=== PATIENT | male | born 1950 | race Caucasian/White ===

== ENCOUNTER 2020-11-14 01:13 | Inpatient (IN) | payer MEDICARE, OTHER, SELFPAY ==
[2020-11-14] VITALS (33 sets, daily range): BP systolic 73–145; BP diastolic 40–94; PULSE 70–137; RESP 16–27; TEMP 36.3–36.8; O2SAT 86–99; BMI 32.7
--- NOTE | ~2020-11-14 | XR_ITS ---
XR tibia fibula RT 2V 11/14/2020 02:17 Indication: Right leg and knee pain Procedure: 2 views right tibia/fibula Comparison: No prior studies for comparison. Findings: There is moderate-severe osteoarthritis of the right knee. No acute fracture is identified. No focal soft tissue abnormality. No radiopaque foreign bodies. Impression: 1: No acute fracture. 2: Moderate-severe osteoarthritis of the right knee. Reviewed, dictated and finalized at location A. RGLASS BOAT ASSEMBLY SUPERVISOR Impression: 1: No acute fracture. 2: Moderate-severe osteoarthritis of the right knee.
--- NOTE | ~2020-11-14 | CT_ITS ---
EXAMINATION: CT abdomen pelvis w con DATE: 11/14/2020 06:14 INDICATION: Trauma. Status post fall. TECHNIQUE: Computed tomography (CT) of the abdomen and pelvis was performed without and with 100 cc O mnipaque 350 intravenous contrast. The dose-length product was 1313.85 mGy-cm. Automated exposure con trol and iterative reconstruction technique were employed. COMPARISON: None. FINDINGS: Bibasilar atelectasis. No significant pleural or pericardial effusion. There is atheroscler osis without aneurysm. No lymphadenopathy. Nonobstructive bowel gas pattern. Fatty infiltration of the liver. Calcified granulomas of the spleen. The pancreas and adrenal glands are unremarkable. There are bilateral renal cysts. Nonobstructive bowel gas pattern. Moderate lumbar spondylosis with fusion at L4-S1. 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 IMPRESSION: 1. No acute abdominal abnormality. 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 Reviewed, dictated and finalized at location A. NESS STRATEGY MANAGER
--- NOTE | ~2020-11-14 | XR_ITS ---
XR chest 1V 11/14/2020 02:17 Indication: Status post fall. Chest pain. Procedure: AP portable view of the chest Comparison: No prior studies for comparison. Findings: Left basilar infiltrates. Heart size normal. Right lung clear. No significant effusion or p neumothorax. No acute osseous abnormality. Impression: 1: Left basilar infiltrates, most likely atelectasis. Pneumonia less favored. Reviewed, dictated and finalized at location A. ST MANAGEMENT TEACHER Impression: 1: Left basilar infiltrates, most likely atelectasis. Pneumonia less favored.
--- NOTE | ~2020-11-14 | XR_ITS ---
XR hand RT min 3V 11/14/2020 02:17 Indication: Right hand pain after fall Procedure: 3 views right hand Comparison: No prior studies for comparison. Findings: No acute fracture, subluxation or dislocation. Mild polyarticular osteoarthritis. No significant soft tissue abnormality. No radiopaque foreign bodies. Impression: 1: No acute fracture. Reviewed, dictated and finalized at location A. ATAL ICU COORDINATOR Impression: 1: No acute fracture.
--- NOTE | ~2020-11-14 | CT_ITS ---
EXAMINATION: CT cervical spine wo con DATE: 11/14/2020 01:58 INDICATION: Neck pain after fall TECHNIQUE: Computed tomography (CT) of the cervical spine was performed without intravenous contrast. The dose-length product was 505 mGy-cm. Automated exposure control and iterative reconstruction tech nique were employed. COMPARISON: None FINDINGS: No acute fracture, subluxation or dislocation. There is moderate multilevel spondylosis wit h marginal osteophytes and disc narrowing, most advanced at C4-5, C5-6 and C6-7. There is mild multil evel uncinate and facet hypertrophy. Lung apices are unremarkable. Mild emphysema. There is atheroscl erosis of the carotid arteries. No significant paraspinal soft tissue abnormality. IMPRESSION: 1. No acute abnormality of the cervical spine. Reviewed, dictated and finalized at location A. DROUS AMMONIA PRODUCTION SUPERVISOR
--- NOTE | ~2020-11-14 | XR_ITS ---
XR hip RT 2V w AP pelvis 11/14/2020 03:14 Indication: Hip pain after trauma Procedure: AP pelvis and 2 views right hip Comparison: No prior studies for comparison. Findings: Pelvic rings intact. There is sclerosis of the femoral heads bilaterally, consistent with a vascular necrosis. There are surgical changes consistent with fusion at the lumbosacral junction. No acute fracture or traumatic malalignment. Sacral foramen are symmetric. Impression: 1: No acute fracture. 2: Avascular necrosis of the femoral heads. Reviewed, dictated and finalized at location A. ENT SUCCESS COUNSELOR Impression: 1: No acute fracture. 2: Avascular necrosis of the femoral heads.
--- NOTE | ~2020-11-14 | CT_ITS ---
EXAMINATION: CT BRAIN W/O DATE: 11/14/2020 01:57 INDICATION: Status post fall. Head injury. TECHNIQUE: Computed tomography (CT) of the head was performed without intravenous contrast. The dose- length product was 681.00 mGy-cm. The mA was adjusted according to patient size. Iterative reconstruc tion technique was employed. COMPARISON: CT dated 06/22/2019 FINDINGS: Normal brain parenchymal volume for age. Normal judge-white differentiation. No acute intrac ranial hemorrhage, infarction, mass or mass effect. There are scattered mild periventricular and subcortical white matter changes, most likely related to small vessel ischemic disease (microangiopathy). No ventriculomegaly or midline shift. Midline sagittal images demonstrate a normal corpus callosum, c raniovertebral junction and sella turcica. Basilar cisterns are patent. There is intracranial atheros clerosis. Paranasal sinuses and mastoids are pneumatized. No depressed skull fractures. IMPRESSION: 1. No acute intracranial abnormality. Reviewed, dictated and finalized at location A. ILE BAG SEWER
--- NOTE | 2020-11-14 01:33 | ED.FALL ---
HPI - Fall General Chief Complaint: Fall Stated Complaint: fall Time Seen by Provider: 11/14/20 01:20 Source: RN notes reviewed History of Present Illness HPI Narrative: Patient presents to emergency department from home via EMS for a fall. Patient states he was [place] this evening. The patient drove himself home and states when he got the car he tripped on the curb and struck his right leg on the door and then fell to the ground. Patient also states that when he fell he struck his face on the ground with swelling of his upper lip. He states that today he is unable to get up and EMS was called states that once EMS arrived they were able to get him to his feet he has been able to walk since that time. Patient has a large hematoma over his right lower leg as well as swelling to his upper lip he states he is on Eliquis he denies any loss of consciousness denies any chest pain shortness of breath nausea vomiting diarrhea or any other symptoms Related Data Home Medications Medication Instructions Recorded Confirmed allopurinol 200 mg PO DAILY 11/14/20 atorvastatin [Lipitor] 40 mg PO HS 11/14/20 carvedilol [Coreg] 6.25 mg PO BID 11/14/20 cholecalciferol (vitamin D3) 50 mcg PO DAILY 11/14/20 clonidine 1 patch TRANSDERMAL WEEKLY 11/14/20 diclofenac sodium 2 g TOPICAL QID 11/14/20 furosemide [Lasix] 40 mg PO DAILY 11/14/20 hydralazine 50 mg PO TID 11/14/20 hydrocodone-acetaminophen 1 tablet PO TID 11/14/20 ipratropium-albuterol 1 puff INHALATION QID 11/14/20 lidocaine 1 applic TOPICAL QID PRN 11/14/20 losartan 100 mg PO DAILY 11/14/20 metformin 500 mg PO BID 11/14/20 thiamine HCl (vitamin B1) 100 mg PO DAILY 11/14/20 Allergies Allergy/AdvReac Type Severity Reaction Status Date / Time amlodipine Allergy Unknown Verified 01/11/18 08:31 gabapentin Allergy Unknown Verified 01/11/18 08:32 Review of Systems Review of Systems: Narrative: Gen.: Denies fevers or chills Eyes: Denies eye pain or visual change ENT: Denies congestion Respiratory: Denies shortness of breath or cough CV: Denies chest pain or palpitations GI: Denies abdominal pain nausea, emesis or diarrhea Musculoskeletal: See HPI Neuro: Denies numbness, tingling, weakness or focal weakness Skin: Denies rash Except as documented, all other systems reviewed and negative [facility] [place] Past Medical History Medical History (Updated 11/14/20 @ 07:03 by Garrett Carrillo DO) Diabetes mellitus Family History Family History (Updated 01/11/18 @ 08:39 by DOCTOR UNKNOWN) Mother Cerebrovascular accident, Onset Age: 81 Father Family history of cardiomyopathy, Onset Age: 67 Social History Social History Smoking status: Former smoker Smoking end date: 11/05/83 Exam Narrative: Exam Narrative: APPEARANCE: No acute distress, nontoxic, resting in bed EYES: PERRL HEENT: Normocephalic, there is swelling of the upper lip no laceration seen there is mild abrasion over the nasal bridge bilateral nares are patent with no dried blood seen, no facial tenderness full range of motion of the jaw without pain or mucosa moist Neck: Supple no midline tenderness palpation for range of motion without pain RESPIRATORY: No respiratory distress Clear to auscultation bilaterally with no rhonchi wheezing or rales. CARDIOVASCULAR: Regular rate and rhythm without murmurs rubs or gallops. ABDOMINAL: Soft, nontender, nondistended, no rebound or guarding MUSCULOSKELETAl: Moves all extremities. No clubbing, cyanosis or edema. Right lower extremity has a large hematoma over the right anterior lateral leg midway up the hong the terms of the ankle or knee with full range of motion of both no tenderness left lower extremity or left upper extremity no tenderness of the right shoulder or elbow or wrist, the right lateral hand has some ecchymosis present full flexion-extension of all 5 MCP and IP joint
[2020-11-14] MEDS: TETANUS,DIPHTHERIA,AC PERTUSSIS ADULT (0.5 ML) BOOSTRIX IM (02:18)
--- NOTE | 2020-11-14 02:56 | PC.NURSE ---
right leg elevated. pedal pulses doppled.
--- NOTE | 2020-11-14 03:40 | PC.NURSE ---
attempted to ambulate pt using pt's cane. pt was unable to take more than 2 steps before becoming dizzy and nauseous. MD at bedside. new orders given. pt returned to bed and placed back on monitor.
--- NOTE | 2020-11-14 03:45 | ECG_ITS ---
Measurements Intervals [place] Rate: 89 P: MD: 0 QRS: -23 QRSD: 98 T: 46 QT: 374 QTc: 456 Interpretive Statements ATRIAL FIBRILLATION BORDERLINE R WAVE PROGRESSION, ANTERIOR LEADS BORDERLINE ST-T WAVE ABNORMALITY- LAT/HIGH LAT LEADS BASELINE WANDER- I, II, AVR, V6 ABNORMAL ECG Electronically Signed On 11-14-2020 7:41:04 DIVISION ORDER ANALYST by Zeke Travis D.O.
--- NOTE | 2020-11-14 04:02 | PC.NURSE ---
pt informed staff that he took his clonidine, hydralazine, losartan, lipitor, metformin, and hydrocodone just prior to EMS bringing him into the ED.
[2020-11-14 04:17] LABS: Basophils Absolute Auto 0.1 K/mm3 (0.0-0.1); Basophils Percent Auto 0.4 % (0.2-1.2); Eosinophils Percent Auto 0.1 % (0-4.4); Hematocrit 35.6 % (42.0-52.0); Hemoglobin 11.6 g/dL (14.0-18.0); Immature Granulocyte Percent A 0.7 % (0-0.5); Immature Platelet Fraction Pct 19.8 % (0.9-11.2); Lymphocytes Absolute Auto 1.67 K/mm3 (0.9-3.2); Mean Corpuscular HGB Conc 32.6 g/dl (32-36); Mean Corpuscular Hemoglobin 30.1 pg (26-34); Mean Corpuscular Volume 92.5 fl (80-100); Mean Platelet Volume 13.8 fl (7.4-10.4); Monocytes Absolute Auto 0.9 K/mm3 (0.1-0.6); Monocytes Percent Auto 6.2 % (2.6-8.5); Neutrophils Absolute Auto 11.2 K/mm3 (1.3-6.7); Neutrophils Percent Auto 80.6 % (45.5-73.1); Platelet Count Result 149 k/mm3 (150-375); Red Blood Count 3.85 M/mm3 (4.6-6.20); Red Cell Distribution Width 14.3 % (11.5-14.5); White Blood Count 13.9 K/mm3 (4.5-10.0)
[2020-11-14 04:28] LABS: INR 1.4; Partial Thromboplastin Time 36.3 SECONDS (22.3-36.8); Prothrombin Time 18.2 Seconds (11.1-14.7)
[2020-11-14 04:31] LABS: Ethanol 115 mg/dL (<10)
[2020-11-14] MEDS: SODIUM CHLORIDE 0.9% IV 1,000 ML 999 ML IV CONT ×2 (04:35→05:34)
[2020-11-14 04:38] LABS: Alanine Aminotransferase 23 U/L (4-50); Albumin Level 3.8 g/dL (3.5-5.1); Alkaline Phosphatase 113 U/L (38-126); Anion Gap 20 mmol/L (8-16); Aspartate Amino Transferase 35 U/L (17-59); Bilirubin,Total 1.2 mg/dL (0.2-1.3); Blood Urea Nitrogen 20 mg/dL (9-20); Calcium 8.3 mg/dL (8.4-10.2); Carbon Dioxide 19 mmol/L (22-30); Chloride 97 mmol/L (98-107); Estimated CRCL calculation 69 ml/min; Estimated Glomerular Filt Rate > 60; Glucose 53 mg/dL (75-110); Potassium 3.7 mmol/L (3.4-5.0); Sodium 136 mmol/L (137-145)
[2020-11-14] MEDS: ONDANSETRON INJ 4 MG/2 ML VIAL IV PUSH (04:56)
[2020-11-14 04:59] LABS: Add Urine Microscopic? YES; Appearance Urine Clear (Clear); Bilirubin Urine Negative (Negative); Blood Urine Negative (Negative); Color Urine Yellow (Yellow); Glucose Urine UA Negative (Negative); Ketones Urine Negative (Negative); Leukocyte Esterase Ur Negative LEU/UL (Negative); Mucus Urine Rare /lpf; Nitrate Urine Negative (Negative); Protein Urine 1+ mg/dL (Negative); RBC Urine 0-2 /hpf (0-2); Specific Grav Ur 1.011 (1.001-1.035); Squamous Epithelial Cell Urine Rare /hpf (Few); Urobilinogen Urine Negative mg/dL (<2.0); WBC Urine 0-3 /hpf
[2020-11-14 05:01] LABS: Creatine Kinase 236 U/L (55-170)
[2020-11-14 05:28] LABS: Glucose Point of Care 45 (65-105)
[2020-11-14] MEDS: DEXTROSE 50% 25 GM/50 ML SYRINGE IV PUSH (05:35)
[2020-11-14 06:15] LABS: Glucose Point of Care 98 (65-105)
[2020-11-14] MEDS: ONDANSETRON INJ 4 MG/2 ML VIAL (07:56)
--- NOTE | 2020-11-14 07:56 | PC.NURSE ---
Patient vomiting at this time, verbal order recieved for zofran [address] Parker.
--- NOTE | 2020-11-14 08:10 | ADMGEN ---
This patient, Eric Kirk, was admitted to 2 Medical Room 251-01. Patient/family oriented to hospital policies and general routines including ID bracelet, bed and alarms, visiting hours, pain management, procedures, bathroom and other care routines, personal items, smoking policy, room service/diet, and visiting hours. Information on how to activate the Rapid Response Team has been discussed. Patient/Family are encouraged to report perceived risks to care and to ask questions if they do not understand what they are told or what they should do.
[2020-11-14] MEDS: DEXTROSE 5%/0.45% SOD CHL 1,000 ML 100 ML IV CONT ×2 (08:15→19:07)
[2020-11-14 08:55] LABS: Magnesium 1.4 mg/dL (1.6-2.3)
[2020-11-14] MEDS: HYDROcodone/acetaminophen (*CRX) 10-325 MG TABLET 1 TAB PO (11:42)
[2020-11-14] MEDS: MAGNESIUM SULF 2 GM/WATER 50ML 2 GM/50 ML BAG IVPB (11:43)
[2020-11-14 11:47] LABS: Glucose Point of Care 126 (65-105)
[2020-11-14] MEDS: cloNIDine HCL 0.2 MG TABLET PO (12:15)
[2020-11-14] MEDS: hydrALAZINE HCL 50 MG TABLET PO (12:15)
[2020-11-14] MEDS: CALCIUM CARBONATE (TUMS) 500 MG (200 MG ELEMENTAL) PO (12:15)
[2020-11-14] MEDS: DULoxetine HCL 30 MG CAPSULE.DR PO (12:16)
--- NOTE | 2020-11-14 12:47 | PM.IMHP ---
H&P: HPI History of Present Illness Date/Time: 11/14/20 12:47 Chief Complaint: Fall Narrative: Eric Kirk is a 70 year old male patient is 70-year-old male with history of hypertension, diabetes and atrial fibrillation for which patient is taking Eliquis, on 11/13 evening patient went to [facility] to meet with his friend had a few drinks, drove himself home while coming out of his car going to hurt his home patient tripped and fell landed on his face and injured his upper lips, teeth and nose as well as patient has a hematoma on his right lower extremity, patient denies any prodrome symptoms of dizziness palpitation chest pain prior to fall, patient states he normally does not drinks, only occasionally, currently patient complains of bleeding from upper teeth but no loose teeth. He denies any chest pain shortness of breath palpitation fever or chills. Review of Systems Review of Systems: All systems reviewed & are unremarkable except as noted in HPI and below PMFSH Past Medical History Medical History (Updated 11/14/20 @ 12:58 by Deng Baker MD) Atrial fibrillation Diabetes mellitus Family History Family History (Updated 11/14/20 @ 09:32 by Rena Sanches RN) Mother Cerebrovascular accident, Onset Age: 81 Lung cancer Cervical cancer Father Family history of cardiomyopathy, Onset Age: 67 Hypertension Heart attack Social History Social History Smoking packs per day: 2 Smoking cigarettes per day: 40.0 Years smoked: 50 Smoking pack-years: 100.00 Smoking status: Former smoker Alcohol intake: current Substance use type: marijuana Other substance usage details: Intermittent drinking, has cut back. Edible Marijuana occasionally for pain Gender identity (if verbalized by the patient): Male Sexual Orientation (if Verbalized by the Patient): Straight or Heterosexual Spiritual care concerns: No Meds Home Medications and Allergies Home Medications Medication Instructions Recorded Confirmed Type allopurinol 200 mg PO BID 11/14/20 11/14/20 History apixaban [Eliquis] 5 mg PO BID 11/14/20 11/14/20 History atorvastatin [Lipitor] 80 mg PO HS 11/14/20 11/14/20 History carvedilol [Coreg] 12.5 mg PO BID 11/14/20 11/14/20 History clonidine HCl 0.2 mg PO TID 11/14/20 11/14/20 History duloxetine 30 mg PO DAILY 11/14/20 11/14/20 History furosemide [Lasix] 40 mg PO BID 11/14/20 11/14/20 History hydralazine 50 mg PO TID 11/14/20 11/14/20 History hydrocodone-acetaminophen 1 tablet PO TID 11/14/20 11/14/20 History ipratropium-albuterol 1 puff INHALATION QID PRN 11/14/20 11/14/20 History losartan 100 mg PO DAILY 11/14/20 11/14/20 History metformin 1,000 mg PO BID 11/14/20 11/14/20 History Allergies Allergy/AdvReac Type Severity Reaction Status Date / Time amlodipine Allergy Unknown Swelling Verified 11/14/20 09:04 gabapentin Allergy Unknown Hallucinati Verified 11/14/20 09:04 ng morphine AdvReac Intermediate Nausea and Verified 11/14/20 09:04 Vomiting Vital Signs Vital Signs - 24 hr 11/14/20 01:10 11/14/20 02:19 11/14/20 04:15 Temperature 97.8 F Pulse Rate 89 70 97 Respiratory Rate 18 18 18 Blood Pressure 145/94 H 110/63 Pulse Oximetry 97 96 95 11/14/20 04:22 11/14/20 04:30 11/14/20 04:31 Temperature Pulse Rate 85 97 Respiratory Rate 23 H 21 H 20 Blood Pressure 87/50 L 91/47 L Pulse Oximetry 93 94 11/14/20 04:32 11/14/20 04:45 11/14/20 04:46 Temperature Pulse Rate 92 93 93 Respiratory Rate 27 H 22 H 22 H Blood Pressure 109/55 L Pulse Oximetry 94 95 96 11/14/20 05:00 11/14/20 05:01 11/14/20 05:15 Temperature Pulse Rate 90 93 Respiratory Rate 25 H 19 16 Blood Pressure 95/48 L Pulse Oximetry 86 L 90 91 11/14/20 05:23 11/14/20 05:30 11/14/20 05:35 Temperature Pulse Rate 105 H 109 H 105 H Respiratory Rate 21 H 19 17 Blood Pressure 80/54 L 103/52 L
[2020-11-14] MEDS: AMOXICILLIN 500 MG CAPSULE PO ×2 (13:25→21:00)
[2020-11-14] MEDS: allopurinoL 100 MG TABLET 200 MG PO (16:52)
[2020-11-14] MEDS: metFORMIN HCL 500 MG TABLET 1000 MG PO (16:52)
[2020-11-14 18:40] LABS: Glucose Point of Care 171 (65-105)
[2020-11-14] MEDS: ATORVASTATIN 40 MG TABLET PO (21:00)
[2020-11-14 21:46] LABS: Glucose Point of Care 169 (65-105)
[2020-11-15] VITALS (14 sets, daily range): BP systolic 111–138; BP diastolic 51–59; PULSE 74–104; RESP 16–20; TEMP 36.2–36.4; O2SAT 98–100
[2020-11-15 05:51] LABS: Basophils Percent Auto 0.2 % (0.2-1.2); Eosinophils Absolute Auto 0.1 K/mm3 (0-0.3); Eosinophils Percent Auto 0.6 % (0-4.4); Hematocrit 25.1 % (42.0-52.0); Hemoglobin 8.3 g/dL (14.0-18.0); Immature Granulocyte Absolute 0.03 K/mm3 (0.00-0.031); Immature Granulocyte Percent A 0.4 % (0-0.5); Immature Platelet Fraction Pct 15.3 % (0.9-11.2); Lymphocytes Absolute Auto 0.95 K/mm3 (0.9-3.2); Lymphocytes Percent Auto 11.8 % (18.3-44.2); Mean Corpuscular HGB Conc 33.1 g/dl (32-36); Mean Corpuscular Hemoglobin 30.5 pg (26-34); Mean Corpuscular Volume 92.3 fl (80-100); Monocytes Absolute Auto 0.8 K/mm3 (0.1-0.6); Monocytes Percent Auto 9.5 % (2.6-8.5); Neutrophils Absolute Auto 6.2 K/mm3 (1.3-6.7); Neutrophils Percent Auto 77.5 % (45.5-73.1); Platelet Count Result 100 k/mm3 (150-375); Red Blood Count 2.72 M/mm3 (4.6-6.20); Red Cell Distribution Width 14.3 % (11.5-14.5)
[2020-11-15 06:13] LABS: Alanine Aminotransferase 19 U/L (4-50); Albumin Level 2.9 g/dL (3.5-5.1); Alkaline Phosphatase 84 U/L (38-126); Anion Gap 4 mmol/L (8-16); Aspartate Amino Transferase 34 U/L (17-59); Bilirubin,Total 1.6 mg/dL (0.2-1.3); Blood Urea Nitrogen 21 mg/dL (9-20); Calcium 7.8 mg/dL (8.4-10.2); Carbon Dioxide 31 mmol/L (22-30); Chloride 102 mmol/L (98-107); Estimated CRCL calculation 85 ml/min; Estimated Glomerular Filt Rate > 60; Glucose 149 mg/dL (75-110); Magnesium 1.9 mg/dL (1.6-2.3); Potassium 3.4 mmol/L (3.4-5.0); Sodium 137 mmol/L (137-145)
[2020-11-15] MEDS: DEXTROSE 5%/0.45% SOD CHL 1,000 ML 100 ML IV CONT ×3 (06:13→23:25)
[2020-11-15] MEDS: AMOXICILLIN 500 MG CAPSULE PO ×3 (06:14→21:06)
[2020-11-15 06:32] LABS: Acanthocytes 1+ (NORMAL); Ovalocytes 1+ (NORMAL)
[2020-11-15 08:27] LABS: Glucose Point of Care 182 (65-105)
[2020-11-15] MEDS: DULoxetine HCL 30 MG CAPSULE.DR PO (09:16)
[2020-11-15] MEDS: allopurinoL 100 MG TABLET 200 MG PO ×2 (09:16→17:34)
[2020-11-15] MEDS: MAGNESIUM OXIDE 400 MG TABLET PO (09:16)
[2020-11-15] MEDS: FUROSEMIDE 40 MG TABLET PO ×2 (09:16→17:35)
[2020-11-15] MEDS: cloNIDine HCL 0.2 MG TABLET PO ×3 (09:17→23:26)
[2020-11-15] MEDS: metFORMIN HCL 500 MG TABLET 1000 MG PO ×2 (09:18→17:35)
[2020-11-15] MEDS: hydrALAZINE HCL 50 MG TABLET PO ×3 (09:18→23:26)
[2020-11-15] MEDS: LOSARTAN POTASSIUM 100 MG TABLET PO (09:19)
[2020-11-15] MEDS: carvediloL 6.25 MG TABLET PO ×2 (09:20→21:05)
[2020-11-15] MEDS: HYDROcodone/acetaminophen (*CRX) 10-325 MG TABLET 1 TAB PO ×3 (09:28→23:26)
[2020-11-15 12:30] LABS: Glucose Point of Care 159 (65-105)
--- NOTE | 2020-11-15 14:34 | PM.IMPN ---
Progress Note: A&P Assessment and Plan (1) Alcohol intoxication: Code(s): F10.929 - Alcohol use, unspecified with intoxication, unspecified Status: Acute Assessment and Plan: 11/15/20 14:34 Eric Kirk is a 70 year old male patient is 70-year-old male with history of hypertension, diabetes and atrial fibrillation for which patient is taking Eliquis, on 11/13 evening patient went to [facility] to meet with his friends had a few drinks, drove himself home while coming out of his car going to his home patient tripped and fell landed on his face and injured his upper lips, teeth and nose as well as patient has a hematoma on his right lower extremity, patient denies any prodrome symptoms of dizziness palpitation chest pain prior to fall, patient states he normally does not drinks, only occasionally, currently patient complains of bleeding from upper teeth but no loose teeth. He denies any chest pain shortness of breath palpitation fever or chills. 11/15 today patient c/o right hip pain and hematoma on right lower extremities, we are holding patient eliquis for A. Fib, patient stats pain in the hip worse x-ray of the hip did not show any fracture but patient has significant avascular necrosis of the femoral heads. we have consulted Dr. Nguyen for his recommendation. will have PT/OT evaluate the patient and further recommendation to follow (2) Hypoglycemia: Code(s): E16.2 - Hypoglycemia, unspecified Status: Acute Assessment and Plan: Patient history of diabetes patient took metformin prior to coming to emergency depart will continue to monitor (3) Diabetes mellitus: Code(s): E11.9 - Type 2 diabetes mellitus without complications Status: Acute Assessment and Plan: Will continue home regimen and monitor (4) Atrial fibrillation: Code(s): I48.91 - Unspecified atrial fibrillation Status: Acute Assessment and Plan: Rate is controlled will hold Eliquis as patient has a large hematoma and bleeding from his nose and mouth. Subjective Date/time seen: 11/15/20 14:34 Eric Kirk is a 70 year old male patient is 70-year-old male with history of hypertension, diabetes and atrial fibrillation for which patient is taking Eliquis, on 11/13 evening patient went to [facility] to meet with his friends had a few drinks, drove himself home while coming out of his car going to his home patient tripped and fell landed on his face and injured his upper lips, teeth and nose as well as patient has a hematoma on his right lower extremity, patient denies any prodrome symptoms of dizziness palpitation chest pain prior to fall, patient states he normally does not drinks, only occasionally, currently patient complains of bleeding from upper teeth but no loose teeth. He denies any chest pain shortness of breath palpitation fever or chills. 11/15 today patient c/o right hip pain and hematoma on right lower extremities, we are holding patient tonio for A. Fib, patient stats pain in the hip worse x-ray of the hip did not show any fracture but patient has significant avascular necrosis of the femoral heads. we have consulted Dr. Nguyen for his recommendation. will have PT/OT evaluate the patient and further recommendation to follow Review of Systems Review of Systems: All systems reviewed & are unremarkable except as noted in HPI and below Exam Narrative: Exam Narrative: Patient is comfortable, NAD HEENT: eyes are clear and none icteric, there is a dried blood on his nostril and upper lip which is swollen, upper front teeh and gumline minimal blood. LUNGS:CTA HEART: Irregularly irregular ABD: BS+, Soft and nontender Lower extremities: no edema MS: Right hong there is about 8-10 cm hematoma no bleeding. SKIN: nonjaundiced Neuro: grossly intact. Objective Data Vital Signs Vital Signs: Vital Signs - 24 hr 11/14/20 16:00 11/14/20 16:32 11/14/20 16:35 Temperature Pulse Rate 85 89 85 Re
[2020-11-15 16:35] LABS: Glucose Point of Care 126 (65-105)
--- NOTE | 2020-11-15 20:27 | WPDCN ---
Assessment and Plan Additional Plan Tense hematoma > 24 hours. No neurologic findings. Suspect hematoma may be liquid since he is anticoagulated. Will make attempt to reduce the hematoma tension at the bedside. HPI Data of Consult Date/Time: 11/15/20 20:27 Requesting Physician: Rena Flores DO Primary Care Provider: Iron Thrasher, Consult Narrative Narrative: Eric Kirk is a 70 year old male admitted after a fall while intoxicated last evening. Im asked to see him regarding a 6 cm hematoma with cyanotic overlying skin with a 4 cm bulla. Pt is alert and conversant. He is able to move his ankle well, including dorsiflexion of his foot and toes. He has peripheral neuropathy form DM and Agent Walker from [facility] he says. The local site is tense but not painful. There is generalized edema of the leg below the knee. The bulla was easily ruptured. Impending skin necrosis. Says he doesn't usually drink alcohol but does use marijuana to some degree. He has a 100 pack year smoking history. Type 2 diabetic.Creat 1.1, Hb 8.7 from 11.3 in 24 hours. Plts decreased WBC 8.0 On Eliquis for a-fib. [facility] Past Medical History Medical History Atrial fibrillation Diabetes mellitus Family History Family History (Updated 11/14/20 @ 09:32 by Rena Sanches RN) Mother Cerebrovascular accident, Onset Age: 81 Lung cancer Cervical cancer Father Family history of cardiomyopathy, Onset Age: 67 Hypertension Heart attack Social History Social History Smoking packs per day: 2 Smoking cigarettes per day: 40.0 Years smoked: 50 Smoking pack-years: 100.00 Smoking status: Former smoker Alcohol intake: current Substance use type: marijuana Other substance usage details: Intermittent drinking, has cut back. Edible Marijuana occasionally for pain Gender identity (if verbalized by the patient): Male Sexual Orientation (if Verbalized by the Patient): Straight or Heterosexual Spiritual care concerns: No Meds Home Medications and Allergies Home Medications Medication Instructions Recorded Confirmed Type allopurinol 200 mg PO BID 11/14/20 11/14/20 History apixaban [Eliquis] 5 mg PO BID 11/14/20 11/14/20 History atorvastatin [Lipitor] 80 mg PO HS 11/14/20 11/14/20 History carvedilol [Coreg] 6.25 mg PO BID 11/14/20 11/14/20 History clonidine HCl 0.2 mg PO TID 11/14/20 11/14/20 History duloxetine 30 mg PO DAILY 11/14/20 11/14/20 History furosemide [Lasix] 40 mg PO BID 11/14/20 11/14/20 History hydralazine 50 mg PO TID 11/14/20 11/14/20 History hydrocodone-acetaminophen 1 tablet PO TID 11/14/20 11/14/20 History ipratropium-albuterol 1 puff INHALATION QID PRN 11/14/20 11/14/20 History losartan 100 mg PO DAILY 11/14/20 11/14/20 History metformin 1,000 mg PO BID 11/14/20 11/14/20 History Allergies Allergy/AdvReac Type Severity Reaction Status Date / Time amlodipine Allergy Unknown Swelling Verified 11/14/20 09:04 gabapentin Allergy Unknown Hallucinati Verified 11/14/20 09:04 ng morphine AdvReac Intermediate Nausea and Verified 11/14/20 09:04 Vomiting Vital Signs Vital Signs - 24 hr 11/14/20 21:37 11/15/20 00:00 11/15/20 02:55 Temperature 36.3 C L 36.3 C L Pulse Rate 87 86 95 Respiratory Rate 16 20 Blood Pressure 124/59 L 138/59 L Pulse Oximetry 99 98 11/15/20 04:00 11/15/20 05:23 11/15/20 08:00 Temperature 36.2 C L Pulse Rate 91 90 104 H Respiratory Rate 16 Blood Pressure 120/56 L Pulse Oximetry 100 11/15/20 09:19 11/15/20 09:20 11/15/20 12:00 Temperature Pulse Rate 101 H 88 Respiratory Rate 16 Blood Pressure Pulse Oximetry 98 11/15/20 14:00 11/15/20 16:00 Temperature 36.4 C Pulse Rate 92 102 H Respiratory Rate 18 Blood Pressure 137/51 L Pulse Oximetry 98 Results Labs CBC & Ch
[2020-11-15] MEDS: ATORVASTATIN 40 MG TABLET PO (21:05)
--- NOTE | 2020-11-15 21:06 | PM.PROC ---
Procedure Note - Detailed Date of procedure: 11/15/20 Pre-op diagnosis: Hyperglycemia, orthostatic hypotension, contusion Hematoma of the right anterior leg Post-op diagnosis: same Procedure performed: Incision and drainage of hematoma right anterior leg at the bedside Description of procedure: The patient and signed a consent for this procedure to decrease the tension of the hematoma. This procedure was done with aseptic technique. No local anesthetic was utilized the patient had no pain. The site was prepped with Betadine. A 11. Blade was used to dailey the skin subcutaneous tissue and liquid blood was drained spontaneously. Elevation of the wound edges with the butt end of the scalpel blade did not increase the flow, nor did direct digital pressure increase the flow. The patient indicated he felt some relief after the procedure. An estimated 10 ml of liquid blood were drained. No clot was seen. A moderately compressive dressing was applied with gauze, ABD and Kerlix roll and WIL bandage. Anesthesia: none Surgeon: Garrett Lizama MD
[2020-11-15 21:17] LABS: Glucose Point of Care 166 (65-105)
--- NOTE | 2020-11-15 21:36 | PC.NURSE ---
Consent for Incision and drainage signed and done at bedside by Dr. Lizama. Let wrapped with 4x4's abd kerlix and 6 inch safia wrap.
[2020-11-16] VITALS (12 sets, daily range): BP systolic 98–111; BP diastolic 57–67; PULSE 76–103; RESP 15–18; TEMP 36.4–36.8; O2SAT 98–99
[2020-11-16 06:07] LABS: Alanine Aminotransferase 18 U/L (4-50); Albumin Level 2.7 g/dL (3.5-5.1); Alkaline Phosphatase 75 U/L (38-126); Anion Gap 2 mmol/L (8-16); Aspartate Amino Transferase 33 U/L (17-59); Bilirubin,Total 1.6 mg/dL (0.2-1.3); Blood Urea Nitrogen 13 mg/dL (9-20); Calcium 7.4 mg/dL (8.4-10.2); Carbon Dioxide 32 mmol/L (22-30); Chloride 103 mmol/L (98-107); Estimated CRCL calculation 105 ml/min; Estimated Glomerular Filt Rate > 60; Glucose 145 mg/dL (75-110); Potassium 3.4 mmol/L (3.4-5.0); Sodium 137 mmol/L (137-145)
[2020-11-16] MEDS: CALCIUM CARBONATE (TUMS) 500 MG (200 MG ELEMENTAL) PO (06:44)
[2020-11-16] MEDS: DULoxetine HCL 30 MG CAPSULE.DR PO (08:00)
[2020-11-16] MEDS: MAGNESIUM OXIDE 400 MG TABLET PO (08:00)
[2020-11-16] MEDS: allopurinoL 100 MG TABLET 200 MG PO ×2 (08:00→17:15)
[2020-11-16] MEDS: carvediloL 6.25 MG TABLET PO ×2 (08:00→21:12)
[2020-11-16] MEDS: metFORMIN HCL 500 MG TABLET 1000 MG PO ×2 (08:00→17:16)
[2020-11-16] MEDS: FUROSEMIDE 40 MG TABLET PO ×2 (08:00→17:15)
[2020-11-16] MEDS: LOSARTAN POTASSIUM 100 MG TABLET PO (08:00)
[2020-11-16 08:01] LABS: Glucose Point of Care 147 (65-105)
[2020-11-16] MEDS: cloNIDine HCL 0.2 MG TABLET PO ×2 (08:01→17:15)
[2020-11-16] MEDS: hydrALAZINE HCL 50 MG TABLET PO (08:01)
[2020-11-16] MEDS: AMOXICILLIN 500 MG CAPSULE PO ×3 (08:01→21:12)
[2020-11-16] MEDS: HYDROcodone/acetaminophen (*CRX) 10-325 MG TABLET 1 TAB PO ×3 (08:03→23:53)
[2020-11-16] MEDS: POTASSIUM CHLORIDE 20 MEQ TABLET 40 MEQ PO (09:30)
--- NOTE | 2020-11-16 11:05 | PHAR ---
PT'S HOME MED COMBIVENT RESPIMAT MDI VERIFIED BY PHARMACY
--- NOTE | 2020-11-16 12:04 | PM.IMPN ---
Progress Note: A&P Assessment and Plan (1) Alcohol intoxication: Code(s): F10.929 - Alcohol use, unspecified with intoxication, unspecified Status: Acute Assessment and Plan: 11/16/20 12:04 Eric Kirk is a 70 year old male patient is 70-year-old male with history of hypertension, diabetes and atrial fibrillation for which patient is taking Eliquis, on 11/13 evening patient went to [facility] to meet with his friends had a few drinks, drove himself home while coming out of his car going to his home patient tripped and fell landed on his face and injured his upper lips, teeth and nose as well as patient has a hematoma on his right lower extremity, patient denies any prodrome symptoms of dizziness palpitation chest pain prior to fall, patient states he normally does not drinks, only occasionally, currently patient complains of bleeding from upper teeth but no loose teeth. He denies any chest pain shortness of breath palpitation fever or chills. 11/15 today patient c/o right hip pain and hematoma on right lower extremities, we are holding patient eliquis for A. Fib, patient stats pain in the hip worse x-ray of the hip did not show any fracture but patient has significant avascular necrosis of the femoral heads. we have consulted Dr. Nguyen for his recommendation. will have PT/OT evaluate the patient and further recommendation to follow 11/16 patient was seen by the surgeon yesterday and did I and D on hematoma, today patient states is feeling better he denies any bleeding, the chest pain shortness of breath, states he had been using inhaler a Combivent and Symbicort which he has not been getting it, I have asked his nurse to resume those medication from home, hemoglobin is low, patient denies any bleeding will continue to monitor, will have a PT OT evaluate the patient, seen by the surgeon and further recommendation to follow. (2) Hypoglycemia: Code(s): E16.2 - Hypoglycemia, unspecified Status: Acute Assessment and Plan: Patient history of diabetes patient took metformin prior to coming to emergency depart will continue to monitor (3) Diabetes mellitus: Code(s): E11.9 - Type 2 diabetes mellitus without complications Status: Acute Assessment and Plan: Will continue home regimen and monitor (4) Atrial fibrillation: Code(s): I48.91 - Unspecified atrial fibrillation Status: Acute Assessment and Plan: Rate is controlled will hold Eliquis as patient has a large hematoma and bleeding from his nose and mouth. Subjective Date/time seen: 11/16/20 12:04 Eric Kirk is a 70 year old male patient is 70-year-old male with history of hypertension, diabetes and atrial fibrillation for which patient is taking Eliquis, on 11/13 evening patient went to [facility] to meet with his friends had a few drinks, drove himself home while coming out of his car going to his home patient tripped and fell landed on his face and injured his upper lips, teeth and nose as well as patient has a hematoma on his right lower extremity, patient denies any prodrome symptoms of dizziness palpitation chest pain prior to fall, patient states he normally does not drinks, only occasionally, currently patient complains of bleeding from upper teeth but no loose teeth. He denies any chest pain shortness of breath palpitation fever or chills. 11/15 today patient c/o right hip pain and hematoma on right lower extremities, we are holding patient eliquis for A. Fib, patient stats pain in the hip worse x-ray of the hip did not show any fracture but patient has significant avascular necrosis of the femoral heads. we have consulted Dr. Nguyen for his recommendation. will have PT/OT evaluate the patient and further recommendation to follow 11/16 patient was seen by the surgeon yesterday and did I and D on hematoma, today patient states is feeling better he denies any bleeding, the chest pain shortness of breath, states he had been using inhal
[2020-11-16 13:15] LABS: Glucose Point of Care 109 (65-105)
[2020-11-16 17:42] LABS: Glucose Point of Care 114 (65-105)
--- NOTE | 2020-11-16 20:17 | WPDPN ---
Progress Note: A&P Additional Plan Hematoma right leg with questionable viability of overlying skin. Evacuate hematoma and debride as indicated right leg under general anesthesia. Exam Narrative: Exam Narrative: Has been out of bed today and has done some exercises. ROM of foot unchanged. Not c/o pain in leg. Hematoma swelling remains, but less tense. No clot expressible. Central skin area of the hematoma is cool to the touch as if non viable. Will check PLts and Hb on tomorrows labs. Objective Data Vital Signs Vital Signs: Vital Signs - 24 hr 11/15/20 21:05 11/15/20 21:29 11/15/20 22:00 Temperature 36.3 C L Pulse Rate 74 74 100 Respiratory Rate 18 18 Blood Pressure 111/56 L Pulse Oximetry 98 98 11/16/20 00:00 11/16/20 04:00 11/16/20 06:00 Temperature 36.8 C Pulse Rate 78 89 82 Respiratory Rate 16 Blood Pressure 108/57 L Pulse Oximetry 99 11/16/20 08:00 11/16/20 12:00 11/16/20 14:00 Temperature 36.6 C Pulse Rate 103 H 97 95 Respiratory Rate 15 Blood Pressure 98/67 L Pulse Oximetry 99 99 11/16/20 16:00 Temperature Pulse Rate 94 Respiratory Rate Blood Pressure Pulse Oximetry Intake/Output Intake/Output: Intake & Output 11/13/20 11/14/20 11/15/20 11/16/20 23:59 23:59 23:59 23:59 Intake Total 3500 4230 1040 Output Total 500 1425 1325 Balance 3000 2805 -285 Meds/Results Medications: Active Medications Generic Name Dose Route Start Last Admin Trade Name Freq PRN Reason Stop Dose Admin Hydrocodone Bitart/Acetaminophen 1 tab 11/15/20 09:00 11/16/20 17:15 Hydrocodone/Acetaminophen (*Crx) 10-325 Mg Tablet PO 1 tab 0000,0900,1700 HALLIE Administration Allopurinol 200 mg 11/14/20 17:00 11/16/20 17:15 Allopurinol 100 Mg Tablet PO 200 mg BID HALLIE Administration Amoxicillin 500 mg 11/14/20 14:00 11/16/20 14:35 Amoxicillin 500 Mg Capsule PO 500 mg Q8HR HALLIE Administration Atorvastatin Calcium 40 mg 11/14/20 21:00 11/15/20 21:05 Atorvastatin 40 Mg Tablet PO 40 mg HS HALLIE Administration Budesonide/Formoterol Fumarate 2 puff 11/16/20 20:00 Budesonide/Form 80-4.5 Mcg (*Sp) INHALATION Q12HRT [facility] Calcium Carbonate 200 mg 11/14/20 11:41 11/16/20 06:44 Calcium Carbonate (Tums) 500 Mg (200 Mg Elemental) PO 200 mg Q6H PRN Administration Indigestion Carvedilol 6.25 mg 11/14/20 21:00 11/16/20 08:00 Carvedilol 6.25 Mg Tablet PO 6.25 mg Q12HR HALLIE Administration Clonidine HCl 0.2 mg 11/15/20 09:00 11/16/20 17:15 Clonidine Hcl 0.2 Mg Tablet PO 0.2 mg 0000,0900,1600 [facility] Administration Duloxetine HCl 30 mg 11/14/20 09:00 11/16/20 08:00 Duloxetine Hcl 30 Mg Capsule.Dr PO 30 mg DAILY HALLIE Administration Furosemide 40 mg 11/14/20 17:00 11/16/20 17:15 Furosemide 40 Mg Tablet PO 40 mg BID HALLIE Administration Hydralazine HCl 50 mg 11/15/20 09:00 11/16/20 17:17 Hydralazine Hcl 50 Mg Tablet PO Not Given 0000,0900,1600 [facility] Losartan Potassium 100 mg 11/15/20 09:00 11/16/20 08:00 Losartan Potassium 100 Mg Tablet PO 100 mg DAILY HALLIE Administration Magnesium Oxide 400 mg 11/15/20 09:00 11/16/20 08:00 Magnesium Oxide 400 Mg Tablet PO 400 mg QAM [facility] Administration Metformin HCl 1,000 mg 11/14/20 17:00 11/16/20 17:16 Metformin Hcl 500 Mg Tablet PO 1,000 mg BID HALLIE Administration Radiology Results: ITS Impressions Abdomen/Pelvis CT 11/14/20 07:41 IMPRESSION: 1. No acute abdominal abnormality. 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 Chest X-Ray 11/14/20 08:28 Impression: 1: Left basilar infiltrates, most likely atelectasis. Pneumonia less favored. Tibia/Fibula X-Ray 11/14/20 08:33 Impression: 1: No acute fracture. 2: Moderate-severe osteoarthritis of the right knee. Hand X-Ray 11/14/20 08:36 Impression: 1: No acute fracture. Hip/Pelvis X-Ray 11/14/20 08:47 Impression:
[2020-11-16] MEDS: ATORVASTATIN 40 MG TABLET PO (21:12)
[2020-11-17] VITALS (28 sets, daily range): BP systolic 101–135; BP diastolic 50–85; PULSE 18–109; RESP 13–20; TEMP 36.3–37.6; O2SAT 95–100
[2020-11-17] MEDS: cloNIDine HCL 0.2 MG TABLET PO ×2 (00:01→09:15)
[2020-11-17 00:06] LABS: Glucose Point of Care 124 (65-105)
[2020-11-17 00:58] LABS: Hematocrit 20.3 % (42.0-52.0); Hemoglobin 6.6 g/dL (14.0-18.0)
[2020-11-17 02:32] LABS: Alanine Aminotransferase 19 U/L (4-50); Albumin Level 2.8 g/dL (3.5-5.1); Alkaline Phosphatase 87 U/L (38-126); Anion Gap 0 mmol/L (8-16); Aspartate Amino Transferase 33 U/L (17-59); Bilirubin,Total 2.3 mg/dL (0.2-1.3); Blood Urea Nitrogen 12 mg/dL (9-20); Calcium 7.9 mg/dL (8.4-10.2); Carbon Dioxide 34 mmol/L (22-30); Chloride 102 mmol/L (98-107); Estimated CRCL calculation 119 ml/min; Estimated Glomerular Filt Rate > 60; Glucose 131 mg/dL (75-110); Potassium 3.6 mmol/L (3.4-5.0); Sodium 136 mmol/L (137-145)
[2020-11-17] MEDS: SODIUM CHLORIDE 0.9% IV 250 ML 30 ML IV CONT (03:57)
--- NOTE | 2020-11-17 07:48 | WPDHPUPDATE1 ---
History and Physical Update Update Date/Time: 11/17/20 07:48 History and Physical has been reviewed, including an updated exam of the patient. There are NO changes in the patient's condition. Risks, benefits, and alternatives have been discussed and questions answered. Patient agrees to proceed with procedure.
--- NOTE | 2020-11-17 08:57 | PCOTNOTE ---
Attempted OT treatment, per RN patient needs to receive blood transfusion and to wait until that is finished. Will attempt at later time.
[2020-11-17] MEDS: hydrALAZINE HCL 50 MG TABLET PO (09:14)
[2020-11-17] MEDS: AMOXICILLIN 500 MG CAPSULE PO ×2 (09:14→21:31)
[2020-11-17] MEDS: metFORMIN HCL 500 MG TABLET 1000 MG PO ×2 (09:14→17:49)
[2020-11-17] MEDS: LOSARTAN POTASSIUM 100 MG TABLET PO (09:14)
[2020-11-17] MEDS: HYDROcodone/acetaminophen (*CRX) 10-325 MG TABLET 1 TAB PO ×2 (09:15→17:49)
[2020-11-17] MEDS: DULoxetine HCL 30 MG CAPSULE.DR PO (09:15)
[2020-11-17] MEDS: carvediloL 6.25 MG TABLET PO ×2 (09:15→21:31)
[2020-11-17] MEDS: FUROSEMIDE 40 MG TABLET PO ×2 (09:15→17:49)
[2020-11-17] MEDS: MAGNESIUM OXIDE 400 MG TABLET PO (09:15)
[2020-11-17] MEDS: allopurinoL 100 MG TABLET 200 MG PO ×2 (09:15→17:49)
[2020-11-17] MEDS: SODIUM CHLORIDE 0.9% IV 250 ML 30 ML (09:16)
[2020-11-17 09:32] LABS: Glucose Point of Care 122 (65-105)
--- NOTE | 2020-11-17 10:30 | PM.IMPN ---
Progress Note: A&P Assessment and Plan (1) Alcohol intoxication: Code(s): F10.929 - Alcohol use, unspecified with intoxication, unspecified Status: Acute Assessment and Plan: On 11/15 patient c/o right hip pain and hematoma on right lower extremities, we are holding patient eliquis for A. Fib. Patient is getting blood transfusion today. If hemoglobin stays okay patient go for surgery today. (2) Hypoglycemia: Code(s): E16.2 - Hypoglycemia, unspecified Status: Acute Assessment and Plan: Patient history of diabetes patient took metformin prior to coming to emergency depart will continue to monitor (3) Diabetes mellitus: Code(s): E11.9 - Type 2 diabetes mellitus without complications Status: Acute Assessment and Plan: Will continue home regimen and monitor (4) Atrial fibrillation: Code(s): I48.91 - Unspecified atrial fibrillation Status: Acute Assessment and Plan: Rate is controlled will hold Eliquis as patient has a large hematoma and bleeding from his nose and mouth. Subjective Date/time seen: 11/17/20 10:30 Interval history: Patient was seen during the morning rounds today. Patient denies any shortness of breath or chest pain. No abdominal pain nausea vomiting. Pt willing to undergo any treatment suggested for his right leg. Review of Systems Review of Systems: All systems reviewed & are unremarkable except as noted in HPI and below Exam Narrative: Exam Narrative: Patient is comfortable, NAD HEENT: eyes are clear and none icteric, there is a dried blood on his nostril and upper lip which is swollen, upper front teeh and gumline minimal blood. LUNGS:CTA HEART: Irregularly irregular ABD: BS+, Soft and nontender Lower extremities: no edema MS: Right hong there is about 8-10 cm hematoma no bleeding. SKIN: nonjaundiced Neuro: grossly intact. Objective Data Vital Signs Vital Signs: Vital Signs - 24 hr 11/16/20 12:00 11/16/20 14:00 11/16/20 16:00 Temperature 36.6 C Pulse Rate 97 95 94 Respiratory Rate 15 Blood Pressure 98/67 L Pulse Oximetry 99 11/16/20 20:00 11/16/20 20:20 11/16/20 20:26 Temperature Pulse Rate 99 95 95 Respiratory Rate 18 Blood Pressure Pulse Oximetry 98 98 11/16/20 21:12 11/16/20 21:54 11/17/20 00:00 Temperature 36.4 C L 37.0 C Pulse Rate 94 95 92 Respiratory Rate 18 18 Blood Pressure 111/65 124/52 L Pulse Oximetry 98 99 11/17/20 03:59 11/17/20 04:00 11/17/20 04:19 Temperature 36.3 C L 36.4 C Pulse Rate 91 93 82 Respiratory Rate 18 16 Blood Pressure 101/50 L 117/67 Pulse Oximetry 100 100 11/17/20 05:15 11/17/20 06:15 11/17/20 07:28 Temperature 36.6 C 36.7 C 36.8 C Pulse Rate 100 18 L 99 Respiratory Rate 18 18 18 Blood Pressure 114/54 L 135/78 130/77 Pulse Oximetry 100 100 100 11/17/20 09:12 11/17/20 09:15 11/17/20 09:25 Temperature 37.2 C 37.2 C Pulse Rate 97 104 H 103 H Respiratory Rate 16 16 Blood Pressure 133/78 135/73 Pulse Oximetry 97 98 Intake/Output Intake/Output: Intake & Output 11/14/20 11/15/20 11/16/20 11/17/20 23:59 23:59 23:59 23:59 Intake Total 3500 4230 1040 350 Output Total 500 1425 1325 800 Balance 3000 2805 -508 -450 Meds/Results Medications: Active Medications Generic Name Dose Route Start Last Admin Trade Name Edmond PRN Reason Stop Dose Admin Hydrocodone Bitart/Acetaminophen 1 tab 11/15/20 09:00 11/17/20 09:15 Hydrocodone/Acetaminophen (*Crx) 10-325 Mg Tablet PO 1 tab 0000,0900,1700 HALLIE Administration Allopurinol 200 mg 11/14/20 17:00 11/17/20 09:15 Allopurinol 100 Mg Tablet PO 200 mg BID HALLIE Administration Amoxicillin 500 mg 11/14/20 14:00 11/17/20 09:14 Amoxicillin 500 Mg Capsule PO 500 mg Q8HR HALLIE Administration Atorvastatin Calcium 40 mg 11/14/20 21:00 11/16/20 21:12 Atorvastatin 40 Mg Tablet PO 40 mg HS HALLIE Administration Budesonide/Formoterol
[2020-11-17 11:55] LABS: Glucose Point of Care 128 (65-105)
[2020-11-17 13:35] LABS: Hematocrit 25.2 % (42.0-52.0); Hemoglobin 8.4 g/dL (14.0-18.0)
[2020-11-17] MEDS: LACTATED RINGERS 1,000 ML 30 ML IV CONT (14:10)
--- NOTE | 2020-11-17 15:01 | WPDANESEPPF ---
Anes - Initial Pre Proc Eval Procedure: Operation Date: 11/17/20 15:45 Proposed Procedures p EVACUATION OF HEMATOMA RIGHT LEG AND POSSIBLE DEBRIDEMENT - Garrett Lizama MD Date/Time: 11/17/20 15:01 Surgeon: Rena Flores DO Pre Op Diagnosis: Hyperglycemia, orthostatic hypotension, contusion Patient Data Age: 70 Gender: M Height: 6 ft 4 in Weight: 121.9 kg Last Vital Signs Temp 99.7 F H 11/17/20 14:04 Pulse 95 11/17/20 14:04 Resp 16 11/17/20 14:04 BP 122/62 11/17/20 14:04 Pulse Ox 98 11/17/20 14:04 Allergies Allergy/AdvReac Type Severity Reaction Status Date / Time amlodipine Allergy Unknown Swelling Verified 11/14/20 09:04 gabapentin Allergy Unknown Hallucinati Verified 11/14/20 09:04 ng morphine AdvReac Intermediate Nausea and Verified 11/14/20 09:04 Vomiting Home Medications Medication Instructions Recorded Confirmed Type allopurinol 200 mg PO BID 11/14/20 11/14/20 History apixaban [Eliquis] 5 mg PO BID 11/14/20 11/14/20 History atorvastatin [Lipitor] 80 mg PO HS 11/14/20 11/14/20 History carvedilol [Coreg] 6.25 mg PO BID 11/14/20 11/14/20 History clonidine HCl 0.2 mg PO TID 11/14/20 11/14/20 History duloxetine 30 mg PO DAILY 11/14/20 11/14/20 History furosemide [Lasix] 40 mg PO BID 11/14/20 11/14/20 History hydralazine 50 mg PO TID 11/14/20 11/14/20 History hydrocodone-acetaminophen 1 tablet PO TID 11/14/20 11/14/20 History ipratropium-albuterol 1 puff INHALATION QID PRN 11/14/20 11/14/20 History losartan 100 mg PO DAILY 11/14/20 11/14/20 History metformin 1,000 mg PO BID 11/14/20 11/14/20 History budesonide-formoterol [Symbicort] 2 puff INHALATION BID 11/16/20 11/16/20 History Laboratory Tests 11/16/20 11/16/20 11/17/20 17:37 23:55 00:41 Hgb 6.6 g/dL L* g/dL (14.0-18.0) Hct 20.3 % L* % (42.0-52.0) Sodium Potassium Chloride Carbon Dioxide Anion Gap BUN Creatinine Estim Creat Clear Calc Estimated GFR Glucose POC Capillary Glucose 114 mg/dl H mg/dl 124 mg/dl H mg/dl (65-105) (65-105) Calcium Total Bilirubin AST ALT Alkaline Phosphatase Total Protein Albumin Blood Type Antibody Screen Crossmatch 11/17/20 11/17/20 11/17/20 02:13 02:13 09:28 Hgb Hct Sodium 136 mmol/L L mmol/L (137-145) Potassium 3.6 mmol/L mmol/L (3.4-5.0) Chloride 102 mmol/L mmol/L (98-107) Carbon Dioxide 34 mmol/L H mmol/L (22-30) Anion Gap 0 mmol/L L mmol/L (8-16) BUN 12 mg/dL mg/dL (9-20) Creatinine 0.70 mg/dL mg/dL (0.7-1.3) Estim Creat Clear Calc 119 ml/min ml/min Estimated GFR > 60 (59 - ) Glucose 131 mg/dL H mg/dL (75-110) POC Capillary Glucose 122 mg/dl H mg/dl (65-105) Calcium 7.9 mg/dL L mg/dL (8.4-10.2) Total Bilirubin 2.3 mg/dL H mg/dL (0.2-1.3) AST 33 U/L U/L (17-59) ALT 19 U/L U/L (4-50) Alkaline Phosphatase 87 U/L U/L (38-126) Total Protein 6.0 g/dL L g/dL (6.3-8.2) Albumin 2.8 g/dL L g/dL (3.5-5.1) Blood Type O Positive Antibody Screen Negative Crossmatch See Detail 11/17/20 11/17/20 11:46 13:29 Hgb 8.4 g/dL L g/dL (14.0-18.0) Hct 25.2 % L % (42.0-52.0) Sodium Potassium Chloride Carbon Dioxide Anion Gap BUN Creatinine Estim Creat Clear Calc Estimated GFR Glucose POC Capillary Glucose 128 mg/dl H mg/dl (65-105) Calcium Total Bilirubin AST ALT Alkaline Phosphatase
[2020-11-17 15:58] LABS: Glucose Point of Care 126 (65-105)
--- NOTE | 2020-11-17 19:04 | PM.PROC ---
Procedure Note - Detailed Date of procedure: 11/17/20 Pre-op diagnosis: Hyperglycemia, orthostatic hypotension, contusion Hematoma of left leg Post-op diagnosis: same Procedure performed: Evacuation of hematoma of right leg 9 x 20 cm. Description of procedure: Mr. Cancholas right leg was marked in the holding area. He was taken to the operating room placed supine on the operating table. A time-out was held and confirmed. The lower extremity was prepped and draped in usual fashion. He was given general endotracheal anesthesia. The site of maximum expansion from this hematoma had already been incised approximately 3 cm at the bedside. There was no bleeding at this time the incision was extended to approximately 6 cm and we undertook evacuation of hematoma by curettage, finger dissection, and irrigation.. PIN estimated 40 milliliter of clot or removed. There was very little active bleeding site was irrigated the wound was dressed externally with absorbent gauze and an Giovany wrap. Procedure was tolerated well Anesthesia: GETA Surgeon: Garrett Lizama MD Estimated blood loss (mL): 10 Tourniquet time (min): 0 Drains: No Packing: No Pathology: none sent Complications: No immediate complications Condition: stable Disposition: PACU
[2020-11-17 20:40] LABS: Glucose Point of Care 147 (65-105)
[2020-11-17] MEDS: ATORVASTATIN 40 MG TABLET PO (21:31)
[2020-11-18] VITALS (12 sets, daily range): BP systolic 104–133; BP diastolic 48–76; PULSE 95–113; RESP 17–20; TEMP 36.2–37.7; O2SAT 91–99
[2020-11-18] MEDS: HYDROcodone/acetaminophen (*CRX) 10-325 MG TABLET 1 TAB PO ×4 (01:12→23:44)
[2020-11-18] MEDS: cloNIDine HCL 0.2 MG TABLET PO ×4 (01:12→23:44)
[2020-11-18 06:04] LABS: Alanine Aminotransferase 17 U/L (4-50); Albumin Level 2.9 g/dL (3.5-5.1); Alkaline Phosphatase 86 U/L (38-126); Anion Gap 2 mmol/L (8-16); Aspartate Amino Transferase 33 U/L (17-59); Bilirubin,Total 4.4 mg/dL (0.2-1.3); Blood Urea Nitrogen 13 mg/dL (9-20); Calcium 7.9 mg/dL (8.4-10.2); Carbon Dioxide 34 mmol/L (22-30); Chloride 100 mmol/L (98-107); Estimated CRCL calculation 94 ml/min; Estimated Glomerular Filt Rate > 60; Glucose 132 mg/dL (75-110); Potassium 3.8 mmol/L (3.4-5.0); Sodium 136 mmol/L (137-145)
[2020-11-18] MEDS: AMOXICILLIN 500 MG CAPSULE PO ×3 (06:07→22:04)
[2020-11-18] MEDS: FUROSEMIDE 40 MG TABLET PO ×2 (10:09→19:02)
[2020-11-18] MEDS: metFORMIN HCL 500 MG TABLET 1000 MG PO ×2 (10:09→19:01)
[2020-11-18] MEDS: allopurinoL 100 MG TABLET 200 MG PO ×2 (10:09→19:02)
[2020-11-18] MEDS: hydrALAZINE HCL 50 MG TABLET PO ×3 (10:10→23:44)
[2020-11-18] MEDS: MAGNESIUM OXIDE 400 MG TABLET PO (10:10)
[2020-11-18] MEDS: DULoxetine HCL 30 MG CAPSULE.DR PO (10:10)
[2020-11-18] MEDS: carvediloL 6.25 MG TABLET PO ×2 (10:11→22:03)
[2020-11-18] MEDS: LOSARTAN POTASSIUM 100 MG TABLET PO (10:11)
--- NOTE | 2020-11-18 10:52 | WPDANESPN ---
Anes - Prog Note Post-Op Date/Time: 11/18/20 10:52 Cardiovascular status: normal Respiratory status: normal Airway patency: baseline Mental status: baseline Post-Op hydration status: normal Vital Signs: Last Vital Signs Temp 36.9 C 11/18/20 06:11 Pulse 105 H 11/18/20 10:11 Resp 20 11/18/20 04:00 BP 133/60 11/18/20 04:00 Pulse Ox 91 11/18/20 04:00 Pain Score (VAS): 0/10. Patient resting in bed at time of assessment, appears comfortable. I/O: Intake & Output 11/17/20 11/18/20 11/18/20 23:59 07:59 15:59 Intake Total 50 400 480 Output Total 350 400 Balance -300 0 480 Laboratory Tests 11/17/20 13:29 11/18/20 05:20 11/17/20 11/17/20 11/17/20 02:13 11:46 13:29 Hgb 8.4 L Hct 25.2 L Sodium Potassium Chloride Carbon Dioxide Anion Gap BUN Creatinine Estim Creat Clear Calc Estimated GFR Glucose POC Capillary Glucose 128 H Calcium Total Bilirubin AST ALT Alkaline Phosphatase Total Protein Albumin Crossmatch See Detail 11/17/20 11/17/20 11/18/20 15:56 20:36 05:20 Hgb Hct Sodium 136 L Potassium 3.8 Chloride 100 Carbon Dioxide 34 H Anion Gap 2 L BUN 13 Creatinine 0.90 Estim Creat Clear Calc 94 Estimated GFR > 60 Glucose 132 H POC Capillary Glucose 126 H 147 H Calcium 7.9 L Total Bilirubin 4.4 H AST 33 ALT 17 Alkaline Phosphatase 86 Total Protein 6.0 L Albumin 2.9 L Crossmatch Post-procedural complaints: none Patient Feedback: Patient satisfied with anesthetic care.
[2020-11-18 11:43] LABS: Glucose Point of Care 116 (65-105)
--- NOTE | 2020-11-18 12:26 | PM.IMPN ---
Progress Note: A&P Assessment and Plan (1) Alcohol intoxication: Code(s): F10.929 - Alcohol use, unspecified with intoxication, unspecified Status: Acute Assessment and Plan: On 11/15 patient c/o right hip pain and hematoma on right lower extremities, secondary to fall and alcohol. Pt sp evacuation of hematoma, good for discharge tomorrow. (2) Hypoglycemia: Code(s): E16.2 - Hypoglycemia, unspecified Status: Acute Assessment and Plan: Patient history of diabetes patient took metformin resolved now (3) Diabetes mellitus: Code(s): E11.9 - Type 2 diabetes mellitus without complications Status: Acute Assessment and Plan: Will continue home regimen and monitor (4) Atrial fibrillation: Code(s): I48.91 - Unspecified atrial fibrillation Status: Acute Assessment and Plan: Rate is controlled will hold Eliquis Subjective Date/time seen: 11/18/20 12:26 Interval history: 70 year old male patient is 70-year-old male with history of hypertension, diabetes and atrial fibrillation for which patient is taking Eliquis, on 11/13 evening patient went to [facility] to meet with his friend had a few drinks, drove himself home while coming out of his car going to hurt his home patient tripped and fell landed on his face and injured his upper lips, teeth and nose as well as patient has a hematoma on his right lower extremity. Pt sp Evacuation of hematoma of right leg 9 x 20 cm. Pt having dressing changes to his hematoma. Pt had episode of tachycardiac earlier today. Review of Systems Review of Systems: All systems reviewed & are unremarkable except as noted in HPI and below Exam Narrative: Exam Narrative: Patient is comfortable LUNGS:Clear HEART: Irregularly irregular ABD: BS+, Soft and nontender Lower extremities: no edema MS: R hematoma on his R hip, R hematoma on R leg SKIN: nonjaundiced Neuro: grossly intact. Objective Data Vital Signs Vital Signs: Vital Signs - 24 hr 11/17/20 12:59 11/17/20 14:04 11/17/20 15:55 Temperature 36.5 C 37.6 C H 36.5 C Pulse Rate 108 H 95 109 H Respiratory Rate 18 16 13 Blood Pressure 109/66 122/62 125/81 Pulse Oximetry 95 98 100 11/17/20 16:00 11/17/20 16:10 11/17/20 16:17 Temperature Pulse Rate 98 87 Respiratory Rate 16 Blood Pressure 112/68 Pulse Oximetry 95 95 11/17/20 16:25 11/17/20 16:40 11/17/20 16:55 Temperature Pulse Rate 93 97 88 Respiratory Rate 16 14 18 Blood Pressure 109/62 116/69 118/85 Pulse Oximetry 97 97 100 11/17/20 17:10 11/17/20 17:20 11/17/20 18:27 Temperature 36.6 C Pulse Rate 95 93 105 H Respiratory Rate 16 18 20 Blood Pressure 126/67 130/80 118/69 Pulse Oximetry 96 100 97 11/17/20 20:00 11/17/20 21:31 11/18/20 00:00 Temperature 36.9 C Pulse Rate 108 H 102 H 108 H Respiratory Rate 20 Blood Pressure 130/63 Pulse Oximetry 97 11/18/20 01:11 11/18/20 04:00 11/18/20 06:11 Temperature 36.2 C L 37.7 C H 36.9 C Pulse Rate 105 H 102 H Respiratory Rate 20 20 Blood Pressure 121/62 133/60 Pulse Oximetry 98 91 11/18/20 10:11 11/18/20 10:58 Temperature 36.9 C Pulse Rate 105 H 100 Respiratory Rate 17 Blood Pressure 132/70 Pulse Oximetry 97 Intake/Output Intake/Output: Intake & Output 11/15/20 11/16/20 11/17/20 11/18/20 23:59 23:59 23:59 23:59 Intake Total 4230 1040 750 880 Output Total 1425 1325 1370 400 Balance 8818 -061 -261 480 Meds/Results Medications: Active Medications Generic Name Dose Route Start Last Admin Trade Name Edmond PRN Reason Stop Dose Admin Hydrocodone Bitart/Acetaminophen 1 tab 11/15/20 09:00 11/18/20 10:11 Hydrocodone/Acetaminophen (*Crx) 10-325 Mg Tablet PO 1 tab 0000,0900,1700 HALLIE Administration Allopurinol 200 mg 11/14/20 17:00 11/18/20 10:09 Allopurinol 100 Mg Tablet PO 200 mg BID HALLIE Administration Amoxicillin 500 mg 11/14/20 14:00 11/18/20 06:07 Amoxicillin 500
--- NOTE | 2020-11-18 12:46 | WPDPN ---
Progress Note: A&P Assessment and Plan (1) Anemia due to blood loss, acute: Code(s): D62 - Acute posthemorrhagic anemia Status: Acute Assessment and Plan: Pt prone to falls. Recent blood loss from hematoma. Should see gradual improvement. (2) Contusion of leg, right: Code(s): S80.11XA - Contusion of right lower leg, initial encounter Status: Acute Assessment and Plan: Hematoma evacuated. No further bleeding. Wound stabilizing. Should heal by secondary intention with home wound care. Will ask CWON to suggest compressive wrapping technique. Additional Plan Okay for discharge tomorrow. F/U with Dr Lizama in 10-12 days. May benefit by HHN. CWON to suggest dressing. Exam Narrative: Exam Narrative: Leg redressed. Extensive right LE bruising and swelling. No new bleeding. Wound margins appear viable except for some superficial slough. No cellulitis. Has been using walker. Hb stable around 8. Objective Data Vital Signs Vital Signs: Vital Signs - 24 hr 11/17/20 12:59 11/17/20 14:04 11/17/20 15:55 Temperature 36.5 C 37.6 C H 36.5 C Pulse Rate 108 H 95 109 H Respiratory Rate 18 16 13 Blood Pressure 109/66 122/62 125/81 Pulse Oximetry 95 98 100 11/17/20 16:00 11/17/20 16:10 11/17/20 16:17 Temperature Pulse Rate 98 87 Respiratory Rate 16 Blood Pressure 112/68 Pulse Oximetry 95 95 11/17/20 16:25 11/17/20 16:40 11/17/20 16:55 Temperature Pulse Rate 93 97 88 Respiratory Rate 16 14 18 Blood Pressure 109/62 116/69 118/85 Pulse Oximetry 97 97 100 11/17/20 17:10 11/17/20 17:20 11/17/20 18:27 Temperature 36.6 C Pulse Rate 95 93 105 H Respiratory Rate 16 18 20 Blood Pressure 126/67 130/80 118/69 Pulse Oximetry 96 100 97 11/17/20 20:00 11/17/20 21:31 11/18/20 00:00 Temperature 36.9 C Pulse Rate 108 H 102 H 108 H Respiratory Rate 20 Blood Pressure 130/63 Pulse Oximetry 97 11/18/20 01:11 11/18/20 04:00 11/18/20 06:11 Temperature 36.2 C L 37.7 C H 36.9 C Pulse Rate 105 H 102 H Respiratory Rate 20 20 Blood Pressure 121/62 133/60 Pulse Oximetry 98 91 11/18/20 10:11 11/18/20 10:58 Temperature 36.9 C Pulse Rate 105 H 100 Respiratory Rate 17 Blood Pressure 132/70 Pulse Oximetry 97 Intake/Output Intake/Output: Intake & Output 11/15/20 11/16/20 11/17/20 11/18/20 23:59 23:59 23:59 23:59 Intake Total 4230 1040 750 880 Output Total 1425 1325 1370 400 Balance 8114 -332 -185 646 Meds/Results Medications: Active Medications Generic Name Dose Route Start Last Admin Trade Name Freq PRN Reason Stop Dose Admin Hydrocodone Bitart/Acetaminophen 1 tab 11/15/20 09:00 11/18/20 10:11 Hydrocodone/Acetaminophen (*Crx) 10-325 Mg Tablet PO 1 tab 0000,0900,1700 HALLIE Administration Allopurinol 200 mg 11/14/20 17:00 11/18/20 10:09 Allopurinol 100 Mg Tablet PO 200 mg BID HALLIE Administration Amoxicillin 500 mg 11/14/20 14:00 11/18/20 06:07 Amoxicillin 500 Mg Capsule PO 500 mg Q8HR HALLIE Administration Atorvastatin Calcium 40 mg 11/14/20 21:00 11/17/20 21:31 Atorvastatin 40 Mg Tablet PO 40 mg HS HALLIE Administration Budesonide/Formoterol Fumarate 2 puff 11/16/20 20:00 11/17/20 21:28 Budesonide/Form 80-4.5 Mcg (*Sp) INHALATION 2 puff Q12HRT HALLIE Administration Calcium Carbonate 200 mg 11/14/20 11:41 11/16/20 06:44 Calcium Carbonate (Tums) 500 Mg (200 Mg Elemental) PO 200 mg Q6H PRN Administration Indigestion Carvedilol 6.25 mg 11/14/20 21:00 11/18/20 10:11 Carvedilol 6.25 Mg Tablet PO 6.25 mg Q12HR HALLIE Administration Clonidine HCl 0.2 mg 11/15/20 09:00 11/18/20 10:10 Clonidine Hcl 0.2 Mg Tablet PO 0.2 mg 0000,0900,1600 HALLIE Administration Duloxetine HCl 30 mg 11/14/20 09:00 11/18/20 10:10 Duloxetine Hcl 30 Mg Capsule.Dr PO 30 mg DAILY HALLIE Administration Fentanyl Citrate 25 mcg 11/17/20 14:38 Fentanyl Citrate Inj (*C
[2020-11-18 16:51] LABS: Glucose Point of Care 107 (65-105)
[2020-11-18 20:42] LABS: Glucose Point of Care 119 (65-105)
[2020-11-18] MEDS: ATORVASTATIN 40 MG TABLET PO (22:03)
[2020-11-19] VITALS: PULSE 86
[2020-11-19 04:00] VITALS: BP 105/58; PULSE 100; PULSE 95; RESP 18; TEMP 36.2; O2SAT 95
[2020-11-19 05:44] LABS: Hematocrit 22.6 % (42.0-52.0); Hemoglobin 7.3 g/dL (14.0-18.0); Immature Platelet Fraction Pct 15.4 % (0.9-11.2); Mean Corpuscular HGB Conc 32.3 g/dl (32-36); Mean Corpuscular Hemoglobin 30.4 pg (26-34); Mean Corpuscular Volume 94.2 fl (80-100); Platelet Count Result 79 k/mm3 (150-375); Red Cell Distribution Width 14.6 % (11.5-14.5); White Blood Count 4.9 K/mm3 (4.5-10.0)
[2020-11-19 05:46] LABS: Alanine Aminotransferase 16 U/L (4-50); Albumin Level 2.7 g/dL (3.5-5.1); Alkaline Phosphatase 80 U/L (38-126); Anion Gap 2 mmol/L (8-16); Aspartate Amino Transferase 31 U/L (17-59); Bilirubin,Total 4.2 mg/dL (0.2-1.3); Blood Urea Nitrogen 14 mg/dL (9-20); Calcium 7.6 mg/dL (8.4-10.2); Carbon Dioxide 35 mmol/L (22-30); Chloride 100 mmol/L (98-107); Estimated CRCL calculation 105 ml/min; Estimated Glomerular Filt Rate > 60; Glucose 103 mg/dL (75-110); Potassium 3.5 mmol/L (3.4-5.0); Sodium 137 mmol/L (137-145)
[2020-11-19] MEDS: AMOXICILLIN 500 MG CAPSULE PO ×2 (06:07→13:53)
[2020-11-19] MEDS: HYDROcodone/acetaminophen (*CRX) 10-325 MG TABLET 1 TAB PO (08:08)
[2020-11-19] MEDS: allopurinoL 100 MG TABLET 200 MG PO (08:08)
[2020-11-19] MEDS: DULoxetine HCL 30 MG CAPSULE.DR PO (08:09)
[2020-11-19] MEDS: MAGNESIUM OXIDE 400 MG TABLET PO (08:09)
[2020-11-19] MEDS: LOSARTAN POTASSIUM 100 MG TABLET PO (08:09)
[2020-11-19] MEDS: metFORMIN HCL 500 MG TABLET 1000 MG PO (08:10)
[2020-11-19] MEDS: cloNIDine HCL 0.2 MG TABLET PO (08:10)
[2020-11-19] MEDS: carvediloL 6.25 MG TABLET PO (08:10)
[2020-11-19] MEDS: hydrALAZINE HCL 50 MG TABLET PO (08:10)
[2020-11-19] MEDS: FUROSEMIDE 40 MG TABLET PO (08:10)
[2020-11-19 09:44] LABS: Glucose Point of Care 86 (65-105)
[2020-11-19 10:00] VITALS: BP 110/56; PULSE 114; RESP 20; TEMP 36.3; O2SAT 97
--- NOTE | 2020-11-19 11:14 | PM.DS ---
DS: Admitting Diagnosis Admitting Diagnosis Admitting Diagnosis: FALL DS: Discharge Diagnosis Discharge Diagnosis (1) Alcohol intoxication: Code(s): F10.929 - Alcohol use, unspecified with intoxication, unspecified Status: Acute Assessment and Plan: On 11/15 patient c/o right hip pain and hematoma on right lower extremities, secondary to fall and alcohol. Pt sp evacuation of hematoma, good for discharge today. (2) Hypoglycemia: Code(s): E16.2 - Hypoglycemia, unspecified Status: Acute Assessment and Plan: Patient history of diabetes patient took metformin resolved now (3) Diabetes mellitus: Code(s): E11.9 - Type 2 diabetes mellitus without complications Status: Acute Assessment and Plan: Will continue home regimen and monitor (4) Atrial fibrillation: Code(s): I48.91 - Unspecified atrial fibrillation Status: Acute Assessment and Plan: Rate is controlled will hold Eliquis for another 5 days after discharge. DS: Summary Hospital Course Hospital Course: 70 year old male patient is 70-year-old male with history of hypertension, diabetes and atrial fibrillation for which patient is taking Eliquis, on 11/13 evening patient went to [facility] to meet with his friend had a few drinks, drove himself home while coming out of his car going to hurt his home patient tripped and fell landed on his face and injured his upper lips, teeth and nose as well as patient has a hematoma on his right lower extremity. Pt sp Evacuation of hematoma of right leg 9 x 20 cm. Pt having dressing changes to his hematoma. Pt to continue dressing changes at home, ok to discharge today with plastic surgery follow up and home health services. Pt to hold his eliquis for another 5 days. Time Spent with Patient Time attestation: Total time spent providing and/or coordinating discharge services:40 minutes on the day of discharge Exam Narrative: Exam Narrative: Patient is comfortable LUNGS:Clear HEART: Irregularly irregular ABD: BS+, Soft and nontender Lower extremities: no edema MS: R hematoma on his R hip, R hematoma on R leg SKIN: nonjaundiced Neuro: grossly intact. DS: Data Data Completed and Pending Labs on day of discharge: Labs from last 24 hours 11/19/20 11/19/20 11/19/20 07:27 05:18 05:18 WBC 4.9 RBC 2.40 L Hgb 7.3 L Hct 22.6 L MCV 94.2 MCH 30.4 MCHC 32.3 RDW 14.6 H Plt Count 79 L MPV TNP % Immature Plt Fraction 15.4 H Sodium 137 Potassium 3.5 Chloride 100 Carbon Dioxide 35 H Anion Gap 2 L BUN 14 Creatinine 0.80 Estim Creat Clear Calc 105 Estimated GFR > 60 Glucose 103 POC Capillary Glucose 86 Calcium 7.6 L Total Bilirubin 4.2 H AST 31 ALT 16 Alkaline Phosphatase 80 Total Protein 6.0 L Albumin 2.7 L 11/18/20 11/18/20 11/18/20 20:06 16:45 11:33 WBC RBC Hgb Hct MCV MCH MCHC RDW Plt Count MPV % Immature Plt Fraction Sodium Potassium Chloride Carbon Dioxide Anion Gap BUN Creatinine Estim Creat Clear Calc Estimated GFR Glucose POC Capillary Glucose 119 H 107 116 H Calcium Total Bilirubin AST ALT Alkaline Phosphatase Total Protein Albumin Discharge Plan Discharge Attending physician on discharge: Rosetta Miller Consulting providers: Jett Mohan ; Garrett Lizama Discharging Clinician: Rosetta Miller Anticipated Discharge Date/Time: 11/19/20 11:12 Patient Disposition: Home Health Service Activity: as tolerated Diet: diabetic Discharge Instructions: Per Care Coordination, pt. will discharge to his daughters home with [facility] for continued wound care. Please fax discharge information to [facility] at . Patient Instructions: Antibiotic Form, Apixaban (By mouth) Stand Alone Forms: General D
[2020-11-19 12:29] LABS: Glucose Point of Care 130 (65-105)
[2020-11-19 13:53] VITALS: BP 132/68; PULSE 111; RESP 16; TEMP 37.1; O2SAT 100
[2020-11-19] MEDS: SILVERGEL (ELTA) 45 ML 1 APPLIC TOPICAL (13:53)
== END 2020-11-19 16:25 | disposition home health service (06) | DRG 605 ==
LOC: ANHED 07:03 → ANH2MED 07:35
PROVIDERS: Family Medicine; Internal Medicine; Plastic Surgery; Admitting Provider Internal Medicine; Emergency Provider Emergency Medicine; PCP Internal Medicine; Visit Provider Family Medicine
PROC: 0H9KXZZ Drainage of Right Lower Leg Skin, External Approach (ICD-10-PCS; principal; 2020-11-17 15:45)
DX: S80.11XA Contusion of right lower leg, initial encounter (principal); D62 Acute posthemorrhagic anemia; F10.929 Alcohol use, unspecified with intoxication, unspecified; E11.649 Type 2 diabetes mellitus with hypoglycemia without coma; I48.91 Unspecified atrial fibrillation; S00.33XA Contusion of nose, initial encounter; W19.XXXA Unspecified fall, initial encounter
CPT/HCPCS: 36415; 36430; 70450; 71045; 72125; 73130; 73502; 73590; 74177; 80053; 80307; 81001; 82550; 82948; 83735; 85014; 85018; 85025; 85027; 85055; 85610; 85730; 86850; 86900; 86901; 86923; 90471; 90715; 93005; 94640; 96361; 96365; 96367; 96374; 96375; 96376; 97110; 97162; 97165; 97530; 97535; 99285; A9270; G0378; J0690; J2370; J2405; J2704; J3010; J3475; J7030; J7050; J7120; P9016; Q9967

== ENCOUNTER 2021-08-18 21:49 | Inpatient (IN) | payer MEDICARE, OTHER, SELFPAY ==
--- NOTE | ~2021-08-18 | CT_ITS ---
EXAMINATION: CT brain wo con DATE: 08/18/2021 23:24 INDICATION: Head injury. TECHNIQUE: Computed tomography (CT) of the head was performed without intravenous contrast. The mA wa s adjusted according to patient size. Iterative reconstruction technique was employed. The dose-lengt h product was 681.00 mGy-cm. COMPARISON: Head CT 11/14/2020 FINDINGS: There is no intracranial hemorrhage, acute infarction, or abnormal intracranial mass lesion . There is a small area of cystic encephalomalacia in the left frontal lobe white matter. The ventric les are normal in size. There is mild mucosal thickening in the ethmoid sinuses. The orbits are mary l. There is a trace left mastoid effusion. IMPRESSION: 1. Small area of chronic cystic encephalomalacia in the left frontal lobe white matter. Reviewed, dictated and finalized at location A.
--- NOTE | ~2021-08-18 | XR_ITS ---
EXAMINATION: XR hip BI 2V w AP pelvis DATE: 08/18/2021 23:29 INDICATION: Bilateral hip pain. Fall. TECHNIQUE: An anteroposterior view pelvis and 2 views of each hip were obtained. COMPARISON: Pelvis and right hip radiographs 11/14/2020 FINDINGS: Bone alignment is normal. No fracture. There is sclerosis in the femoral heads, consistent with osteonecrosis. There is mild osteoarthritis of the hips. There are changes of posterior fusion p rocedure in lumbosacral spine. IMPRESSION: 1. Osteonecrosis of the femoral heads. 2. Mild osteoarthritis of the hips. Reviewed, dictated and finalized at location A.
--- NOTE | ~2021-08-18 | XR_ITS ---
EXAMINATION: XR knee RT 3V DATE: 08/18/2021 23:30 INDICATION: Right knee pain. Fall. TECHNIQUE: 3 views of right knee were obtained. COMPARISON: Right tibia and fibula radiographs 11/14/2020 FINDINGS: There is varus attenuation at the knee. No fracture. There is severe osteoarthritis of medi al and lateral compartments and moderate osteoarthritis of patellofemoral compartment. There is a mod erate-sized knee joint effusion. IMPRESSION: 1. Severe right knee osteoarthritis. 2. Moderate-sized knee joint effusion. Reviewed, dictated and finalized at location A.
--- NOTE | ~2021-08-18 | CT_ITS ---
EXAMINATION: CT thoracic lumbar wo con DATE: 08/18/2021 23:25 INDICATION: Back pain. Fall. TECHNIQUE: Computed tomography (CT) of the thoracic and lumbar spine was performed without intravenou s contrast. Automated exposure control and iterative reconstruction technique were employed. The dose -length product was 2121.67 mGy-cm. COMPARISON: CT abdomen and pelvis 11/14/2020, chest CT 04/30/2018 FINDINGS: CT THORACIC SPINE: Calcified lung nodules and calcified hilar and mediastinal lymph nodes are consist ent with old granulomatous disease. There is mild emphysema. There are airspace opacities in right up per lobe and superior segment right lower lobe. Bone alignment is normal. Vertebral body heights are normal. There are bridging endplate osteophytes from T2 through T10 and at T11-T12, consistent with d iffuse idiopathic skeletal hyperostosis (DISH). Intervertebral disc heights are normal. There is mult ilevel mild facet joint osteoarthritis. No neural foraminal stenosis or central canal stenosis. CT LUMBAR SPINE: Bone alignment is normal. Vertebral body heights are normal. There are changes of an terior fusion procedure at L5-S1 with interbody device. There are changes of posterior fusion procedu re from L4 to S1 with pedicle screws. There is interbody fusion at L3-L4 and L4-L5. There is mildly d ecreased disc height at L1-L2 and moderately decreased disc height at L2-L3 with endplate remodeling. The following disc levels are specifically discussed: L1-L2: The disc does not extend beyond the endplate margins. There is mild bilateral facet joint oste oarthritis. There is no neural foraminal stenosis. There is no central canal stenosis. L2-L3: The disc is bulging. There is severe bilateral facet joint osteoarthritis. There is hypertroph y of the ligamentum flavum. There is moderate right and mild left neural foraminal stenosis. There is severe central canal stenosis. L3-L4: The disc is bulging. There is severe bilateral facet joint osteoarthritis. There is moderate b ilateral neural foraminal stenosis. There is mild central canal stenosis. L4-L5: The disc is bulging. There is severe bilateral facet joint osteoarthritis. There is moderate b ilateral neural foraminal stenosis. There is mild central canal stenosis with posterior decompression . L5-S1: There is moderate bilateral facet joint hypertrophy. There is moderate bilateral neural forami nal stenosis. There is no central canal stenosis. IMPRESSION: 1. No fracture. 2. Anterior fusion procedure at L5-S1 and posterior fusion procedure from L4 to S1. 3. DISH. 4. Severe lumbar spondylosis. 5. Airspace opacities in right lung upper lobe and superior segment right lower lobe, consistent with pneumonia. Noncontrast chest CT is recommended in one month to exclude right upper lobe malignancy. 6. Emphysema. Reviewed, dictated and finalized at location A. IMPRESSION: 1. No fracture. 2. Anterior fusion procedure at L5-S1 and posterior fusion procedure from L4 to S1. 3. DISH. 4. Severe lumbar spondylosis. 5. Airspace opacities in right lung upper lobe and superior segment right lower lobe, consistent with pneumonia. Noncontrast chest CT is recommended in one mo nth to exclude right upper lobe malignancy. 6. Emphysema.
--- NOTE | ~2021-08-18 | CT_ITS ---
EXAMINATION: CT cervical spine wo con DATE: 08/18/2021 23:25 INDICATION: Neck pain. Head injury. TECHNIQUE: Computed tomography (CT) of the cervical spine was performed without intravenous contrast. Automated exposure control and iterative reconstruction technique were employed. The dose-length pro duct was 468.57 mGy-cm. COMPARISON: CT cervical spine 11/14/2020 FINDINGS: There is mild emphysema. There is 9 degrees dextrocurvature of cervical spine. There is old fracture of T1 spinous process with nonunion. There is mild chronic anterior wedging of C4 vertebral body. There is moderately decreased disc height at C4-C5 and C5-C6 and severely decreased disc heigh t at C6-C7 with endplate remodeling. The following disc levels are specifically discussed: C2-C3: There is no uncovertebral joint osteoarthritis. There is mild right and severe left facet join t osteoarthritis. There is mild left neural foraminal stenosis. There is no central canal stenosis. C3-C4: There is mild bilateral uncovertebral joint osteoarthritis. There is severe bilateral facet clarisa int osteoarthritis. There is mild bilateral neural foraminal stenosis. There is mild central canal st enosis. C4-C5: There is severe bilateral uncovertebral joint osteoarthritis. There is mild left facet joint o steoarthritis. There is mild bilateral neural foraminal stenosis. There is mild central canal stenosi s. C5-C6: There is moderate right and mild left uncovertebral joint osteoarthritis. There is mild bilate ral facet joint osteoarthritis. There is mild bilateral neural foraminal stenosis. There is moderate central canal stenosis. C6-C7: There is severe bilateral uncovertebral joint osteoarthritis. There is moderate right and reed re left facet joint osteoarthritis. There is moderate right and mild left neural foraminal stenosis. There is moderate central canal stenosis. C7-T1: There is no uncovertebral joint osteoarthritis. There is severe bilateral facet joint osteoart hritis. There is mild bilateral neural foraminal stenosis. There is no central canal stenosis. IMPRESSION: 1. No acute fracture. 2. Severe cervical spondylosis. Reviewed, dictated and finalized at location A.
[2021-08-18 21:50] VITALS: BP 128/74; PULSE 86; RESP 16; TEMP 36.9; O2SAT 95
--- NOTE | 2021-08-18 21:56 | ED.FALL ---
HPI - Fall General Chief Complaint: Fall Stated Complaint: GROUND LEVEL FALL Time Seen by Provider: 08/18/21 21:56 Source: patient and EMS Mode of arrival: EMS Limitations: no limitations History of Present Illness HPI Narrative: Patient is a 71-year-old male with history of hypertension, atrial fibrillation, hyperlipidemia, gout, anticoagulated on Eliquis, presenting for evaluation of hip pain, lower back pain, head trauma following a ground-level fall. Patient was walking on his patio with his cane when he lost his balance, causing him to fall backwards. Patient states that he landed on his bottom, experiencing lower back pain, and did hit his head on the ground. He denies any loss of consciousness. No vision changes, nausea or vomiting. Patient denies any bruising, laceration. He reports bilateral hip pain, greater on the right than on the left. No associated focal weakness or numbness. Pain is dull, aching in nature in the back and hips, exacerbated with movement. Patient denies any neck pain. No arm weakness or numbness. Patient denies prodromal symptoms prior to the fall. No chest pain, shortness of breath. No recent illnesses. Pt does report two alcoholic beverages tonight. Pt states he does not drink daily. No history of seizures. Related Data Home Medications Medication Instructions Recorded Confirmed Eliquis 5 mg PO BID 11/14/20 11/14/20 allopurinol 200 mg PO BID 11/14/20 11/14/20 atorvastatin [Lipitor] 80 mg PO HS 11/14/20 11/14/20 carvedilol [Coreg] 6.25 mg PO BID 11/14/20 11/14/20 clonidine HCl 0.2 mg PO TID 11/14/20 11/14/20 duloxetine 30 mg PO DAILY 11/14/20 11/14/20 furosemide [Lasix] 40 mg PO BID 11/14/20 11/14/20 hydralazine 50 mg PO TID 11/14/20 11/14/20 hydrocodone-acetaminophen 1 tablet PO TID 11/14/20 11/14/20 ipratropium-albuterol 1 puff INHALATION QID PRN 11/14/20 11/14/20 losartan 100 mg PO DAILY 11/14/20 11/14/20 metformin 1,000 mg PO BID 11/14/20 11/14/20 budesonide-formoterol [Symbicort] 2 puff INHALATION BID 11/16/20 11/16/20 Allergies Allergy/AdvReac Type Severity Reaction Status Date / Time amlodipine Allergy Unknown Swelling Verified 11/14/20 09:04 gabapentin Allergy Unknown Hallucinati Verified 11/14/20 09:04 ng morphine AdvReac Intermediate Nausea and Verified 11/14/20 09:04 Vomiting Review of Systems Review of Systems: CONSTITUTIONAL: Denies fever, chills, or sweats. EYES: Denies visual changes, redness, or discharge. ENT: Denies rhinorrhea, congestion, sore throat, or otalgia. Denies neck pain. CARDIOVASCULAR: Denies chest pain, palpitations, or edema. RESPIRATORY: Denies cough or dyspnea. GASTROINTESTINAL: Denies abdominal pain, nausea, vomiting, or diarrhea. GENITOURINARY: Denies dysuria or hematuria. SKIN: Denies rash or itching. MUSCULOSKELETAL: Reports bilateral hip pain, reports lower lumbar back pain NEUROLOGIC: Denies headache, numbness, or weakness. [facility] Past Medical History Medical History (Updated 08/18/21 @ 23:58 by Brianna Wilhelm MD) Alcohol intoxication Anemia due to blood loss, acute Atrial fibrillation Diabetes mellitus Hypoglycemia Family History Family History Mother Cerebrovascular accident, Onset Age: 81 Lung cancer Cervical cancer Father Family history of cardiomyopathy, Onset Age: 67 Hypertension Heart attack Social History Social History Smoking packs per day: 2 Smoking cigarettes per day: 40.0 Years smoked: 50 Smoking pack-years: 100.00 Smoking status: Former smoker Alcohol intake: current Substance use type: marijuana Other substance usage details: Intermittent drinking, has cut back. Edible Marijuana occasionally for pain Gender identity (if verbalized by the patient): Male Sexual Orientation (if Verbalized by the Patient): Straight or Heterosexual Spiritual care con
[2021-08-18] MEDS: SODIUM CHLORIDE 0.9% IV 500 ML 999 ML IV CONT (22:39)
--- NOTE | 2021-08-18 22:50 | PC.NURSE ---
Pts daughter called and updated
[2021-08-18 23:04] LABS: INR 1.2; Prothrombin Time 15.2 Seconds (11.1-14.7)
[2021-08-18 23:05] LABS: Basophils Percent Auto 0.4 % (0.2-1.2); Eosinophils Percent Auto 0.3 % (0-4.4); Hematocrit 39.7 % (42.0-52.0); Hemoglobin 12.5 g/dL (14.0-18.0); Immature Granulocyte Absolute 0.06 K/mm3 (0.00-0.031); Immature Granulocyte Percent A 0.8 % (0-0.5); Immature Platelet Fraction Pct 15.5 % (0.9-11.2); Lymphocytes Absolute Auto 1.01 K/mm3 (0.9-3.2); Lymphocytes Percent Auto 13.8 % (18.3-44.2); Mean Corpuscular HGB Conc 31.5 g/dl (32-36); Mean Corpuscular Hemoglobin 28.9 pg (26-34); Mean Corpuscular Volume 91.7 fl (80-100); Monocytes Absolute Auto 0.6 K/mm3 (0.1-0.6); Monocytes Percent Auto 8.7 % (2.6-8.5); Neutrophils Absolute Auto 5.6 K/mm3 (1.3-6.7); Platelet Count Result 125 k/mm3 (150-375); Red Blood Count 4.33 M/mm3 (4.6-6.20); Red Cell Distribution Width 15.5 % (11.5-14.5); White Blood Count 7.3 K/mm3 (4.5-10.0)
[2021-08-18 23:19] LABS: Anion Gap 15 mmol/L (8-16); Blood Urea Nitrogen 21 mg/dL (9-20); Calcium 9.3 mg/dL (8.4-10.2); Carbon Dioxide 23 mmol/L (22-30); Chloride 100 mmol/L (98-107); Estimated CRCL calculation 71 ml/min; Estimated Glomerular Filt Rate 60; Glucose 124 mg/dL (65-110); Potassium 3.8 mmol/L (3.4-5.0); Sodium 138 mmol/L (137-145)
[2021-08-19] VITALS (14 sets, daily range): BP systolic 110–160; BP diastolic 54–86; PULSE 51–110; RESP 16–20; TEMP 36.1–36.8; O2SAT 95–100; BMI 31.0
[2021-08-19] MEDS: oxyCODONE/ACETAMINOPHEN (*CRX) 5-325 MG TABLET 1 TABLET PO (01:08)
--- NOTE | 2021-08-19 04:21 | ADMGEN ---
This patient, Eric Kirk, was admitted to 3 [facility] Surg Room 331-01 at 0310. Patient/family oriented to hospital policies and general routines including ID bracelet, bed and alarms, visiting hours, pain management, procedures, bathroom and other care routines, personal items, smoking policy, room service/diet, and visiting hours. Information on how to activate the Rapid Response Team has been discussed. Patient/Family are encouraged to report perceived risks to care and to ask questions if they do not understand what they are told or what they should do.
--- NOTE | 2021-08-19 09:05 | PM.IMHP ---
H&P: HPI History of Present Illness Date/Time: 08/19/21 09:05 Chief Complaint: Fall Narrative: The patient is a 71-year-old man with a history of chronic respiratory failure on 2 L of oxygen 28/05, COPD, agent orange exposure, hypertension, diabetes, peripheral neuropathy, atrial fibrillation on Eliquis, who presented to the emergency room after sustaining a fall. The patient states he has not been very active with leaving his house for the past several months after being diagnosed with lung cancer in February 2021. Patient's oncologist is at [facility] and he received 1 dose of radiation and now get serial imaging every 3 months. He has become more dyspneic with exertion which is the reason why he stays at home. He does report having sores to his buttock from not getting around very well. He reports worsening dyspnea with exertion with only 15 ft. He uses 2 L of oxygen 247 and does not increase this when exerting himself. 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 Last night the patient had some errands to run and went to the bar and had 2-1/2 beers. When he returned back home it was raining and muddy and tried to go up his porch and fell backwards striking his head on the ground and injuring his lower back. He could not get himself up due to weakness and pain and had to call 911. He laid in the rain for about 30 minutes. He denies any loss of consciousness, numbness tingling to lower extremities worse his normal peripheral neuropathy, incontinence of bowels or bladder. He said he did have a cough few weeks ago but it is since return back to normal. Denies worsening shortness of breath over last few days than his normal. Denies any lightheadedness, dizziness, syncope, chest pain, fever, chills, nausea, vomiting, abdominal pain, leg swelling, calf pain, or any other symptoms at this time. Code status: Full code POA: Gwen Martinez PCP: Dr. Thrasher [facility] Review of Systems Review of Systems: All systems reviewed & are unremarkable except as noted in HPI and below PMFSH Past Medical History Medical History Alcohol intoxication Anemia due to blood loss, acute Atrial fibrillation Chronic respiratory failure with hypoxia COPD (chronic obstructive pulmonary disease) Diabetes mellitus Gout HTN (hypertension), benign Hypoglycemia ANASTASIA (obstructive sleep apnea) Peripheral neuropathy Surgical History Surgical History S/P lumbar fusion S/P lumbar laminectomy Family History Family History Mother Cerebrovascular accident, Onset Age: 81 Lung cancer Cervical cancer Father Family history of cardiomyopathy, Onset Age: 67 Hypertension Heart attack Social History Social History (Updated 08/19/21 @ 10:58 by Gregoria Fuller PA-C) Smoking packs per day: 2 Smoking cigarettes per day: 40.0 Years smoked: 50 Smoking pack-years: 100.00 Smoking status: Former smoker Alcohol intake: former Alcohol use details: Reports drinking 5 beers all year, prior to arrival 2.5 beers Substance use: former Other substance usage details: Denies marijuana use Living arrangements: alone Occupation/Education: retired Gender identity (if verbalized by the patient): Male Sexual Orientation (if Verbalized by the Patient): Straight or Heterosexual Spiritual care concerns: No Meds Home Medications and Allergies Home Medications Medication Instructions Recorded Confirmed Type Eliquis 5 mg PO BID 11/14/20 08/19/21 History allopurinol 200 mg PO BID 11/14/20 08/19/21 History atorvastatin [Lipitor] 80 mg PO HS 11/14/20 08/19/21 History carvedilol [Coreg] 6.25 mg PO BID 11/14/20 08/19/21 History clonidine HCl 0.2 mg PO TID 11/14/20 08/19/21 History duloxetine 30 mg PO DAILY 11/14/20 08/19/21 History furosemide [Las
[2021-08-19] MEDS: carvediloL 6.25 MG TABLET PO ×2 (09:08→16:48)
[2021-08-19] MEDS: hydrALAZINE HCL 50 MG TABLET PO ×3 (09:10→16:49)
[2021-08-19] MEDS: allopurinoL 100 MG TABLET 200 MG PO ×2 (09:10→16:49)
[2021-08-19] MEDS: APIXABAN 5 MG TABLET PO ×2 (09:10→16:48)
[2021-08-19] MEDS: DULoxetine HCL 30 MG CAPSULE.DR PO (09:10)
[2021-08-19] MEDS: cloNIDine HCL 0.2 MG TABLET PO ×3 (09:11→16:49)
[2021-08-19] MEDS: LOSARTAN POTASSIUM 100 MG TABLET PO (09:11)
[2021-08-19] MEDS: HYDROcodone/acetaminophen (*CRX) 10-325 MG TABLET 1 TAB PO ×4 (09:13→21:56)
[2021-08-19] MEDS: SILVERGEL (ELTA) 45 ML 1 APPLIC TOPICAL (11:56)
[2021-08-19 12:24] LABS: Glucose Point of Care 107 mg/dl (65-105)
--- NOTE | 2021-08-19 14:05 | PCCCNOTE ---
On 08/19/21, the student, [Monie Og], provided care and [facility]. I have reviewed the student's documentation and agree with the findings.
[2021-08-19 17:10] LABS: Glucose Point of Care 121 mg/dl (65-105)
[2021-08-19] MEDS: ATORVASTATIN 40 MG TABLET 80 MG PO (21:48)
[2021-08-20] VITALS (11 sets, daily range): BP systolic 131–150; BP diastolic 66–85; PULSE 46–84; RESP 18–20; TEMP 36.1–36.5; O2SAT 90–100
[2021-08-20] MEDS: HYDROcodone/acetaminophen (*CRX) 10-325 MG TABLET 1 TAB PO ×3 (04:03→15:28)
[2021-08-20 07:07] LABS: Hematocrit 35.2 % (42.0-52.0); Hemoglobin 11.2 g/dL (14.0-18.0); Immature Platelet Fraction Pct 17.4 % (0.9-11.2); Mean Corpuscular HGB Conc 31.8 g/dl (32-36); Mean Corpuscular Hemoglobin 29.2 pg (26-34); Mean Corpuscular Volume 91.7 fl (80-100); Platelet Count Result 87 k/mm3 (150-375); Red Blood Count 3.84 M/mm3 (4.6-6.20); Red Cell Distribution Width 15.4 % (11.5-14.5); White Blood Count 5.2 K/mm3 (4.5-10.0)
[2021-08-20 07:11] LABS: Anion Gap 5 mmol/L (8-16); Blood Urea Nitrogen 17 mg/dL (9-20); Calcium 8.7 mg/dL (8.4-10.2); Carbon Dioxide 32 mmol/L (22-30); Chloride 99 mmol/L (98-107); Estimated CRCL calculation 93 ml/min; Estimated Glomerular Filt Rate > 60; Glucose 116 mg/dL (65-110); Potassium 3.6 mmol/L (3.4-5.0); Sodium 136 mmol/L (137-145)
[2021-08-20 07:33] LABS: Glucose Point of Care 103 mg/dl (65-105)
[2021-08-20] MEDS: carvediloL 6.25 MG TABLET PO (08:42)
[2021-08-20] MEDS: allopurinoL 100 MG TABLET 200 MG PO (08:42)
[2021-08-20] MEDS: APIXABAN 5 MG TABLET PO (08:42)
[2021-08-20] MEDS: DULoxetine HCL 30 MG CAPSULE.DR PO (08:42)
[2021-08-20] MEDS: cloNIDine HCL 0.2 MG TABLET PO ×2 (08:42→12:18)
[2021-08-20] MEDS: hydrALAZINE HCL 50 MG TABLET PO ×2 (08:42→12:18)
[2021-08-20] MEDS: LOSARTAN POTASSIUM 100 MG TABLET PO (08:42)
[2021-08-20 08:50] LABS: Glucose Point of Care 92 mg/dl (65-105)
[2021-08-20 11:49] LABS: Glucose Point of Care 131 mg/dl (65-105)
[2021-08-20] MEDS: SILVERGEL (ELTA) 45 ML 1 APPLIC TOPICAL (12:18)
--- NOTE | 2021-08-20 13:20 | ECG_ITS ---
Measurements Intervals Anton Rate: 66 P: [place]: 0 QRS: -31 QRSD: 100 T: 76 QT: 389 QTc: 410 Interpretive Statements ATRIAL FIBRILLATION LEFT AXIS DEVIATION DELAYED PRECORDIAL R/S TRANSITION LOW QRS VOLTAGE IN LIMB LEADS CONSIDER INFERIOR INFARCT, AGE INDETERMINATE BORDERLINE ST-T WAVE ABNORMALITY- HIGH LATERAL LEADS BASELINE ARTIFACT- I, III, AVR, AVL, V2 ABNORMAL ECG Electronically Signed On 08-20-2021 17:48:37 CDT by Zeke Travis D.O.
--- NOTE | 2021-08-20 14:05 | PM.DS ---
DS: Admitting Diagnosis Discharge Date 08/20/21 Admitting Diagnosis Fall DS: Discharge Diagnosis Discharge Diagnosis (1) Fall: Code(s): W19.XXXA - Unspecified fall, initial encounter Status: Acute Assessment and Plan: The patient is a 71-year-old man with a history of chronic respiratory failure on 2 L of oxygen 28/05, COPD, agent orange exposure, hypertension, diabetes, peripheral neuropathy, atrial fibrillation on Eliquis, who presented to the emergency room after sustaining a fall. The patient states he has not been very active with leaving his house for the past several months after being diagnosed with lung cancer in February 2021. Initial vitals showed stable BP 128/74, HR 96 bpm, afebrile, normal O2 95% on 2L. Initial labs showed normocytic anemia Hgb 12.5/39.7 and Thrombopenia 125,000 which is stable/improved from prior hospitalization. Normal BMP other than slight elevated of Cr 1.2/. CT brain showed no acute changes, CT Cervical Spine showed no acute fracture, severe cervical spondylosis. XR Right knee showed severe right OA, Moderate sized knee joint effusion. Hip/Pelvis XR showed Osteonecrosis of the femoral heads. Mild osteoarthritis of the hips. Thoracic Lumbar CT showed No fracture. Anterior fusion procedure at L5-S1 and posterior fusion procedure from L4 to S1. DISH. Severe lumbar spondylosis. Airspace opacities in right lung upper lobe and superior segment right lower lobe, consistent with pneumonia. Noncontrast chest CT is recommended in one month to exclude right upper lobe malignancy. Emphysema. He was going to be discharged from the ER but had severe uncontrolled pain and required admission for pain control and was started on IV Antibiotics for possible pneumonia. While here, I kept him on his same [place] 10/325 mg but increased PRN Q4hrs with better control of his pain. PT/OT evaluated and he was a standby guard walking 60 feet. I discussed the patients increased weakness without leaving the house for the last 80 days and may need SNF placement. The patient refuses and would like to be discharged home with Home Health. Home O2 evaluation showed he just need 2L at rest and with exertion since I was concerned with worsening JOHNSON with 15 feet he would require more with exertion. He feels comfortable at this time of Discharge. Given PO Abx for pneumonia and told to follow up with PCP and Patient Access Registrar at [facility] in 1 week. Return to ER warnings [email or web address]. He understands and agrees with the plan. All questions answered. Patient had a few episodes of tachycardia on his Tele and nurse was concerned and we got an EKG. Tele to me shows Afib, rate 96 bpm, with some PVCs. HR increases to 133 bpm when walking with Respiratory in the room. He is asymptomatic. EKG shows Afib 66 bpm without any acute abnormality. (2) Pneumonia: Code(s): J18.9 - Pneumonia, unspecified organism Status: Acute Assessment and Plan: On CT thoracic spine showed Airspace opacities in right lung upper lobe and superior segment right lower lobe, consistent with pneumonia. The patient does have known right lung nodule, he is unsure which lobe it is located in. Status post radiation and followed up by oncologist at [facility]. He does report having a cough a few weeks ago, but states mostly at his baseline right now Will continue antibiotics for community-acquired pneumonia and monitor his respiratory status The patient follows up with his oncologist at [facility] you who does serial CT scans every 3 months monitoring his lung nodule. (3) Back pain: Code(s): M54.9 - Dorsalgia, unspecified Status: Acute Assessment and Plan: Patient has chronic back pain for which he takes [place] 10/325 every 6 hours as needed. After sustaining his fall last night he has increased back pain so I will prescribe his [place] to be every 4 hours as needed. Will start
== END 2021-08-20 16:15 | disposition home health service (06) | DRG 194 ==
LOC: ANHED 08-19 00:28 → ANH3MEDSUR 08-19 01:00
PROVIDERS: Physician Assistant; Admitting Provider Internal Medicine; Emergency Provider Emergency Medicine; PCP Internal Medicine; Visit Provider Internal Medicine
DX: J18.9 Pneumonia, unspecified organism (principal); J44.0 Chronic obstructive pulmonary disease with (acute) lower respiratory infection; J96.11 Chronic respiratory failure with hypoxia; I48.20 Chronic atrial fibrillation, unspecified; C34.90 Malignant neoplasm of unspecified part of unspecified bronchus or lung; M54.9 Dorsalgia, unspecified; I10 Essential (primary) hypertension; E11.42 Type 2 diabetes mellitus with diabetic polyneuropathy; G47.33 Obstructive sleep apnea (adult) (pediatric); W19.XXXA Unspecified fall, initial encounter; E78.5 Hyperlipidemia, unspecified; M17.11 Unilateral primary osteoarthritis, right knee; M1A.9XX0 Chronic gout, unspecified, without tophus (tophi); Z77.29 Contact with and (suspected) exposure to other hazardous substances; Z99.81 Dependence on supplemental oxygen; Z98.1 Arthrodesis status; Z87.891 Personal history of nicotine dependence; Z79.01 Long term (current) use of anticoagulants
CPT/HCPCS: 36415; 70450; 72125; 72128; 72131; 73521; 73562; 80048; 82948; 85025; 85027; 85055; 85610; 85730; 93005; 94640; 96365; 96366; 96367; 96375; 97110; 97162; 97165; 97535; 99285; A9270; G0378; J0131; J0456; J0696; J7040

== ENCOUNTER 2022-01-13 13:48 | Emergency (ER) | payer MEDICARE, OTHER, SELFPAY ==
--- NOTE | ~2022-01-13 | CT_ITS ---
EXAMINATION: CTA brain carotid EXAM DATE: 01/13/2022 16:57 INDICATION: RUE tremor and stuttering TECHNIQUE: Noncontrast head CT. Spiral CTA of the carotid arteries was performed with intravenous i njection 100 cc of Omnipaque 350. Axial, coronal, sagittal reformatted images reviewed. Additional r eformatted images created on dedicated 3-D workstation. NASCET comparable standard used to assess th e degree of arterial stenosis. Spiral CT angiogram cerebral arteries performed with the same intrave nous injection of contrast. Source images of the brain CTA transferred to dedicated workstation for 3 -D rotational image creation. Coronal, sagittal maximum intensity pixel images also reviewed. The d ose-length product (DLP) for this examination was 3613.03 mGy-cm. The exposure was tailored accordi ng to patient size, and iterative reconstruction (ASIR) was used as additional dose reduction techniq ue. Compared to prior head CT dated 11/14/2020. FINDINGS: There is bilateral carotid bulb mild arteriosclerosis with 0% stenosis bilaterally. There is no carotid or vertebral basilar arterial dissection or fibromuscular dysplasia. 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 The vertebral arteries are codominant. T here is symmetric cerebral artery arborization. The sagittal, transverse and sigmoid sinuses enhance normally, no venous sinus thrombosis. Internal cerebral veins also enhance normally. Mild cerebral atrophy.There is no acute intraparenchymal hemorrhage. No evidence of intraparenchymal brain mass lesion. No evidence of acute infarction. There is no mass effect or midline shift. Ther e is no obstructive hydrocephalus suspected. There are no extra-axial collections. Incidental Findings: Spiculated right upper lobe, suprahilar mass measuring about 3.5 cm appearance m ost consistent with primary lung cancer. Moderate cervical spondylosis. IMPRESSION: 1. Right upper lobe spiculated mass most likely primary lung cancer. Central would make percutaneous biopsy challenging. Recommend chest CT for more comprehensive evaluation. 2. No acute carotid or intracranial findings. 3. Bilateral carotid bulb 0% stenosis. 4. Anterior communicating artery 3 mm aneurysm. Reviewed, dictated and finalized at location [employer]AC[employer] MEMBER IMPRESSION: 1. Right upper lobe spiculated mass most likely primary lung cancer. Central w ould make percutaneous biopsy challenging. Recommend chest CT for more comprehe nsive evaluation. 2. No acute carotid or intracranial findings. 3. Bilateral carotid bulb 0% stenosis. 4. Anterior communicating artery 3 mm aneurysm.
[2022-01-13 14:19] VITALS: BP 131/62; PULSE 100; RESP 18; TEMP 37.1; O2SAT 100
--- NOTE | 2022-01-13 14:47 | ECG_ITS ---
Measurements Intervals [place] Rate: 82 P: [place]: 0 QRS: -23 QRSD: 99 T: 74 QT: 374 QTc: 438 Interpretive Statements ATRIAL FIBRILLATION WITH ABERRANT CONDUCTION OR VENTRICULAR PREMATURE COMPLEXES LOW QRS VOLTAGE [QRS DEFLECTION < 0.5/1.0 mV IN LIMB/CHEST LEADS] POSSIBLE ANTERIOR MYOCARDIAL INFARCTION , PROBABLY OLD [30 ms Q WAVE IN V3/V4, OR R < 0.2 mV IN V4] BASELINE ARTIFACT ABNORMAL ECG COMPARED TO ECG 08/20/2021 13:40:52 ABERRANT CONDUCTION OF SUPRAVENTRICULAR BEAT(S) NOW PRESENT Electronically Signed On 01-13-2022 15:27:16 APPLIANCE SERVICE TECHNICIAN by Solo Beck M.D.
[2022-01-13 15:00] VITALS: BP 134/78; PULSE 77; RESP 16; TEMP 37; O2SAT 98
[2022-01-13 15:31] LABS: Basophils Percent Auto 0.3 % (0.2-1.2); Eosinophils Absolute Auto 0.1 K/mm3 (0-0.3); Eosinophils Percent Auto 1.1 % (0-4.4); Hematocrit 35.8 % (42.0-52.0); Hemoglobin 11.2 g/dL (14.0-18.0); Immature Granulocyte Absolute 0.03 K/mm3 (0.00-0.031); Immature Granulocyte Percent A 0.5 % (0-0.5); Immature Platelet Fraction Pct 11.3 % (0.9-11.2); Lymphocytes Absolute Auto 1.24 K/mm3 (0.9-3.2); Mean Corpuscular HGB Conc 31.3 g/dl (32-36); Mean Corpuscular Hemoglobin 29.6 pg (26-34); Mean Corpuscular Volume 94.7 fl (80-100); Monocytes Absolute Auto 0.5 K/mm3 (0.1-0.6); Monocytes Percent Auto 7.5 % (2.6-8.5); Neutrophils Absolute Auto 4.7 K/mm3 (1.3-6.7); Neutrophils Percent Auto 71.6 % (45.5-73.1); Platelet Count Result 91 k/mm3 (150-375); Red Blood Count 3.78 M/mm3 (4.6-6.20); Red Cell Distribution Width 15.9 % (11.5-14.5); White Blood Count 6.5 K/mm3 (4.5-10.0)
[2022-01-13 15:41] LABS: Alanine Aminotransferase 14 U/L (4-50); Albumin Level 3.8 g/dL (3.5-5.1); Alkaline Phosphatase 118 U/L (38-126); Anion Gap 2 mmol/L (8-16); Aspartate Amino Transferase 22 U/L (17-59); Bilirubin,Total 1.3 mg/dL (0.2-1.3); Blood Urea Nitrogen 22 mg/dL (9-20); Calcium 8.7 mg/dL (8.4-10.2); Carbon Dioxide 34 mmol/L (22-30); Chloride 103 mmol/L (98-107); Estimated CRCL calculation 84 ml/min; Estimated Glomerular Filt Rate > 60; Glucose 123 mg/dL (65-110); Potassium 4.8 mmol/L (3.4-5.0); Sodium 139 mmol/L (137-145)
--- NOTE | 2022-01-13 15:55 | ED.NEUROSD ---
HPI - Neuro Symptoms/Deficit General Chief Complaint: Neuro Symptoms/Deficit Stated Complaint: tremors Time Seen by Provider: 01/13/22 14:40 Source: patient History of Present Illness HPI Narrative: Patient presents with upper extremity and facial tremors. Reports he has a history of right upper extremity tremors and was never seen for a number of the past 2 days ports his whole right upper extremity twitches he is stuttering and his neck is twitching. He has never had tremors this bad before they are unsure what to do so he came to the ER for evaluation. Reports his neck is sore but denies any headache, change focal numbness or weakness denies any chest Related Data Home Medications Medication Instructions Recorded Confirmed Eliquis 5 mg PO BID 11/14/20 08/19/21 allopurinol 200 mg PO BID 11/14/20 08/19/21 atorvastatin [Lipitor] 80 mg PO HS 11/14/20 08/19/21 carvedilol [Coreg] 6.25 mg PO BID 11/14/20 08/19/21 clonidine HCl 0.2 mg PO TID 11/14/20 08/19/21 duloxetine 30 mg PO DAILY 11/14/20 08/19/21 furosemide [Lasix] 40 mg PO BID 11/14/20 08/19/21 hydralazine 50 mg PO TID 11/14/20 08/19/21 hydrocodone-acetaminophen 1 tablet PO TID 11/14/20 08/19/21 ipratropium-albuterol 1 puff INHALATION QID PRN 11/14/20 08/19/21 losartan 100 mg PO DAILY 11/14/20 08/19/21 metformin 1,000 mg PO BID 11/14/20 08/19/21 budesonide-formoterol [Symbicort] 2 puff INHALATION BID 11/16/20 08/19/21 Allergies Allergy/AdvReac Type Severity Reaction Status Date / Time amlodipine Allergy Unknown Swelling Verified 11/14/20 09:04 gabapentin Allergy Unknown Hallucinati Verified 11/14/20 09:04 ng morphine AdvReac Intermediate Nausea and Verified 11/14/20 09:04 Vomiting Review of Systems Review of Systems: CONSTITUTIONAL: Denies fever, chills, or sweats. EYES: Denies visual changes, redness, or discharge. ENT: Denies rhinorrhea, congestion, sore throat, or otalgia. CARDIOVASCULAR: Denies chest pain, palpitations, or edema. RESPIRATORY: Denies cough or dyspnea. GASTROINTESTINAL: Denies abdominal pain, nausea, vomiting, or diarrhea. GENITOURINARY: Denies dysuria or hematuria. SKIN: Denies rash or itching. MUSCULOSKELETAL: Denies back pain, joint pain, or myalgia. NEUROLOGIC: Denies headache, numbness, dizziness, or weakness. PSYCHIATRIC: Denies anxiety or depression. All systems reviewed & are unremarkable except as noted in HPI and below PMFSH Past Medical History Medical History Alcohol intoxication Anemia due to blood loss, acute Atrial fibrillation Chronic respiratory failure with hypoxia COPD (chronic obstructive pulmonary disease) Diabetes mellitus Gout HTN (hypertension), benign Hypoglycemia ANASTASIA (obstructive sleep apnea) Peripheral neuropathy Surgical History Surgical History S/P lumbar fusion S/P lumbar laminectomy Family History Family History Mother Cerebrovascular accident, Onset Age: 81 Lung cancer Cervical cancer Father Family history of cardiomyopathy, Onset Age: 67 Hypertension Heart attack Social History Social History Smoking packs per day: 2 Smoking cigarettes per day: 40.0 Years smoked: 50 Smoking pack-years: 100.00 Smoking status: Former smoker Alcohol intake: former Alcohol use details: Reports drinking 5 beers all year, prior to arrival 2.5 beers Substance use: former Other substance usage details: Denies marijuana use Gender identity (if verbalized by the patient): Male Sexual Orientation (if Verbalized by the Patient): Straight or Heterosexual Spiritual care concerns: No Exam Narrative: GENERAL: Well-appearing, well-nourished, and in no acute distress. HEAD: Normocephalic, atraumatic. EYES: PERRLA and EOMI. ENT: Nares clear, no rhin
[2022-01-13 16:00] VITALS: BP 138/74; PULSE 84; RESP 18; O2SAT 98
[2022-01-13] MEDS: diphenhydrAMINE HCl INJ 50 MG/ML VIAL 25 MG IV PUSH (16:08)
[2022-01-13 18:22] VITALS: BP 168/88; PULSE 80; RESP 14; TEMP 36.9; O2SAT 98
== END 2022-01-13 18:25 | disposition home or self-care (01) ==
PROVIDERS: Emergency Provider Emergency Medicine; PCP Internal Medicine
DX: G25.3 Myoclonus (principal); I48.91 Unspecified atrial fibrillation; J96.11 Chronic respiratory failure with hypoxia; J44.9 Chronic obstructive pulmonary disease, unspecified; I10 Essential (primary) hypertension; G47.33 Obstructive sleep apnea (adult) (pediatric); E11.42 Type 2 diabetes mellitus with diabetic polyneuropathy; M10.9 Gout, unspecified; Z79.01 Long term (current) use of anticoagulants; Z79.84 Long term (current) use of oral hypoglycemic drugs; Z98.1 Arthrodesis status; Z87.891 Personal history of nicotine dependence; R91.8 Other nonspecific abnormal finding of lung field; I71.4 Abdominal aortic aneurysm, without rupture; I67.1 Cerebral aneurysm, nonruptured; R94.31 Abnormal electrocardiogram [ECG] [EKG]
CPT/HCPCS: 36415; 70496; 70498; 80053; 85025; 85055; 93005; 96374; 99284; J1200; Q9967

== ENCOUNTER 2022-08-11 06:53 | Inpatient (IN) | payer MEDICARE, OTHER, SELFPAY ==
[2022-08-11] VITALS (31 sets, daily range): BP systolic 114–195; BP diastolic 32–109; PULSE 65–112; RESP 14–20; TEMP 36.1–36.7; O2SAT 92–100; BMI 31.0
--- NOTE | ~2022-08-11 | XR_ITS ---
XR chest 1V portable 08/13/2022 14:05 Indication: Abdominal pain. Recent surgery. Procedure: AP portable chest Comparison: Comparison to multiple prior studies sequentially, with oldest reviewed study dated 11/14. Findings: There are bibasilar infiltrates which Some atelectasis or developing pneumonia. There is a spiculated mass in the right upper lobe, concern ing for bronchogenic carcinoma. NG tube in the stomach. Impression: 1: Bibasilar infiltrates may represent atelectasis and/or pneumonia. 2: Spiculated right upper lobe mass, concerning for bronchogenic carcinoma. Reviewed, dictated and finalized at location A. Impression: 1: Bibasilar infiltrates may represent atelectasis and/or pneumonia. 2: Spiculated right upper lobe mass, concerning for bronchogenic carcinoma.
--- NOTE | ~2022-08-11 | XR_ITS ---
XR chest 1V portable 08/12/2022 05:55 Indication: CHF. Procedure: AP portable chest Comparison: CT dated 08/11/2022 Findings: There is a spiculated right upper lobe mass corresponding to the mass seen on CT dated 05/2022. This mass is consistent with bronchogenic carcinoma until proven otherwise. Heart size normal . NG tube in the esophagus. Bilateral interstitial infiltrates. No effusion or pneumothorax. Impression: 1: Spiculated right upper lobe mass, consistent with bronchogenic carcinoma until proven otherwise. 2: Bilateral interstitial infiltrates which may reflect mild edema or pneumonia. Reviewed, dictated and finalized at location A. Impression: 1: Spiculated right upper lobe mass, consistent with bronchogenic carcinoma unt il proven otherwise. 2: Bilateral interstitial infiltrates which may reflect mild edema or pneumoni a.
--- NOTE | ~2022-08-11 | XR_ITS ---
XR abdomen/kub 1V 08/13/2022 14:05 Indication: Abdominal pain. Recent surgery. Procedure: KUB Comparison: 08/11/2022 Findings: NG tube in the stomach. There are spinal fusion changes at L4 S1. There is laparotomy stapl e line. Bowel gas pattern nonobstructive. No renal stones identified. Impression: 1: Nonobstructive bowel gas pattern. Reviewed, dictated and finalized at location A. Impression: 1: Nonobstructive bowel gas pattern.
--- NOTE | ~2022-08-11 | CT_ITS ---
EXAMINATION: CTA chest abdomen pelvis DATE: 08/11/2022 07:56 INDICATION: Abdominal pain. Evaluate aorta and abdominal vasculature. TECHNIQUE: Computed tomographic angiography (CTA) of the chest, abdomen, and pelvis was performed wit h 100 mL Omnipaque-350 intravenous contrast. Volume-rendered 3D-reconstructions of the aorta and larg e arteries were constructed by the technologist on a separate workstation. Automated exposure control and iterative reconstruction technique were employed. The dose-length product was 1735.59 mGy-cm. COMPARISON: None FINDINGS: Chest: Mild emphysema. 2.1 x 1.7 cm spiculated nodule centered within the pulmonary vasculature in the centr al right upper lobe. There are few scattered bilateral calcified pulmonary nodules as well as calcifi ed bilateral hilar and mediastinal lymph nodes consistent with old granulomatous disease. There is so me scattered linear discoid atelectasis in both lungs. Cardiomegaly. Atherosclerotic coronary artery calcification. No pericardial effusion. Ectatic ascending thoracic aorta measuring up to 3.8 cm in ma ximal diameter. No dissection. No pathologically enlarged thoracic lymphadenopathy. There are bridgin g osteophytes at multiple levels in the spine, consistent with diffuse idiopathic skeletal hyperostos is (DISH). Abdomen and pelvis: There are few small calcified gallstones in the dependent aspect of the normal gallbladder. Liver, pa ncreas and bilateral adrenal glands are normal. Bilateral renal cysts, the largest on the left measur ing 2.7 cm. Small splenic calcific lesions consistent with old granulomatous disease. Fluid filling a few loops of small bowel in the right lower quadrant which measure up to 2.9 cm maximal diameter. Th ere is some free fluid along the associated small bowel mesentery. There are 2 abrupt transition poin ts are healing in close proximity in the right lower quadrant which is concerning for either a closed loop obstruction or potentially an internal hernia. The more distal small bowel is decompressed exte nding into the ilium. There are few scattered colonic diverticula without adjacent inflammatory verduzco e to suggest diverticulitis. Appendix is normal. Bladder is normal. Additional small amount of free f luid in the deep pelvis. No pathologically enlarged abdominal or pelvic lymphadenopathy. There is gary cified atherosclerosis of the normal caliber abdominal aorta and many of the other arteries. L3-S1 an terior spinal fusion with interbody bone graft cage at L5-S1. L4-S1 laminectomies and L4-S1 posterior spinal fusion with bilateral vertical sanford and pedicle screw fixation. IMPRESSION: 1. Borderline dilated small bowel in the right lower quadrant with 2 abrupt transition points in clos e proximity raising concern for closed loop obstruction or obstructing internal hernia. Dr. Bullard discussed these findings with Dr. Perez at 8:25 AM. 2. Ectatic ascending thoracic aorta measuring up to 3.8 cm maximal diameter. No thoracic or abdominal aortic aneurysm. 3. Cardiomegaly. 4. Cholelithiasis. Reviewed, dictated and finalized at location A. IMPRESSION: 1. Borderline dilated small bowel in the right lower quadrant with 2 abrupt tra nsition points in close proximity raising concern for closed loop obstruction o r obstructing internal hernia. Dr. Bullard discussed these findings with Dr. Zahida miguel at 8:25 AM. 2. Ectatic ascending thoracic aorta measuring up to 3.8 cm maximal diameter. No thoracic or abdominal aortic aneurysm. 3. Cardiomegaly. 4. Cholelithiasis.
--- NOTE | ~2022-08-11 | CT_ITS ---
EXAMINATION: CT abdomen pelvis w con DATE: 08/14/2022 15:01 INDICATION: Abdominal pain. TECHNIQUE: Computed tomography (CT) of the abdomen and pelvis was performed with 100 mL Omnipaque 350 intravenous contrast. Automated exposure control and iterative reconstruction technique were employe d. The dose-length product was 1554.84 mGy-cm. COMPARISON: CT abdomen and pelvis 08/11/2022 FINDINGS: The visualized portions of the lung bases demonstrate mild atelectasis. A calcified right l china nodule is consistent with old granulomatous disease. No pleural effusion. There is left atrial en largement of the heart. There are coronary artery calcifications. No pericardial effusion. The liver and spleen are normal. There are contrast and stones in the gallbladder, which is normal in size. The nasogastric tube tip is in the stomach. The proximal side port in the distal esophagus. The pancreas and adrenal glands are normal. There is cortical thinning of the kidneys. There are cysts in the kid neys measuring up to 3.5 cm on the left. The appendix is normal. There is mildly dilated small bowel proximal to a small bowel anastomosis, likely adynamic ileus. There are no pathologically enlarged ly mph nodes. There is no free intraperitoneal fluid. There is severe lumbar spondylosis. There are washburn ges of posterior fusion procedure from L4 to S1. There is anterior fusion from L3 to S1. There is ost eonecrosis of the femoral heads. IMPRESSION: 1. Mildly dilated small bowel, likely adynamic ileus. 2. Nasogastric tube tip in the stomach with proximal side port in the distal esophagus. Advancement 5 cm is recommended. Reviewed, dictated and finalized at location A. IMPRESSION: 1. Mildly dilated small bowel, likely adynamic ileus. 2. Nasogastric tube tip in the stomach with proximal side port in the distal es ophagus. Advancement 5 cm is recommended.
--- NOTE | ~2022-08-11 | XR_ITS ---
EXAMINATION: XR abdomen NG/feed tube rechec DATE: 08/14/2022 23:37 INDICATION: Nasogastric tube placement. TECHNIQUE: An upright view of the abdomen was obtained. COMPARISON: Abdomen radiograph 08/13/2022 FINDINGS: The lower abdomen is excluded. The nasogastric tube tip is in the midesophagus. IMPRESSION: 1. Nasogastric tube tip in the midesophagus. Reviewed, dictated and finalized at location A.
--- NOTE | ~2022-08-11 | XR_ITS ---
EXAMINATION: XR abdomen NG/feed tube insert DATE: 08/11/2022 08:55 INDICATION: Nasogastric tube placement. TECHNIQUE: An upright view of the abdomen was obtained. COMPARISON: CT abdomen and pelvis 08/11/22 FINDINGS: There are no visible gas-filled dilated loops of bowel. The lower abdomen is excluded. Ther e is a small volume of stool in the colon. The nasogastric tube tip is in the stomach. There are washburn ges of posterior fusion procedure in lumbar spine. IMPRESSION: 1. Nasogastric tube tip in the stomach. Reviewed, dictated and finalized at location D.
--- NOTE | ~2022-08-11 | XR_ITS ---
EXAMINATION: XR abdomen NG/feed tube rechec DATE: 08/15/2022 07:42 INDICATION: Nasogastric tube advancement TECHNIQUE: A supine view of the abdomen and lower chest was obtained for evaluation of feeding tube placement. COMPARISON: 08/15/2022 at 5:03 AM FINDINGS: Nasogastric tube has been advanced with tip and proximal side port now in the body of the stomach. Li near discoid atelectasis in the right lower lung zone. Multiple gas-filled but not frankly dilated lo ops of bowel in the visualized abdomen. Instrumented lower lumbar posterior spinal fusion. IMPRESSION: 1. Nasogastric tube in stomach. Reviewed, dictated and finalized at location B.
--- NOTE | ~2022-08-11 | XR_ITS ---
EXAMINATION: XR abdomen NG/feed tube rechec DATE: 08/15/2022 05:31 INDICATION: Nasogastric tube adjustment. TECHNIQUE: An upright view of the abdomen was obtained. COMPARISON: Abdomen radiograph at 11:29 PM, CT abdomen and pelvis 08/14/2022 FINDINGS: The lower abdomen is excluded. There are dilated loops of small bowel. The nasogastric tube tip is in the stomach. There are changes of posterior fusion procedure in lumbar spine. IMPRESSION: 1. Nasogastric tube tip in the stomach. 2. Dilated small bowel, likely adynamic ileus. Reviewed, dictated and finalized at location A.
--- NOTE | 2022-08-11 07:13 | ED.GENADULT ---
HPI - General Adult General Chief complaint: Abdominal Pain Stated complaint: ABD Pain Time Seen by Provider: 08/11/22 07:13 History of Present Illness HPI narrative: 72-year-old male with a pmh of chf, hypertension, diabetes and atrial fibrillation for which patient is taking Eliquis, presents for evaluation of severe abdominal pain since this morning. Pain is constant and radiates to his back. Patient has multiple episodes of retching on arrival. Minimal abdominal tenderness/pain out of proportion to exam. Last meal was 3 hours prior to arrival. Related Data Home Medications Medication Instructions Recorded Confirmed allopurinol 100 mg tablet 200 mg PO BID 11/14/20 08/19/21 apixaban 5 mg tablet (Eliquis) 5 mg PO BID 11/14/20 08/19/21 atorvastatin 40 mg tablet (Lipitor) 80 mg PO HS 11/14/20 08/19/21 carvedilol 6.25 mg tablet (Coreg) 6.25 mg PO BID 11/14/20 08/19/21 duloxetine 30 mg capsule,delayed 30 mg PO DAILY 11/14/20 08/19/21 release sprinkle hydrocodone 10 mg-acetaminophen 1 tablet PO TID 11/14/20 08/19/21 325 mg tablet ipratropium 20 mcg-albuterol 100 1 puff inhalation QID PRN SOB 11/14/20 08/19/21 mcg/actuation mist for inhalation losartan 100 mg tablet 100 mg PO DAILY 11/14/20 08/19/21 metformin 500 mg tablet 1,000 mg PO BID 11/14/20 08/19/21 budesonide-formoterol HFA 80 2 puff inhalation BID 11/16/20 08/19/21 mcg-4.5 mcg/actuation aerosol inhaler (Symbicort) dapagliflozin 10 mg tablet 10 mg PO DAILY 08/11/22 08/11/22 mometasone-formoterol HFA 100 2 puff inhalation Q12H 08/11/22 08/11/22 mcg-5 mcg/actuation aerosol inhaler sacubitril 24 mg-valsartan 26 mg 1 tablet PO BID 08/11/22 08/11/22 tablet Allergies Allergy/AdvReac Type Severity Reaction Status Date / Time amlodipine Allergy Unknown Swelling Verified 08/11/22 07:29 gabapentin Allergy Unknown Hallucinati Verified 08/11/22 07:29 ng morphine AdvReac Intermediate Nausea and Verified 08/11/22 07:29 Vomiting Review of Systems Review of Systems: Gen.: Denies fevers or chills Eyes: Denies eye pain or visual change ENT: Denies congestion Respiratory: Denies shortness of breath or cough CV: Denies chest pain or palpitations GI: Denies abdominal pain nausea, emesis or diarrhea denies burning, urgency, frequency or hematuria Musculoskeletal: Denies back pain or muscle pain Neuro: Denies numbness, tingling, weakness or focal weakness Skin: Denies rash Except as documented, all other systems reviewed and negative PMFSH Past Medical History Medical History Alcohol intoxication Anemia due to blood loss, acute Atrial fibrillation Chronic respiratory failure with hypoxia COPD (chronic obstructive pulmonary disease) Diabetes mellitus Gout HTN (hypertension), benign Hypoglycemia ANASTASIA (obstructive sleep apnea) Peripheral neuropathy Surgical History Surgical History S/P lumbar fusion S/P lumbar laminectomy Family History Family History Mother Cerebrovascular accident, Onset Age: 81 Lung cancer Cervical cancer Father Family history of cardiomyopathy, Onset Age: 67 Hypertension Heart attack Social History Social History Smoking packs per day: 2 Smoking cigarettes per day: 40.0 Years smoked: 50 Smoking pack-years: 100.00 Smoking status: Former smoker Alcohol intake: former Alcohol use details: Reports drinking 5 beers all year, prior to arrival 2.5 beers Substance use: former Other substance usage details: Denies marijuana use Gender identity (if verbalized by the patient): Male Sexual Orientation (if Verbalized by the Patient): Straight or Heterosexual Spiritual care concerns: No Exam Narrative: GENERAL: Well-appearing, well-nourished, and in moderat
[2022-08-11 07:20] LABS: Basophils Percent Auto 0.4 % (0.2-1.2); Eosinophils Absolute Auto 0.1 K/mm3 (0-0.3); Eosinophils Percent Auto 0.6 % (0-4.4); Hematocrit 44.9 % (42.0-52.0); Hemoglobin 14.3 g/dL (14.0-18.0); Immature Granulocyte Absolute 0.05 K/mm3 (0.00-0.031); Immature Granulocyte Percent A 0.5 % (0-0.5); Immature Platelet Fraction Pct 13.8 % (0.9-11.2); Lymphocytes Percent Auto 12.5 % (18.3-44.2); Mean Corpuscular HGB Conc 31.8 g/dl (32-36); Mean Corpuscular Hemoglobin 31.2 pg (26-34); Monocytes Absolute Auto 0.6 K/mm3 (0.1-0.6); Monocytes Percent Auto 6.4 % (2.6-8.5); Neutrophils Absolute Auto 7.6 K/mm3 (1.3-6.7); Neutrophils Percent Auto 79.6 % (45.5-73.1); Platelet Count Result 119 k/mm3 (150-375); Red Blood Count 4.58 M/mm3 (4.6-6.20); Red Cell Distribution Width 15.2 % (11.5-14.5); White Blood Count 9.6 K/mm3 (4.5-10.0)
[2022-08-11] MEDS: LACTATED RINGERS 1,000 ML 500 ML IV CONT (07:22)
[2022-08-11] MEDS: ONDANSETRON INJ 4 MG/2 ML VIAL IV PUSH (07:22)
[2022-08-11] MEDS: MORPHINE SULFATE (*CRX) 4 MG/ML INJ IV PUSH ×5 (07:23→14:33)
--- NOTE | 2022-08-11 07:28 | ECG_ITS ---
Measurements Intervals [place] Rate: 89 P: ND: 0 QRS: -40 QRSD: 100 T: 68 QT: 355 QTc: 433 Interpretive Statements ATRIAL FIBRILLATION POOR R-WAVE PROGRESSION INFERIOR MYOCARDIAL INFARCTION , PROBABLY OLD [40+ ms Q WAVE AND/OR ST/T ABNORMALITY IN II/aVF] COMPARED TO ECG 01/13/2022 14:53:10 CURRENT ECG IS OF BETTER QUALITY/NO OBVIOUS DIFFERENCE Electronically Signed On 08-11-2022 13:43:01 CDT by Eric Benedict M.D.
[2022-08-11 07:42] LABS: Glucose Point of Care 148 mg/dl (65-105)
[2022-08-11 07:43] LABS: Estimated CRCL calculation 67 ml/min; Estimated Glomerular Filt Rate > 60
[2022-08-11 08:28] LABS: Lactic Acid Reflex 1.3 mmol/L (0.7-2.0)
[2022-08-11 08:50] LABS: Appearance Urine Clear (Clear); Bilirubin Urine Negative (Negative); Blood Urine Trace-intact (Negative); Color Urine Yellow (Yellow); Glucose Urine UA 2+ mg/dL (Negative); Ketones Urine Negative (Negative); Leukocyte Esterase Ur Negative LEU/UL (Negative); Nitrate Urine Negative (Negative); Protein Urine 2+ mg/dL (Negative)
[2022-08-11 08:52] LABS: Mucus Urine Rare /lpf; Squamous Epithelial Cell Urine Occasional /hpf (Few); WBC Urine 0-3 /hpf
[2022-08-11 08:54] LABS: Add Urine Microscopic? NO
[2022-08-11 09:17] LABS: Alanine Aminotransferase 27 U/L (6-50); Albumin Level 4.1 g/dL (3.5-5.1); Alkaline Phosphatase 144 U/L (38-126); Anion Gap 10 mmol/L (8-16); Aspartate Amino Transferase 32 U/L (17-59); Bilirubin,Total 1.7 mg/dL (0.2-1.3); Blood Urea Nitrogen 22 mg/dL (9-20); Calcium 8.5 mg/dL (8.4-10.2); Carbon Dioxide 25 mmol/L (22-30); Chloride 105 mmol/L (98-107); Estimated CRCL calculation 67 ml/min; Estimated Glomerular Filt Rate > 60; Glucose 137 mg/dL (65-110); Lipase 58 U/L (23-300); Potassium 5.5 mmol/L (3.4-5.0); Sodium 140 mmol/L (137-145)
--- NOTE | 2022-08-11 10:30 | ADMGEN ---
This patient, Eric Kirk, was admitted to Medical Room 250-01. Patient/family oriented to hospital policies and general routines including ID bracelet, bed and alarms, visiting hours, pain management, procedures, bathroom and other care routines, personal items, smoking policy, room service/diet, and visiting hours. Information on how to activate the Rapid Response Team has been discussed. Patient/Family are encouraged to report perceived risks to care and to ask questions if they do not understand what they are told or what they should do.
[2022-08-11] MEDS: SODIUM CHLORIDE 0.9% IV 250 ML 100 ML IV CONT (12:21)
[2022-08-11] MEDS: HYDROmorphone HCL INJ (*CRX) 1 MG/ML SYR IV PUSH ×2 (12:24→15:33)
[2022-08-11 13:29] LABS: Hemoglobin A1C 5.9 % (<5.7)
--- NOTE | 2022-08-11 13:50 | PM.IMHP ---
H&P: HPI History of Present Illness Date/Time: 08/11/22 13:50 Chief Complaint: Abdominal pain. Narrative: This is a 72-year-old male with COPD, chronic respiratory failure on oxygen, agent orange exposure, lung cancer, obstructive sleep apnea, persistent atrial fibrillation on chronic anticoagulation, hypertension, type 2 diabetes mellitus, and heart failure with reduced ejection fraction who presented to the emergency department via EMS from home for evaluation of abdominal pain. He was a bit constipated yesterday and had a small, hard bowel movement in the morning. He felt okay otherwise however overnight he developed mild, generalized abdominal discomfort which kept him awake a lot of the night. This morning he had a small breakfast which he seemed to tolerate okay however an hour so thereafter he developed severe, abrupt pain in the right side of the abdomen and he came in for evaluation. He has difficulties describing the pain but he is in obvious, significant discomfort at the time my evaluation and he rates his pain 10/10. He denies associated fever, chills, sweats, chest pain, shortness a breath, and vomiting. CT scan of the abdomen and pelvis showed findings concerning for a closed loop bowel obstruction and he is being admitted in this setting. Review of Systems Review of Systems: Twelve systems were reviewed. No fever, chills, or sweats. No recent cold or flu symptoms. He is followed by a backbreaker at [facility] for cardiomyopathy, he does not know his last ejection fraction but tells me that it was low. He is on beta-casa and Entresto. He has not had exertional chest pain or shortness of breath. He believes his diabetes is well controlled. Except as documented, all other systems were reviewed and are negative. [facility] Past Medical History Medical History (Updated 08/11/22 @ 14:34 by Devika Landis PA-C) Agent orange exposure Chronic anticoagulation Chronic atrial fibrillation Chronic obstructive pulmonary disease Chronic respiratory failure with hypoxia, on home oxygen therapy Gout Heart failure with reduced ejection fraction Followed by Dr. Frank at [facility]. Hypertension Lung cancer (02/2021) Status post radiation. Oncologist is at [facility]. Obstructive sleep apnea Peripheral neuropathy Thrombocytopenia Type 2 diabetes mellitus Surgical History Surgical History (Updated 08/11/22 @ 13:57 by Devika Landis PA-C) History of evacuation of hematoma History of lumbar fusion History of lumbar laminectomy Family History Family History Mother Cerebrovascular accident, Onset Age: 81 Lung cancer Cervical cancer Father Family history of cardiomyopathy, Onset Age: 67 Hypertension Heart attack Social History Social History (Updated 08/11/22 @ 14:35 by Devika Landis PA-C) Social History: Surrogate medical decision maker: Gwen Kirk, daughter. Code status: Full code. Smoking packs per day: 2 Smoking cigarettes per day: 40.0 Years smoked: 50 Smoking pack-years: 100.00 Smoking status: Former smoker Alcohol intake: former Alcohol use details: Heavier drinker in the past. Substance use: never Spiritual care concerns: No Meds Home Medications and Allergies Home Medications Medication Instructions Recorded Confirmed Type allopurinol 100 mg tablet 200 mg PO DAILY 11/14/20 08/11/22 History apixaban 5 mg tablet (Eliquis) 5 mg PO BID 11/14/20 08/11/22 History atorvastatin 40 mg tablet (Lipitor) 80 mg PO DAILY 11/14/20 08/11/22 History carvedilol 6.25 mg tablet (Coreg) 25 mg PO BID 11/14/20 08/11/22 History duloxetine 30 mg capsule,delayed 30 mg PO DAILY 11/14/20 08/11/22 History release sprinkle hydrocodone 10 mg-acetaminophen 1 tablet PO Q4H PRN pain 11/14/20 08/11/22 History 325 mg tablet ipratropium 20 mcg-albuterol 100 1 puff inhalation DAILY PRN SOB 11/14/20 08/11/22 Histor
--- NOTE | 2022-08-11 14:43 | PC.NURSE ---
To OR per bed, IV Right hand, left hand. Report given to Lulu AMRIT.
--- NOTE | 2022-08-11 14:55 | PCWOUND ---
CWON NOTE Received referral to assess patient's left foot ulcer. Per Cherie RN for patient, she did not get to assess foot as patient was taken to surgery immediately after arriving to room. While moving patient to stretcher, she noticed a dressing on his foot. Patient will be assessed by wound care on Sunday08/14/22 as patient will not be back to room before end of business day. Recommendations were give to RN for wound care: if ulcer is dry:daily apply Silver gel and cover with plain mepilex foam and dry gauze dressing. If ulcer is wet: Daily apply Mepilex AG foam and cover with dry gauze dressing. RN verbalized understanding of care.
[2022-08-11 14:57] LABS: Anion Gap 12 mmol/L (8-16); Blood Urea Nitrogen 19 mg/dL (9-20); Calcium 8.8 mg/dL (8.4-10.2); Carbon Dioxide 21 mmol/L (22-30); Chloride 106 mmol/L (98-107); Estimated CRCL calculation 76 ml/min; Estimated Glomerular Filt Rate > 60; Glucose 167 mg/dL (65-110); Potassium 5.3 mmol/L (3.4-5.0); Sodium 139 mmol/L (137-145)
--- NOTE | 2022-08-11 15:23 | WPDHPUPDATE1 ---
History and Physical Update Update Date/Time: 08/11/22 15:23 History and Physical has been reviewed, including an updated exam of the patient. There are NO changes in the patient's condition. Risks, benefits, and alternatives have been discussed and questions answered. Patient agrees to proceed with procedure.
--- NOTE | 2022-08-11 15:23 | WPDANESEPPF ---
Anes - Initial Pre Proc Eval Procedure: Operation Date: 08/11/22 15:00 Proposed Procedures p Diagnostic Laparoscopy Possible open - Jorden Sahu DO s Possible Bowel Resection - Jorden Sahu DO Date/Time: 08/11/22 15:23 Surgeon: Edith Pyle MD Pre Op Diagnosis: Small Bowel Obstruction Patient Data Age: 72 Gender: M Height: 1.96 m Weight: 118.7 kg Last Vital Signs Temp 36.4 C 08/11/22 10:28 Pulse 74 08/11/22 14:41 Resp 18 08/11/22 10:28 BP 158/90 H 08/11/22 14:41 Pulse Ox 95 08/11/22 14:41 O2 Del Method Nasal Cannula 08/11/22 06:53 O2 Flow Rate 2 08/11/22 06:53 Allergies Allergy/AdvReac Type Severity Reaction Status Date / Time amlodipine Allergy Unknown Swelling Verified 08/11/22 10:40 gabapentin Allergy Unknown Hallucinati Verified 08/11/22 10:40 ng morphine AdvReac Intermediate Nausea and Verified 08/11/22 10:40 Vomiting Home Medications Medication Instructions Recorded Confirmed Type allopurinol 100 mg tablet 200 mg PO DAILY 11/14/20 08/11/22 History apixaban 5 mg tablet (Eliquis) 5 mg PO BID 11/14/20 08/11/22 History atorvastatin 40 mg tablet (Lipitor) 80 mg PO DAILY 11/14/20 08/11/22 History carvedilol 6.25 mg tablet (Coreg) 25 mg PO BID 11/14/20 08/11/22 History duloxetine 30 mg capsule,delayed 30 mg PO DAILY 11/14/20 08/11/22 History release sprinkle hydrocodone 10 mg-acetaminophen 1 tablet PO Q4H PRN pain 11/14/20 08/11/22 History 325 mg tablet ipratropium 20 mcg-albuterol 100 1 puff inhalation DAILY PRN SOB 11/14/20 08/11/22 History mcg/actuation mist for inhalation metformin 500 mg tablet 1,000 mg PO BID 11/14/20 08/11/22 History budesonide-formoterol HFA 80 2 puff inhalation BID 11/16/20 08/19/21 History mcg-4.5 mcg/actuation aerosol inhaler (Symbicort) acetaminophen 500 mg tablet 1,000 mg PO TID PRN Mild Pain 08/11/22 08/11/22 History (Scale Score 1-4) dapagliflozin 10 mg tablet 10 mg PO DAILY 08/11/22 08/11/22 History mometasone-formoterol HFA 100 2 puff inhalation Q12H 08/11/22 08/11/22 History mcg-5 mcg/actuation aerosol inhaler sacubitril 24 mg-valsartan 26 mg 1 tablet PO BID 08/11/22 08/11/22 History tablet spironolactone 25 mg tablet 12.5 mg PO DAILY 08/11/22 08/11/22 History Laboratory Tests 08/11/22 08/11/22 08/11/22 07:13 07:13 07:34 WBC 9.6 K/mm3 K/mm3 (4.5-10.0) RBC 4.58 M/mm3 L M/mm3 (4.6-6.20) Hgb 14.3 g/dL D g/dL (14.0-18.0) Hct 44.9 % % (42.0-52.0) MCV 98.0 fl fl (80-100) MCH 31.2 pg pg (26-34) MCHC 31.8 g/dl L g/dl (32-36) RDW 15.2 % H % (11.5-14.5) Plt Count 119 k/mm3 L k/mm3 (150-375) MPV TNP Immature Gran % (Auto) 0.5 % % (0-0.5) Neut % (Auto) 79.6 % H % (45.5-73.1) Lymph % (Auto) 12.5 % L % (18.3-44.2) [place] % (Auto) 6.4 % % (2.6-8.5) Eos % (Auto) 0.6 % % (0-4.4) Baso % (Auto) 0.4 % % (0.2-1.2) Lymph # (Auto) 1.20 K/mm3 K/mm3 (0.9-3.2) [place] # (Auto) 0.6 K/mm3 K/mm3 (0.1-0.6) Eos # (Auto) 0.1 K/mm3 K/mm3 (0-0.3) Baso # (Auto) 0.0 K/mm3 K/mm3 (0.0-0.1) Abs Immat Gran (auto) 0.05 K/mm3 H K/mm3 (0.00-0.031) Absolute Neuts (auto) 7.6 K/mm3 H K/mm3 (1.3-6.7) Absolute Nucleated RBC 0.0 K/mm3 K/mm3 (0.0-0.012) Nucleated RBC % 0.0 % % (0.0-0.2) % Immature Plt Fraction 13.8 % H % (0.9-11.2) Sodium Potassium Chloride Carbon Dioxide Anion Gap BUN Creatinine Estim Creat Clear Calc Estimated GFR Glucose POC Capillary Glucose 148 mg/dl H mg/dl (65-105) Hemoglobin A1c 5.9 % H % (<5.7) Lactic Acid Calcium Total Bilirubin
--- NOTE | 2022-08-11 15:23 | PM.CNGS ---
Assessment and Plan Assessment and plan (1) Bowel obstruction: Code(s): K56.609 - Unspecified intestinal obstruction, unspecified as to partial versus complete obstruction Status: Acute Assessment and Plan: I have reviewed the CT and discussed the findings with the patient and his daughter. He has evidence of a closed-loop small-bowel obstruction and is continuing to have severe pain despite NG tube placement. This is concerning for an acute obstruction that could lead to ischemia of the involved segment of bowel. Patient is on Eliquis and has cardiac history but given the concerning findings on the CT if he has ischemic bowel or perforates then his prognosis will be very poor. I have recommended proceeding with diagnostic laparoscopy with possible open and possible bowel resection emergently today. I discussed the procedure, risks, benefits, and alternatives. Questions were answered. He will be typed and screened and might need plasma if there is significant bleeding. I checked with the pharmacy and we do not have recombinant factor 10 to give to reverse the Eliquis. 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 His pain started last night. He does not recall anything that he ate that could have caused this. He has never had symptoms like this in the past. His pain is all across his lower abdomen. He has been dealing with some constipation lately. He denies any nausea or vomiting. He is not passing flatus. His pain has persisted even after NG tube was placed. He has no prior abdominal surgical history. He does have history of atrial fibrillation and is on Eliquis. His last dose was last night. A CT was performed in the emergency department this morning and this showed evidence of a closed-loop small-bowel obstruction near the terminal ileum. Review of Systems Review of Systems: All systems reviewed & are unremarkable except as noted in HPI and below Eyes: Eyes: Denies change in vision ENT: Denies hearing loss, Denies neck pain and Denies sore throat Cardiovascular: Cardiovascular: Denies chest pain and Denies dyspnea Respiratory: Respiratory: Denies cough, Denies dyspnea and Denies wheezing Gastrointestinal: Gastrointestinal: Reports as per HPI Genitourinary: Genitourinary: Denies hematuria and Denies dysuria Musculoskeletal: Musculoskeletal: Denies arthralgias, Denies joint swelling and Denies neck pain Allergic/Immunologic: Allergic/Immunologic: Denies wheezing [facility] Past Medical History Medical History Agent orange exposure Chronic anticoagulation Chronic atrial fibrillation Chronic obstructive pulmonary disease Chronic respiratory failure with hypoxia, on home oxygen therapy Gout Heart failure with reduced ejection fraction Followed by Dr. Frank at [place]. Hypertension Lung cancer (02/2021) Status post radiation. Oncologist is at [facility]. Obstructive sleep apnea Peripheral neuropathy Thrombocytopenia Type 2 diabetes mellitus Surgical History Surgical History History of evacuation of hematoma History of lumbar fusion History of lumbar laminectomy Family History Family History (Reviewed 08/11/22 @ 15:26 by Jorden Sung
[2022-08-11] MEDS: ceFAZolin 2 GM/D5W 50 ML 2 GM/50 ML BAG IVPB (15:41)
--- NOTE | 2022-08-11 16:34 | SUR.OPER ---
Two Units of FFP ordered per Dr. Sahu's request. Spoke with lab and they will put the order in. Will either contact OR#5 (#[id number]) or PACU (#[id number]) when FFP is available. AMRIT Cabrera in PACU informed that FFP has been ordered.
[2022-08-11] MEDS: BUPIVACAINE/EPINEPHRINE 0.25% 50 ML VIAL INFILTRATE (16:54)
[2022-08-11] MEDS: LACTATED RINGERS 1,000 ML 30 ML IV CONT (17:15)
--- NOTE | 2022-08-11 17:30 | W.PM.PROC2 ---
Procedure Note - Detailed Date of Procedure 08/11/22 Pre-op Diagnosis Small Bowel Obstruction Post-op Diagnosis Other (Closed loop small bowel obstruction with ischemic bowel) Procedure Performed 1. Diagnostic laparoscopy 2. Exploratory laparotomy 3. Ileal resection with [id number] ileal anastomosis Surgeon Jorden Sahu, DO Anesthesia General and Local (0.25% bupivacaine with epinephrine) Indications This is a 72-year-old man who presented to the emergency department this morning with acute onset of generalized abdominal pain that started last night. He has never experienced pain like this in the past. He has never had any abdominal surgeries before. In the emergency department a CTA of his chest abdomen and pelvis was performed and this showed evidence of a closed-loop bowel obstruction in the right lower quadrant. NG tube was placed, but patient was still having significant pain despite NG decompression. Discussions were made with the patient about treatment options and decision was made to proceed with diagnostic laparoscopy, possible open, possible bowel resection. Findings Diagnostic laparoscopy was performed. Upon inspecting the abdomen laparoscopically, there appeared to be a moderate amount of bloody ascites in the pelvis. I aspirated the bloody ascites and then lifted the omentum cephalad and identified a large loop of distal small bowel that appeared ischemic. Decision was then made to convert to an open procedure. A low midline laparotomy incision was made and a closed loop obstruction was found to be caused by an adhesive band coming from the omentum down into the right lower quadrant. The adhesive band freed up easily with finger dissection and the loop of ischemic bowel was able to be adequately assessed. Decision was then made to perform a small-bowel resection. This appeared to be about 20 to 30 cm proximal to the ileocecal valve. There was about an 18 in segment of small bowel that appeared ischemic. An ileal resection was performed with a [id number] stapled anastomosis. The remainder of the small bowel was run from ligament of Treitz to ileocecal valve. No other abnormalities were noted. There did appear to be some hard stool within the distal sigmoid colon, but no other large bowel abnormalities were noted. NG tube placement was confirmed. The small bowel segment was sent to the lab for pathology. Description of Procedure Procedure as well as risks, benefits, and alternatives were discussed with the patient. Written consent was obtained and placed in chart prior to procedure. Patient was brought back to surgical suite. He was placed supine on operating table. Time-out was done to confirm patient and procedure. He was then intubated by the anesthesia department. His abdomen was prepped and draped in sterile fashion using chlorhexidine prep. A 5 mm incision was made just to the left of the umbilicus and a 5 mm Optiview trocar was advanced through the abdominal layers under direct visualization. Once inside the abdominal cavity, carbon dioxide insufflation was used to create a pneumoperitoneum. The camera was inserted the abdomen was inspected. No needed abnormalities were identified. The patient was then placed in slight Trendelenburg position and a 5 mm vertical incision was made in the lower midline abdomen and a 5 mm trocar was inserted under direct visualization. 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 I then lifted the omentum cephalad and identified a loop of distal bowel that appeared ischemic. Decision was then made to convert to an open procedure. The patient was then flattened out in bed. A 15 cm vertical midline incision was made from the suprapubic region up towards the umbilicus using a 10 blade scalpel. Electrocautery was used for hemostasis and for dissection to the subcutaneous tissue. The linea alba was
[2022-08-11] MEDS: fentaNYL CITRATE INJ (*CRX) 100 MCG/2 ML VIAL 25 MCG IV PUSH ×7 (17:45→19:21)
[2022-08-11 18:27] LABS: Glucose Point of Care 138 mg/dl (65-105)
[2022-08-11] MEDS: LACTATED RINGERS 1,000 ML 100 ML IV CONT (19:58)
[2022-08-11] MEDS: HYDROmorphone HCL INJ (*CRX) 1 MG/ML SYR 0.5 MG IV PUSH (21:07)
[2022-08-12] VITALS (18 sets, daily range): BP systolic 126–169; BP diastolic 79–99; PULSE 77–131; RESP 16–20; TEMP 36.4–37; O2SAT 96–100
[2022-08-12] MEDS: HYDROmorphone HCL INJ (*CRX) 1 MG/ML SYR IV PUSH ×6 (00:05→21:24)
[2022-08-12 00:22] LABS: Glucose Point of Care 99 mg/dl (65-105)
[2022-08-12 04:19] LABS: Hematocrit 37.3 % (42.0-52.0); Hemoglobin 11.7 g/dL (14.0-18.0); Immature Platelet Fraction Pct 13.6 % (0.9-11.2); Mean Corpuscular HGB Conc 31.4 g/dl (32-36); Mean Corpuscular Hemoglobin 31.1 pg (26-34); Mean Corpuscular Volume 99.2 fl (80-100); Platelet Count Result 92 k/mm3 (150-375); Red Blood Count 3.76 M/mm3 (4.6-6.20); White Blood Count 7.6 K/mm3 (4.5-10.0)
[2022-08-12 04:41] LABS: Alanine Aminotransferase 18 U/L (6-50); Alkaline Phosphatase 98 U/L (38-126); Anion Gap 8 mmol/L (8-16); Aspartate Amino Transferase 21 U/L (17-59); Bilirubin,Total 1.8 mg/dL (0.2-1.3); Blood Urea Nitrogen 18 mg/dL (9-20); Calcium 8.2 mg/dL (8.4-10.2); Carbon Dioxide 28 mmol/L (22-30); Chloride 105 mmol/L (98-107); Estimated CRCL calculation 76 ml/min; Estimated Glomerular Filt Rate > 60; Glucose 98 mg/dL (65-110); Magnesium 1.8 mg/dL (1.6-2.3); Potassium 4.7 mmol/L (3.4-5.0); Sodium 141 mmol/L (137-145)
[2022-08-12] MEDS: LACTATED RINGERS 1,000 ML 100 ML IV CONT (06:41)
[2022-08-12 08:03] LABS: Glucose Point of Care 84 mg/dl (65-105)
[2022-08-12] MEDS: METOPROLOL TARTRATE INJ 5 MG/5 ML VIAL IV PUSH ×4 (08:59→21:32)
--- NOTE | 2022-08-12 09:53 | PM.PNGS ---
Progress Note: A&P Assessment and Plan (1) Complete small bowel obstruction: Code(s): K56.601 - Complete intestinal obstruction, unspecified as to cause Status: Acute Assessment and Plan: Doing well on POD#1. Await return of bowel function. PT/OT Increase activity Hold anticoagulation until surgical stable, continue Lovenox 40mg daily for now--hold if platelets drop any further. (2) Chronic atrial fibrillation: Code(s): I48.20 - Chronic atrial fibrillation, unspecified Status: Acute Assessment and Plan: BP has been stable. Will change Metoprolol to scheduled 5mg q6h. Resume oral beta casa once NG has been removed. 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 Continue to monitor for bleeding. (4) Thrombocytopenia: Code(s): D69.6 - Thrombocytopenia, unspecified Status: Acute (5) Heart failure with reduced ejection fraction: Code(s): I50.20 - Unspecified systolic (congestive) heart failure Status: Acute (6) Type 2 diabetes mellitus: Code(s): E11.9 - Type 2 diabetes mellitus without complications Status: Acute Subjective Subjective Date/Time Seen: 08/12/22 09:53 Interval history: Doing well. Pain controlled. Sitting in chair this AM. No fevers. No flatus or BM yet. Had one episode of tachycardia this AM. HR now in 90s on Tele. Exam GI: Inspection: non-distended and incision (intact with slight shadowing on bandage) GI Palp: Yes Soft to palpation and Yes Tenderness to palpation present (GI) (incisional) Auscultation: normal bowel sounds Objective Data Vital Signs Vital Signs: Vital Signs - 24 hr 08/11/22 10:28 08/11/22 14:41 08/11/22 13:00 Temperature 36.4 C Pulse Rate 96 74 Respiratory Rate 18 Blood Pressure 164/96 H 158/90 H Pulse Oximetry 98 95 100 Oxygen Delivery Nasal Cannula Oxygen Flow Rate 2 08/11/22 17:15 08/11/22 17:30 08/11/22 17:38 Temperature 36.7 C 36.7 C Pulse Rate 92 94 112 H Respiratory Rate 16 18 16 Blood Pressure 163/87 H 144/79 H 144/79 H Pulse Oximetry 100 99 99 Oxygen Delivery Simple Face Mask Simple Face Mask Oxygen Flow Rate 10 10 08/11/22 17:45 08/11/22 18:00 08/11/22 18:15 Temperature Pulse Rate 99 107 H 93 Respiratory Rate 14 18 16 Blood Pressure 153/109 H 136/107 H 147/81 H Pulse Oximetry 99 92 95 Oxygen Delivery Simple Face Mask Room Air Nasal Cannula Oxygen Flow Rate 10 3 08/11/22 18:30 08/11/22 18:45 08/11/22 19:00 Temperature Pulse Rate 88 107 H 103 H Respiratory Rate 16 18 16 Blood Pressure 131/74 121/80 126/58 L Pulse Oximetry 96 98 98 Oxygen Delivery Nasal Cannula Nasal Cannula Nasal Cannula Oxygen Flow Rate 3 3 3 08/11/22 19:15 08/11/22 17:52 08/11/22 17:55 Temperature 36.3 C L 36.3 C L Pulse Rate 90 105 H 105 H Respiratory Rate 20 16 16 Blood Pressure 114/74 139/83 139/83 Pulse Oximetry 100 100 100 Oxygen Delivery Nasal Cannula Oxygen Flow Rate 3 08/11/22 18:10 08/11/22 19:25 08/11/22 19:40 Temperature 36.1 C L 36.4 C L 36.6 C Pulse Rate 88 104 H 103 H Respiratory Rate 20 20 18 Blood Pressure 142/88 H 119/66 138/32 L Pulse Oximetry 95 100 99 Oxygen Delivery Oxygen Flow Rate 08/11/22 20:10 08/11/22 21:10 08/11/22 20:00 Temperature 36.4 C L 36.4 C L Pulse Rate 102 H 101 H Respiratory Rate 20 16 Blood Pressure 129/62 130/67 Pulse Oximetry 99 100 97 Oxygen Delivery Nasal Cannula Oxygen Flow Rate 3 08/11/22 19:39 08/11/22 22:00 08/11/22 23:35 Temperature Pulse Rate 102 H 93 Respiratory Rate Blood Pressure Pulse Oximetry 98 Oxygen Delivery Nasal Cannula Oxygen Flow Rate 3 08/12/22 00:00 08/12/22 00:00 08/12/22 02:00 Temperature 36.6 C Pulse Rate 103 H 88 102 H Respiratory Rate 20 Blood Pressure 138/98 H Pulse Oximetry 99 Oxygen
[2022-08-12] MEDS: DEXTROSE 5%/LACTATED RINGERS 1,000 ML 100 ML IV CONT ×2 (10:28→21:26)
--- NOTE | 2022-08-12 11:49 | WPDANESPN ---
Anes - Prog Note Post-Op Date/Time: 08/12/22 11:11 Cardiovascular status: normal Respiratory status: normal Airway patency: other (NGT to sx, O2 per NC) Mental status: baseline Post-Op hydration status: normal Vital Signs: Last Vital Signs Temp 97.6 F 08/12/22 08:00 Pulse 99 08/12/22 10:29 Resp 20 08/12/22 08:00 BP 145/81 H 08/12/22 08:00 Pulse Ox 98 08/12/22 09:08 O2 Del Method Nasal Cannula 08/12/22 09:08 O2 Flow Rate 2 08/12/22 09:08 Pain Score (VAS): 0 I/O: Intake & Output 08/11/22 08/12/22 08/12/22 23:59 07:59 15:59 Intake Total 1137 1390 100 Output Total 110 640 Balance 1027 750 100 Laboratory Tests 08/12/22 04:12 08/12/22 04:12 08/11/22 08/11/22 08/11/22 07:13 14:01 14:42 WBC RBC Hgb Hct MCV MCH MCHC RDW Plt Count MPV % Immature Plt Fraction Sodium 139 Potassium 5.3 H Chloride 106 Carbon Dioxide 21 L Anion Gap 12 BUN 19 Creatinine 1.10 Estim Creat Clear Calc 76 Estimated GFR > 60 Glucose 167 H POC Capillary Glucose Hemoglobin A1c 5.9 H Calcium 8.8 Magnesium Total Bilirubin AST ALT Alkaline Phosphatase Total Protein Albumin Blood Type O Positive Antibody Screen Negative 08/11/22 08/12/22 08/12/22 18:25 00:19 04:12 WBC 7.6 RBC 3.76 L Hgb 11.7 L Hct 37.3 L MCV 99.2 MCH 31.1 MCHC 31.4 L RDW 15.0 H Plt Count 92 L MPV TNP % Immature Plt Fraction 13.6 H Sodium Potassium Chloride Carbon Dioxide Anion Gap BUN Creatinine Estim Creat Clear Calc Estimated GFR Glucose POC Capillary Glucose 138 H 99 Hemoglobin A1c Calcium Magnesium Total Bilirubin AST ALT Alkaline Phosphatase Total Protein Albumin Blood Type Antibody Screen 08/12/22 08/12/22 04:12 07:57 WBC RBC Hgb Hct MCV MCH MCHC RDW Plt Count MPV % Immature Plt Fraction Sodium 141 Potassium 4.7 Chloride 105 Carbon Dioxide 28 Anion Gap 8 BUN 18 Creatinine 1.10 Estim Creat Clear Calc 76 Estimated GFR > 60 Glucose 98 POC Capillary Glucose 84 Hemoglobin A1c Calcium 8.2 L Magnesium 1.8 Total Bilirubin 1.8 H AST 21 ALT 18 Alkaline Phosphatase 98 Total Protein 6.0 L Albumin 3.0 L Blood Type Antibody Screen Post-procedural complaints: none Patient Feedback: Patient satisfied with anesthetic care.
[2022-08-12 11:53] LABS: Glucose Point of Care 123 mg/dl (65-105)
--- NOTE | 2022-08-12 13:46 | PM.IMPN ---
Progress Note: A&P Assessment and Plan (1) Bowel obstruction: Code(s): K56.609 - Unspecified intestinal obstruction, unspecified as to partial versus complete obstruction Status: Acute Assessment and Plan: CT scan shows 2 abrupt transition points in close proximity raising concern for closed loop obstruction or obstructing internal hernia. NG tube has been inserted to suction. Surgery has been consulted Status post exploratory laparotomy and family resection with cvel-or-hbeg ileal anastomosis 08/11/2022 Postop care as ordered (2) Heart failure with reduced ejection fraction: Code(s): I50.20 - Unspecified systolic (congestive) heart failure Status: Acute Assessment and Plan: Followed by Dr. Frank at [facility]. The patient does not know his last EF but it was low. Oral medication on hold as he is NPO in anticipation of surgery. Avoid over-hydration. Monitor volume status closely with strict I/O and daily weights. (3) Hypertension: Code(s): I10 - Essential (primary) hypertension Status: Acute Assessment and Plan: IV antihypertensives as needed (4) Thrombocytopenia: Code(s): D69.6 - Thrombocytopenia, unspecified Status: Acute Assessment and Plan: Chronic, mild, and stable. (5) Hyperkalemia: Code(s): E87.5 - Hyperkalemia Status: Acute Assessment and Plan: Likely due to a combination of spironolactone and sacubitril-valsartan, both which are on hold as he is NPO. (6) Chronic atrial fibrillation: Code(s): I48.20 - Chronic atrial fibrillation, unspecified Status: Acute Assessment and Plan: Currently rate controlled. IV Lopressor available as needed for high heart rates. Currently Eliquis on hold due to postsurgical status Echo from 2019 with EF 55% (7) Chronic anticoagulation: Code(s): Z79.01 - care home (current) use of anticoagulants Status: Acute Assessment and Plan: Eliquis on hold person is (8) Chronic obstructive pulmonary disease: Code(s): J44.9 - Chronic obstructive pulmonary disease, unspecified Status: Acute Assessment and Plan: No acute issues. Continue maintenance inhalers. (9) Chronic respiratory failure with hypoxia, on home oxygen therapy: Code(s): J96.11 - Chronic respiratory failure with hypoxia; Z99.81 - Dependence on supplemental oxygen Status: Acute Assessment and Plan: He is at his baseline oxygen requirement. (10) Type 2 diabetes mellitus: Code(s): E11.9 - Type 2 diabetes mellitus without complications Status: Acute Assessment and Plan: Well controlled. Hemoglobin A1c today is 5.9%. Initiate sliding scale insulin, Accu-Cheks, and hypoglycemic protocol. 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 This has been known status post radiation followed by oncologist at [facility] on surveillance DVT prophylaxis Lovenox watch for worsening thrombocytopenia Chronic respiratory failure on 2 L of oxygen 247 COPD Agent orange exposure Diabetes Peripheral neuropathy Atrial fibrillation on Eliquis Subjective Date/time seen: 08/12/22 13:46 Interval history: This is a 72-year-old male with COPD, chronic respiratory failure on oxygen, agent orange exposure, lung cancer, obstructive sleep apnea, persistent atrial fibrillation on chronic anticoagulation, hypertension, type 2 diabetes mellitus, and heart failure with reduced ejection fraction who presented to the emergency department via EMS from home for evaluation of abdominal pain. He was a bit constipated yesterday and had a small, hard bowel movement in the morning. He felt okay otherwise however overnight he developed mild, generalized abdominal discomfort which kept him awake a lot of the night. This morning he had a small breakfast which he seemed to tolerate okay however an hour so thereafter he developed severe, abrupt pain in the right s
[2022-08-12 17:42] LABS: Glucose Point of Care 143 mg/dl (65-105)
--- NOTE | 2022-08-12 18:17 | PC.NURSE ---
This patient, Eric Kirk, was transferred to [[id number] ] on 08/12/22 at 1815. Personal belongings sent with patient. Report given to [AMRIT Purcell @ 1800 ]. Appropriate documentation sent with patient.
--- NOTE | 2022-08-12 18:20 | ADMGEN ---
This patient, Eric Kirk, was transferred to Medical Room 346-01 from IMU 212.
[2022-08-12 21:09] LABS: Glucose Point of Care 121 mg/dl (65-105)
[2022-08-13] VITALS (15 sets, daily range): BP systolic 137–155; BP diastolic 82–113; PULSE 85–144; RESP 18–22; TEMP 35.9–37; O2SAT 95–100
[2022-08-13] MEDS: HYDROmorphone HCL INJ (*CRX) 1 MG/ML SYR IV PUSH ×6 (00:08→21:23)
[2022-08-13] MEDS: ONDANSETRON INJ 4 MG/2 ML VIAL IV PUSH ×2 (00:10→18:26)
[2022-08-13 00:34] LABS: Glucose Point of Care 147 mg/dl (65-105)
[2022-08-13] MEDS: METOPROLOL TARTRATE INJ 5 MG/5 ML VIAL IV PUSH ×4 (00:38→21:23)
[2022-08-13] MEDS: FUROSEMIDE INJ 40 MG/4 ML VIAL 10 MG IV PUSH (01:36)
[2022-08-13 06:18] LABS: Glucose Point of Care 148 mg/dl (65-105)
[2022-08-13 06:42] LABS: Hematocrit 35.1 % (42.0-52.0); Hemoglobin 11.1 g/dL (14.0-18.0); Immature Platelet Fraction Pct 13.3 % (0.9-11.2); Mean Corpuscular HGB Conc 31.6 g/dl (32-36); Mean Corpuscular Hemoglobin 30.7 pg (26-34); Mean Platelet Volume 13.2 fl (7.4-10.4); Platelet Count Result 83 k/mm3 (150-375); Red Blood Count 3.62 M/mm3 (4.6-6.20); Red Cell Distribution Width 14.8 % (11.5-14.5); White Blood Count 8.4 K/mm3 (4.5-10.0)
[2022-08-13 06:55] LABS: Alanine Aminotransferase 15 U/L (6-50); Alkaline Phosphatase 96 U/L (38-126); Anion Gap 10 mmol/L (8-16); Aspartate Amino Transferase 20 U/L (17-59); Bilirubin,Total 2.2 mg/dL (0.2-1.3); Blood Urea Nitrogen 15 mg/dL (9-20); Calcium 8.3 mg/dL (8.4-10.2); Carbon Dioxide 33 mmol/L (22-30); Chloride 101 mmol/L (98-107); Estimated CRCL calculation 83 ml/min; Estimated Glomerular Filt Rate > 60; Glucose 147 mg/dL (65-110); Magnesium 1.8 mg/dL (1.6-2.3); Sodium 144 mmol/L (137-145)
[2022-08-13 07:13] LABS: INR 1.2; Prothrombin Time 14.5 Seconds (11.1-14.7)
[2022-08-13 07:16] LABS: Partial Thromboplastin Time 37.6 SECONDS (22.3-36.8)
[2022-08-13] MEDS: DEXTROSE 5%/LACTATED RINGERS 1,000 ML 100 ML IV CONT ×2 (07:49→17:13)
--- NOTE | 2022-08-13 10:00 | PM.IMPN ---
Progress Note: A&P Assessment and Plan (1) Bowel obstruction: Code(s): K56.609 - Unspecified intestinal obstruction, unspecified as to partial versus complete obstruction Status: Acute Assessment and Plan: CT scan shows 2 abrupt transition points in close proximity raising concern for closed loop obstruction or obstructing internal hernia. NG tube has been inserted to suction. Surgery has been consulted Status post exploratory laparotomy and family resection with [id number] ileal anastomosis 08/11/2022 Postop care as ordered increased pain medication today. Still significant NG output no return of bowel function yet. Encouraged ambulation , Lovenox for DVT prophylaxis. IV fluid continue to balance intake and output as he has systolic heart failure with ejection fraction most recently at 40%. He does not look congested on clinical examination today he did receive IV Lasix last night in suspicion for worsening heart failure however suspect is mostly related to pain. tachycardia on scheduled metoprolol IV push will check abdominal x-ray (2) Heart failure with reduced ejection fraction: Code(s): I50.20 - Unspecified systolic (congestive) heart failure Status: Acute Assessment and Plan: Followed by Dr. rFank at [place]. The patient does not know his last EF but it was low. Oral medication on hold as he is NPO in anticipation of surgery. Avoid over-hydration. Monitor volume status closely with strict I/O and daily weights. (3) Hypertension: Code(s): I10 - Essential (primary) hypertension Status: Acute Assessment and Plan: IV antihypertensives as needed (4) Thrombocytopenia: Code(s): D69.6 - Thrombocytopenia, unspecified Status: Acute Assessment and Plan: Chronic, mild, and stable. (5) Hyperkalemia: Code(s): E87.5 - Hyperkalemia Status: Acute Assessment and Plan: Likely due to a combination of spironolactone and sacubitril-valsartan, both which are on hold as he is NPO. (6) Chronic atrial fibrillation: Code(s): I48.20 - Chronic atrial fibrillation, unspecified Status: Acute Assessment and Plan: Currently rate controlled. IV Lopressor available as needed for high heart rates. Currently Eliquis on hold due to postsurgical status Echo from 2019 with EF 55% echo 05/26: Mild LV systolic dysfunction with mild global hypokinesia of LV cavity. LVEF 40%. (7) Chronic anticoagulation: Code(s): Z79.01 - terminal gauger (current) use of anticoagulants Status: Acute Assessment and Plan: Eliquis on hold person is (8) Chronic obstructive pulmonary disease: Code(s): J44.9 - Chronic obstructive pulmonary disease, unspecified Status: Acute Assessment and Plan: No acute issues. Continue maintenance inhalers. (9) Chronic respiratory failure with hypoxia, on home oxygen therapy: Code(s): J96.11 - Chronic respiratory failure with hypoxia; Z99.81 - Dependence on supplemental oxygen Status: Acute Assessment and Plan: He is at his baseline oxygen requirement. (10) Type 2 diabetes mellitus: Code(s): E11.9 - Type 2 diabetes mellitus without complications Status: Acute Assessment and Plan: Well controlled. Hemoglobin A1c today is 5.9%. Initiate sliding scale insulin, Accu-Cheks, and hypoglycemic protocol. 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 This has been known status post radiation followed by oncologist at [facility] on surveillance . Recent CT chest 05/26 with right upper lobe post treatment changes with soft tissue density and architectural distortion with soft tissue component measuring 0.4 x 1.9 x 1.7 cm appearing similar in size to previous CT scan from January 2022. Also right lower and left upper lobe 5 mm pulmonary nodules which are unchanged. DVT prophylaxis Lovenox watch for worsening thrombocytopenia Chronic respiratory failu
[2022-08-13 12:36] LABS: Glucose Point of Care 127 mg/dl (65-105)
--- NOTE | 2022-08-13 12:45 | PM.PNGS ---
Progress Note: A&P Assessment and Plan (1) Complete small bowel obstruction: Code(s): K56.601 - Complete intestinal obstruction, unspecified as to cause Status: Acute Assessment and Plan: still having significant abdominal pain and not showing any signs of return of bowel function. Will reorder IV Tylenol q.6 hours for another 24 hours. Will also add GI prophylaxis. H&H remained stable, and abdominal x-ray looking stable. (2) Chronic atrial fibrillation: Code(s): I48.20 - Chronic atrial fibrillation, unspecified Status: Acute Assessment and Plan: BP has been stable. Metoprolol 5mg q6h. Resume oral beta casa once NG has been removed. (3) Chronic anticoagulation: Code(s): Z79.01 - half-way (current) use of anticoagulants Status: Acute Assessment and Plan: received 2 units FFP in PACU. Continue to monitor for bleeding. (4) Thrombocytopenia: Code(s): D69.6 - Thrombocytopenia, unspecified Status: Acute Assessment and Plan: Platelets still trending down. Will hold Lovenox. (5) Heart failure with reduced ejection fraction: Code(s): I50.20 - Unspecified systolic (congestive) heart failure Status: Acute Assessment and Plan: No signs of fluid overload. No edema. (6) Type 2 diabetes mellitus: Code(s): E11.9 - Type 2 diabetes mellitus without complications Status: Acute Subjective Subjective Date/Time Seen: 08/13/22 12:45 Interval history: Patient having worsening pain today. No flatus or BM yet. Afebrile. Exam GI: Inspection: non-distended and incision ( Intact with angie, minimal surrounding ecchymosis) GI Palp: Yes Soft to palpation and Yes Tenderness to palpation present (GI) ( incisional) Auscultation: absent bowel sounds Objective Data Vital Signs Vital Signs: Vital Signs - 24 hr 08/12/22 14:00 08/12/22 16:00 08/12/22 16:00 Temperature 36.5 C Pulse Rate 109 H 106 H 97 Respiratory Rate 16 Blood Pressure 150/89 H Pulse Oximetry 96 Oxygen Delivery Oxygen Flow Rate 08/12/22 16:59 08/12/22 21:30 08/12/22 21:32 Temperature 36.4 C Pulse Rate 107 H 82 82 Respiratory Rate 16 Blood Pressure 169/86 H Pulse Oximetry 98 Oxygen Delivery Oxygen Flow Rate 08/13/22 00:38 08/13/22 00:41 08/12/22 20:00 Temperature 36.4 C Pulse Rate 131 H 131 H Respiratory Rate 16 Blood Pressure Pulse Oximetry 98 Oxygen Delivery Nasal Cannula Oxygen Flow Rate 2 08/13/22 00:00 08/12/22 20:00 08/13/22 00:00 Temperature 37.0 C Pulse Rate 131 H 110 H 144 H Respiratory Rate 20 Blood Pressure 137/113 H Pulse Oximetry 95 Oxygen Delivery Oxygen Flow Rate 08/13/22 04:00 08/13/22 06:00 08/13/22 10:08 Temperature 36.9 C Pulse Rate 103 H 109 H 118 H Respiratory Rate 22 H Blood Pressure 155/82 H Pulse Oximetry 99 Oxygen Delivery Oxygen Flow Rate 08/13/22 10:00 08/13/22 08:00 Temperature Pulse Rate 118 H 104 H Respiratory Rate 20 Blood Pressure Pulse Oximetry 98 Oxygen Delivery Nasal Cannula Oxygen Flow Rate 2 Intake/Output Intake/Output: Intake & Output 08/10/22 08/11/22 08/12/22 08/13/22 23:59 23:59 23:59 23:59 Intake Total 2187 3263 1000 Output Total 310 1800 1900 Balance 1877 1463 -900 Meds/Results Medications: Active Medications Generic Name Dose Route Start Last Admin Trade Name Freq PRN Reason Stop Dose Admin Benzocaine 1 lozenge 08/13/22 12:43 Benzocaine/Menthol (*Bkc) 18 Ea Lozenge PO PRN PRN Sore Throat Dextrose 12.5 gm 08/11/22 12:19 Dextrose 50% 25 Gm/50 Ml Syringe IV PUSH PRN PRN Hypoglycemia Protocol Enoxaparin Sodium 40 mg 08/12/22 09:00 08/13/22 09:12 Enoxaparin 40 Mg/0.4 Ml Syringe SUB-Q Not Given DAILY HALLIE Glucagon 1 mg 08/11/22 12:19 Glucagon For Inj 1 Mg Vial IM PRN PRN Hypoglycemia
[2022-08-13] MEDS: HYDROmorphone HCL INJ (*CRX) 1 MG/ML SYR 1.5 MG IV PUSH (13:07)
[2022-08-13] MEDS: BENZOCAINE/MENTHOL (*BKC) 18 EA LOZENGE 1 LOZENGE PO (13:37)
[2022-08-13] MEDS: PANTOPRAZOLE SODIUM IV 40 MG VIAL IV PUSH (15:34)
[2022-08-13 18:37] LABS: Glucose Point of Care 144 mg/dl (65-105)
[2022-08-14] VITALS (18 sets, daily range): BP systolic 122–165; BP diastolic 48–96; PULSE 94–141; RESP 18–24; TEMP 36.1–37.2; O2SAT 95–98
[2022-08-14 00:01] LABS: Glucose Point of Care 133 mg/dl (65-105)
[2022-08-14] MEDS: HYDROmorphone HCL INJ (*CRX) 1 MG/ML SYR IV PUSH ×4 (02:24→20:04)
[2022-08-14] MEDS: DEXTROSE 5%/LACTATED RINGERS 1,000 ML 100 ML IV CONT ×3 (02:27→23:34)
[2022-08-14] MEDS: METOPROLOL TARTRATE INJ 5 MG/5 ML VIAL IV PUSH ×5 (03:31→21:56)
[2022-08-14 05:44] LABS: Basophils Percent Auto 0.2 % (0.2-1.2); Eosinophils Percent Auto 0.5 % (0-4.4); Hemoglobin 10.2 g/dL (14.0-18.0); Immature Granulocyte Absolute 0.07 K/mm3 (0.00-0.031); Immature Granulocyte Percent A 0.8 % (0-0.5); Immature Platelet Fraction Pct 11.1 % (0.9-11.2); Lymphocytes Percent Auto 8.3 % (18.3-44.2); Mean Corpuscular HGB Conc 30.9 g/dl (32-36); Mean Corpuscular Hemoglobin 30.9 pg (26-34); Mean Platelet Volume 14.3 fl (7.4-10.4); Monocytes Absolute Auto 0.6 K/mm3 (0.1-0.6); Monocytes Percent Auto 7.3 % (2.6-8.5); Neutrophils Percent Auto 82.9 % (45.5-73.1); Platelet Count Result 89 k/mm3 (150-375); Red Cell Distribution Width 15.1 % (11.5-14.5); White Blood Count 8.4 K/mm3 (4.5-10.0)
[2022-08-14 05:51] LABS: Alanine Aminotransferase 13 U/L (6-50); Albumin Level 2.8 g/dL (3.5-5.1); Alkaline Phosphatase 84 U/L (38-126); Anion Gap 7 mmol/L (8-16); Aspartate Amino Transferase 19 U/L (17-59); Bilirubin,Total 1.9 mg/dL (0.2-1.3); Blood Urea Nitrogen 18 mg/dL (9-20); Carbon Dioxide 35 mmol/L (22-30); Chloride 102 mmol/L (98-107); Estimated CRCL calculation 83 ml/min; Estimated Glomerular Filt Rate > 60; Glucose 136 mg/dL (65-110); Magnesium 1.7 mg/dL (1.6-2.3); Potassium 3.4 mmol/L (3.4-5.0); Sodium 144 mmol/L (137-145)
[2022-08-14 06:26] LABS: Ovalocytes 1+ (NORMAL); Platelet Estimate Decreased (Adequate); Poikilocytosis 1+ (NORMAL)
[2022-08-14 06:31] LABS: Schistocytes None Seen (NORMAL)
[2022-08-14 06:32] LABS: Glucose Point of Care 136 mg/dl (65-105)
[2022-08-14] MEDS: HYDROmorphone HCL INJ (*CRX) 1 MG/ML SYR 1.5 MG IV PUSH ×2 (08:06→23:32)
--- NOTE | 2022-08-14 09:31 | PCOTNOTE ---
Attempted to see pt. for occupational therapy treatment. Pt. declined to participate at this time due to pain and fatigue after working with physical therapy. Nursing aware and agreed that pt. has not been sleeping well and pain has been difficult to manage, with pt. participating with nursing when necessary in room. Will follow.
[2022-08-14] MEDS: PANTOPRAZOLE SODIUM IV 40 MG VIAL IV PUSH ×2 (09:32→20:35)
[2022-08-14] MEDS: SILVERGEL (ELTA) 45 ML 1 APPLIC TOPICAL (09:35)
[2022-08-14 11:57] LABS: Glucose Point of Care 124 mg/dl (65-105)
[2022-08-14] MEDS: ONDANSETRON INJ 4 MG/2 ML VIAL IV PUSH (14:01)
--- NOTE | 2022-08-14 14:10 | PM.PNGS ---
Progress Note: A&P Assessment and Plan (1) Complete small bowel obstruction: Code(s): K56.601 - Complete intestinal obstruction, unspecified as to cause Status: Acute Assessment and Plan: Await return of bowel function. Continue NG tube, NPO, and IV fluids. Still having a lot of abdominal pain today. Will get a CT scan abdomen/pelvis today to further evaluate. H/H remained stable with slight drop, but could be dilutional with the IV fluids. (2) Chronic atrial fibrillation: Code(s): I48.20 - Chronic atrial fibrillation, unspecified Status: Acute Assessment and Plan: BP slightly high yesterday and today. He is also having more abdominal pain. Metoprolol 5mg q6h. Monitor telemetry Resume oral beta casa once NG has been removed. (3) Chronic anticoagulation: Code(s): Z79.01 - MCFP (current) use of anticoagulants Status: Acute Assessment and Plan: received 2 units FFP in PACU. Continue to monitor for bleeding. (4) Thrombocytopenia: Code(s): D69.6 - Thrombocytopenia, unspecified Status: Acute Assessment and Plan: Platelets at 89K today, still low. Continue holding Lovenox. (5) Heart failure with reduced ejection fraction: Code(s): I50.20 - Unspecified systolic (congestive) heart failure Status: Acute Assessment and Plan: No signs of fluid overload. No edema. (6) Type 2 diabetes mellitus: Code(s): E11.9 - Type 2 diabetes mellitus without complications Status: Acute Plan I have discussed the patient's case and plan of care with Dr. Sahu. Subjective Subjective Date/Time Seen: 08/14/22 14:10 Post Op day: 3 (Diagnostic laparoscopy, exploratory laparotomy, ileal resection) Patient reports: still having pain, flatus, no bowel movement and afebrile Interval history: Patient seen and examined. He is still having a lot of abdominal pain today. He feels it may even be worse than yesterday. This is mostly across his lower abdomen, but he is tender all over. He still feels bloated. His NG tube had 1200 cc out yesterday, and his nurse states 400 cc out overnight. He is taking in frequent cups of ice chips. He has sat on the side of the bed and tried to stand up with therapy, but he had to abort activity due to tachycardia. Review of Systems Review of Systems: All systems reviewed & are unremarkable except as noted in HPI and below Exam Const: General: alert; No acute distress Orientation/consciousness: patient oriented x3 GI: Inspection: incision ( Intact with angie, minimal surrounding ecchymosis) and other (Mildly distended) GI Palp: Yes Soft to palpation, Yes Tenderness to palpation present (GI) (Generalized tenderness), Yes Guarding due to palpation present (GI) and Yes Rebound tenderness present Auscultation: Hypoactive bowel sounds present (Very few bowel sounds heard) Urinary Catheter: Urinary Catheter: patent and draining and urine clear Extrem: General: normal to inspection and no edema Objective Data Vital Signs Vital Signs: Vital Signs - 24 hr 08/13/22 16:47 08/13/22 16:00 08/13/22 17:00 Temperature 96.7 F L Pulse Rate 98 99 92 Respiratory Rate 18 Blood Pressure 150/93 H Pulse Oximetry 99 Oxygen Delivery 08/13/22 20:00 08/13/22 21:13 08/13/22 21:23 Temperature 98 F Pulse Rate 101 H 85 96 Respiratory Rate 20 Blood Pressure 153/95 H Pulse Oximetry 100 Oxygen Delivery 08/13/22 20:00 08/14/22 00:00 08/14/22 03:31 Temperature Pulse Rate 96 98 101 H Respiratory Rate 20 Blood Pressure Pulse Oximetry 100 Oxygen Delivery Room Air 08/14/22 04:37 08/14/22 04:00 08/14/22 09:33 Temperature 98.9 F Pulse Rate 99 94 112 H Respiratory Rate 20 Blood Pressure 157/91 H Pulse Oximetry 98 Oxygen Delivery Intake/Output Intake/Output: Intake & Output 08/11/22 08/12/22 08/13/22 08/14/22 23:59 23:59 23:59 23:59
--- NOTE | 2022-08-14 16:38 | PM.IMPN ---
Progress Note: A&P Assessment and Plan (1) Bowel obstruction: Code(s): K56.609 - Unspecified intestinal obstruction, unspecified as to partial versus complete obstruction Status: Acute Assessment and Plan: CT scan shows 2 abrupt transition points in close proximity raising concern for closed loop obstruction or obstructing internal hernia. NG tube has been inserted to suction. Surgery has been consulted Status post exploratory laparotomy and family resection with [id number] ileal anastomosis 08/11/2022 Postop care as ordered increased pain medication today. Still significant NG output no return of bowel function yet. Encouraged ambulation , Lovenox for DVT prophylaxis. IV fluid continue to balance intake and output as he has systolic heart failure with ejection fraction most recently at 40%. He does not look congested on clinical examination today he did receive IV Lasix last night in suspicion for worsening heart failure however suspect is mostly related to pain. tachycardia on scheduled metoprolol IV push abdominal x-ray with nonobstructive bowel gas pattern Increased NG output Continue NPO, may need IV nutrition (2) Heart failure with reduced ejection fraction: Code(s): I50.20 - Unspecified systolic (congestive) heart failure Status: Acute Assessment and Plan: Followed by Dr. Frank at [place]. The patient does not know his last EF but it was low. Oral medication on hold as he is NPO in anticipation of surgery. Avoid over-hydration. Monitor volume status closely with strict I/O and daily weights. EF noted to be 40% in May 2022 (3) Hypertension: Code(s): I10 - Essential (primary) hypertension Status: Acute Assessment and Plan: IV antihypertensives as needed (4) Thrombocytopenia: Code(s): D69.6 - Thrombocytopenia, unspecified Status: Acute Assessment and Plan: Chronic, mild, and stable. (5) Hyperkalemia: Code(s): E87.5 - Hyperkalemia Status: Acute Assessment and Plan: Likely due to a combination of spironolactone and sacubitril-valsartan, both which are on hold as he is NPO. (6) Chronic atrial fibrillation: Code(s): I48.20 - Chronic atrial fibrillation, unspecified Status: Acute Assessment and Plan: Currently rate controlled. IV Lopressor available as needed for high heart rates. Currently Eliquis on hold due to postsurgical status Echo from 2019 with EF 55% echo 05/26: Mild LV systolic dysfunction with mild global hypokinesia of LV cavity. LVEF 40%. (7) Chronic anticoagulation: Code(s): Z79.01 - long term care administrator (current) use of anticoagulants Status: Acute Assessment and Plan: Eliquis on hold (8) Chronic obstructive pulmonary disease: Code(s): J44.9 - Chronic obstructive pulmonary disease, unspecified Status: Acute Assessment and Plan: No acute issues. Continue maintenance inhalers. (9) Chronic respiratory failure with hypoxia, on home oxygen therapy: Code(s): J96.11 - Chronic respiratory failure with hypoxia; Z99.81 - Dependence on supplemental oxygen Status: Acute Assessment and Plan: He is at his baseline oxygen requirement. (10) Type 2 diabetes mellitus: Code(s): E11.9 - Type 2 diabetes mellitus without complications Status: Acute Assessment and Plan: Well controlled. Hemoglobin A1c today is 5.9%. Initiate sliding scale insulin, Accu-Cheks, and hypoglycemic protocol. 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 This has been known status post radiation followed by oncologist at [facility] on surveillance . Recent CT chest 05/26 with right upper lobe post treatment changes with soft tissue density and architectural distortion with soft tissue component measuring 0.4 x 1.9 x 1.7 cm appearing similar in size to previous CT scan from January 2022. Also right lower and left upper lobe 5 mm pulmonary nodules
[2022-08-14] MEDS: BISACODYL 10 MG SUPPOSITORY RECTAL (17:05)
[2022-08-14 17:58] LABS: Glucose Point of Care 143 mg/dl (65-105)
[2022-08-14] MEDS: METHYLNALTREXONE 12 MG/0.6 ML VIAL SUB-Q (18:55)
--- NOTE | 2022-08-14 19:48 | PC.NURSE ---
Pulse Rate is 230-170 B/p 122/58 pt is c/o being dizzy and lightheaded. Attempted to call Dr. Kimbrough and Tawnya SILVA . Chief Scientific Officer notified of change in status.
--- NOTE | 2022-08-14 23:26 | PC.NURSE ---
Pt heart rate increasing to 120-140 Dr. Kimbrough here and received orders to transfer to IMU. S bar faxed and report called to Roya MARCUS . Daughter called and made aware of pt's change in status and that he would be moving to IMU for further care. Pt. transferred per bed to 202.
[2022-08-14 23:30] LABS: Glucose Point of Care 132 mg/dl (65-105)
[2022-08-14] MEDS: FUROSEMIDE INJ 40 MG/4 ML VIAL IV PUSH (23:33)
[2022-08-15] VITALS (21 sets, daily range): BP systolic 92–135; BP diastolic 49–77; PULSE 101–150; RESP 18–22; TEMP 36.2–36.8; O2SAT 95–99
--- NOTE | 2022-08-15 00:43 | PC.NURSE ---
This patient, Eric Kirk, was received from [Emily rn ] on 08/14/22 at 2320. Patient/family oriented to unit policies and routines
[2022-08-15] MEDS: LORazepam INJ (*CRX) 2 MG/ML VIAL 1 MG IV PUSH (01:32)
[2022-08-15] MEDS: HYDROmorphone HCL INJ (*CRX) 1 MG/ML SYR 1.5 MG IV PUSH ×2 (01:33→07:04)
[2022-08-15] MEDS: METOPROLOL TARTRATE INJ 5 MG/5 ML VIAL IV PUSH ×5 (04:07→20:47)
[2022-08-15 04:59] LABS: Basophils Percent Auto 0.2 % (0.2-1.2); Eosinophils Percent Auto 0.2 % (0-4.4); Hematocrit 31.9 % (42.0-52.0); Hemoglobin 9.9 g/dL (14.0-18.0); Immature Granulocyte Absolute 0.09 K/mm3 (0.00-0.031); Immature Granulocyte Percent A 0.8 % (0-0.5); Lymphocytes Absolute Auto 0.99 K/mm3 (0.9-3.2); Lymphocytes Percent Auto 8.6 % (18.3-44.2); Mean Corpuscular Hemoglobin 31.5 pg (26-34); Mean Corpuscular Volume 101.6 fl (80-100); Mean Platelet Volume 12.6 fl (7.4-10.4); Monocytes Absolute Auto 0.8 K/mm3 (0.1-0.6); Monocytes Percent Auto 6.9 % (2.6-8.5); Neutrophils Absolute Auto 9.6 K/mm3 (1.3-6.7); Neutrophils Percent Auto 83.3 % (45.5-73.1); Platelet Count Result 114 k/mm3 (150-375); Red Blood Count 3.14 M/mm3 (4.6-6.20); Red Cell Distribution Width 15.3 % (11.5-14.5); White Blood Count 11.5 K/mm3 (4.5-10.0)
[2022-08-15 05:26] LABS: Alanine Aminotransferase 13 U/L (6-50); Albumin Level 2.8 g/dL (3.5-5.1); Alkaline Phosphatase 83 U/L (38-126); Anion Gap 13 mmol/L (8-16); Aspartate Amino Transferase 20 U/L (17-59); Bilirubin,Total 1.8 mg/dL (0.2-1.3); Blood Urea Nitrogen 24 mg/dL (9-20); Calcium 7.9 mg/dL (8.4-10.2); Carbon Dioxide 33 mmol/L (22-30); Chloride 102 mmol/L (98-107); Estimated CRCL calculation 65 ml/min; Estimated Glomerular Filt Rate 54; Glucose 171 mg/dL (65-110); Magnesium 1.8 mg/dL (1.6-2.3); Potassium 3.5 mmol/L (3.4-5.0); Sodium 148 mmol/L (137-145)
--- NOTE | 2022-08-15 08:23 | ECG_ITS ---
Measurements Intervals [place] Rate: 116 P: DC: 0 QRS: -35 QRSD: 119 T: 142 QT: 328 QTc: 457 Interpretive Statements ATRIAL FIBRILLATION WITH RAPID VENTRICULAR RESPONSE MODERATE INTRAVENTRICULAR CONDUCTION DELAY] OLD INFERIOR INFARCT POOR R-WAVE PROGRESSION COMPARED TO ECG 08/11/2022 07:27:13 NO SIGNIFICANT CHANGES Electronically Signed On 08-16-2022 14:31:02 CDT by Rachel Desai M.D.
--- NOTE | 2022-08-15 09:21 | PM.CNCAR ---
Assessment and Plan Assessment and plan (1) Atrial fibrillation: Code(s): I48.91 - Unspecified atrial fibrillation <ARIEL Griggs - Last Filed: 08/15/22 11:18> Status: Acute <ARIEL Griggs - Last Filed: 08/15/22 11:18> Assessment and Plan: Chronic atrial fibrillation ordinarily rate controlled with metoprolol. Now having some atrial fibrillation with rapid ventricular response probably secondary to physiologic stress as well as pain. Currently not taking any p.o. meds, NG tube still in place. He has already been placed on IV metoprolol which was increased this morning and seems to be providing reasonable rate control at this time. Heart rate high 90s to low 100s. Continue IV metoprolol 5 mg q.4 hours scheduled Will add some p.r.n. IV metoprolol If he is unable to be controlled with this regimen would use amiodarone (he has a cardiomyopathy so diltiazem is contraindicated). Resume systemic anticoagulation when okay with surgery, Lovenox on hold for now because of thrombocytopenia <ARIEL Griggs - Last Filed: 08/15/22 11:18> (2) Cardiomyopathy: Code(s): I42.9 - Cardiomyopathy, unspecified <ARIEL Griggs - Last Filed: 08/15/22 11:18> Status: Acute <ARIEL Griggs - Last Filed: 08/15/22 11:18> Assessment and Plan: EF 40% from echo at [place] on 06/01/2022. At home, he is on a good medical regimen with Coreg, Jardiance, Entresto. The should be resumed when he is able to take p.o. medication. He is not in decompensated heart failure. <ARIEL Griggs - Last Filed: 08/15/22 11:18> History of Present Illness History of Present Illness Consult date/time: 08/15/22 09:21 <ARIEL Griggs - Last Filed: 08/15/22 11:18> Requesting physician: Ej Braswell MD <ARIEL Griggs - Last Filed: 08/15/22 11:18> Consult reason: atrial fibrillation <ARIEL Griggs - Last Filed: 08/15/22 11:18> Reason For Visit: Small Bowel Obstruction <ARIEL Griggs - Last Filed: 08/15/22 11:18> Narrative: Mr. Kirk is a 72-year-old with a medical history of COPD, dyslipidemia, hypertension, type 2 diabetes, paroxysmal atrial fibrillation, and a cardiomyopathy with an EF of 40%. This is a patient who presented to the emergency department with the complaint of severe abdominal pain who was found to have a closed loop small bowel obstruction. He is now status post exploratory laparotomy and small-bowel resection. Cardiology has been asked to see him because of atrial fibrillation with rapid ventricular response. Patient does have a history of paroxysmal atrial fibrillation that is controlled with metoprolol and he is anticoagulated with Eliquis at home. EKG on admission showed atrial fibrillation with a controlled ventricular response. However, postoperatively he has developed some tachycardia. Currently, patient is somnolent and not able to participate in this interview. Apparently, he was given Ativan overnight and has been receiving narcotics as well. History was obtained from his medical record. <ARIEL Griggs - Last Filed: 08/15/22 11:18> Review of Systems Review of Systems: ROS unobtainable: Yes unobtainable due to mental status <ARIEL Griggs - Last Filed: 08/15/22 11:18> [facility] Past Medical History Medical History: Medical History Agent orange exposure Chronic anticoagulation Chronic atrial fibrillation Chronic obstructive pulmonary disease Chronic respiratory failure with hypoxia, on home oxygen therapy Gout Heart failure with reduced ejection fraction Followed by Dr. Frank at [place]. Hypertension Lung cancer (02/2021) Status post radiation. Oncologist is at [facility]. Obstructive sleep apnea Peripheral neuropathy Thrombocytopenia Type 2 diabetes mellitus <ARIEL Griggs - Last Filed:
[2022-08-15] MEDS: DEXTROSE 5%/LACTATED RINGERS 1,000 ML 100 ML IV CONT ×2 (09:31→20:47)
[2022-08-15] MEDS: PANTOPRAZOLE SODIUM IV 40 MG VIAL IV PUSH ×2 (09:33→20:47)
[2022-08-15] MEDS: SILVERGEL (ELTA) 45 ML 1 APPLIC TOPICAL (09:35)
[2022-08-15] MEDS: HYDROmorphone HCL INJ (*CRX) 1 MG/ML SYR IV PUSH ×5 (10:44→23:05)
--- NOTE | 2022-08-15 11:51 | PM.PNGS ---
Progress Note: A&P Assessment and Plan (1) Complete small bowel obstruction: Code(s): K56.601 - Complete intestinal obstruction, unspecified as to cause Status: Acute Assessment and Plan: Awaiting return of bowel function. Continue NG tube, NPO, and IV fluids. CT scan suggested ileus, no other acute findings. Will try fleets enema. Incision with some serosanguineous drainage, will start packing dressing changes. Continue to monitor. Remove Mann catheter today. Encouraged increasing activity and sitting in the chair today if his heart rate tolerates this. Continue PT/OT. (2) Chronic atrial fibrillation: Code(s): I48.20 - Chronic atrial fibrillation, unspecified Status: Acute Assessment and Plan: Transferred to IMU d/t afib RVR. IV Metoprolol 5 mg now Q4H. Cardiology consulted, appreciate their input. 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 Hgb 9.9 today, continue to monitor, no signs of active bleeding. (4) Thrombocytopenia: Code(s): D69.6 - Thrombocytopenia, unspecified Status: Acute Assessment and Plan: Platelets up to 114,000 today. Will resume Lovenox. (5) Heart failure with reduced ejection fraction: Code(s): I50.20 - Unspecified systolic (congestive) heart failure Status: Acute Assessment and Plan: No signs of fluid overload. No edema. (6) Type 2 diabetes mellitus: Code(s): E11.9 - Type 2 diabetes mellitus without complications Status: Acute Plan I have discussed the patient's case and plan of care with Dr. Sahu. Subjective Subjective Date/Time Seen: 08/15/22 11:51 Post Op day: 4 Patient reports: no new complaints, still having pain, flatus, no bowel movement and afebrile Interval history: Patient seen and examined this morning. He was moved to IMU overnight due to AFib RVR. He has only received IV metoprolol, and is not currently on any continuous infusion. He is a little drowsy on my exam, but recently received IV Dilaudid. He is still requiring IV Dilaudid every 2-3 hours almost throughout the night. He is still having generalized abdominal pain. He is passing gas. He was able to get up to the chair this morning and tolerated this well. Review of Systems Review of Systems: All systems reviewed & are unremarkable except as noted in HPI and below Exam Const: General: no acute distress and awake Orientation/consciousness: patient oriented x3 Resp: Effort & Inspection: normal respiratory effort Auscultation: rhonchi left upper Cardio: Rate: tachycardic Rhythm: abnormal rhythm irregularly irregular GI: Inspection: other (mildly distended) GI Palp: Yes Soft to palpation, Yes Tenderness to palpation present (GI) (diffusely tender throughout), No Guarding due to palpation present (GI) and No Rebound tenderness present Auscultation: Hypoactive bowel sounds present Other: Incision with ecchymosis and small amount of cloudy pink drainage, removed one staple near the center of the incision that was no longer attached to both skin edges and the skin was no longer approximated in this area, I used 4x4 gauze to gently pack a wick into the opening of the incision and covered with an ABD and medipore tape. No significant warmth or erythema. Urinary Catheter: Urinary Catheter: patent and draining and urine clear Extrem: General: no edema Objective Data Vital Signs Vital Signs: Vital Signs - 24 hr 08/14/22 15:26 08/14/22 16:40 08/14/22 19:41 Temperature 97.8 F 97 F L Pulse Rate 108 H 106 H 140 H Respiratory Rate 18 24 H Blood Pressure 165/96 H 122/58 L Pulse Oximetry 98 96 Oxygen Delivery Oxygen Flow Rate 08/14/22 12:00 08/14/22 16:00 08/14/22 20:07 Temperature Pulse Rate 110 H 106 H 135 H Respiratory Rate Blood Pressure Pulse Oximetry Oxygen
[2022-08-15 12:35] LABS: Glucose Point of Care 166 mg/dl (65-105)
--- NOTE | 2022-08-15 15:03 | PM.IMPN ---
Progress Note: A&P Assessment and Plan (1) Bowel obstruction: Code(s): K56.609 - Unspecified intestinal obstruction, unspecified as to partial versus complete obstruction Status: Acute Assessment and Plan: CT scan shows 2 abrupt transition points in close proximity raising concern for closed loop obstruction or obstructing internal hernia. NG tube has been inserted to suction. Surgery has been consulted Status post exploratory laparotomy and family resection with [id number] ileal anastomosis 08/11/2022 Postop care as ordered increased pain medication today. Still significant NG output no return of bowel function yet. Encouraged ambulation , Lovenox for DVT prophylaxis. IV fluid continue to balance intake and output as he has systolic heart failure with ejection fraction most recently at 40%. He does not look congested on clinical examination today he did receive IV Lasix last night in suspicion for worsening heart failure however suspect is mostly related to pain. tachycardia on scheduled metoprolol IV push abdominal x-ray with nonobstructive bowel gas pattern Increased NG output CT abdomen with adynamic ileus. continue NG Continue NPO, may need IV nutrition (2) Heart failure with reduced ejection fraction: Code(s): I50.20 - Unspecified systolic (congestive) heart failure Status: Acute Assessment and Plan: Followed by Dr. Frank at [place]. The patient does not know his last EF but it was low. Oral medication on hold as he is NPO in anticipation of surgery. Avoid over-hydration. Monitor volume status closely with strict I/O and daily weights. EF noted to be 40% in May 2022 (3) Hypertension: Code(s): I10 - Essential (primary) hypertension Status: Acute Assessment and Plan: IV antihypertensives as needed (4) Thrombocytopenia: Code(s): D69.6 - Thrombocytopenia, unspecified Status: Acute Assessment and Plan: Chronic, mild, and stable. (5) Hyperkalemia: Code(s): E87.5 - Hyperkalemia Status: Acute Assessment and Plan: Likely due to a combination of spironolactone and sacubitril-valsartan, both which are on hold as he is NPO. (6) Chronic atrial fibrillation: Code(s): I48.20 - Chronic atrial fibrillation, unspecified Status: Acute Assessment and Plan: Currently rate controlled. IV Lopressor available as needed for high heart rates. Currently Eliquis on hold due to postsurgical status Echo from 2019 with EF 55% echo 05/26: Mild LV systolic dysfunction with mild global hypokinesia of LV cavity. LVEF 40%. 08/15/2022: AFib with RVR. With systolic dysfunction prohibits use of diltiazem. Will consult cardiology. 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 Continue maintenance inhalers. (9) Chronic respiratory failure with hypoxia, on home oxygen therapy: Code(s): J96.11 - Chronic respiratory failure with hypoxia; Z99.81 - Dependence on supplemental oxygen Status: Acute Assessment and Plan: He is at his baseline oxygen requirement. (10) Type 2 diabetes mellitus: Code(s): E11.9 - Type 2 diabetes mellitus without complications Status: Acute Assessment and Plan: Well controlled. Hemoglobin A1c today is 5.9%. Initiate sliding scale insulin, Accu-Cheks, and hypoglycemic protocol. 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 This has been known status post radiation followed by oncologist at [facility] on surveillance . Recent CT chest 05/26 with right upper lobe post treatment changes with soft tissue density and architectural distortion
[2022-08-15 18:39] LABS: Glucose Point of Care 143 mg/dl (65-105)
[2022-08-16] VITALS (24 sets, daily range): BP systolic 108–144; BP diastolic 65–86; PULSE 72–143; RESP 18–28; TEMP 36.4–36.7; O2SAT 97–100
[2022-08-16 00:18] LABS: Glucose Point of Care 128 mg/dl (65-105)
[2022-08-16] MEDS: METOPROLOL TARTRATE INJ 5 MG/5 ML VIAL IV PUSH ×3 (00:46→09:39)
[2022-08-16] MEDS: HYDROmorphone HCL INJ (*CRX) 1 MG/ML SYR IV PUSH ×5 (02:17→18:02)
[2022-08-16 04:53] LABS: Basophils Percent Auto 0.4 % (0.2-1.2); Eosinophils Absolute Auto 0.2 K/mm3 (0-0.3); Eosinophils Percent Auto 1.9 % (0-4.4); Hematocrit 27.5 % (42.0-52.0); Hemoglobin 8.7 g/dL (14.0-18.0); Immature Granulocyte Absolute 0.03 K/mm3 (0.00-0.031); Immature Granulocyte Percent A 0.4 % (0-0.5); Immature Platelet Fraction Pct 8.7 % (0.9-11.2); Lymphocytes Absolute Auto 0.94 K/mm3 (0.9-3.2); Lymphocytes Percent Auto 12.1 % (18.3-44.2); Mean Corpuscular HGB Conc 31.6 g/dl (32-36); Mean Corpuscular Hemoglobin 31.3 pg (26-34); Mean Corpuscular Volume 98.9 fl (80-100); Mean Platelet Volume 13.8 fl (7.4-10.4); Monocytes Absolute Auto 0.6 K/mm3 (0.1-0.6); Monocytes Percent Auto 7.5 % (2.6-8.5); Neutrophils Percent Auto 77.7 % (45.5-73.1); Platelet Count Result 127 k/mm3 (150-375); Red Blood Count 2.78 M/mm3 (4.6-6.20); Red Cell Distribution Width 15.1 % (11.5-14.5); White Blood Count 7.8 K/mm3 (4.5-10.0)
[2022-08-16] MEDS: DEXTROSE 5%/LACTATED RINGERS 1,000 ML 100 ML IV CONT (04:59)
[2022-08-16 05:01] LABS: Alanine Aminotransferase 15 U/L (6-50); Albumin Level 2.9 g/dL (3.5-5.1); Alkaline Phosphatase 83 U/L (38-126); Anion Gap 8 mmol/L (8-16); Aspartate Amino Transferase 25 U/L (17-59); Bilirubin,Total 1.6 mg/dL (0.2-1.3); Blood Urea Nitrogen 34 mg/dL (9-20); Calcium 7.7 mg/dL (8.4-10.2); Carbon Dioxide 33 mmol/L (22-30); Chloride 105 mmol/L (98-107); Estimated CRCL calculation 63 ml/min; Estimated Glomerular Filt Rate 50; Glucose 144 mg/dL (65-110); Magnesium 1.6 mg/dL (1.6-2.3); Potassium 3.2 mmol/L (3.4-5.0); Sodium 146 mmol/L (137-145)
--- NOTE | 2022-08-16 08:21 | PM.IMPN ---
Progress Note: A&P Assessment and Plan (1) Bowel obstruction: Code(s): K56.609 - Unspecified intestinal obstruction, unspecified as to partial versus complete obstruction Status: Acute Assessment and Plan: CT scan from August 11 shows 2 abrupt transition points in close proximity raising concern for closed loop obstruction or obstructing internal hernia. Status post exploratory laparotomy and resection with [id number] ileal anastomosis 08/11/2022 CT abdomen from August 14 shows adynamic ileus Patient removed NG tube, General surgery okay with advancing diet as tolerated (2) Heart failure with reduced ejection fraction: Code(s): I50.20 - Unspecified systolic (congestive) heart failure Status: Acute Assessment and Plan: EF noted to be 40% in May 2022 Appreciate cardiology consultation, patient appears euvolemic (3) Hypertension: Code(s): I10 - Essential (primary) hypertension Status: Acute Assessment and Plan: Lopressor 7.5mg IV q.4 hours scheduled with additional Lopressor ordered p.r.n. 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 Status: Acute Assessment and Plan: Eliquis on hold postoperatively, will restart when okay with surgery (7) Chronic obstructive pulmonary disease: Code(s): J44.9 - Chronic obstructive pulmonary disease, unspecified Status: Acute Assessment and Plan: Stable, continue home medications (8) Chronic respiratory failure with hypoxia, on home oxygen therapy: Code(s): J96.11 - Chronic respiratory failure with hypoxia; Z99.81 - Dependence on supplemental oxygen Status: Acute Assessment and Plan: Chronically on 2 L, stable (9) Type 2 diabetes mellitus: Code(s): E11.9 - Type 2 diabetes mellitus without complications Status: Acute Assessment and Plan: A1c 5.9, continue Accu-Cheks and sliding scale insulin Plan DVT prophylaxis with SCDs GI prophylaxis not indicated Code status full code Subjective Date/time seen: 08/16/22 08:21 Interval history: No overnight events noted. No chest pain or shortness of breath. No nausea, vomiting or diarrhea. No fevers or chills. Patient states that his abdominal pain is about the same as yesterday. He states he is passing flatus, no bowel movement. Review of Systems Review of Systems: 12 point review of systems was assessed and was negative except as noted in the HPI Exam Narrative: General: No acute distress, alert and oriented per baseline, comfortable on 2 L HEENT: Atraumatic, normocephalic, mucous membranes moist CV: Irregularly irregular, S1, S2 Lungs: Clear to auscultation bilaterally, no rales or crackles noted, no wheezes, good air entry Abdomen: Soft, mildly tender diffusely, minimal distension, hypoactive bowel sounds Extremities: Normal to inspection Skin: No rashes noted, no lesions or wounds seen Psych: Dysthymic with flattened affect Objective Data Vital Signs Vital Signs: Vital Signs - 24 hr 08/15/22 09:33 08/15/22 10:00 08/15/22 12:33 Temperature 97.2 F L Pulse Rate 134 H 114 H 133 H Respiratory Rate 22 H Blood Pressure 96/49 L Pulse Oximetry 98 Oxygen Delivery Oxygen Flow Rate 08/15/22 12:35 08/15/22 12:00 08/15/22 12:00 Temperature Pulse Rate 138 H 121 H Respiratory Rate Blood Pressure
[2022-08-16] MEDS: ENOXAPARIN 40 MG/0.4 ML SYRINGE SUB-Q (09:38)
[2022-08-16] MEDS: PANTOPRAZOLE SODIUM IV 40 MG VIAL IV PUSH ×2 (09:38→20:11)
[2022-08-16] MEDS: ONDANSETRON INJ 4 MG/2 ML VIAL IV PUSH (09:48)
--- NOTE | 2022-08-16 10:52 | PCOTNOTE ---
Attempted to see patient for OT, patient refused. Patient educated over importance of participating with OT in order to demonstrate strength and safety with ADLs and mobility in order to return home. Patient agitated, but apologetic with refusal of OT. Patient reports more willing to try therapy tomorrow. Will continue plan of care.
--- NOTE | 2022-08-16 11:19 | PM.PNGS ---
Progress Note: A&P Assessment and Plan (1) Complete small bowel obstruction: Code(s): K56.601 - Complete intestinal obstruction, unspecified as to cause Status: Acute Assessment and Plan: Start clear liquids today. Will start MiraLax daily. Continue working with pain control. Will continue packing wound on incision daily with 1/4 iodoform gauze. (2) Chronic atrial fibrillation: Code(s): I48.20 - Chronic atrial fibrillation, unspecified Status: Acute Assessment and Plan: Transferred to IMU d/t afib RVR. IV Metoprolol 5 mg now Q4H. Cardiology consulted, appreciate their input. 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 Hgb 8.7 today, continue to monitor, no signs of active bleeding. (4) Thrombocytopenia: Code(s): D69.6 - Thrombocytopenia, unspecified Status: Acute Assessment and Plan: Platelets up to 127,000 today. Will resume Lovenox. (5) Heart failure with reduced ejection fraction: Code(s): I50.20 - Unspecified systolic (congestive) heart failure Status: Acute Assessment and Plan: No signs of fluid overload. No edema. (6) Type 2 diabetes mellitus: Code(s): E11.9 - Type 2 diabetes mellitus without complications Status: Acute Subjective Subjective Date/Time Seen: 08/16/22 11:19 Interval history: Bowels moving. Wants some liquids. No nausea or vomiting. Still having a lot of abdominal pain. Exam GI: Inspection: non-distended and incision (Scant purulent drainage from middle of incision, no surrounding erythema.) GI Palp: Yes Soft to palpation, Yes Tenderness to palpation present (GI) (incisional) and No Guarding due to palpation present (GI) Auscultation: normal bowel sounds Objective Data Vital Signs Vital Signs: Vital Signs - 24 hr 08/15/22 12:33 08/15/22 12:35 08/15/22 12:00 Temperature 36.2 C L Pulse Rate 133 H 138 H 121 H Respiratory Rate 22 H Blood Pressure 96/49 L Pulse Oximetry 98 Oxygen Delivery Oxygen Flow Rate 08/15/22 12:00 08/15/22 16:49 08/15/22 17:09 Temperature 36.5 C Pulse Rate 126 H 122 H Respiratory Rate 22 H Blood Pressure 92/68 L Pulse Oximetry 99 98 Oxygen Delivery Nasal Cannula Oxygen Flow Rate 2 08/15/22 17:01 08/15/22 16:00 08/15/22 16:00 Temperature Pulse Rate 116 H Respiratory Rate Blood Pressure Pulse Oximetry 98 Oxygen Delivery Nasal Cannula Nasal Cannula Oxygen Flow Rate 2 2 08/15/22 14:00 08/15/22 18:00 08/15/22 20:00 Temperature 36.8 C Pulse Rate 111 H 118 H 117 H Respiratory Rate 20 Blood Pressure 135/61 Pulse Oximetry 99 Oxygen Delivery Oxygen Flow Rate 08/15/22 20:47 08/15/22 20:00 08/15/22 20:00 Temperature Pulse Rate 122 H 114 H 114 H Respiratory Rate 20 Blood Pressure Pulse Oximetry 99 Oxygen Delivery Nasal Cannula Oxygen Flow Rate 2 08/15/22 21:30 08/15/22 23:05 08/16/22 00:00 Temperature 36.7 C Pulse Rate 101 H 107 H 121 H Respiratory Rate 18 Blood Pressure 121/77 Pulse Oximetry 98 Oxygen Delivery Oxygen Flow Rate 08/16/22 00:00 08/16/22 00:46 08/16/22 02:00 Temperature Pulse Rate 107 H 122 H 114 H Respiratory Rate 18 Blood Pressure Pulse Oximetry 98 Oxygen Delivery Nasal Cannula Oxygen Flow Rate 2 08/16/22 03:49 08/16/22 03:49 08/16/22 04:00 Temperature 36.7 C Pulse Rate 120 H 120 H 120 H Respiratory Rate 18 20 Blood Pressure 129/86 Pulse Oximetry 98 98 Oxygen Delivery Nasal Cannula Oxygen Flow Rate 2 08/16/22 05:00 08/16/22 05:16 08/16/22 08:00 Temperature Pulse Rate 124 H 110 H Respiratory Rate Blood Pressure Pulse Oximetry 97 Oxygen Delivery Nasal Cannula Oxygen Flow Rate 2 08/16/22 08:14 08/16/22 09:39 08/16/22 08:00 Temperature 36.6 C
[2022-08-16] MEDS: polyethylene glycoL 3350 17 GM POWD.PACK PO (12:04)
[2022-08-16] MEDS: ACETAMINOPHEN 500 MG TABLET 1000 MG PO ×3 (12:04→23:05)
[2022-08-16] MEDS: SILVERGEL (ELTA) 45 ML 1 APPLIC TOPICAL (12:13)
[2022-08-16 12:50] LABS: Glucose Point of Care 153 mg/dl (65-105)
[2022-08-16] MEDS: METOPROLOL TARTRATE INJ 5 MG/5 ML VIAL 7.5 MG IV PUSH ×3 (13:29→20:12)
[2022-08-16 18:00] LABS: Glucose Point of Care 122 mg/dl (65-105)
--- NOTE | 2022-08-16 21:42 | PM.PNCARD ---
Progress Note: A&P Assessment and Plan (1) Atrial fibrillation: Code(s): I48.91 - Unspecified atrial fibrillation Status: Acute Assessment and Plan: Chronic atrial fibrillation ordinarily rate controlled with metoprolol. Now having some atrial fibrillation with rapid ventricular response probably secondary to physiologic stress as well as pain. heart rate reasonably well controlled. Continue IV metoprolol 5 mg q.4 hours scheduled Cont p.r.n. IV metoprolol Hopefully can switch back to p.o. metoprolol tomorrow. Resume systemic anticoagulation when okay with surgery, Lovenox on hold for now because of thrombocytopenia , which has improved (2) Cardiomyopathy: Code(s): I42.9 - Cardiomyopathy, unspecified Status: Acute Assessment and Plan: EF 40% from echo [facility] on 06/01/2022. At home, he is on a good medical regimen with Coreg, Jardiance, Entresto. The should be resumed when he is able to take p.o. medication. He is not in decompensated heart failure. (3) Ileus: Code(s): K56.7 - Ileus, unspecified Status: Acute Assessment and Plan: small-bowel obstructions, status post resection, now with ileus improving Subjective Date/time seen: Follow-up for AFib management, history of Paroxysmal atrial fibrillation. EF found to be 40%. Admitted with small-bowel obstruction, status post resection, now with an ileus. History of hypertension, dyslipidemia, COPD, diabetes. 08/16/22 21:42 Improving, now on clear liquids. Sitting up in his chair. Still on IV metoprolol, heart rate 100-110 beats per minute. Daughter at bedside. Review of Systems Review of Systems: Still with abdominal pain. No shortness of breath, chest pain, dizziness or edema. Exam Narrative: Elderly male sitting up in chair, looks tired, daughter at the bedside Const: General: cooperative and comfortable; No confusion Orientation/consciousness: oriented to person, patient oriented x3 and No confusion HENMT: Mouth: Yes moist mucous membranes Eyes: EOM: EOMs intact bilaterally Neck: Neck: supple Resp: Effort & Inspection: normal respiratory effort Auscultation: clear to auscultation bilaterally Cardio: Rate: regular rate and tachycardic Rhythm: regular rhythm and abnormal rhythm irregularly irregular GI: Inspection: normal to inspection GI Palp: No abdominal tenderness Other: diminished but present bowel sounds Skin: General skin exam: normal color and no rashes or lesions noted Neuro: General: oriented to person, patient oriented x3 and No confusion Extrem: Right lower extremity: edema Left lower extremity: edema Other: trace lower extremity edema Psych: Appearance: grossly normal Mental Status: mental status grossly normal Objective Data Vital Signs Vital Signs: Vital Signs - 24 hr 08/15/22 23:05 08/16/22 00:00 08/16/22 00:00 Temperature 98.0 F Pulse Rate 107 H 121 H 107 H Respiratory Rate 18 18 Blood Pressure 121/77 Pulse Oximetry 98 98 Oxygen Delivery Nasal Cannula Oxygen Flow Rate 2 08/16/22 00:46 08/16/22 02:00 08/16/22 03:49 Temperature Pulse Rate 122 H 114 H 120 H Respiratory Rate Blood Pressure Pulse Oximetry Oxygen Delivery Oxygen Flow Rate 08/16/22 03:49 08/16/22 04:00 08/16/22 05:00 Temperature 98.1 F Pulse Rate 120 H 120 H 124 H Respiratory Rate 18 20 Blood Pressure 129/86 Pulse Oximetry 98 98 Oxygen Delivery Nasal Cannula Oxygen Flow Rate 2 08/16/22 05:16 08/16/22 08:00 08/16/22 08:14 Temperature 97.8 F Pulse Rate 110 H 129 H Respiratory Rate 24 H Blood Pressure 137/71 Pulse Oximetry 97 97 Oxygen Delivery Nasal Cannula Oxygen Flow Rate 2 08/16/22 09:39 08/16/22 08:00 08/16/22 10:00 Temperature Pulse Rate 143 H 136 H 118 H Respiratory Rate Blood Pressure Pulse Oximetry Oxygen Delivery Oxygen Flow Rate 08/16/22 12:12 10
[2022-08-16 23:22] LABS: Glucose Point of Care 103 mg/dl (65-105)
[2022-08-17] VITALS (22 sets, daily range): BP systolic 94–119; BP diastolic 40–71; PULSE 86–108; RESP 16–21; TEMP 36.3–36.6; O2SAT 93–100
[2022-08-17] MEDS: METOPROLOL TARTRATE INJ 5 MG/5 ML VIAL 7.5 MG IV PUSH ×4 (01:28→12:21)
[2022-08-17] MEDS: HYDROmorphone HCL INJ (*CRX) 1 MG/ML SYR IV PUSH ×2 (02:33→09:10)
[2022-08-17 04:55] LABS: Basophils Percent Auto 0.4 % (0.2-1.2); Eosinophils Absolute Auto 0.2 K/mm3 (0-0.3); Eosinophils Percent Auto 4.1 % (0-4.4); Hematocrit 24.5 % (42.0-52.0); Hemoglobin 7.5 g/dL (14.0-18.0); Immature Granulocyte Absolute 0.02 K/mm3 (0.00-0.031); Immature Granulocyte Percent A 0.4 % (0-0.5); Lymphocytes Absolute Auto 0.71 K/mm3 (0.9-3.2); Lymphocytes Percent Auto 15.2 % (18.3-44.2); Mean Corpuscular HGB Conc 30.6 g/dl (32-36); Mean Corpuscular Hemoglobin 30.7 pg (26-34); Mean Corpuscular Volume 100.4 fl (80-100); Mean Platelet Volume 12.5 fl (7.4-10.4); Monocytes Absolute Auto 0.3 K/mm3 (0.1-0.6); Monocytes Percent Auto 6.9 % (2.6-8.5); Neutrophils Absolute Auto 3.4 K/mm3 (1.3-6.7); Platelet Count Result 95 k/mm3 (150-375); Red Blood Count 2.44 M/mm3 (4.6-6.20); Red Cell Distribution Width 14.6 % (11.5-14.5); White Blood Count 4.7 K/mm3 (4.5-10.0)
[2022-08-17 05:13] LABS: Alanine Aminotransferase 16 U/L (6-50); Albumin Level 2.6 g/dL (3.5-5.1); Alkaline Phosphatase 70 U/L (38-126); Anion Gap 6 mmol/L (8-16); Aspartate Amino Transferase 28 U/L (17-59); Bilirubin,Total 1.6 mg/dL (0.2-1.3); Blood Urea Nitrogen 32 mg/dL (9-20); Calcium 7.3 mg/dL (8.4-10.2); Carbon Dioxide 31 mmol/L (22-30); Chloride 103 mmol/L (98-107); Estimated CRCL calculation 68 ml/min; Estimated Glomerular Filt Rate 54; Glucose 93 mg/dL (65-110); Potassium 2.7 mmol/L (3.4-5.0); Sodium 140 mmol/L (137-145)
[2022-08-17] MEDS: ACETAMINOPHEN 500 MG TABLET 1000 MG PO ×2 (05:48→12:20)
[2022-08-17] MEDS: POTASSIUM CHLORIDE 20 MEQ TABLET 40 MEQ PO ×2 (05:48→09:10)
[2022-08-17 06:11] LABS: Magnesium 1.5 mg/dL (1.6-2.3)
[2022-08-17] MEDS: MAGNESIUM SULF 2 GM/WATER 50ML 2 GM/50 ML BAG IVPB (06:46)
[2022-08-17] MEDS: PANTOPRAZOLE SODIUM IV 40 MG VIAL IV PUSH ×2 (09:04→20:35)
[2022-08-17] MEDS: polyethylene glycoL 3350 17 GM POWD.PACK PO (09:05)
[2022-08-17] MEDS: SILVERGEL (ELTA) 45 ML 1 APPLIC TOPICAL (09:05)
--- NOTE | 2022-08-17 09:30 | PM.IMPN ---
Progress Note: A&P Assessment and Plan (1) Bowel obstruction: Code(s): K56.609 - Unspecified intestinal obstruction, unspecified as to partial versus complete obstruction Status: Acute Assessment and Plan: CT scan from August 11 shows 2 abrupt transition points in close proximity raising concern for closed loop obstruction or obstructing internal hernia. Status post exploratory laparotomy and resection with [id number] ileal anastomosis 08/11/2022 CT abdomen from August 14 shows adynamic ileus Resolving, advance diet as tolerated (2) Heart failure with reduced ejection fraction: Code(s): I50.20 - Unspecified systolic (congestive) heart failure Status: Acute Assessment and Plan: EF noted to be 40% in May 2022 Appreciate cardiology consultation, patient appears euvolemic (3) Hypertension: Code(s): I10 - Essential (primary) hypertension Status: Acute Assessment and Plan: Transitioning back to oral beta-caas, blood pressure medications (4) Thrombocytopenia: Code(s): D69.6 - Thrombocytopenia, unspecified Status: Acute Assessment and Plan: Lovenox restarted, monitor closely, platelets 95 today (5) Chronic atrial fibrillation: Code(s): I48.20 - Chronic atrial fibrillation, unspecified Status: Acute Assessment and Plan: Transition to oral beta-casa, monitor (6) Chronic anticoagulation: Code(s): 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 Status: Acute Assessment and Plan: Currently on Lovenox, will restart Eliquis when okay with surgery (7) Chronic obstructive pulmonary disease: Code(s): J44.9 - Chronic obstructive pulmonary disease, unspecified Status: Acute Assessment and Plan: Stable, continue home medications (8) Chronic respiratory failure with hypoxia, on home oxygen therapy: Code(s): J96.11 - Chronic respiratory failure with hypoxia; Z99.81 - Dependence on supplemental oxygen Status: Acute Assessment and Plan: Chronically on 2 L, stable (9) Type 2 diabetes mellitus: Code(s): E11.9 - Type 2 diabetes mellitus without complications Status: Acute Assessment and Plan: A1c 5.9, continue Accu-Cheks and sliding scale insulin Plan DVT prophylaxis with Lovenox GI prophylaxis with PPI Code status full code Subjective Date/time seen: 08/17/22 09:30 Interval history: No overnight events noted. No chest pain or shortness of breath. No nausea, vomiting or diarrhea. No fevers or chills. Patient states he feels about the same today as yesterday. His abdomen is somewhat tender, but not acutely painful. He did have a bowel movement today that was streaked with blood. He is tolerating his diet well. Review of Systems Review of Systems: 12 point review of systems was assessed and was negative except as noted in the HPI Exam Narrative: General: No acute distress, alert and oriented per baseline, comfortable on 2 L HEENT: Atraumatic, normocephalic, mucous membranes moist CV: Irregularly irregular, S1, S2 Lungs: Clear to auscultation bilaterally, no rales or crackles noted, no wheezes, good air entry Abdomen: Soft, mild tenderness, no distension, normoactive bowel sounds Extremities: Normal to inspection Skin: No rashes noted, no lesions or wounds seen Psych: Dysthymic with flattened affect Objective Data Vital Signs Vital Signs: Vital Signs - 24 hr 08/16/22 09:39 08/16/22 10:00 08/16/22 12:12 Temperature 97.5 F L Pulse Rate 143 H 118 H 118 H Respiratory Rate 22 H Blood Pressure 144/66 H Pulse Oximetry 100 Oxygen Delivery Oxygen Flow Rate 08/16/22 12:00 08/16/22 12:00 08/16/22 13:29 Temperature Pulse Rate 104 H 112 H Respiratory Rate Blood Pressure Pulse Oximetry 97 Oxygen Delivery Nasal Cannula Oxygen Flow Rate 2 08/16/22 13:45 08/16/22 15:0
--- NOTE | 2022-08-17 09:30 | PM.PNCARD ---
Progress Note: A&P Assessment and Plan (1) Atrial fibrillation: Code(s): I48.91 - Unspecified atrial fibrillation Status: Acute Assessment and Plan: Chronic atrial fibrillation ordinarily rate controlled with metoprolol. Now having some atrial fibrillation with rapid ventricular response probably secondary to physiologic stress as well as pain. heart rate reasonably well controlled. Scheduled IV metoprolol has been discontinued, presumably because of hypotension Cont p.r.n. IV metoprolol Can use p.o. metoprolol if he becomes tachycardic but rate has been reasonably controlled. Resume systemic anticoagulation when okay with surgery, Lovenox on hold for now because of thrombocytopenia. Also had drop in H/H today but no other evidence of bleeding (2) Cardiomyopathy: Code(s): I42.9 - Cardiomyopathy, unspecified Status: Acute Assessment and Plan: EF 40% from echo at [place] on 06/01/2022. At home, he is on a good medical regimen with Coreg, Jardiance, Entresto. The should be resumed when he is able to take p.o. medication. He is not in decompensated heart failure. (3) Ileus: Code(s): K56.7 - Ileus, unspecified Status: Acute Assessment and Plan: small-bowel obstructions, status post resection, now with ileus improving Subjective Date/time seen: 08/17/22 09:30 Cardiology follow up for atrial fibrillation Feeling much better today. Has some abdominal tenderness. Passing gas but no BM yet. Denies any palpitations, shortness of breath. Review of Systems Constitutional: Constitutional: Denies chills, Denies fever(s), Denies headache(s) and Denies malaise Eyes: Eyes: Denies change in vision ENT: Reports Normal hearing present, Denies dizziness, Denies headache(s) and Denies hearing loss Cardiovascular: Cardiovascular: Denies chest pain, Denies chest pain at rest, Denies chest pain with activity, Denies syncope, Denies leg edema, Denies palpitations, Denies dyspnea and Denies dyspnea on exertion Respiratory: Respiratory: Denies cough, Denies dyspnea, Denies dyspnea on exertion and Denies wheezing Gastrointestinal: Gastrointestinal: Reports abdominal pain, Denies constipation and Denies diarrhea Genitourinary: Genitourinary: Denies hematuria and Denies dysuria Musculoskeletal: Musculoskeletal: Denies myalgias, Denies arthralgias and Denies muscle cramps Integumentary/Breasts: Skin/Breast: Denies wounds Neurologic: Denies confusion Psychiatric: Psychiatric: Denies confusion Endocrine: Endocrine: Denies cold intolerance, Denies flushing, Denies heat intolerance and Denies palpitations Hematologic/Lymphatic: Hematologic/Lymphatic: Denies easy bleeding and Denies easy bruising Allergic/Immunologic: Allergic/Immunologic: Denies wheezing Exam Narrative: Elderly male sitting up in chair, looks tired, daughter at the bedside Const: General: cooperative, comfortable and no acute distress; No alert, awake or confusion Orientation/consciousness: oriented to person, patient oriented x3 and No confusion HENMT: Head: normal to inspection Face/Nose/Sinus: Normal nares present Mouth: Yes moist mucous membranes Eyes: General: appearance normal, both eyes and all related structures Pupils: Equal, round and reactive pupils present EOM: EOMs intact bilaterally Neck: Neck: normal visual inspection, supple and no JVD Resp: Effort & Inspection: normal respiratory effort Auscultation: clear to auscultation bilaterally, no crackles, rales (scattered rales bilateral bases ) and no rhonchi Cardio: Rate: regular rate Rhythm: abnormal rhythm irregularly irregular Heart sounds: S1 normal heart sound present, S2 normal heart sound present and no murmurs GI: Inspection: normal to inspection Auscultation: abnormal bowel sounds Other: diminished but present bowel sounds Skin: General skin exam: normal color and no rashes or lesions noted Other: Chronic changes o
--- NOTE | 2022-08-17 10:18 | PCPTNOTE ---
Patient refused treatment this session. Patient reported he just got done eating and wanted to wait first to work with therapy, and reported he wanted to take a nap. Educated patient on the importance of therapy and getting up and walking. Patient continued to refuse and asked PT to come back later.
--- NOTE | 2022-08-17 12:42 | PM.PNGS ---
Progress Note: A&P Assessment and Plan (1) Complete small bowel obstruction: Code(s): K56.601 - Complete intestinal obstruction, unspecified as to cause Status: Acute Assessment and Plan: Advance to full liquids. Transition to oral pain meds. Continue local wound care. H/H down but no signs of ongoing bleeding. Continue to monitor. (2) Chronic atrial fibrillation: Code(s): I48.20 - Chronic atrial fibrillation, unspecified Status: Acute Assessment and Plan: Cardiology consulted, appreciate their input. (3) Chronic anticoagulation: Code(s): Z79.01 - intermediate (current) use of anticoagulants Status: Acute Assessment and Plan: Eliquis on hold until hemoglobin stable (4) Thrombocytopenia: Code(s): D69.6 - Thrombocytopenia, unspecified Status: Acute Assessment and Plan: Hold Lovenox due to low platelets (5) Heart failure with reduced ejection fraction: Code(s): I50.20 - Unspecified systolic (congestive) heart failure Status: Acute Assessment and Plan: No signs of fluid overload. No edema. (6) Type 2 diabetes mellitus: Code(s): E11.9 - Type 2 diabetes mellitus without complications Status: Acute Subjective Subjective Date/Time Seen: 08/17/22 12:42 Interval history: Bowels moving. Pain better controlled. No fevers. No nausea or vomiting. Exam GI: Inspection: other (scant serosanguinous drainage from opening between angie) GI Palp: Yes Soft to palpation, Yes Tenderness to palpation present (GI) (incisional) and No Guarding due to palpation present (GI) Auscultation: normal bowel sounds Objective Data Vital Signs Vital Signs: Vital Signs - 24 hr 08/16/22 13:29 08/16/22 13:45 08/16/22 15:06 Temperature Pulse Rate 112 H 97 Respiratory Rate Blood Pressure Pulse Oximetry 97 Oxygen Delivery Nasal Cannula Oxygen Flow Rate 2 08/16/22 16:48 08/16/22 17:04 08/16/22 16:00 Temperature 36.6 C Pulse Rate 99 101 H 99 Respiratory Rate 28 H Blood Pressure 123/67 Pulse Oximetry 99 Oxygen Delivery Oxygen Flow Rate 08/16/22 18:00 08/16/22 20:12 08/16/22 20:00 Temperature 36.6 C Pulse Rate 103 H 99 72 Respiratory Rate 20 Blood Pressure 112/65 Pulse Oximetry 99 Oxygen Delivery Oxygen Flow Rate 08/16/22 20:00 08/16/22 20:00 08/16/22 22:00 Temperature Pulse Rate 103 H 103 H 100 Respiratory Rate 20 Blood Pressure Pulse Oximetry 99 Oxygen Delivery Nasal Cannula Oxygen Flow Rate 2 08/16/22 23:07 08/17/22 00:00 08/17/22 00:00 Temperature 36.6 C Pulse Rate 96 108 H 108 H Respiratory Rate 20 20 Blood Pressure 108/70 Pulse Oximetry 99 99 Oxygen Delivery Nasal Cannula Oxygen Flow Rate 2 08/17/22 01:28 08/17/22 02:00 08/17/22 04:00 Temperature Pulse Rate 100 100 98 Respiratory Rate Blood Pressure Pulse Oximetry Oxygen Delivery Oxygen Flow Rate 08/17/22 04:00 08/17/22 04:00 08/17/22 05:50 Temperature 36.6 C Pulse Rate 99 108 H 102 H Respiratory Rate 20 18 Blood Pressure 114/65 Pulse Oximetry 99 97 Oxygen Delivery Nasal Cannula Oxygen Flow Rate 2 08/17/22 06:00 08/17/22 08:00 08/17/22 08:00 Temperature 36.3 C L Pulse Rate 99 101 H 96 Respiratory Rate 16 Blood Pressure 94/56 L Pulse Oximetry 93 Oxygen Delivery Oxygen Flow Rate 08/17/22 08:00 08/17/22 10:00 08/17/22 11:05 Temperature Pulse Rate 94 Respiratory Rate Blood Pressure Pulse Oximetry 99 99 Oxygen Delivery Nasal Cannula Nasal Cannula Oxygen Flow Rate 2 2 08/17/22 09:00 08/17/22 12:21 08/17/22 12:00 Temperature Pulse Rate 98 92 86 Respiratory Rate Blood Pressure Pulse Oximetry Oxygen Delivery Oxygen Flow Rate Intake/Output Intake/Output: Intake & Output 08/14/22 08/15/22 08/16/22 08/17/22 23:59 23:59 23:59 23:59 Intake Total 3400
[2022-08-17 12:58] LABS: Glucose Point of Care 93 mg/dl (65-105)
[2022-08-17] MEDS: carvediloL 25 MG TABLET PO ×2 (15:41→20:35)
[2022-08-17 16:31] LABS: Hematocrit 25.5 % (42.0-52.0); Hemoglobin 7.9 g/dL (14.0-18.0)
[2022-08-17 16:41] LABS: Anion Gap 8 mmol/L (8-16); Blood Urea Nitrogen 28 mg/dL (9-20); Calcium 7.4 mg/dL (8.4-10.2); Carbon Dioxide 29 mmol/L (22-30); Chloride 102 mmol/L (98-107); Estimated CRCL calculation 62 ml/min; Estimated Glomerular Filt Rate 50; Glucose 103 mg/dL (65-110); Potassium 3.3 mmol/L (3.4-5.0); Sodium 139 mmol/L (137-145)
[2022-08-17 17:45] LABS: Glucose Point of Care 109 mg/dl (65-105)
[2022-08-17] MEDS: FLUTICASONE/SALMETEROL 115-21 MCG INHALER 1 PUFF 2 PUFF INHALATION (20:15)
[2022-08-17] MEDS: SACUBITRIL/VALSARTAN 24-26 MG TABLET 1 TAB PO (20:35)
[2022-08-17 23:20] LABS: Glucose Point of Care 124 mg/dl (65-105)
[2022-08-17] MEDS: HYDROcodone/acetaminophen (*CRX) 10-325 MG TABLET 1 TAB PO (23:25)
[2022-08-18] VITALS (14 sets, daily range): BP systolic 101–123; BP diastolic 44–67; PULSE 47–102; RESP 20–22; TEMP 36.1–37; O2SAT 92–100; BMI 33.2
[2022-08-18] MEDS: HYDROcodone/acetaminophen (*CRX) 10-325 MG TABLET 1 TAB PO ×2 (05:21→14:45)
[2022-08-18 05:33] LABS: Basophils Percent Auto 0.6 % (0.2-1.2); Eosinophils Absolute Auto 0.2 K/mm3 (0-0.3); Eosinophils Percent Auto 3.8 % (0-4.4); Hemoglobin 8.1 g/dL (14.0-18.0); Immature Granulocyte Absolute 0.03 K/mm3 (0.00-0.031); Immature Granulocyte Percent A 0.6 % (0-0.5); Immature Platelet Fraction Pct 10.4 % (0.9-11.2); Mean Corpuscular HGB Conc 31.2 g/dl (32-36); Mean Corpuscular Volume 99.6 fl (80-100); Mean Platelet Volume 12.9 fl (7.4-10.4); Monocytes Absolute Auto 0.3 K/mm3 (0.1-0.6); Monocytes Percent Auto 7.2 % (2.6-8.5); Neutrophils Absolute Auto 3.3 K/mm3 (1.3-6.7); Neutrophils Percent Auto 70.8 % (45.5-73.1); Platelet Count Result 113 k/mm3 (150-375); Red Blood Count 2.61 M/mm3 (4.6-6.20); Red Cell Distribution Width 14.6 % (11.5-14.5); White Blood Count 4.7 K/mm3 (4.5-10.0)
[2022-08-18 05:53] LABS: Alanine Aminotransferase 20 U/L (6-50); Albumin Level 2.8 g/dL (3.5-5.1); Alkaline Phosphatase 79 U/L (38-126); Anion Gap 8 mmol/L (8-16); Aspartate Amino Transferase 31 U/L (17-59); Bilirubin,Total 1.5 mg/dL (0.2-1.3); Blood Urea Nitrogen 23 mg/dL (9-20); Calcium 7.3 mg/dL (8.4-10.2); Carbon Dioxide 28 mmol/L (22-30); Chloride 103 mmol/L (98-107); Estimated CRCL calculation 72 ml/min; Estimated Glomerular Filt Rate 59; Glucose 108 mg/dL (65-110); Potassium 3.3 mmol/L (3.4-5.0); Sodium 139 mmol/L (137-145)
--- NOTE | 2022-08-18 08:00 | PM.IMPN ---
Progress Note: A&P Assessment and Plan (1) Bowel obstruction: Code(s): K56.609 - Unspecified intestinal obstruction, unspecified as to partial versus complete obstruction Status: Acute Assessment and Plan: CT scan from August 11 shows 2 abrupt transition points in close proximity raising concern for closed loop obstruction or obstructing internal hernia. Status post exploratory laparotomy and resection with [id number] ileal anastomosis 08/11/2022 CT abdomen from August 14 shows adynamic ileus Resolving, advance diet as tolerated (2) Heart failure with reduced ejection fraction: Code(s): I50.20 - Unspecified systolic (congestive) heart failure Status: Acute Assessment and Plan: EF noted to be 40% in May 2022 Appreciate cardiology consultation, patient appears euvolemic (3) Hypertension: Code(s): I10 - Essential (primary) hypertension Status: Acute Assessment and Plan: Transitioning back to oral beta-casa, blood pressure medications (4) Thrombocytopenia: Code(s): D69.6 - Thrombocytopenia, unspecified Status: Acute Assessment and Plan: Lovenox restarted, monitor closely, platelets stable (5) Chronic atrial fibrillation: Code(s): I48.20 - Chronic atrial fibrillation, unspecified Status: Acute Assessment and Plan: Transition to oral beta-casa, monitor (6) Chronic anticoagulation: 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 Status: Acute Assessment and Plan: Currently on Lovenox, will restart Eliquis when okay with surgery (7) Chronic obstructive pulmonary disease: Code(s): J44.9 - Chronic obstructive pulmonary disease, unspecified Status: Acute Assessment and Plan: Stable, continue home medications (8) Chronic respiratory failure with hypoxia, on home oxygen therapy: Code(s): J96.11 - Chronic respiratory failure with hypoxia; Z99.81 - Dependence on supplemental oxygen Status: Acute Assessment and Plan: Chronically on 2 L, stable (9) Type 2 diabetes mellitus: Code(s): E11.9 - Type 2 diabetes mellitus without complications Status: Acute Assessment and Plan: A1c 5.9, continue Accu-Cheks and sliding scale insulin (10) Hypoalbuminemia: Code(s): E88.09 - Other disorders of plasma-protein metabolism, not elsewhere classified Status: Acute Assessment and Plan: consult dietitian, start Ensure with meals Plan DVT prophylaxis with Lovenox, platelets at baseline, no concern for HIT GI prophylaxis with PPI Code status full code Subjective Date/time seen: 08/18/22 08:00 Interval history: No overnight events noted. No chest pain or shortness of breath. No nausea, vomiting or diarrhea. No fevers or chills. Review of Systems Review of Systems: 12 point review of systems was assessed and was negative except as noted in the HPI Exam Narrative: General: No acute distress, alert and oriented per baseline, comfortable on 2 L HEENT: Atraumatic, normocephalic, mucous membranes moist CV: Irregularly irregular, S1, S2 Lungs: Clear to auscultation bilaterally, no rales or crackles noted, no wheezes, good air entry Abdomen: Soft, mild tenderness, no distension, normoactive bowel sounds Extremities: Normal to inspection Skin: No rashes noted, no lesions or wounds seen Psych: Dysthymic with flattened affect Objective Data Vital Signs Vital Signs: Vital Signs - 24 hr 08/17/22 10:00 08/17/22 11:05 08/17/22 09:00 Temperature Pulse Rate 94 98 Respiratory Rate Blood Pressure Pulse Oximetry 99 Oxygen Delivery Nasal Cannula Oxygen Flow Rate 2 08/17/22 12:21 08/17/22 12:00 08/17/22 12:00 Temperature 98 F Pulse Rate 92 86 101 H Respiratory Rate 16 Blood Pressure 111/71 Pulse Oximetry 100 Oxygen Delivery Oxygen Flow Rate 08/17/22 14
[2022-08-18] MEDS: FLUTICASONE/SALMETEROL 115-21 MCG INHALER 1 PUFF 2 PUFF INHALATION ×2 (08:27→21:38)
[2022-08-18] MEDS: SILVERGEL (ELTA) 45 ML 1 APPLIC TOPICAL (08:51)
[2022-08-18] MEDS: PANTOPRAZOLE SODIUM IV 40 MG VIAL IV PUSH ×2 (08:51→21:16)
[2022-08-18] MEDS: ENOXAPARIN 40 MG/0.4 ML SYRINGE SUB-Q (08:51)
[2022-08-18] MEDS: SACUBITRIL/VALSARTAN 24-26 MG TABLET 1 TAB PO ×2 (08:51→21:19)
[2022-08-18] MEDS: polyethylene glycoL 3350 17 GM POWD.PACK PO (08:51)
[2022-08-18] MEDS: ATORVASTATIN 40 MG TABLET 80 MG PO (09:39)
[2022-08-18] MEDS: carvediloL 25 MG TABLET PO ×2 (09:39→21:19)
[2022-08-18] MEDS: POTASSIUM CHLORIDE INJ 40 MEQ in SODIUM CHLORIDE 0.9% IV 500 ML 130 MEQ IVPB (09:39)
[2022-08-18] MEDS: DULoxetine HCL 30 MG CAPSULE.DR PO (09:40)
--- NOTE | 2022-08-18 12:08 | PM.PNGS ---
Progress Note: A&P Assessment and Plan (1) Complete small bowel obstruction: Code(s): K56.601 - Complete intestinal obstruction, unspecified as to cause Status: Acute Assessment and Plan: Advanced to regular diet this AM. Surgically stable. OK to resume anticoagulation tomorrow if H/H remain stable. OK to discharge in next 1-2 days from surgical standpoint. Will have patient follow up in office next week for staple removal and wound check. (2) Chronic atrial fibrillation: Code(s): I48.20 - Chronic atrial fibrillation, unspecified Status: Acute Assessment and Plan: Cardiology consulted, appreciate their input. 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 No edema. (6) Type 2 diabetes mellitus: Code(s): E11.9 - Type 2 diabetes mellitus without complications Status: Acute Subjective Subjective Date/Time Seen: 08/18/22 12:08 Interval history: Bowels moving. Tolerating full liquids. Abdominal pain continues to improve. Exam GI: Inspection: non-distended and other (Minimal serous drainage from wound where staple removed.) GI Palp: Yes Soft to palpation, Yes Tenderness to palpation present (GI) (incisional), No Guarding due to palpation present (GI) and No Rebound tenderness present Auscultation: normal bowel sounds Objective Data Vital Signs Vital Signs: Vital Signs - 24 hr 08/17/22 12:21 08/17/22 14:00 08/17/22 15:41 Temperature Pulse Rate 92 93 97 Respiratory Rate Blood Pressure Pulse Oximetry Oxygen Delivery Oxygen Flow Rate 08/17/22 15:41 08/17/22 16:34 08/17/22 16:00 Temperature 36.3 C L Pulse Rate 98 95 Respiratory Rate 21 H Blood Pressure 105/56 L Pulse Oximetry 98 100 Oxygen Delivery Nasal Cannula Oxygen Flow Rate 2 08/17/22 17:59 08/17/22 19:53 08/17/22 20:35 Temperature 36.4 C Pulse Rate 97 95 99 Respiratory Rate 20 Blood Pressure 119/66 Pulse Oximetry 99 Oxygen Delivery Oxygen Flow Rate 08/17/22 20:00 08/17/22 20:00 08/17/22 21:55 Temperature Pulse Rate 96 96 96 Respiratory Rate 20 Blood Pressure Pulse Oximetry 99 Oxygen Delivery Nasal Cannula Oxygen Flow Rate 2 08/17/22 23:04 08/18/22 00:00 08/18/22 00:00 Temperature 36.6 C Pulse Rate 92 88 88 Respiratory Rate 20 20 Blood Pressure 114/40 L Pulse Oximetry 98 98 Oxygen Delivery Nasal Cannula Oxygen Flow Rate 2 08/18/22 02:00 08/18/22 04:00 08/18/22 04:00 Temperature Pulse Rate 94 91 91 Respiratory Rate 20 Blood Pressure Pulse Oximetry 98 Oxygen Delivery Nasal Cannula Oxygen Flow Rate 2 08/18/22 04:00 08/18/22 05:50 08/18/22 08:32 Temperature 36.4 C Pulse Rate 95 90 Respiratory Rate 20 Blood Pressure 119/66 Pulse Oximetry 99 92 Oxygen Delivery Nasal Cannula Oxygen Flow Rate 2 08/18/22 08:00 08/18/22 09:39 08/18/22 08:00 Temperature 36.1 C L Pulse Rate 47 L 96 102 H Respiratory Rate 22 H Blood Pressure 101/44 L Pulse Oximetry 95 Oxygen Delivery Oxygen Flow Rate 08/18/22 08:00 08/18/22 10:00 Temperature Pulse Rate 96 Respiratory Rate Blood Pressure Pulse Oximetry 98 Oxygen Delivery Nasal Cannula Oxygen Flow Rate 2 Intake/Output Intake/Output: Intake & Output 08/15/22 08/16/22 08/17/22 08/18/22 23:59 23:59 23:59 23:59 Intake Total 1999 3430 1270 200 Output Total 1550 1800 1500 600 Balance 450 9690 230
--- NOTE | 2022-08-18 12:28 | PM.PNCARD ---
Progress Note: A&P Assessment and Plan (1) Cardiomyopathy: Code(s): I42.9 - Cardiomyopathy, unspecified Status: Acute (2) Chronic atrial fibrillation: Code(s): I48.20 - Chronic atrial fibrillation, unspecified Status: Acute Plan 72-year-old man with chronic atrial fibrillation and left ventricular dysfunction he is back on his medical regimen and appears to be relatively stable clinically. There is some lower extremity edema which should resolve now that he is back on his medical regimen. No respiratory distress of any kind. No cardiac recommendations today anticoagulation should be resumed when okay with surgery Eric Benedict MD [facility] Subjective Date/time seen: Date of service: 08/18/22 12:28 Interval history: Follow-up visit in this 72-year-old man with chronic atrial fibrillation who was hospitalized earlier this week with small-bowel obstruction. Status post resection of small bowel and patient is back on his standard medical regimen. He appears to be with relatively good rate control in his atrial fibrillation he is now back on his p.o. cardiac regimen as well. Only complaint today is that he does have some more lower extremity edema than he typically has explained to the patient is probably has to do with IV fluid he was receiving while he was NPO. Exam Const: General: comfortable and no acute distress Other: Pleasant gentleman seated in bed having his lunch visiting family no distress HENMT: Mouth: Yes moist mucous membranes Eyes: Sclera: sclerae normal Neck: Neck: supple and no JVD Resp: Effort & Inspection: normal respiratory effort Auscultation: clear to auscultation bilaterally Other: No polyp no audible pulmonary rales Cardio: Rhythm: abnormal rhythm irregularly irregular GI: GI Palp: Yes Soft to palpation Skin: General skin exam: normal color Neuro: Other: Alert and oriented x3 Extrem: Other: 2+ bipedal edema Objective Data Vital Signs Vital Signs: Vital Signs - 24 hr 08/17/22 14:00 08/17/22 15:41 08/17/22 15:41 Temperature Pulse Rate 93 97 Respiratory Rate Blood Pressure Pulse Oximetry 98 Oxygen Delivery Nasal Cannula Oxygen Flow Rate 2 08/17/22 16:34 08/17/22 16:00 08/17/22 17:59 Temperature 36.3 C L Pulse Rate 98 95 97 Respiratory Rate 21 H Blood Pressure 105/56 L Pulse Oximetry 100 Oxygen Delivery Oxygen Flow Rate 08/17/22 19:53 08/17/22 20:35 08/17/22 20:00 Temperature 36.4 C Pulse Rate 95 99 96 Respiratory Rate 20 Blood Pressure 119/66 Pulse Oximetry 99 Oxygen Delivery Oxygen Flow Rate 08/17/22 20:00 08/17/22 21:55 08/17/22 23:04 Temperature 36.6 C Pulse Rate 96 96 92 Respiratory Rate 20 20 Blood Pressure 114/40 L Pulse Oximetry 99 98 Oxygen Delivery Nasal Cannula Oxygen Flow Rate 2 08/18/22 00:00 08/18/22 00:00 08/18/22 02:00 Temperature Pulse Rate 88 88 94 Respiratory Rate 20 Blood Pressure Pulse Oximetry 98 Oxygen Delivery Nasal Cannula Oxygen Flow Rate 2 08/18/22 04:00 08/18/22 04:00 08/18/22 04:00 Temperature 36.4 C Pulse Rate 91 91 95 Respiratory Rate 20 20 Blood Pressure 119/66 Pulse Oximetry 98 99 Oxygen Delivery Nasal Cannula Oxygen Flow Rate 2 08/18/22 05:50 08/18/22 08:32 08/18/22 08:00 Temperature 36.1 C L Pulse Rate 90 47 L Respiratory Rate 22 H Blood Pressure 101/44 L Pulse Oximetry 92 95 Oxygen Delivery Nasal Cannula Oxygen Flow Rate 2 08/18/22 09:39 08/18/22 08:00 08/18/22 08:00 Temperature Pulse Rate 96 102 H Respiratory Rate Blood Pressure Pulse Oximetry 98 Oxygen Delivery Nasal Cannula Oxygen Flow Rate 2 08/18/22 10:00 Temperature Pulse Rate 96 Respiratory Rate Blood Pressure Pulse Oximetry Oxygen Delivery Oxygen Flow Rate Intake/Output Intake/Output: Intake & Output 08/15/22 08/16/22 08/17/22 08/18/22 23:59 23:59 23:5
[2022-08-18 13:09] LABS: Glucose Point of Care 145 mg/dl (65-105)
[2022-08-18 17:32] LABS: Glucose Point of Care 172 mg/dl (65-105)
[2022-08-19] VITALS (8 sets, daily range): BP systolic 111–132; BP diastolic 56–76; PULSE 64–108; RESP 18–22; TEMP 35.9–36.4; O2SAT 98–100
[2022-08-19] MEDS: oxyCODONE HCL (*CRX) 2.5 MG TAB IR 7.5 MG PO (00:20)
[2022-08-19 00:36] LABS: Glucose Point of Care 112 mg/dl (65-105)
[2022-08-19] MEDS: HYDROcodone/acetaminophen (*CRX) 10-325 MG TABLET 1 TAB PO ×2 (02:32→09:08)
[2022-08-19 08:17] LABS: Glucose Point of Care 107 mg/dl (65-105)
[2022-08-19] MEDS: ENOXAPARIN 40 MG/0.4 ML SYRINGE SUB-Q (09:06)
[2022-08-19] MEDS: ATORVASTATIN 40 MG TABLET 80 MG PO (09:06)
[2022-08-19] MEDS: DULoxetine HCL 30 MG CAPSULE.DR PO (09:06)
[2022-08-19] MEDS: SACUBITRIL/VALSARTAN 24-26 MG TABLET 1 TAB PO (09:06)
[2022-08-19] MEDS: PANTOPRAZOLE SODIUM IV 40 MG VIAL IV PUSH (09:06)
[2022-08-19] MEDS: polyethylene glycoL 3350 17 GM POWD.PACK PO (09:06)
[2022-08-19] MEDS: carvediloL 25 MG TABLET PO (09:06)
[2022-08-19] MEDS: SILVERGEL (ELTA) 45 ML 1 APPLIC TOPICAL (09:07)
[2022-08-19] MEDS: FLUTICASONE/SALMETEROL 115-21 MCG INHALER 1 PUFF 2 PUFF INHALATION (09:19)
--- NOTE | 2022-08-19 10:37 | PM.DS ---
DS: Admitting Diagnosis Discharge Date August 19, 2022 Admitting Diagnosis Bowel obstruction DS: Discharge Diagnosis Discharge Diagnosis (1) Bowel obstruction: Code(s): K56.609 - Unspecified intestinal obstruction, unspecified as to partial versus complete obstruction Status: Acute Assessment and Plan: CT scan from August 11 shows 2 abrupt transition points in close proximity raising concern for closed loop obstruction or obstructing internal hernia. Status post exploratory laparotomy and resection with [id number] ileal anastomosis 08/11/2022 CT abdomen from August 14 shows adynamic ileus Resolving, advance diet as tolerated (2) Heart failure with reduced ejection fraction: Code(s): I50.20 - Unspecified systolic (congestive) heart failure Status: Acute Assessment and Plan: EF noted to be 40% in May 2022 Appreciate cardiology consultation, patient appears euvolemic (3) Hypertension: Code(s): I10 - Essential (primary) hypertension Status: Acute Assessment and Plan: Transitioning back to oral beta-casa, blood pressure medications (4) Thrombocytopenia: Code(s): D69.6 - Thrombocytopenia, unspecified Status: Acute Assessment and Plan: Lovenox restarted, monitor closely, platelets stable (5) Chronic atrial fibrillation: Code(s): I48.20 - Chronic atrial fibrillation, unspecified Status: Acute Assessment and Plan: Transition to oral beta-casa, monitor (6) Chronic anticoagulation: Code(s): Z79.01 - terminal gauger (current) use of anticoagulants Status: Acute Assessment and Plan: Currently on Lovenox, will restart Eliquis when okay with surgery (7) Chronic obstructive pulmonary disease: Code(s): J44.9 - Chronic obstructive pulmonary disease, unspecified Status: Acute Assessment and Plan: Stable, continue home medications (8) Chronic respiratory failure with hypoxia, on home oxygen therapy: Code(s): J96.11 - Chronic respiratory failure with hypoxia; Z99.81 - Dependence on supplemental oxygen Status: Acute Assessment and Plan: Chronically on 2 L, stable (9) Type 2 diabetes mellitus: Code(s): E11.9 - Type 2 diabetes mellitus without complications Status: Acute Assessment and Plan: A1c 5.9, continue Accu-Cheks and sliding scale insulin (10) Hypoalbuminemia: Code(s): E88.09 - Other disorders of plasma-protein metabolism, not elsewhere classified Status: Acute Assessment and Plan: consult dietitian, start Ensure with meals Plan DVT prophylaxis with Lovenox, platelets at baseline, no concern for HIT GI prophylaxis with PPI Code status full code DS: Summary Hospital Course Hospital Course: 72-year-old male with COPD, chronic respiratory failure on oxygen, agent orange exposure, lung cancer, obstructive sleep apnea, persistent atrial fibrillation on chronic anticoagulation, hypertension, type 2 diabetes mellitus, and heart failure with reduced ejection fraction who presented to the emergency department via EMS from home for evaluation of abdominal pain. He was a bit constipated yesterday and had a small, hard bowel movement in the morning. He felt okay otherwise however overnight he developed mild, generalized abdominal discomfort which kept him awake a lot of the night. This morning he had a small breakfast which he seemed to tolerate okay however an hour so thereafter he developed severe, abrupt pain in the right side of the abdomen and he came in for evaluation. He has difficulties describing the pain but he is in obvious, significant discomfort at the time my evaluation and he rates his pain 10/10. He denies associated fever, chills, sweats, chest pain, shortness a breath, and vomiting. CT scan of the abdomen and pelvis showed findings concerning for a closed loop bowel obstruction and he is being admitted in this
[2022-08-19 11:10] LABS: Basophils Percent Auto 0.3 % (0.2-1.2); Eosinophils Absolute Auto 0.1 K/mm3 (0-0.3); Eosinophils Percent Auto 2.5 % (0-4.4); Hematocrit 23.1 % (42.0-52.0); Hemoglobin 7.2 g/dL (14.0-18.0); Immature Granulocyte Absolute 0.02 K/mm3 (0.00-0.031); Immature Granulocyte Percent A 0.5 % (0-0.5); Immature Platelet Fraction Pct 10.9 % (0.9-11.2); Lymphocytes Absolute Auto 0.62 K/mm3 (0.9-3.2); Lymphocytes Percent Auto 15.5 % (18.3-44.2); Mean Corpuscular HGB Conc 31.2 g/dl (32-36); Mean Corpuscular Hemoglobin 30.3 pg (26-34); Mean Corpuscular Volume 97.1 fl (80-100); Monocytes Absolute Auto 0.4 K/mm3 (0.1-0.6); Monocytes Percent Auto 9.8 % (2.6-8.5); Neutrophils Absolute Auto 2.9 K/mm3 (1.3-6.7); Neutrophils Percent Auto 71.4 % (45.5-73.1); Red Blood Count 2.38 M/mm3 (4.6-6.20); Red Cell Distribution Width 14.9 % (11.5-14.5)
[2022-08-19 11:31] LABS: Alanine Aminotransferase 20 U/L (6-50); Albumin Level 2.6 g/dL (3.5-5.1); Alkaline Phosphatase 73 U/L (38-126); Anion Gap 8 mmol/L (8-16); Aspartate Amino Transferase 25 U/L (17-59); Bilirubin,Total 1.2 mg/dL (0.2-1.3); Blood Urea Nitrogen 20 mg/dL (9-20); Carbon Dioxide 27 mmol/L (22-30); Chloride 103 mmol/L (98-107); Estimated CRCL calculation 66 ml/min; Estimated Glomerular Filt Rate 54; Glucose 141 mg/dL (65-110); Potassium 3.3 mmol/L (3.4-5.0); Sodium 138 mmol/L (137-145)
[2022-08-19 11:51] LABS: Glucose Point of Care 135 mg/dl (65-105)
[2022-08-19] MEDS: ONDANSETRON INJ 4 MG/2 ML VIAL IV PUSH (12:10)
[2022-08-19 14:08] LABS: Ovalocytes 1+ (NORMAL); Platelet Clumps Present; Poikilocytosis 2+ (NORMAL); Schistocytes None Seen (NORMAL)
--- NOTE | 2022-08-19 14:27 | PCPTNOTE ---
Attempted to see pt. for physical therapy treatment on multiple attempts this date. Pt. declined, reporting that his stomach was feeling all torn up and he wasn't going to be able to participate this date.
[2022-08-19] MEDS: POTASSIUM CHLORIDE 20 MEQ TABLET 40 MEQ PO (15:25)
[2022-08-19] MEDS: FUROSEMIDE INJ 40 MG/4 ML VIAL IM (15:49)
== END 2022-08-19 17:15 | disposition home health service (06) | DRG 330 ==
LOC: ANHED 07:26 → ANH2MED 09:42 → ANHIMU 19:26 → ANH3MED 08-12 18:03 → ANHIMU 08-14 22:58 → ANH3MEDSUR 08-18 21:34
PROVIDERS: Emergency Medicine; Internal Medicine; Physician Assistant; Surgery; Admitting Provider Hospitalist; Emergency Provider Emergency Medicine; PCP Internal Medicine; Visit Provider Student in an Organized Health Care Education/Training Program
PROC: 0DBB0ZZ Excision of Ileum, Open Approach (ICD-10-PCS; CPT 49320; principal; 2022-08-11 15:00)
DX: K56.52 Intestinal adhesions [bands] with complete obstruction (principal); C34.90 Malignant neoplasm of unspecified part of unspecified bronchus or lung; I48.20 Chronic atrial fibrillation, unspecified; I50.22 Chronic systolic (congestive) heart failure; J96.11 Chronic respiratory failure with hypoxia; R18.8 Other ascites; K55.9 Vascular disorder of intestine, unspecified; I42.9 Cardiomyopathy, unspecified; E88.09 Other disorders of plasma-protein metabolism, not elsewhere classified; K56.7 Ileus, unspecified; Z53.31 Laparoscopic surgical procedure converted to open procedure; D69.6 Thrombocytopenia, unspecified; I11.0 Hypertensive heart disease with heart failure; Z99.81 Dependence on supplemental oxygen; E11.42 Type 2 diabetes mellitus with diabetic polyneuropathy; J44.9 Chronic obstructive pulmonary disease, unspecified; E87.5 Hyperkalemia; G47.33 Obstructive sleep apnea (adult) (pediatric); M10.9 Gout, unspecified; Z77.098 Contact with and (suspected) exposure to other hazardous, chiefly nonmedicinal, chemicals; Z79.01 Long term (current) use of anticoagulants; Z79.84 Long term (current) use of oral hypoglycemic drugs; Z79.899 Other long term (current) drug therapy; Z87.891 Personal history of nicotine dependence; Z92.3 Personal history of irradiation
CPT/HCPCS: 36415; 36430; 71045; 71275; 74018; 74174; 74177; 80048; 80053; 81003; 82948; 83036; 83605; 83690; 83735; 85014; 85018; 85025; 85027; 85055; 85610; 85730; 86850; 86900; 86901; 88307; 93005; 94640; 96361; 96374; 96375; 96376; 97110; 97116; 97162; 97165; 97530; 97535; 99285; A9270; C9113; G0378; J0131; J0171; J0330; J0690; J1170; J1650; J1940; J2060; J2212; J2250; J2270; J2370; J2405; J2543; J2704; J3010; J3475; J3480; J7030; J7040; J7050; J7120; J7121; P9017; Q9967

== ENCOUNTER 2022-09-15 14:13 | Inpatient (IN) | payer MEDICARE, OTHER, SELFPAY ==
[2022-09-15] VITALS (22 sets, daily range): BP systolic 102–121; BP diastolic 57–70; PULSE 92–108; RESP 12–24; TEMP 36.8–36.9; O2SAT 97–100; BMI 30.6
--- NOTE | ~2022-09-15 | CT_ITS ---
EXAMINATION: CTA chest PE protocol DATE: 09/15/2022 17:23 INDICATION: Shortness of breath. TECHNIQUE: Computed tomography angiography (CTA) of the chest was performed with 100 mL Omnipaque-350 intravenous contrast timed to evaluate the pulmonary arteries. Coronal maximum intensity projection 3D-reconstructions were created by the technologist. Automated exposure control and iterative reconst ruction technique were employed. The dose-length product was 537.99 mGy-cm. COMPARISON: CT 08/11/2022, 04/30/2018 FINDINGS: There is moderate emphysema. There is a 1.9 cm nodule in right lung upper lobe with surroun ding airspace opacities and septal thickening. There is mild atelectasis bilaterally. There is materi al in the bronchi in basilar left lower lobe. There are airspace opacities in basilar left lower lobe . Calcified pulmonary nodules and calcified hilar and mediastinal lymph nodes are consistent with old granulomatous disease. No pleural effusion. Cardiomegaly is noted. There are coronary artery calcifi cations. No pericardial effusion. There is no pulmonary embolus. There is mild mediastinal and bilate ral hilar lymphadenopathy. There are bridging endplate osteophytes at multiple levels in the spine, c onsistent with diffuse idiopathic skeletal hyperostosis (DISH). IMPRESSION: 1. No pulmonary embolus. 2. Material in left lower lobe bronchi, which may be mucous plugging or aspiration. Left lower lobe a irspace opacities, consistent with atelectasis versus pneumonia. 3. Right upper lobe nodule, consistent with primary bronchogenic carcinoma and changes of radiation t herapy. 4. Moderate emphysema. 5. Mild mediastinal and bilateral hilar lymphadenopathy, which may be reactive lymphadenopathy and/or metastatic disease. Reviewed, dictated and finalized at location A. SPOOLER TENDER IMPRESSION: 1. No pulmonary embolus. 2. Material in left lower lobe bronchi, which may be mucous plugging or aspirat ion. Left lower lobe airspace opacities, consistent with atelectasis versus pne umonia. 3. Right upper lobe nodule, consistent with primary bronchogenic carcinoma and changes of radiation therapy. 4. Moderate emphysema. 5. Mild mediastinal and bilateral hilar lymphadenopathy, which may be reactive lymphadenopathy and/or metastatic disease.
--- NOTE | ~2022-09-15 | XR_ITS ---
EXAMINATION: XR chest 1V portable INDICATION: Shortness of breath TECHNIQUE: Portable AP chest at 1449 hours COMPARISON: 08/13/2022; CT, 08/11/2022 FINDINGS: There is mild atelectasis or scarring of the left lung base. Again seen is a spiculated nod ule in the right upper lobe. No pleural effusion or pneumothorax. The cardiomediastinal silhouette is normal. IMPRESSION: 1. No acute cardiopulmonary abnormality. 2. Right upper lobe nodule concerning for primary bronchogenic carcinoma as seen on recent CT. Reviewed, dictated and finalized at location B. ERY PAIRER IMPRESSION: 1. No acute cardiopulmonary abnormality. 2. Right upper lobe nodule concerning for primary bronchogenic carcinoma as see n on recent CT.
--- NOTE | ~2022-09-15 | XR_ITS ---
EXAMINATION: XR barium swallow modified DATE: 09/17/2022 09:51 INDICATION: Aspiration pneumonia TECHNIQUE: Modified barium esophagram was performed by myself who administered fluoroscopy, in conju nction with speech pathologist who administered barium in varying consistencies as per speech patholo gist documentation. This was recorded on tape. A single fluoroscopic spot image was recorded. Fluoros copy exposure time was 2.1 minutes. FINDINGS: Oral stage: Adequate function. Pharyngeal phase: Vallecular and piriform sinus residue. Laryngeal penetration: None. Aspiration: None. Laryngeal sensitivity: Not applicable. IMPRESSION: Findings as detailed above. Please refer to speech pathologist findings and specific feed ing recommendations. Reviewed, dictated and finalized at location A. R SIGNAL PROCESSING ENGINEER IMPRESSION: Findings as detailed above. Please refer to speech pathologist find ings and specific feeding recommendations.
--- NOTE | 2022-09-15 14:40 | ED.GENADULT ---
HPI - General Adult General Chief complaint: Weakness Stated complaint: LOW HGB PALE WEAK SOB Time Seen by Provider: 09/15/22 14:24 Source: patient, EMS, RN notes reviewed and old records reviewed Mode of arrival: EMS Limitations: no limitations History of Present Illness HPI narrative: This is a 72 year old male with history of CHF, chronic respiratory failure on 2 L NC , chronic anemia who presents for evaluation of a anemia. Patient had labs done by home health a few days ago and today he was told by his PCP to come to ER for low hemoglobin. He is unaware of lab value. He does reports shortness of breath for 2 weeks that has not improved with increasing his home oxygen. He has increased his oxygen to 4 L NC . He denies chest pain, fever, chills. Related Data Home Medications Medication Instructions Recorded Confirmed allopurinol 100 mg tablet 200 mg PO DAILY 11/14/20 09/15/22 (Zyloprim) apixaban 5 mg tablet (Eliquis) 5 mg PO BID 11/14/20 09/15/22 atorvastatin 40 mg tablet (Lipitor) 80 mg PO DAILY 11/14/20 09/15/22 carvedilol 6.25 mg tablet (Coreg) 25 mg PO Q12H 11/14/20 09/15/22 duloxetine 30 mg capsule,delayed 30 mg PO DAILY 11/14/20 09/15/22 release sprinkle hydrocodone 10 mg-acetaminophen 1 tablet PO Q4H PRN pain 11/14/20 09/15/22 325 mg tablet ipratropium 20 mcg-albuterol 100 1 puff inhalation DAILY PRN 11/14/20 09/15/22 mcg/actuation mist for inhalation Shortness Of Breath metformin 500 mg tablet 500 mg PO DAILY 11/14/20 09/15/22 acetaminophen 500 mg tablet 1,000 mg PO Q6H PRN pain 08/11/22 09/15/22 mometasone-formoterol HFA 100 2 puff inhalation Q12H 08/11/22 09/15/22 mcg-5 mcg/actuation aerosol inhaler sacubitril 24 mg-valsartan 26 mg 1 tablet PO Q12H 08/11/22 09/15/22 tablet furosemide 40 mg tablet (Lasix) 40 mg PO BID 09/15/22 09/15/22 Allergies Allergy/AdvReac Type Severity Reaction Status Date / Time amlodipine Allergy Unknown Swelling Verified 08/11/22 10:40 gabapentin Allergy Unknown Hallucinating,short Verified 08/12/22 08:10 of breath, PTSD symptoms morphine AdvReac Intermediate Nausea and Verified 08/11/22 10:40 Vomiting Review of Systems Review of Systems: All systems reviewed & are unremarkable except as noted in HPI and below Constitutional: Constitutional: Denies chills, Denies fever(s) and Reports weakness Cardiovascular: Cardiovascular: Denies chest pain and Denies radiating jaw, neck or arm pain Respiratory: Respiratory: Reports cough and Reports dyspnea Gastrointestinal: Gastrointestinal: Denies abdominal pain, Denies nausea and Denies vomiting Neurologic: Denies headache(s) and Denies focal weakness [facility] Past Medical History Medical History Agent orange exposure Chronic anticoagulation Chronic atrial fibrillation Chronic obstructive pulmonary disease Chronic respiratory failure with hypoxia, on home oxygen therapy Gout Heart failure with reduced ejection fraction Followed by Dr. Frank at [place]. Hypertension Lung cancer (02/2021) Status post radiation. Oncologist is at [facility]. Obstructive sleep apnea Peripheral neuropathy Thrombocytopenia Type 2 diabetes mellitus Surgical History Surgical History History of evacuation of hematoma History of lumbar fusion History of lumbar laminectomy Family History Family History Mother Cerebrovascular accident, Onset Age: 81 Lung cancer Cervical cancer Father Family history of cardiomyopathy, Onset Age: 67 Hypertension Heart attack Social History Social History Social History: Surrogate medical decision maker: Gwen Kirk, daughter. Code status: Full code. Smoking packs per day: 2 Smoking cigarettes per day: 40.0 Years smoked: 5
[2022-09-15 14:48] LABS: Basophils Percent Auto 0.2 % (0.2-1.2); Eosinophils Percent Auto 0.1 % (0-4.4); Hematocrit 31.1 % (42.0-52.0); Hemoglobin 9.2 g/dL (14.0-18.0); Immature Granulocyte Absolute 0.08 K/mm3 (0.00-0.031); Immature Granulocyte Percent A 0.9 % (0-0.5); Immature Platelet Fraction Pct 11.3 % (0.9-11.2); Lymphocytes Absolute Auto 0.63 K/mm3 (0.9-3.2); Lymphocytes Percent Auto 7.5 % (18.3-44.2); Mean Corpuscular HGB Conc 29.6 g/dl (32-36); Mean Corpuscular Hemoglobin 27.1 pg (26-34); Mean Corpuscular Volume 91.5 fl (80-100); Mean Platelet Volume 13.9 fl (7.4-10.4); Monocytes Absolute Auto 0.6 K/mm3 (0.1-0.6); Monocytes Percent Auto 7.6 % (2.6-8.5); Neutrophils Absolute Auto 7.1 K/mm3 (1.3-6.7); Neutrophils Percent Auto 83.7 % (45.5-73.1); Platelet Count Result 230 k/mm3 (150-375); Red Cell Distribution Width 16.3 % (11.5-14.5); White Blood Count 8.4 K/mm3 (4.5-10.0)
[2022-09-15 14:56] LABS: INR 1.8; Prothrombin Time 19.8 Seconds (11.1-14.7)
[2022-09-15 14:57] LABS: Partial Thromboplastin Time 51.4 SECONDS (22.3-36.8)
[2022-09-15 14:58] LABS: Alanine Aminotransferase 14 U/L (6-50); Albumin Level 3.3 g/dL (3.5-5.1); Alkaline Phosphatase 129 U/L (38-126); Anion Gap 10 mmol/L (8-16); Aspartate Amino Transferase 25 U/L (17-59); Bilirubin,Total 1.3 mg/dL (0.2-1.3); Blood Urea Nitrogen 17 mg/dL (9-20); Carbon Dioxide 28 mmol/L (22-30); Chloride 96 mmol/L (98-107); Estimated CRCL calculation 73 ml/min; Estimated Glomerular Filt Rate > 60; Glucose 129 mg/dL (65-110); Potassium 3.2 mmol/L (3.4-5.0); Sodium 134 mmol/L (137-145)
[2022-09-15 15:03] LABS: Anisocytosis 1+ (NORMAL); Ovalocytes 2+ (NORMAL); Platelet Estimate Adequate (Adequate)
[2022-09-15 15:04] LABS: Hypochromasia 1+ (NORMAL); Schistocytes None Seen (NORMAL)
[2022-09-15] MEDS: ALBUTEROL SULFATE NEB 2.5 MG/3 ML INH 5 MG INHALATION (15:47)
[2022-09-15 15:56] LABS: Alveolar/Arterial O2 Gradient 110.3 mmHg; Base Excess ABG 3.7 mEq/l (+/-2.0); Carboxyhemoglobin 0.2 % THb (0-2.0); Fractional Inspired Oxygen 32 %; HCO3 ABG 27.4 mEq/l (22.0-26.0); Methemoglobin ABG 0.2 %THb (0-1.5); Oxygen Saturation ABG 95.6 % (95.0-100.0); Oxyhemoglobin 93.5 % THb (90.0-100.0); PCO2 ABG 38.2 mmHg (35.0-45.0); PO2 ABG 73.2 mmHg (80.0-100.0); PO2 FiO2 Ratio Arterial Blood 2.29 %; Reduced Hemoglobin 6.1 %THb (0-5.0); Total Hemoglobin 10.6 g/dL (12.0-18.0); pH ABG 7.474 (7.350-7.450)
[2022-09-15 15:57] LABS: Device NASAL CANNULA; Modified Allen's Test Pass; Site Drawn LEFT RADIAL
[2022-09-15 15:59] LABS: NT Pro B Type Natriuretic Pept 2730 pg/mL (5-100); Troponin I 0.012 ng/mL (0.000-0.034)
[2022-09-15 16:28] LABS: D Dimer 1.49 ug/mL (<0.48)
[2022-09-15 16:29] LABS: Influenza A QL RT-PCR Negative (Negative); Influenza B QL RT-PCR Negative (Negative); SARS-CoV-2 RNA PCR Negative
[2022-09-15] MEDS: DOXYCYCLINE 100 MG/NS 100 ML 100 MG/100 ML BAG IVPB (18:50)
[2022-09-15 19:25] LABS: Glucose Point of Care 117 mg/dl (65-105)
[2022-09-15] MEDS: carvediloL 25 MG TABLET PO (19:48)
[2022-09-15] MEDS: predniSONE 20 MG TABLET 60 MG PO (19:48)
--- NOTE | 2022-09-15 21:09 | ADMGEN ---
This patient, Eric Kirk, was admitted to Medical Room 347-01. Patient/family oriented to hospital policies and general routines including ID bracelet, bed and alarms, visiting hours, pain management, procedures, bathroom and other care routines, personal items, smoking policy, room service/diet, and visiting hours. Information on how to activate the Rapid Response Team has been discussed. Patient/Family are encouraged to report perceived risks to care and to ask questions if they do not understand what they are told or what they should do.
[2022-09-15 21:50] LABS: Glucose Point of Care 119 mg/dl (65-105)
--- NOTE | 2022-09-15 23:50 | PM.IMHP ---
H&P: HPI History of Present Illness Date/Time: 09/15/22 23:50 Chief Complaint: Weakness Narrative: This is a 72-year-old male patient who has a past medical history of congestive heart failure. He has a history of COPD with chronic hypoxia on oxygen at 2 L per nasal cannula. The patient also has chronic anemia. The patient had labs drawn by the home health a few days ago and today he was told by his primary care doctor to come to the emergency room to be evaluated for his low hemoglobin. The patient was on aware of his lab value. The patient has been feeling short of breath for the last 2 weeks and it did not improve with increasing his oxygen to 4 L per nasal cannula. The patient is currently on oxygen at 3 L per nasal cannula at this point. The patient is a awake and talking in full sentences. The patient denies any nausea vomiting diarrhea or fever. He denies any chest pain. Patient's H&H is 9.2 and 31.1 which has improved since last month. However the patient is too weak to even put on his own clothes at home. The patient lives home alone and cannot take care of himself anymore. His D-dimer was found to be 1.49. Arterial blood gases pH 7.474. PO2 73.2. Bicarb 27.4. Potassium is 3.2. BNP 2730. Influenza a and B is was COVID a negative. Chest CTA was read as the following1. No pulmonary embolus. 2. Material in left lower lobe bronchi, which may be mucous plugging or aspiration. Left lower lobe airspace opacities, consistent with atelectasis versus pneumonia. 3. Right upper lobe nodule, consistent with primary bronchogenic carcinoma and changes of radiation therapy. 4. Moderate emphysema. 5. Mild mediastinal and bilateral hilar lymphadenopathy, which may be reactive lymphadenopathy and/or metastatic disease The patient does have a history of lung cancer. The patient was given a nebulizer treatment. Code prednisone and doxycycline. The patient is being admitted to observation status on the date of service of 09/15/22 Review of Systems Review of Systems: See HPI All systems reviewed & are unremarkable except as noted in HPI and below Constitutional: Constitutional: Reports as per HPI and Reports no additional constitutional complaints Eyes: Eyes: Reports as per HPI and Reports no additional eye complaints ENT: Reports system reviewed and no additional complaints, except as documented and Reports Normal hearing present Cardiovascular: Cardiovascular: Reports no additional cardiovascular complaints Respiratory: Respiratory: Reports no additional respiratory complaints and Reports no additional respiratory complaints Gastrointestinal: Gastrointestinal: Reports as per HPI and Reports no additional gastrointestinal complaints Musculoskeletal: Musculoskeletal: Reports no additional musculoskeletal complaints Integumentary/Breasts: Skin/Breast: Reports system reviewed and no additional complaints, except as docu and Reports as per HPI Neurologic: Reports system reviewed and no additional complaints, except as documented, Reports as per HPI and Reports Normal hearing present Psychiatric: Psychiatric: Reports no additional psychiatric complaints and Reports as per HPI Endocrine: Endocrine: Reports no additional endocrine complaints Hematologic/Lymphatic: Hematologic/Lymphatic: Reports no additional hematologic/lymphatic complaints Allergic/Immunologic: Allergic/Immunologic: Reports no additional allergic/immunologic complaints [facility] Past Medical History Medical History (Updated 09/16/22 @ 00:40 by Shannan Wills NP) Agent orange exposure Bowel obstruction Chronic anticoagulation Chronic atrial fibrillation Chronic obstructive pulmonary disease Chronic respiratory failure with hypoxia, on home oxygen therapy Complete small bowel obstruction Gout Heart failure with reduced ejection fraction Followed by Dr. Frank at [place]. Hyperkalemia Hypertension Lung cancer (02/2021) Status post radiation. [facility]
[2022-09-16] VITALS (19 sets, daily range): BP systolic 80–106; BP diastolic 49–70; PULSE 83–102; RESP 16–20; TEMP 36.3–36.8; O2SAT 80–100
--- NOTE | 2022-09-16 | ECHO_ITS ---
Patient Info Name: Eric Kirk Age: 72 years : 1950 Gender: Male Ht: 75 in Wt: 258 lbs BSA: 2.52 m2 HR: 90 bpm BP: 104 / 54 mmHg Heart Rhythm: Sinus Rhythm Technical Quality: Poor Exam Date: 09/16/2022 7:53 AM Exam Location: [facility] Pulmonary Exam Room: 347 Patient Status: Inpatient Admit Date: 09/15/2022 Staff Ordering Physician: Shannan Wills NP Driver'S Education Instructor: Cindy Billingsley RDCS Attending Provider: Deng Baker MD Referring Physician: Johann SKINNER; Exam Type: CA echo dop color flow w con Study Info Indications - chf resp failure Complete two-dimensional, color flow and Doppler transthoracic echocardiogram is performed with contrast to opacify the left ventricle and to improve the deliniation of the left ventricle endocardial borders. Contrast/Agitated Saline Contrast/Ag. Saline: Definity Amount: 3.00 ml Administered By: Cindy Billingsley [facility] Existing IV Access: Yes IV Access Condition: patent with no signs of infiltration Reason for Poor Study: patient body habitus Summary 1. Technically challenging image quality, definity contrast used to improve visualization. 2. Normal left ventricular size and systolic function with grade 1 diastolic noncompliance. 3. Enlarged left atrium. 4. No significant valvular dysfunction. Left Ventricle Left ventricular chamber dimension is normal. Left ventricular systolic function is normal, estimated at 60-65%. The left ventricular diastolic function is grade I diastolic dysfunction. Right Ventricle Right ventricular chamber dimension is normal. Left Atria Left atrial chamber dimension is moderately enlarged. Right Atria Right atrial chamber dimension is normal. Aortic Valve The aortic valve is trileaflet. There is mild aortic valve sclerosis. Pulmonic Valve The pulmonic valve is not well visualized. Mitral Valve The mitral valve has normal leaflets. Tricuspid Valve The tricuspid valve leaflets are normal. Pericardium/Pleural The pericardium appears normal. Aorta The aortic root size at the sinus of Valsalva is normal. Left Ventricular Outflow Tract Name Value Normal LVOT 2D LVOT Diameter 2.07 cm LVOT Doppler LVOT Peak Gradient 4 mmHg LVOT Mean Gradient 3 mmHg LVOT VTI 17.25 cm LVOT VTI/AV VTI Ratio 0.81 LVOT Stroke Volume 58.13 ml LVOT CO 15.80 l/min LVOT CI 6.28 L/min/m2 Pulmonic Valve Name Value Normal PV Doppler PV Peak Gradient 2 mmHg Mitral Valve Name Valu
[2022-09-16] MEDS: IPRATROPIUM BR 0.02% INH SOLN 0.5 MG/2.5 ML VIAL INHALATION ×4 (01:30→20:07)
[2022-09-16] MEDS: ALBUTEROL SULFATE NEB 2.5 MG/3 ML INH INHALATION ×4 (01:30→20:07)
[2022-09-16 03:17] LABS: Basophils Percent Auto 0.1 % (0.2-1.2); Hematocrit 29.4 % (42.0-52.0); Hemoglobin 9.1 g/dL (14.0-18.0); Immature Granulocyte Percent A 0.7 % (0-0.5); Immature Platelet Fraction Pct 9.4 % (0.9-11.2); Lymphocytes Absolute Auto 0.41 K/mm3 (0.9-3.2); Mean Corpuscular Hemoglobin 27.4 pg (26-34); Mean Corpuscular Volume 88.6 fl (80-100); Monocytes Absolute Auto 0.1 K/mm3 (0.1-0.6); Monocytes Percent Auto 0.9 % (2.6-8.5); Neutrophils Absolute Auto 12.8 K/mm3 (1.3-6.7); Neutrophils Percent Auto 95.3 % (45.5-73.1); Red Blood Count 3.32 M/mm3 (4.6-6.20); Red Cell Distribution Width 16.2 % (11.5-14.5); White Blood Count 13.5 K/mm3 (4.5-10.0)
[2022-09-16 03:24] LABS: Lactic Acid Reflex 0.8 mmol/L (0.7-2.0)
[2022-09-16 03:25] LABS: Alanine Aminotransferase 11 U/L (6-50); Albumin Level 3.3 g/dL (3.5-5.1); Alkaline Phosphatase 135 U/L (38-126); Anion Gap 15 mmol/L (8-16); Aspartate Amino Transferase 19 U/L (17-59); Bilirubin,Total 1.6 mg/dL (0.2-1.3); Blood Urea Nitrogen 16 mg/dL (9-20); Calcium 8.3 mg/dL (8.4-10.2); Carbon Dioxide 23 mmol/L (22-30); Chloride 95 mmol/L (98-107); Estimated CRCL calculation 82 ml/min; Estimated Glomerular Filt Rate > 60; Glucose 143 mg/dL (65-110); Magnesium 1.8 mg/dL (1.6-2.3); Potassium 3.1 mmol/L (3.4-5.0); Sodium 133 mmol/L (137-145)
[2022-09-16] MEDS: APIXABAN 5 MG TABLET PO ×3 (04:15→16:50)
[2022-09-16] MEDS: HYDROcodone/acetaminophen (*CRX) 10-325 MG TABLET 1 TAB PO ×3 (04:19→23:50)
[2022-09-16 04:25] LABS: Thyroid Stimulating Hormone Reflex 0.163 uIU/mL (0.465-4.68)
[2022-09-16 05:39] LABS: Free T4 Free Thyroxine Reflex 2.22 ng/dL (0.78-2.19)
[2022-09-16 09:06] LABS: Glucose Point of Care 157 mg/dl (65-105)
[2022-09-16] MEDS: PERFLUTREN LIPID MICROSPHERES 1.5 ML VIAL DILUTED TO 10 ML TOTAL VOLUME IV PUSH (09:25)
--- NOTE | 2022-09-16 09:25 | IVDEFINITY ---
Prior to administration of IV Definity the patient was educated on the risks and benefits of the imaging enhancing agent including potential adverse side effects. The patient verbalized understanding. Allergies were verified. No exclusion criteria were identified and at least one of the following inclusion criteria were met: 1) physician request, 2) patient technically difficult to image (per the [place] [employer]chocardi[employer] guidelines of two or more segments not discernable within the apical view), or 3) questionable left ventricular function. ?
--- NOTE | 2022-09-16 09:27 | PM.IMPN ---
Progress Note: A&P Assessment and Plan (1) Aspiration pneumonia: Code(s): J69.0 - Pneumonitis due to inhalation of food and vomit Status: Acute Assessment and Plan: Patient presents with weakness and concerns for anemia but noted to be short of breath. Chest x-ray showed no acute changes. CTA of the chest was negative for PE but did show left lower lobe mucous plugging versus aspiration with left lower lobe airspace opacity atelectasis versus pneumonia. Again noted is the right upper lobe 1.9cm nodule consistent with bronchogenic carcinoma with radiation changes. He also had some mild adenopathy noted. White count was normal on admission but has increased to 13 K today (probably related to steroid dose in ED). blood cultures collected. He was started on Zosyn. Slight productive cough that has improved. Continue IV antibiotics. Continue nebulizer treatments. Will check sputum and urine antigens. Speech therapy evaluation. (2) Weakness: Code(s): R53.1 - Weakness Status: Acute Assessment and Plan: Patient is complaining of weakness. Probably unrelated to his Anemia. After my exam, I was called by nursing who stated the patient did not feel well sitting in the chair and was noted to have a blood pressure 82/47. They returned to bed and his blood pressure did improve to 92. This was prior to his morning medications of Coreg, Lasix and Entresto. Lab work is not consistent with dehydration although this would be the concern. Will hold these medications for now. Start IV fluids. Will need to be judicious with rehydration given his history of heart failure. Will check orthostatics vital signs after he has received 1 L fluid. PT and OT has been ordered. Placement is being considered. Atrovastatin held. Will check TCK. TSH noted with mildly elevated FT4 but not suppressing TSH completely. Early hyperthyroidism? Euthyroid sick? Will follow up with repeat TSH later this hospital course or as outpatient. (3) Anemia: Code(s): D64.9 - Anemia, unspecified Status: Acute Assessment and Plan: Patient was sent in because of anemia noted on routine labs with hemoglobin was 9.2 which is much improved from a month ago ( 7.2). Patient is on Eliquis for atrial fibrillation and this was continued. Continue monitor hemoglobin. Transfuse as needed. (4) ANASTASIA (obstructive sleep apnea): Code(s): G47.33 - Obstructive sleep apnea (adult) (pediatric) Status: Inactive Assessment and Plan: Stable. Continue with CPAP with home settings and auto titrate as needed. (5) Atrial fibrillation: Code(s): I48.91 - Unspecified atrial fibrillation Status: Acute Assessment and Plan: The patient with chronic atrial fibrillation but is rate controlled. Continue with Eliquis. Hold Coreg but resume this first if BP improves (6) COPD (chronic obstructive pulmonary disease): Code(s): J44.9 - Chronic obstructive pulmonary disease, unspecified Status: Acute Assessment and Plan: He has chronic respiratory failure froom his COPD. COPD stable. No wheezing. Continue with duo nebulizer treatments. Patient is on chronic 3L but was at 2L at rest. RN states that when he was up to to et back to bed, his SpO2 dropped into the 80's. Continue supplemental oxygen to keep SpO2 greater than 94%. Check ABG. He will need a home O2 evaluation before discharge. (7) Diabetes mellitus: Code(s): E11.9 - Type 2 diabetes mellitus without complications Status: Acute Assessment and Plan: A1c 5.9 last month. The patient's blood glucose was reviewed on 09/16 Glucose remains well controlled. Continue AccuCheks covering with sliding scale. Hypoglycemia protocol available as needed. Continue to monitor (8) Heart failure with reduced ejection fraction: Code(s): I50.20 - Unspecified systolic (congestive) heart failure Status: Acute
[2022-09-16] MEDS: FLUTICASONE/SALMETEROL 115-21 MCG INHALER 1 PUFF 2 PUFF INHALATION (09:29)
[2022-09-16] MEDS: POTASSIUM CHLORIDE 20 MEQ TABLET 40 MEQ PO (09:50)
[2022-09-16] MEDS: allopurinoL 100 MG TABLET 200 MG PO (09:50)
[2022-09-16] MEDS: DULoxetine HCL 30 MG CAPSULE.DR PO (09:51)
[2022-09-16 10:19] LABS: Base Excess ABG 2.4 mEq/l (+/-2.0); Device NASAL CANNULA; Fractional Inspired Oxygen 32 %; HCO3 ABG 26.2 mEq/l (22.0-26.0); Modified Allen's Test Pass; Oxygen Content ABG 13.3 %vol (16.0-22.0); Oxygen Saturation ABG 98.3 % (95.0-100.0); Oxyhemoglobin 96.8 % THb (90.0-100.0); PCO2 ABG 37.4 mmHg (35.0-45.0); PO2 ABG 110.4 mmHg (80.0-100.0); PO2 FiO2 Ratio Arterial Blood 3.45 %; Site Drawn LEFT RADIAL; Total Hemoglobin 9.6 g/dL (12.0-18.0); pH ABG 7.463 (7.350-7.450)
[2022-09-16] MEDS: SODIUM CHLORIDE 0.9% IV 1,000 ML 100 ML IV CONT (10:34)
--- NOTE | 2022-09-16 10:40 | PC.NURSE ---
0925 While in chair pt c/o dizziness and slight nausea. Bp 80/60. After patient went back to bed bp was then 92/70. Dr Peralta notified, new orders received.
[2022-09-16 12:27] LABS: Glucose Point of Care 198 mg/dl (65-105)
--- NOTE | 2022-09-16 13:49 | PCOTNOTE ---
Attempted OT evaluation. Nurse was in patients room and reports patient has low BP and patient reports feeling too fatigued for evaluation at this time. Will follow up tomorrow.
--- NOTE | 2022-09-16 13:59 | PCSTNOTE ---
Orders for bedside swallow study received. Per nursing, patient had incident of choking while eating hamburger today. As patient is at high risk for aspiration with current assessment of pneumonitis due to inhalation of food and vomit documented, a modified barium swallow study is recommended in lieu of a bedside swallow evaluation. Nursing notified and MD to be contacted.
[2022-09-16 17:33] LABS: Glucose Point of Care 146 mg/dl (65-105)
[2022-09-16 21:37] LABS: Glucose Point of Care 149 mg/dl (65-105)
[2022-09-17] VITALS (14 sets, daily range): BP systolic 86–120; BP diastolic 50–89; PULSE 73–97; RESP 16–20; TEMP 36.3–36.6; O2SAT 96–100
[2022-09-17] MEDS: IPRATROPIUM BR 0.02% INH SOLN 0.5 MG/2.5 ML VIAL INHALATION ×3 (02:38→13:40)
[2022-09-17] MEDS: ALBUTEROL SULFATE NEB 2.5 MG/3 ML INH INHALATION ×3 (02:38→13:39)
[2022-09-17 05:51] LABS: Basophils Percent Auto 0.2 % (0.2-1.2); Eosinophils Percent Auto 0.3 % (0-4.4); Hematocrit 24.4 % (42.0-52.0); Hemoglobin 7.6 g/dL (14.0-18.0); Immature Granulocyte Absolute 0.07 K/mm3 (0.00-0.031); Immature Granulocyte Percent A 0.7 % (0-0.5); Lymphocytes Absolute Auto 0.79 K/mm3 (0.9-3.2); Lymphocytes Percent Auto 7.9 % (18.3-44.2); Mean Corpuscular HGB Conc 31.1 g/dl (32-36); Mean Corpuscular Hemoglobin 27.5 pg (26-34); Mean Corpuscular Volume 88.4 fl (80-100); Monocytes Absolute Auto 0.5 K/mm3 (0.1-0.6); Monocytes Percent Auto 5.2 % (2.6-8.5); Neutrophils Absolute Auto 8.5 K/mm3 (1.3-6.7); Neutrophils Percent Auto 85.7 % (45.5-73.1); Red Blood Count 2.76 M/mm3 (4.6-6.20); Red Cell Distribution Width 16.5 % (11.5-14.5)
[2022-09-17 06:05] LABS: Alanine Aminotransferase 13 U/L (6-50); Albumin Level 2.7 g/dL (3.5-5.1); Alkaline Phosphatase 94 U/L (38-126); Anion Gap 10 mmol/L (8-16); Aspartate Amino Transferase 24 U/L (17-59); Bilirubin,Total 0.9 mg/dL (0.2-1.3); Blood Urea Nitrogen 22 mg/dL (9-20); Calcium 7.6 mg/dL (8.4-10.2); Carbon Dioxide 28 mmol/L (22-30); Chloride 97 mmol/L (98-107); Creatine Kinase 29 U/L (55-170); Estimated CRCL calculation 75 ml/min; Estimated Glomerular Filt Rate > 60; Glucose 118 mg/dL (65-110); Magnesium 1.7 mg/dL (1.6-2.3); Phosphorus 3.5 mg/dL (2.5-4.5); Potassium 2.6 mmol/L (3.4-5.0); Sodium 135 mmol/L (137-145)
[2022-09-17] MEDS: POTASSIUM CHLORIDE 20 MEQ TABLET 80 MEQ PO (06:35)
[2022-09-17] MEDS: HYDROcodone/acetaminophen (*CRX) 10-325 MG TABLET 1 TAB PO ×3 (07:00→22:58)
[2022-09-17] MEDS: MAGNESIUM SULF 2 GM/WATER 50ML 2 GM/50 ML BAG IVPB (07:37)
[2022-09-17 07:43] LABS: Crenated RBC 1+ (NORMAL); Ovalocytes 2+ (NORMAL); Schistocytes None Seen (NORMAL)
[2022-09-17] MEDS: FLUTICASONE/SALMETEROL 115-21 MCG INHALER 1 PUFF 2 PUFF INHALATION (08:02)
[2022-09-17] MEDS: DULoxetine HCL 30 MG CAPSULE.DR PO (09:03)
[2022-09-17] MEDS: APIXABAN 5 MG TABLET PO ×2 (09:03→17:37)
[2022-09-17] MEDS: allopurinoL 100 MG TABLET 200 MG PO (09:03)
[2022-09-17 09:12] LABS: Glucose Point of Care 160 mg/dl (65-105)
--- NOTE | 2022-09-17 10:59 | PCSTNOTE ---
Modified barium swallow study. Consistencies trialed include: thin by spoon, thin by cup, pureed by spoon, mixed consistency by spoon, solid by hand. Trace to mild residue in pyriform sinuses and valleculae which reduced with chin tuck. Extra time required for chewing ehsan cracker. No penetration, no aspiration. Recommendation: thin liquids, soft and bite sized diet (level 6), please refer to swallowing precautions documented in chart. No speech therapy recommended. Thank you for the referral of this patient.
[2022-09-17 12:26] LABS: Glucose Point of Care 148 mg/dl (65-105)
[2022-09-17 12:50] LABS: Potassium 3.5 mmol/L (3.4-5.0)
[2022-09-17 12:54] LABS: Magnesium 2.3 mg/dL (1.6-2.3)
--- NOTE | 2022-09-17 14:53 | PM.IMPN ---
Progress Note: A&P Assessment and Plan (1) Aspiration pneumonia: Code(s): J69.0 - Pneumonitis due to inhalation of food and vomit Status: Acute Assessment and Plan: Patient presents with weakness and concerns for anemia but noted to be short of breath and now with HoTN. Chest x-ray showed no acute changes. CTA of the chest was negative for PE but did show left lower lobe mucous plugging versus aspiration with left lower lobe airspace opacity atelectasis versus pneumonia. Again noted is the right upper lobe 1.9cm nodule consistent with bronchogenic carcinoma with radiation changes. He also had some mild adenopathy noted. Speech therapy evaluated the patietn with MBS and felt patient should start thin liquids with soft and bite sized. White count was normal on admission and 10K now. Sputum cx pending. BCx NGTD. He was started on Zosyn. He remains stable on his 2-3L. Slight productive cough that has improved. Continue IV antibiotics but change to Augmentin tomorrow. Continue nebulizer treatments. (2) Weakness: Code(s): R53.1 - Weakness Status: Acute Assessment and Plan: Patient is complaining of weakness. Probably unrelated to his anemia and/or HoTN and/or PNA. Coreg, Lasix and Entresto on hold. He was given a Liter of IV fluids. Orthostatic vital signs are paradoxical. TCK okay so will resume Lipitor. TSH noted with mildly elevated FT4 but not suppressing TSH completely. Early hyperthyroidism? Euthyroid sick? Check cortisol. Will add Enrico hose. Consider midodrine. (3) Anemia: Code(s): D64.9 - Anemia, unspecified Status: Acute Assessment and Plan: Patient was sent in because of anemia noted on routine labs with hemoglobin was 9.2 which is much improved from a month ago (7.2). Hgb has dropped to 7.6 today which could be related to the IV fluids. Patient is on Eliquis for atrial fibrillation and this was continued. Continue monitor hemoglobin. Transfuse as needed. (4) ANASTASIA (obstructive sleep apnea): Code(s): G47.33 - Obstructive sleep apnea (adult) (pediatric) Status: Inactive Assessment and Plan: Stable. Continue with CPAP with home settings and auto titrate as needed. (5) Atrial fibrillation: Code(s): I48.91 - Unspecified atrial fibrillation Status: Acute Assessment and Plan: The patient with chronic atrial fibrillation but is rate controlled. Continue with Eliquis. Hold Coreg but resume this first if BP improves (6) COPD (chronic obstructive pulmonary disease): Code(s): J44.9 - Chronic obstructive pulmonary disease, unspecified Status: Acute Assessment and Plan: He has chronic respiratory failure from his COPD. ABG 7.46/37/110 on 3L. COPD stable. No wheezing. Continue with nebulizer treatments. Continue supplemental oxygen to keep SpO2 greater than 94%. Home O2 evaluation before discharge. (7) Diabetes mellitus: Code(s): E11.9 - Type 2 diabetes mellitus without complications Status: Acute Assessment and Plan: A1c 5.9 last month. The patient's blood glucose was reviewed on 09/17 Glucose remains well controlled. Continue AccuCheks covering with sliding scale. Hypoglycemia protocol available as needed. Continue to monitor (8) Heart failure with reduced ejection fraction: Code(s): I50.20 - Unspecified systolic (congestive) heart failure Status: Acute Assessment and Plan: Appears euvolemic. Entresto, Lasix and Coreg on hold at this time. Echo showing EF 60-65% and Grade I diastolic dysfunction. Follow up on results. Resume medications when able. Plan Hypokalemia - potassium 2.6 today. part related IV fluids. He is not on diuretics. Potassium was replaced. Repeat potassium level normal. Continue to monitor. Subjective Date/time seen: 09/17/22 14:53 Interval history: 72yo male with CHF, COPD AFib and chronic respiratory failure here for lupis
[2022-09-17 16:50] LABS: Hematocrit 25.7 % (42.0-52.0); Hemoglobin 7.8 g/dL (14.0-18.0)
[2022-09-17] MEDS: MIDODRINE HCL 2.5 MG TABLET PO (17:37)
[2022-09-17 17:55] LABS: Glucose Point of Care 128 mg/dl (65-105)
[2022-09-17 21:26] LABS: Glucose Point of Care 140 mg/dl (65-105)
--- NOTE | 2022-09-17 23:10 | PCRCNOTE ---
Window of time for administration has passed. See next scheduled administration.
[2022-09-18] VITALS (16 sets, daily range): BP systolic 96–115; BP diastolic 53–85; PULSE 87–105; RESP 14–20; TEMP 36.6–36.8; O2SAT 97–100
[2022-09-18] MEDS: IPRATROPIUM BR 0.02% INH SOLN 0.5 MG/2.5 ML VIAL INHALATION ×3 (02:07→19:24)
[2022-09-18] MEDS: ALBUTEROL SULFATE NEB 2.5 MG/3 ML INH INHALATION ×3 (02:07→19:24)
[2022-09-18] MEDS: HYDROcodone/acetaminophen (*CRX) 10-325 MG TABLET 1 TAB PO ×4 (05:05→19:19)
[2022-09-18 05:56] LABS: Basophils Percent Auto 0.4 % (0.2-1.2); Eosinophils Absolute Auto 0.1 K/mm3 (0-0.3); Eosinophils Percent Auto 1.3 % (0-4.4); Hematocrit 25.4 % (42.0-52.0); Hemoglobin 7.6 g/dL (14.0-18.0); Immature Granulocyte Absolute 0.05 K/mm3 (0.00-0.031); Immature Granulocyte Percent A 0.7 % (0-0.5); Immature Platelet Fraction Pct 8.2 % (0.9-11.2); Lymphocytes Absolute Auto 0.71 K/mm3 (0.9-3.2); Lymphocytes Percent Auto 10.6 % (18.3-44.2); Mean Corpuscular HGB Conc 29.9 g/dl (32-36); Mean Corpuscular Hemoglobin 26.6 pg (26-34); Mean Corpuscular Volume 88.8 fl (80-100); Monocytes Absolute Auto 0.6 K/mm3 (0.1-0.6); Monocytes Percent Auto 8.2 % (2.6-8.5); Neutrophils Absolute Auto 5.3 K/mm3 (1.3-6.7); Neutrophils Percent Auto 78.8 % (45.5-73.1); Red Blood Count 2.86 M/mm3 (4.6-6.20); Red Cell Distribution Width 16.5 % (11.5-14.5); White Blood Count 6.7 K/mm3 (4.5-10.0)
[2022-09-18 06:06] LABS: Albumin Level 2.8 g/dL (3.5-5.1); Anion Gap 10 mmol/L (8-16); Blood Urea Nitrogen 17 mg/dL (9-20); Calcium 7.6 mg/dL (8.4-10.2); Carbon Dioxide 28 mmol/L (22-30); Chloride 98 mmol/L (98-107); Estimated CRCL calculation 75 ml/min; Estimated Glomerular Filt Rate > 60; Glucose 104 mg/dL (65-110); Magnesium 2.1 mg/dL (1.6-2.3); Phosphorus 3.4 mg/dL (2.5-4.5); Potassium 3.1 mmol/L (3.4-5.0); Sodium 136 mmol/L (137-145)
[2022-09-18 08:19] LABS: Glucose Point of Care 115 mg/dl (65-105)
[2022-09-18 08:35] LABS: Platelet Count Result 202 k/mm3 (150-375)
[2022-09-18 08:36] LABS: Platelet Estimate Adequate (Adequate)
[2022-09-18 08:37] LABS: Acanthocytes 1+ (NORMAL); Burr Cells 1+ (NORMAL); Ovalocytes 2+ (NORMAL)
[2022-09-18] MEDS: FLUTICASONE/SALMETEROL 115-21 MCG INHALER 1 PUFF 2 PUFF INHALATION ×2 (08:38→19:25)
[2022-09-18] MEDS: APIXABAN 5 MG TABLET PO ×2 (09:00→17:20)
[2022-09-18] MEDS: DULoxetine HCL 30 MG CAPSULE.DR PO (09:00)
[2022-09-18] MEDS: allopurinoL 100 MG TABLET 200 MG PO (09:00)
[2022-09-18] MEDS: MIDODRINE HCL 2.5 MG TABLET PO ×3 (09:00→17:22)
[2022-09-18] MEDS: AMOXICILLIN/CLAVULANATE K 875-125 MG TAB 1 TABLET PO ×2 (09:00→20:06)
[2022-09-18] MEDS: POTASSIUM CHLORIDE 20 MEQ TABLET 40 MEQ PO (09:01)
[2022-09-18] MEDS: DOXYCYCLINE HYCLATE 100 MG TABLET PO ×2 (09:15→20:06)
[2022-09-18 10:38] LABS: Schistocytes None Seen (NORMAL)
[2022-09-18 12:22] LABS: Glucose Point of Care 228 mg/dl (65-105)
--- NOTE | 2022-09-18 17:14 | PM.IMPN ---
Progress Note: A&P Assessment and Plan (1) Aspiration pneumonia: Code(s): J69.0 - Pneumonitis due to inhalation of food and vomit Status: Acute Assessment and Plan: Patient presents with weakness and concerns for anemia but noted to be short of breath and now with HoTN. Chest x-ray showed no acute changes. CTA of the chest was negative for PE but did show left lower lobe mucous plugging versus aspiration with left lower lobe airspace opacity atelectasis versus pneumonia. Again noted is the right upper lobe 1.9cm nodule consistent with bronchogenic carcinoma with radiation changes. He also had some mild adenopathy noted. Speech therapy evaluated the patient with MBS and felt patient should start thin liquids with soft and bite sized. White count is normal. Sputum cx growing Staph. BCx NGTD. He was started on Zosyn. He remains stable on his 2-3L but probably could be decreased. Continue Augmentin. Add Doxycycline. Continue nebulizer treatments. (2) Weakness: Code(s): R53.1 - Weakness Status: Acute Assessment and Plan: Patient is complaining of weakness. Probably unrelated to his anemia and/or HoTN and/or PNA. Coreg, Lasix and Entresto on hold. He was given a Liter of IV fluids. Orthostatic vital signs are paradoxical. TCK okay so will resume Lipitor. TSH noted with mildly elevated FT4 but not suppressing TSH completely. Early hyperthyroidism? Euthyroid sick? Cortisol okay. Continue Enrico hose. Midodrine added. BP drops with sitting/standing but stable. Will follow for now. (3) Anemia: Code(s): D64.9 - Anemia, unspecified Status: Acute Assessment and Plan: Patient was sent in because of anemia noted on routine labs with hemoglobin was 9.2 which is much improved from a month ago (7.2). Hgb has dropped to 7.6 which could be related to the IV fluids. Hgb stable on repeat. Patient is on Eliquis for atrial fibrillation and this was continued. Continue monitor hemoglobin. Transfuse as needed. (4) ANASTASIA (obstructive sleep apnea): Code(s): G47.33 - Obstructive sleep apnea (adult) (pediatric) Status: Inactive Assessment and Plan: Stable. Continue with CPAP with home settings and auto titrate as needed. (5) Atrial fibrillation: Code(s): I48.91 - Unspecified atrial fibrillation Status: Acute Assessment and Plan: The patient with chronic atrial fibrillation but is rate controlled. Continue with Eliquis. Hold Coreg but resume this first if BP improves (6) COPD (chronic obstructive pulmonary disease): Code(s): J44.9 - Chronic obstructive pulmonary disease, unspecified Status: Acute Assessment and Plan: He has chronic respiratory failure from his COPD. ABG 7.46/37/110 on 3L. COPD stable. No wheezing. Continue with nebulizer treatments. Continue supplemental oxygen to keep SpO2 greater than 94%. Home O2 evaluation before discharge unless he goes to a facility. (7) Diabetes mellitus: Code(s): E11.9 - Type 2 diabetes mellitus without complications Status: Acute Assessment and Plan: A1c 5.9 last month. The patient's blood glucose was reviewed on 09/18 Glucose remains well controlled. Continue AccuCheks covering with sliding scale. Hypoglycemia protocol available as needed. Continue to monitor (8) Heart failure with reduced ejection fraction: Code(s): I50.20 - Unspecified systolic (congestive) heart failure Status: Acute Assessment and Plan: Appears euvolemic. Entresto, Lasix and Coreg on hold at this time. Echo showing EF 60-65% and Grade I diastolic dysfunction. Follow up on results. Resume medications when able. Plan Hypokalemia - potassium 2.6 yesterday. part related IV fluids. He is not on diuretics. Potassium was replaced. Repeat potassium level 3.1 today. Replace again. Continue to monitor. Subjective Date/time seen: 09/18/22 17:14 Interval history: 72
[2022-09-18] MEDS: SILVERGEL (ELTA) 45 ML 1 APPLIC TOPICAL (17:20)
[2022-09-18 17:23] LABS: Glucose Point of Care 89 mg/dl (65-105)
[2022-09-18 21:20] LABS: Glucose Point of Care 134 mg/dl (65-105)
[2022-09-19] VITALS (7 sets, daily range): BP systolic 119–122; BP diastolic 62–84; PULSE 77–106; RESP 18–22; TEMP 36.7; O2SAT 100
[2022-09-19] MEDS: HYDROcodone/acetaminophen (*CRX) 10-325 MG TABLET 1 TAB PO ×3 (02:06→14:39)
[2022-09-19 05:42] LABS: Hematocrit 25.7 % (42.0-52.0); Hemoglobin 7.7 g/dL (14.0-18.0); Immature Platelet Fraction Pct 8.7 % (0.9-11.2); Mean Corpuscular Hemoglobin 27.1 pg (26-34); Mean Corpuscular Volume 90.5 fl (80-100); Platelet Count Result 242 k/mm3 (150-375); Red Blood Count 2.84 M/mm3 (4.6-6.20); Red Cell Distribution Width 16.6 % (11.5-14.5); White Blood Count 6.2 K/mm3 (4.5-10.0)
[2022-09-19 05:51] LABS: Anion Gap 10 mmol/L (8-16); Blood Urea Nitrogen 14 mg/dL (9-20); Calcium 7.8 mg/dL (8.4-10.2); Carbon Dioxide 29 mmol/L (22-30); Chloride 99 mmol/L (98-107); Estimated CRCL calculation 91 ml/min; Estimated Glomerular Filt Rate > 60; Glucose 96 mg/dL (65-110); Potassium 3.6 mmol/L (3.4-5.0); Sodium 138 mmol/L (137-145)
[2022-09-19] MEDS: ALBUTEROL SULFATE NEB 2.5 MG/3 ML INH INHALATION ×2 (08:30→14:50)
[2022-09-19] MEDS: FLUTICASONE/SALMETEROL 115-21 MCG INHALER 1 PUFF 2 PUFF INHALATION (08:30)
[2022-09-19] MEDS: IPRATROPIUM BR 0.02% INH SOLN 0.5 MG/2.5 ML VIAL INHALATION ×2 (08:30→14:50)
[2022-09-19 09:07] LABS: Glucose Point of Care 104 mg/dl (65-105)
[2022-09-19] MEDS: DOXYCYCLINE HYCLATE 100 MG TABLET PO (09:21)
[2022-09-19] MEDS: SILVERGEL (ELTA) 45 ML 1 APPLIC TOPICAL (09:21)
[2022-09-19] MEDS: AMOXICILLIN/CLAVULANATE K 875-125 MG TAB 1 TABLET PO (09:21)
[2022-09-19] MEDS: allopurinoL 100 MG TABLET 200 MG PO (09:21)
[2022-09-19] MEDS: DULoxetine HCL 30 MG CAPSULE.DR PO (09:21)
[2022-09-19] MEDS: MIDODRINE HCL 2.5 MG TABLET PO ×3 (09:21→17:16)
[2022-09-19] MEDS: APIXABAN 5 MG TABLET PO ×2 (09:21→17:16)
[2022-09-19 12:39] LABS: Glucose Point of Care 169 mg/dl (65-105)
--- NOTE | 2022-09-19 13:19 | PM.DS ---
DS: Admitting Diagnosis Discharge Date 09/19/22 Admitting Diagnosis Weakness DS: Discharge Diagnosis Discharge Diagnosis (1) Pneumonia: Code(s): J18.9 - Pneumonia, unspecified organism Status: Acute (2) Weakness: Code(s): R53.1 - Weakness Status: Acute (3) Anemia: Code(s): D64.9 - Anemia, unspecified Status: Acute (4) ANASTASIA (obstructive sleep apnea): Code(s): G47.33 - Obstructive sleep apnea (adult) (pediatric) Status: Inactive (5) Atrial fibrillation: Code(s): I48.91 - Unspecified atrial fibrillation Status: Acute (6) COPD (chronic obstructive pulmonary disease): Code(s): J44.9 - Chronic obstructive pulmonary disease, unspecified Status: Acute (7) Diabetes mellitus: Code(s): E11.9 - Type 2 diabetes mellitus without complications Status: Acute (8) Heart failure with reduced ejection fraction: Code(s): I50.20 - Unspecified systolic (congestive) heart failure Status: Acute DS: Summary Hospital Course Reason for hospitalization: 72yo male with CHF, COPD AFib and chronic respiratory failure here for weakness and anemia (noted by routine labs). Please see H&P for details Hospital Course: Patient presents with weakness and concerns for anemia but noted to be short of breath and now with HoTN.? Chest x-ray showed no acute changes.? CTA of the chest was negative for PE but did show left lower lobe mucous plugging versus aspiration with left lower lobe airspace opacity atelectasis versus pneumonia.? Again noted is the right upper lobe 1.9cm nodule consistent with bronchogenic carcinoma with radiation changes.? He also had some mild adenopathy noted.? Speech therapy evaluated the patient with MBS and felt patient should start thin liquids with soft and bite sized. White count was normal. He was started on Zosyn. Sputum cx growing MSSA and Pseudomonas (resulted on day of discharge). BCx NGTD.? He remained stable on his 2-3L. Patient noted to have HoTN. Weakness felt related to his anemia and/or HoTN and/or PNA. Coreg, Lasix and Entresto were held.? He was given a Liter of IV fluids. Orthostatic vital signs are paradoxical. TSH noted with mildly elevated FT4 but not suppressing TSH completely. Cortisol okay. Plan to check TSH as outpatient. We added Enrico hose. Midodrine added and BP improved. Patient was sent in because of anemia noted on routine labs with hemoglobin at 9.2 which is much improved from a month ago (7.2). Hgb did drop to 7.6 which could be related to the IV fluids. Hgb remained table on repeat. Patient is on Eliquis for atrial fibrillation and this was continued.?He was compliant with CPAP. Patient has chronic respiratory failure from his COPD. ABG 7.46/37/110 on 3L. No wheezing. He was treated with nebulizer treatments. Continue supplemental oxygen to keep SpO2 greater than 94%.? He overall did well and was able to be discharged to rehad facility on 09/19/22. Status at Discharge Cognitive/behavioral status at discharge: stable Time Spent with Patient Time attestation: Total time spent providing and/or coordinating discharge services: 35 minutes Time spent: Greater than 30 minutes Exam Narrative: AF 98.1 119/80 77 22 100% 3L Gen - NARD Chest - left base inspiratory crackles otherwise clear. nml RR CV - irregularly irregular. S1-S2 Abd - soft. Nontender. Positive bowel sounds. Abd wound dressing clean and dry Ext - No pedal edema. Psych - Nml mood and affect Skin - Warm and dry. Left lateral foot dressing clean and dry DS: Data Data Completed and Pending Labs on day of discharge: Labs from last 24 hours 09/19/22 09/19/22 09/19/22 12:35 09:04 05:28 WBC RBC Hgb Hct MCV MCH MCHC RDW Plt Count MPV % Immature Plt Fraction Sodium 138 Potassium 3.6 Chloride 99 Carbon Dioxide 29 Anion Gap 10 BUN 14 Creatinine 0.90 Estim Creat Kvng
[2022-09-19] MEDS: levoFLOXacin 750 MG TABLET PO (14:26)
--- NOTE | 2022-09-19 14:37 | PCPTNOTE ---
Patient declined to be seen for Physical Therapy this afternoon secondary to getting ready to be discharged from the hospital. RN aware.
[2022-09-19 16:21] LABS: Pneumococcal Antigen Urine Not Detected (Not Detected)
[2022-09-19 17:16] LABS: Glucose Point of Care 121 mg/dl (65-105)
--- NOTE | 2022-09-19 18:36 | PC.NURSE ---
Report to Tom at [facility] @ [id number]
[2022-09-21 10:58] LABS: Legionella pneumophila Ag Ur Not Detected (Not Detected)
--- NOTE | 2022-09-26 10:24 | PC.NURSE ---
Blood cx are negative. Urine Legionella and Pneumococcal are both negative. Dr. Kathryn guerra.
--- NOTE | 2022-09-27 09:59 | PC.NURSE ---
Faxed Sputum cx results to [facility] per Dr. Peralta.
== END 2022-09-19 18:30 | disposition short-term general hospital (02) | DRG 811 ==
LOC: ANHED 14:41 → ANH3MED 20:04
PROVIDERS: Internal Medicine; Nurse Practitioner; Preventive Medicine Aerospace Medicine; Admitting Provider Family Medicine; Emergency Provider General Practice; PCP Internal Medicine; Visit Provider Internal Medicine
DX: D64.9 Anemia, unspecified (principal); J69.0 Pneumonitis due to inhalation of food and vomit; C34.11 Malignant neoplasm of upper lobe, right bronchus or lung; I50.20 Unspecified systolic (congestive) heart failure; I48.20 Chronic atrial fibrillation, unspecified; J96.11 Chronic respiratory failure with hypoxia; R53.1 Weakness; G47.33 Obstructive sleep apnea (adult) (pediatric); J44.9 Chronic obstructive pulmonary disease, unspecified; M10.9 Gout, unspecified; E11.42 Type 2 diabetes mellitus with diabetic polyneuropathy; I95.9 Hypotension, unspecified; E87.6 Hypokalemia; R68.84 Jaw pain; Z20.822 Contact with and (suspected) exposure to COVID-19; Z92.3 Personal history of irradiation; Z99.81 Dependence on supplemental oxygen; Z79.01 Long term (current) use of anticoagulants; Z80.1 Family history of malignant neoplasm of trachea, bronchus and lung; Z80.8 Family history of malignant neoplasm of other organs or systems; Z82.49 Family history of ischemic heart disease and other diseases of the circulatory system; Z87.891 Personal history of nicotine dependence; Z79.84 Long term (current) use of oral hypoglycemic drugs; Z79.891 Long term (current) use of opiate analgesic; Z79.899 Other long term (current) drug therapy; Z88.6 Allergy status to analgesic agent
CPT/HCPCS: 36415; 36600; 71045; 71275; 80048; 80053; 80069; 82375; 82533; 82550; 82805; 82948; 83050; 83605; 83735; 83880; 84100; 84132; 84439; 84443; 84484; 85014; 85018; 85025; 85027; 85055; 85380; 85610; 85730; 86850; 86900; 86901; 87040; 87070; 87077; 87147; 87181; 87186; 87205; 87449; 87502; 87899; 92611; 94640; 96365; 96366; 96375; 97161; 97165; 97530; 99285; A9270; C8929; G0378; J2543; J3475; J7030; J7512; Q9957; Q9967; U0003; U0005

== ENCOUNTER 2023-10-04 13:20 | Emergency (ER) | payer MEDICARE, OTHER, SELFPAY ==
--- NOTE | ~2023-10-04 | XR_ITS ---
XR chest 1V portable 10/04/2023 16:00 Indication: Weakness. Procedure: AP portable chest Comparison: Comparison to multiple prior studies sequentially, with oldest reviewed study dated 06/2022. Findings: There is scarring of the right upper lobe, considered consistent with treated malignancy. T here is scarring in the right lung base. Calcified granuloma left mid thorax. The lungs are hyperinfl ated which is consistent with, but not diagnostic of chronic obstructive pulmonary disease. Heart siz e normal. No focal air space disease, pulmonary edema, pleural effusion or suspected pneumothorax. Impression: 1: No acute cardiopulmonary disease. Reviewed, dictated and finalized at location [employer] Impression: 1: No acute cardiopulmonary disease.
[2023-10-04 13:23] VITALS: BP 130/83; PULSE 93; RESP 18; TEMP 36.8; O2SAT 99
--- NOTE | 2023-10-04 15:45 | ED.GENADULT ---
HPI - General Adult General Chief complaint: Urogenital-Male Stated complaint: urinary symptoms, concerned about kidneys Time Seen by Provider: 10/04/23 15:44 Source: patient and family Mode of arrival: ambulatory Limitations: no limitations History of Present Illness HPI narrative: PATIENT IS 73 YEARS OLD WHITE MALE WHO HAS A LONG, BROUGHT TO THE EMERGENCY ROOM BY HIS DAUGHTER BECAUSE NOT ABLE TO GO FOLLOW-UP WITH HIS PHYSICIANS BECAUSE INABILITY TO MOVE AND WALK USUAL. PATIENT ALSO COMPLAINING OF URINE FREQUENCY AND BURNING SENSATION FOR THE LAST FEW DAYS ALSO SOME DECUBITUS ULCER OF THE BUTTOCK BILATERALLY. HE DENIES ANY FEVER, CHILLS, NAUSEA, VOMITING, CHEST PAIN, SHORTNESS OF BREATH, OR ABDOMINAL PAIN. Related Data Home Medications Medication Instructions Recorded Confirmed allopurinol 100 mg tablet 200 mg PO DAILY 11/14/20 09/25/22 (Zyloprim) apixaban 5 mg tablet (Eliquis) 5 mg PO BID 11/14/20 09/25/22 atorvastatin 40 mg tablet (Lipitor) 80 mg PO DAILY 11/14/20 09/25/22 duloxetine 30 mg capsule,delayed 30 mg PO DAILY 11/14/20 09/25/22 release sprinkle ipratropium 20 mcg-albuterol 100 1 puff inhalation DAILY PRN 11/14/20 09/25/22 mcg/actuation mist for inhalation Shortness Of Breath acetaminophen 500 mg tablet 1,000 mg PO Q6H PRN pain 08/11/22 09/25/22 mometasone-formoterol HFA 100 2 puff inhalation Q12H 08/11/22 09/25/22 mcg-5 mcg/actuation aerosol inhaler sacubitril 24 mg-valsartan 26 mg 1 tablet PO Q12H 08/11/22 09/25/22 tablet furosemide 40 mg tablet (Lasix) 40 mg PO BID 09/15/22 09/25/22 carvedilol 25 mg tablet 25 mg PO Q12H 09/25/22 09/25/22 Allergies Allergy/AdvReac Type Severity Reaction Status Date / Time amlodipine Allergy Unknown Swelling Verified 08/11/22 10:40 gabapentin Allergy Unknown Hallucinating,short Verified 08/12/22 08:10 of breath, PTSD symptoms morphine AdvReac Intermediate Nausea and Verified 08/11/22 10:40 Vomiting Review of Systems Review of Systems: All systems reviewed & are unremarkable except as noted in HPI and below PMFSH Past Medical History Medical History Agent orange exposure Bowel obstruction Chronic anticoagulation Chronic atrial fibrillation Chronic obstructive pulmonary disease Chronic respiratory failure with hypoxia, on home oxygen therapy Complete small bowel obstruction Gout Heart failure with reduced ejection fraction Followed by Dr. Frank at [place]. Hyperkalemia Hypertension Lung cancer (02/2021) Status post radiation. Oncologist is at [facility]. Obstructive sleep apnea ANASTASIA (obstructive sleep apnea) Peripheral neuropathy Thrombocytopenia Type 2 diabetes mellitus Surgical History Surgical History History of evacuation of hematoma History of lumbar fusion History of lumbar laminectomy Family History Family History Mother Cerebrovascular accident, Onset Age: 81 Lung cancer Cervical cancer Father Family history of cardiomyopathy, Onset Age: 67 Hypertension Heart attack Social History Social History Social History: The patient is and lives home alone. 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 The patient is a former smoker. He denies any alcohol marijuana or illicit drugs. The patient has 3 children. Surrogate medical decision maker: Gwen Kirk, daughter. Code status: Full code. Smoking packs per day: 2 Smoking cigarettes per day: 40.0 Years smoked: 50 Smoking pack-years: 100.00 Smoking status: Former smoker Tobacco type: cigarettes Alcohol intake: never Alcohol use details: Heavier drinker in the past. Substance use: never Lack of Transportation: YES Lack of Food: Never True Current Housing: I Have Housing Concerned About Fut
[2023-10-04 15:47] VITALS: BP 121/62
[2023-10-04 16:13] VITALS: O2SAT 100
[2023-10-04 16:13] LABS: Basophils Percent Auto 0.4 % (0.2-1.2); Eosinophils Percent Auto 0.6 % (0-4.4); Hematocrit 35.3 % (42.0-52.0); Hemoglobin 10.6 g/dL (14.0-18.0); Immature Granulocyte Absolute 0.01 K/mm3 (0.00-0.031); Immature Granulocyte Percent A 0.2 % (0-0.5); Immature Platelet Fraction Pct 8.5 % (0.9-11.2); Lymphocytes Absolute Auto 0.93 K/mm3 (0.9-3.2); Lymphocytes Percent Auto 18.9 % (18.3-44.2); Mean Corpuscular Hemoglobin 27.7 pg (26-34); Mean Corpuscular Volume 92.4 fl (80-100); Monocytes Absolute Auto 0.4 K/mm3 (0.1-0.6); Monocytes Percent Auto 7.9 % (2.6-8.5); Neutrophils Absolute Auto 3.5 K/mm3 (1.3-6.7); Platelet Count Result 133 k/mm3 (150-375); Red Blood Count 3.82 M/mm3 (4.6-6.20); Red Cell Distribution Width 17.4 % (11.5-14.5); White Blood Count 4.9 K/mm3 (4.5-10.0)
[2023-10-04 16:15] VITALS: O2SAT 100
[2023-10-04 16:17] VITALS: BP 132/62
[2023-10-04 16:21] LABS: Alanine Aminotransferase 20 U/L (6-50); Albumin Level 4.3 g/dL (3.5-5.1); Alkaline Phosphatase 124 U/L (38-126); Anion Gap 16 mmol/L (8-16); Aspartate Amino Transferase 28 U/L (17-59); Bilirubin,Total 1.6 mg/dL (0.2-1.3); Blood Urea Nitrogen 33 mg/dL (9-20); Calcium 9.1 mg/dL (8.4-10.2); Carbon Dioxide 24 mmol/L (22-30); Chloride 100 mmol/L (98-107); Estimated CRCL calculation 52 ml/min; Estimated Glomerular Filt Rate 50; Glucose 108 mg/dL (65-110); Potassium 3.5 mmol/L (3.4-5.0); Sodium 140 mmol/L (137-145)
[2023-10-04 16:31] VITALS: BP 127/102
[2023-10-04 16:36] LABS: Appearance Urine Cloudy (Clear); Bacteria Urine None Seen /hpf; Bilirubin Urine Negative (Negative); Blood Urine Negative (Negative); Color Urine Yellow (Yellow); Glucose Urine UA 2+ mg/dL (Negative); Ketones Urine Negative (Negative); Leukocyte Esterase Ur Negative LEU/UL (Negative); Need Manual Microscopic Reviewed; Nitrate Urine Negative (Negative); Protein Urine Negative (Negative); RBC Urine 0-2 /hpf (0-2); Specific Grav Ur 1.011 (1.001-1.035); Squamous Epithelial Cell Urine None seen /hpf (Few); WBC Urine 0-5 /hpf; pH Urine 5.5 (5.0-9.0)
[2023-10-04 16:37] LABS: Add Urine Microscopic? YES
== END 2023-10-04 18:03 | disposition home or self-care (01) ==
PROVIDERS: Emergency Provider Emergency Medicine; PCP Internal Medicine
DX: R53.1 Weakness (principal); R60.0 Localized edema; L89.309 Pressure ulcer of unspecified buttock, unspecified stage; J44.9 Chronic obstructive pulmonary disease, unspecified; I11.0 Hypertensive heart disease with heart failure; I50.9 Heart failure, unspecified; E11.9 Type 2 diabetes mellitus without complications; I48.20 Chronic atrial fibrillation, unspecified; Z85.118 Personal history of other malignant neoplasm of bronchus and lung; Z87.891 Personal history of nicotine dependence
CPT/HCPCS: 36415; 71045; 80053; 81001; 85025; 85055; 99283

== ENCOUNTER 2025-05-04 01:59 | Inpatient (IN) | payer MEDICARE, OTHER, SELFPAY ==
[2025-05-04] VITALS (53 sets, daily range): BP systolic 84–121; BP diastolic 35–76; PULSE 80–147; RESP 15–27; TEMP 36.6–36.9; O2SAT 91–100; BMI 23.4
--- NOTE | ~2025-05-04 | CT_ITS ---
Clinical Indication: Shortness of breath, sepsis, decubitus ulcer CT Scan of the Chest, Abdomen, and Pelvis with Contrast: Technique: Contiguous sections were acquired throughout the chest, abdomen, and pelvis after intraven ous administration of 100 cc of Omnipaque 350. Dose reduction technique was used on this scan by rita velez automated exposure control and iterative reconstruction technique. The dose-length product (DL P) was 1481.24 mGy-cm. Comparison: 09/15/2022 Findings: Right hilar lymphadenopathy is present, presumably reactive. No pulmonary embolus. No aortic aneurysm or dissection. There is no evidence of pleural or pericardial effusion. There is extensive right lower lobe consolidation, and more mild consolidative change at the left marisol g base. There is mild patchy airspace opacity in the peripheral right middle lobe. Irregular density in the right lung apex is present, somewhat similar in overall morphology to prior exam, though mildl y increased in apparent extent, most compatible with chronic scarring or posttreatment change/treated disease. The liver, spleen, pancreas, adrenals and kidneys are within normal limits. Calcified gallstones are present. There are atherosclerotic calcifications of the aorta. No lymphadenopathy. There is marked distention of the distal rectum with stool, compatible fecal impaction and probable m ild stercoral proctitis. Moderate stool present throughout the remainder of the large bowel. No bowel obstruction. Urinary bladder is collapsed around a Mann catheter. No pelvic mass seen. No ascites. No definite de cubitus ulcer evident. Correlate with physical exam. Impression: Probable multifocal pneumonia, most extensive in the right lower lobe, with lesser involvement in the left lower lobe and right middle lobe. Chronic appearing airspace opacity in the right lung apex, likely reflecting chronic scarring or alissa cookie disease/posttreatment change. Fecal impaction/constipation with associated stercoral proctitis. Reviewed, dictated and finalized at location . Impression: Probable multifocal pneumonia, most extensive in the right lower lobe, with les ser involvement in the left lower lobe and right middle lobe. Chronic appearing airspace opacity in the right lung apex, likely reflecting ch ronic scarring or treated disease/posttreatment change. Fecal impaction/constipation with associated stercoral proctitis.
--- NOTE | ~2025-05-04 | XR_ITS ---
Portable chest x-ray Comparison: 10/04/2023 Clinical History: Shortness of breath Findings: There is retrocardiac airspace consolidation. Questionable minimal haziness right lung bas e. Cardiomediastinal silhouette is stable. Bones and soft tissues are unremarkable. Impression: Left basilar atelectasis versus pneumonia. Correlate clinically. Questionable minimal haziness right lung base, nonspecific. Several probable postoperative change or scarring in the right suprahilar region. Stable probable postoperative change or scarring in the right suprahilar region. Reviewed, dictated and finalized at location . Impression: Left basilar atelectasis versus pneumonia. Correlate clinically. Questionable minimal haziness right lung base, nonspecific. Several probable po stoperative change or scarring in the right suprahilar region. Stable probable postoperative change or scarring in the right suprahilar region .
--- NOTE | ~2025-05-04 | CT_ITS ---
Non-contrast Head CT History: Altered mental status COMPARISON: 01/13/2022 Technique: Axial non-contrast imaging of the brain was performed. Dose reduction technique was used on this scan by utilizing automated exposure control and iterative reconstruction technique. The dose -length product (DLP) was 681.00 mGy-cm. Findings: There is no evidence of intracranial hemorrhage, mass lesion, or acute infarct. Brain par enchyma appears normal. The ventricles and subarachnoid spaces are normal in size. The calvarium ap pears normal. The visualized paranasal sinuses and mastoid air cells are clear. Impression: No significant abnormality seen. Reviewed, dictated and finalized at location . Impression: No significant abnormality seen.
--- NOTE | ~2025-05-04 | XR_ITS ---
XR chest 1V portable Ordering provider: Deng Baker MD History: 74 years Male with . aspiration pneumonia . Comparison: May 04, 2025 FINDINGS: The images clipped in the apical areas. MEDIASTINUM: The cardiac silhouette is slightly enlarged. Congestive pam. LUNGS: No effusions or pneumothorax. Opacification in the right lung base is seen suggestive of atele ctasis versus pneumonia. Underlying emphysematous changes. OTHER: No free air under the diaphragm. Degenerative changes of the spine. IMPRESSION: Right basilar atelectasis versus pneumonia. Reviewed, dictated and finalized at location A.
--- NOTE | 2025-05-04 02:03 | ED.SOB ---
HPI - SOB/Dyspnea General Chief Complaint: Shortness of Breath/Dyspnea <Monica Linares MD - Last Filed: 05/04/25 07:53> Stated Complaint: sob <Monica Linares MD - Last Filed: 05/04/25 07:53> Time Seen by Provider: 05/04/25 02:03 <Monica Linares MD - Last Filed: 05/04/25 07:53> Source: patient and EMS <Monica Linares MD - Last Filed: 05/04/25 07:53> Mode of arrival: EMS <Monica Linares MD - Last Filed: 05/04/25 07:53> History of Present Illness HPI Narrative: EMS was called to patient's residence for report of shortness of breath. Patient has a history of COPD and heart failure for which he is typically on 4 L nasal cannula at baseline he does note that he has been up titrating at 5 liters/minute. He is also on apixaban for history of atrial fibrillation. Patient states he has had a cough productive of a lot of sputum. Denies any fevers or chills. States he has been retaining water. Previously on furosemide, unclear if currently. Patient states he has been unable to pee. Also complaining of buttock pain. Denies chest pain. States I won't be here in a week. but can not clarify when asked if he means this hospital or alive on this earth. EMS had noted that he kept tipping the DuoNeb treatment upside down or sideways. They did not think he was confused however. Lives at home by himself. EMS had noted a lot of gnats/flies/fruit flies in the residence. Client Portfolio Manager Dr Frank/Naman at [facility]. <Monica Linares MD - Last Filed: 05/04/25 07:53> Related Data Home Medications: Home Medications ?Medication ?Instructions ?Recorded ?Confirmed ?Last Taken ?Type allopurinol 100 mg tablet 200 mg PO DAILY 11/14/20 09/25/22 09/15/22 09:00 History (Zyloprim) apixaban 5 mg tablet (Eliquis) 5 mg PO BID 11/14/20 09/25/22 09/15/22 09:00 History atorvastatin 40 mg tablet (Lipitor) 80 mg PO DAILY 11/14/20 09/25/22 09/14/22 21:00 History duloxetine 30 mg capsule,delayed 30 mg PO DAILY 11/14/20 09/25/22 09/15/22 09:00 History release sprinkle ipratropium 20 mcg-albuterol 100 1 puff inhalation DAILY PRN 11/14/20 09/25/22 09/15/22 09:00 History mcg/actuation mist for inhalation Shortness Of Breath acetaminophen 500 mg tablet 1,000 mg PO Q6H PRN pain 08/11/22 09/25/22 Unknown History mometasone-formoterol HFA 100 2 puff inhalation Q12H 08/11/22 09/25/22 09/15/22 09:00 History mcg-5 mcg/actuation aerosol inhaler sacubitril 24 mg-valsartan 26 mg 1 tablet PO Q12H 08/11/22 09/25/22 09/15/22 09:00 History tablet furosemide 40 mg tablet (Lasix) 40 mg PO BID 09/15/22 09/25/22 09/15/22 09:00 History carvedilol 25 mg tablet 25 mg PO Q12H 09/25/22 09/25/22 Unknown History <Monica Linares MD - Last Filed: 05/04/25 07:53> Allergies/Adverse Reactions: Allergies Allergy/AdvReac Type Severity Reaction Status Date / Time amlodipine Allergy Unknown Swelling Verified 08/11/22 10:40 gabapentin Allergy Unknown Hallucinating,short Verified 08/12/22 08:10 of breath, PTSD symptoms morphine AdvReac Intermediate Nausea and Verified 08/11/22 10:40 Vomiting <Monica Linares MD - Last Filed: 05/04/25 07:53> [facility] Past Medical History Medical History: Medical History Complete small bowel obstruction Heart failure with reduced ejection fraction Followed by Dr. Frank at [facility]. Hyperkalemia Thrombocytopenia Bowel obstruction Chronic anticoagulation Chronic atrial fibrillation Lung cancer (02/2021) Status post radiation. Oncologist is at [facility]. Agent orange exposure Type 2 diabetes mellitus Hypertension Chronic obstructive pulmonary disease Obstructive sleep apnea Chronic respiratory failure with hypoxia, on home oxygen therapy ANASTASIA (obstructive sleep apnea) Peripheral neuropathy Gout <Monica Linares MD - Last Filed: 05/04/25 07:53> Surgical History Surgical History: Surgical History History of evacuation of hematoma History of lumbar laminectomy History of lumbar fusion <Monica Linares MD - Last Filed: 05/04/25 07:53> Family History Family History: Family History Mother Cerebrovascular accident, Onset Age: 81 Lung cancer Cervical cancer Father Family history of cardiomyopathy, Onset Age: 67 Hypertension Heart attack <Monica Linares MD - Last Filed: 05/04/25 07:53> Social History Social History: Social History Social History: The patient is and lives home alone. 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 The patient is a former smoker. He denies any alcohol marijuana or illicit drugs. The patient has 3 children. Surrogate medical decision maker: Gwen Kirk, daughter. Code status: Full code. Smoking packs per day: 2 Smoking cigarettes per day: 40.0 Years smoked: 50 Smoking pack-years: 100.00 Smoking status: Former smoker Tobacco type: cigarettes Alcohol intake: never Alcohol use details: Heavier drinker in the past. Substance use: never Lack of Transportation: YES Lack of Food: Never True Current Housing: I Have Housing Concerned About Future Housing: No Difficulty Paying Gas/Electric Bills: No Difficulty Paying for Meds: No Currently Unemployed: No Education: Trade/Vocational Certificate Difficulty w/ Childcare or Family Care: No Living arrangements: alone Occupation/Education: retired Spiritual care concerns: No <Monica Linares MD - Last Filed: 05/04/25 07:53> Exam Narrative: GENERAL: well-nourished, and in no acute distress. Multiple small fruit flies are noted on/around patient HEAD: Normocephalic, atraumatic. EYES: Non injected, non icteric ENT: Nares clear, no rhinorrhea or epistaxis. Gross auditory acuity intact. NECK: Supple. No meningismus. CHEST: Speaking in full sentences. Mildly tachypneic but No respiratory distress. O2 at 6LPM. No appreciable wheezes, crackles, or areas of consolidation. HEART: Irregularly irregular rate and rhythm. . ABDOMEN: Distended but soft. Not peritoneal. : Normal external genitalia. EXTREMITIES: Normal range of motion. 2+ bilateral lower extremity edema. SKIN: Warm, dry. Area of well healing ecchymosis near R hip. Stage 2 wound at R buttock. NEURO: No focal deficits. Alert and oriented to self and location and much of health history. Knows it is April, thinks it is the (close, but past midnight), though can not come up with the year. Knows the president - I hesitate to even say it....Ezio Mckeon. Answering questions. Following commands. Normal speech without aphasia or dysarthria. PSYCH: Congruent mood and affect. <Monica Linares MD - Last Filed: 05/04/25 07:53> Course Vital Signs Vital signs: Vital Signs Temperature 98.1 F 05/04/25 01:55 Pulse Rate 113 H 05/04/25 01:55 Respiratory Rate 24 H 05/04/25 01:55 Blood Pressure 110/55 L 05/04/25 01:55 Pulse Oximetry 98 05/04/25 01:55 Oxygen Delivery Nasal Cannula 05/04/25 01:55 Oxygen Flow Rate 6 05/04/25 01:55 Temperature 98.1 F 05/04/25 01:55 Pulse Rate 90 05/04/25 09:01 Respiratory Rate 17 05/04/25 09:01 Blood Pressure 95/53 L 05/04/25 09:00 Pulse Oximetry 100 05/04/25 09:01 Oxygen Delivery Nasal Cannula 05/04/25 03:58 Oxygen Flow Rate 6 05/04/25 03:58 <Monica Linares MD - Last Filed: 05/04/25 07:53> Vital Signs Temperature 98.1 F 05/04/25 01:55 Pulse Rate 113 H 05/04/25 01:55 Respiratory Rate 24 H 05/04/25 01:55 Blood Pressure 110/55 L 05/04/25 01:55 Pulse Oximetry 98 05/04/25 01:55 Oxygen Delivery Nasal Cannula 05/04/25 01:55 Oxygen Flow Rate 6 05/04/25 01:55 Temperature 98.1 F 05/04/25 01:55 Pulse Rate 90 05/04/25 09:01 Respiratory Rate 17 05/04/25 09:01 Blood Pressure 95/53 L 05/04/25 09:00 Pulse Oximetry 100 05/04/25 09:01 Oxygen Delivery Nasal Cannula 05/04/25 03:58 Oxygen Flow Rate 6 05/04/25 03:58 <Brandon Schultz Langford III, DO - Last Filed: 05/04/25 09:17> MDM - SOB/Dyspnea MDM Narrative Medical decision making narrative: Patient presents with report of shortness of breath which is why EMS had been called. He has history of COPD heart failure as atrial fibrillation. On anticoagulation as well as 4 L nasal cannula chronically. Having some lower extremity edema and cough productive of sputum. Unknown if still on furosemide. Alert and oriented including to month and nearly the date but not the year. Can answer other health history questions including his safety admin assistant. States he hasn't been able to urinate. Unable to do so with bedside urinal during entire history and physical exam. In the emergency department he is afebrile with vital signs notable for tachycardia/elevated heart rate, tachypnea. Blood pressure is he diastolic, mean arterial pressure 73mmHg. He is saturating appropriately though on 6 L nasal cannula. Patient flagging initially for SIRS criteria based on heart rate and respiratory rate. For this reason, lactic acid and blood cultures as well as CRP are ordered. Patient has a history of heart failure and has 2+ bilateral lower extremity edema and thus will initially defer full 30 cc/kg fluid bolus. POINT OF CARE ULTRASOUND PROCEDURE Performed by myself at bedside 02:20am Lung - does not demonstrate significant B lines Will start with 500 cc fluid bolus and administer vancomycin, ceftriaxone and azithromycin given most likely etiology respiratory based on symptoms as per SEPSIS PROTOCOL. Discussed with on-call pharmacist, they will dose vancomycin. Notified by the nurse that patient has 1400cc urine in bladder after he has attempted multiple times to pee. Order for urinary catheter to be placed. Mann is placed and 2175 is the output. Patient has a history of CHF. He has a possible pleural effusion on the right based on the chest x-ray and his BNP is elevated > 6000. However, he does have sepsis. Lactic acid >4. Will give an additional 500cc and continue to reassess (30cc/kg would be 2840) with judicious use of fluids. He is having pain. 25 mcg of fentanyl are ordered given this has less hemodynamic affect. Patient has a significant acute kidney injury, likely due to obstruction. He has a normocytic anemia and thrombocytopenia. Both appear relatively stable compared to previous. Considered TTP given this in addition to his difficulty urinating/acute renal failure and questionable affect/altered mentation although afebrile and patient certainly has other etiologies for symptoms (and not profoundly thrombocytopenic). He has an anion gap but not frankly acidotic and not significantly hyperglycemic. Calcium corrects to normal given his albumin. CRP elevated. Dimer >1. CT PE ordered with abd and pelvis. Patient is more hypotensive after fentanyl. Additional fluids (now total 1500) ordered. Patient signed out to oncoming ED physician pending CT imaging. === Critical Care: 1 or more vital organ systems impaired with a high probability of imminent or life-threatening deterioration in the patient's condition requiring frequent personal assessment and manipulation of the patient's condition. This included time spent evaluating the patient, speaking with EMS pre-hospital personnel and family, reviewing/interpreting laboratory/imaging studies, discussing the case with consultants or admitting teams, retrieving data and reviewing charts, monitoring for decompensation, documenting the visit, and performing bundled procedures exclusive of separately billed procedures. <Monica Linares MD - Last Filed: 05/04/25 07:53> Patient presents with report of shortness of breath which is why EMS had been called. He has history of COPD heart failure as atrial fibrillation. On anticoagulation as well as 4 L nasal cannula chronically. Having some lower extremity edema and cough productive of sputum. Unknown if still on furosemide. Alert and oriented including to month and nearly the date but not the year. Can answer other health history questions including his safety admin assistant. States he hasn't been able to urinate. Unable to do so with bedside urinal during entire history and physical exam. In the emergency department he is afebrile with vital signs notable for tachycardia/elevated heart rate, tachypnea. Blood pressure is he diastolic, mean arterial pressure 73mmHg. He is saturating appropriately though on 6 L nasal cannula. Patient flagging initially for SIRS criteria based on heart rate and respiratory rate. For this reason, lactic acid and blood cultures as well as CRP are ordered. Patient has a history of heart failure and has 2+ bilateral lower extremity edema and thus will initially defer full 30 cc/kg fluid bolus. POINT OF CARE ULTRASOUND PROCEDURE Performed by myself at bedside 02:20am Lung - does not demonstrate significant B lines Will start with 500 cc fluid bolus and administer vancomycin, ceftriaxone and azithromycin given most likely etiology respiratory based on symptoms as per SEPSIS PROTOCOL. Discussed with on-call pharmacist, they will dose vancomycin. Notified by the nurse that patient has 1400cc urine in bladder after he has attempted multiple times to pee. Order for urinary catheter to be placed. Mann is placed and 2175 is the output. Patient has a history of CHF. He has a possible pleural effusion on the right based on the chest x-ray and his BNP is elevated > 6000. However, he does have sepsis. Lactic acid >4. Will give an additional 500cc and continue to reassess (30cc/kg would be 2840) with judicious use of fluids. He is having pain. 25 mcg of fentanyl are ordered given this has less hemodynamic affect. Patient has a significant acute kidney injury, likely due to obstruction. He has a normocytic anemia and thrombocytopenia. Both appear relatively stable compared to previous. Considered TTP given this in addition to his difficulty urinating/acute renal failure and questionable affect/altered mentation although afebrile and patient certainly has other etiologies for symptoms (and not profoundly thrombocytopenic). He has an anion gap but not frankly acidotic and not significantly hyperglycemic. Calcium corrects to normal given his albumin. CRP elevated. Dimer >1. CT PE ordered with abd and pelvis. Patient is more hypotensive after fentanyl. Additional fluids (now total 1500) ordered. Patient signed out to oncoming ED physician pending CT imaging. Langford - assumed care at 0700 awaiting CTA chest results. CTA showed probable multifocal pneumonia. Pt on antibiotics. Dr Marin aware of pt and writing orders. admit to IMU. === Critical Care: 1 or more vital organ systems impaired with a high probability of imminent or life-threatening deterioration in the patient's condition requiring frequent personal assessment and manipulation of the patient's condition. This included time spent evaluating the patient, speaking with EMS pre-hospital personnel and family, reviewing/interpreting laboratory/imaging studies, discussing the case with consultants or admitting teams, retrieving data and reviewing charts, monitoring for decompensation, documenting the visit, and performing bundled procedures exclusive of separately billed procedures. <Brandon Langford III, DO - Last Filed: 05/04/25 09:17> Differential Diagnosis Differential diagnosis: Likely acute exacerbation of chronic obstructive airways disease, congestive heart failure, community acquired pneumonia, pulmonary embolism and other (TTP; SAH/intracranial hemorrhage; intraabdominal abscess; urinary retention due to outlet obstruction; thyroid dysfunction; ) <Monica Linares MD - Last Filed: 05/04/25 07:53> Lab Data Attestation: I reviewed the patient's lab results. <Monica Linares MD - Last Filed: 05/04/25 07:53> Result diagrams: 05/04/25 02:17 05/04/25 02:17 <Monica Linares MD - Last Filed: 05/04/25 07:53> Labs: Lab Results 05/04/25 05/04/25 05/04/25 Range/Units 02:17 02:17 02:43 WBC 7.2 (4.5-10.0) K/mm3 RBC 2.55 L (4.6-6.20) M/mm3 Hgb 8.1 L (14.0-18.0) g/dL Hct 26.6 L (42.0-52.0) % MCV 104.3 H (80-100) fl MCH 31.8 (26-34) pg MCHC 30.5 L (32-36) g/dl RDW 17.2 H (11.5-14.5) % Plt Count 115 L (150-375) k/mm3 MPV TNP Immature Gran % (Auto) 0.4 (0-0.5) % Neut % (Auto) 73.6 H (45.5-73.1) % Lymph % (Auto) 18.2 L (18.3-44.2) % [place] % (Auto) 7.5 (2.6-8.5) % Eos % (Auto) 0.0 (0-4.4) % Baso % (Auto) 0.3 (0.2-1.2) % Lymph # (Auto) 1.32 (0.9-3.2) K/mm3 [place] # (Auto) 0.5 (0.1-0.6) K/mm3 Eos # (Auto) 0.0 (0-0.3) K/mm3 Baso # (Auto) 0.0 (0.0-0.1) K/mm3 Abs Immat Gran (auto) 0.03 (0.00-0.031) K/mm3 Absolute Neuts (auto) 5.3 (1.3-6.7) K/mm3 Absolute Nucleated RBC 0.000 (0.0-0.012) K/mm3 Band Neutrophils % Not Reportable Nucleated RBC % 0.0 (0.0-0.2) % Platelet Estimate Decreased (Adequate) Clumped Platelets Present Large Platelets Present % Immature Plt Fraction 13.2 H (0.9-11.2) % Hypochromasia 1+ Poikilocytosis 1+ Anisocytosis 1+ Ovalocytes 1+ Crenated Cell 1+ Acanthocytes (Spur) 1+ Schistocytes None seen PT 20.8 H (11.1-14.7) Seconds INR 1.8 APTT 73.6 H (22.3-36.8) Seconds D-Dimer Cancelled 2.61 H [id number] Activity [id number] Activity Intrp Sodium 137 (137-145) mmol/L Potassium 3.9 (3.4-5.0) mmol/L Chloride 100 (98-107) mmol/L Carbon Dioxide 23 (22-30) mmol/L Anion Gap 14 H (4-12) mmol/L BUN 49 H D (9-20) mg/dL Creatinine 3.08 H (0.7-1.3) mg/dL Estim Creat Clear Calc 24 ml/min Estimated GFR 20 L (59 - ) Glucose 132 H (65-110) mg/dL Lactic Acid 4.2 H* (0.7-2.0) mmol/L Calcium 8.2 L (8.4-10.2) mg/dL Magnesium 2.4 H (1.6-2.3) mg/dL Total Bilirubin 1.4 H (0.2-1.3) mg/dL AST 28 (17-59) U/L ALT 14 (6-50) U/L Alkaline Phosphatase 133 H (38-126) U/L Ammonia (9-30) umol/L Total Creatine Kinase 39 L (55-170) U/L Troponin I 0.019 (0.000-0.034) ng/mL C-Reactive Protein 8.6 H (<1.0) mg/dL NT-Pro-B Natriuret Pep 6520 H (19.9-100) pg/mL Total Protein 8.3 H (6.3-8.2) g/dL Albumin 3.3 L (3.5-5.1) g/dL Lipase 49 (23-300) U/L TSH 1.880 (0.465-4.680) uIU/mL Urine Color (Yellow) Urine Appearance (Clear) Urine pH (5.0-9.0) Ur Specific [place] (1.001-1.035) Urine Protein (Negative) mg/dL Urine Glucose (UA) (Negative) mg/dL Urine Ketones (Negative) mg/dL Ur Blood (Man) (Negative) Urine Nitrate (Negative) Urine Bilirubin (Negative) Urine Urobilinogen (<2.0) mg/dL Leukocyte Esterase Rfl (Negative) CHAYITO/UL Urine RBC (0-2) /hpf Urine WBC (0-3) /hpf Ur Squamous Epith Cells (Few) /hpf Urine Bacteria /hpf Urine Casts Nasal MRSA (PCR) (NOT DETECTE) Urine Opiates Screen (Negative) Urine Methadone Screen (Negative) Ur Barbiturates Screen (Negative) Ur Phencyclidine Scrn (Negative) Ur Amphetamine Screen (Negative) U Benzodiazepines Scrn (Negative) Urine Cocaine Screen (Negative) U Cannabinoids Screen (Negative) Influenza A (RT-PCR) Negative (Negative) Influenza B (RT-PCR) Negative (Negative) RSV (RT-PCR) Negative (Negative) SARS-CoV-2 RNA (RT-PCR) Negative (Negative) 05/04/25 05/04/25 05/04/25 Range/Units 03:43 03:44 05:17 WBC (4.5-10.0) K/mm3 RBC (4.6-6.20) M/mm3 Hgb (14.0-18.0) g/dL Hct (42.0-52.0) % MCV (80-100) fl MCH (26-34) pg MCHC (32-36) g/dl RDW (11.5-14.5) % Plt Count (150-375) k/mm3 MPV Immature Gran % (Auto) (0-0.5) % Neut % (Auto) (45.5-73.1) % Lymph % (Auto) (18.3-44.2) % [place] % (Auto) (2.6-8.5) % Eos % (Auto) (0-4.4) % Baso % (Auto) (0.2-1.2) % Lymph # (Auto) (0.9-3.2) K/mm3 [place] # (Auto) (0.1-0.6) K/mm3 Eos # (Auto) (0-0.3) K/mm3 Baso # (Auto) (0.0-0.1) K/mm3 Abs Immat Gran (auto) (0.00-0.031) K/mm3 Absolute Neuts (auto) (1.3-6.7) K/mm3 Absolute Nucleated RBC (0.0-0.012) K/mm3 Band Neutrophils % Nucleated RBC % (0.0-0.2) % Platelet Estimate (Adequate) Clumped Platelets Large Platelets % Immature Plt Fraction (0.9-11.2) % Hypochromasia Poikilocytosis Anisocytosis Ovalocytes Crenated Cell Acanthocytes (Spur) Schistocytes PT (11.1-14.7) Seconds INR APTT (22.3-36.8) Seconds D-Dimer [id number] Activity Pending [id number] Activity Intrp Pending Sodium (137-145) mmol/L Potassium (3.4-5.0) mmol/L Chloride (98-107) mmol/L Carbon Dioxide (22-30) mmol/L Anion Gap (4-12) mmol/L BUN (9-20) mg/dL Creatinine (0.7-1.3) mg/dL Estim Creat Clear Calc ml/min Estimated GFR (59 - ) Glucose (65-110) mg/dL Lactic Acid (0.7-2.0) mmol/L Calcium (8.4-10.2) mg/dL Magnesium (1.6-2.3) mg/dL Total Bilirubin (0.2-1.3) mg/dL AST (17-59) U/L ALT (6-50) U/L Alkaline Phosphatase (38-126) U/L Ammonia < 9 L (9-30) umol/L Total Creatine Kinase (55-170) U/L Troponin I (0.000-0.034) ng/mL C-Reactive Protein (<1.0) mg/dL NT-Pro-B Natriuret Pep (19.9-100) pg/mL Total Protein (6.3-8.2) g/dL Albumin (3.5-5.1) g/dL Lipase (23-300) U/L TSH (0.465-4.680) uIU/mL Urine Color Dark yellow (Yellow) Urine Appearance Clear (Clear) Urine pH 5.0 (5.0-9.0) Ur Specific [place] 1.016 (1.001-1.035) Urine Protein Trace (Negative) mg/dL Urine Glucose (UA) 2+ H (Negative) mg/dL Urine Ketones Negative (Negative) mg/dL Ur Blood (Man) Trace (Negative) Urine Nitrate Negative (Negative) Urine Bilirubin Negative (Negative) Urine Urobilinogen 1.0 (<2.0) mg/dL Leukocyte Esterase Rfl 1+ H (Negative) CHAYITO/UL Urine RBC 3-5 H (0-2) /hpf Urine WBC 6-10 H (0-3) /hpf Ur Squamous Epith Cells None seen (Few) /hpf Urine Bacteria None seen /hpf Urine Casts 3-5 Nasal MRSA (PCR) Not detected (NOT DETECTE) Urine Opiates Screen Positive A (Negative) Urine Methadone Screen Negative (Negative) Ur Barbiturates Screen Negative (Negative) Ur Phencyclidine Scrn Negative (Negative) Ur Amphetamine Screen Negative (Negative) U Benzodiazepines Scrn Negative (Negative) Urine Cocaine Screen Negative (Negative) U Cannabinoids Screen Positive A (Negative) Influenza A (RT-PCR) (Negative) Influenza B (RT-PCR) (Negative) RSV (RT-PCR) (Negative) SARS-CoV-2 RNA (RT-PCR) (Negative) <Monica Linares MD - Last Filed: 05/04/25 07:53> Lab Results 05/04/25 05/04/25 05/04/25 Range/Units 02:17 02:17 02:43 WBC 7.2 (4.5-10.0) K/mm3 RBC 2.55 L (4.6-6.20) M/mm3 Hgb 8.1 L (14.0-18.0) g/dL Hct 26.6 L (42.0-52.0) % MCV 104.3 H (80-100) fl MCH 31.8 (26-34) pg MCHC 30.5 L (32-36) g/dl RDW 17.2 H (11.5-14.5) % Plt Count 115 L (150-375) k/mm3 MPV TNP Immature Gran % (Auto) 0.4 (0-0.5) % Neut % (Auto) 73.6 H (45.5-73.1) % Lymph % (Auto) 18.2 L (18.3-44.2) % [place] % (Auto) 7.5 (2.6-8.5) % Eos % (Auto) 0.0 (0-4.4) % Baso % (Auto) 0.3 (0.2-1.2) % Lymph # (Auto) 1.32 (0.9-3.2) K/mm3 [place] # (Auto) 0.5 (0.1-0.6) K/mm3 Eos # (Auto) 0.0 (0-0.3) K/mm3 Baso # (Auto) 0.0 (0.0-0.1) K/mm3 Abs Immat Gran (auto) 0.03 (0.00-0.031) K/mm3 Absolute Neuts (auto) 5.3 (1.3-6.7) K/mm3 Absolute Nucleated RBC 0.000 (0.0-0.012) K/mm3 Band Neutrophils % Not Reportable Nucleated RBC % 0.0 (0.0-0.2) % Platelet Estimate Decreased (Adequate) Clumped Platelets Present Large Platelets Present % Immature Plt Fraction 13.2 H (0.9-11.2) % Hypochromasia 1+ Poikilocytosis 1+ Anisocytosis 1+ Ovalocytes 1+ Crenated Cell 1+ Acanthocytes (Spur) 1+ Schistocytes None seen PT 20.8 H (11.1-14.7) Seconds INR 1.8 APTT 73.6 H (22.3-36.8) Seconds D-Dimer Cancelled 2.61 H [id number] Activity [id number] Activity Intrp Sodium 137 (137-145) mmol/L Potassium 3.9 (3.4-5.0) mmol/L Chloride 100 (98-107) mmol/L Carbon Dioxide 23 (22-30) mmol/L Anion Gap 14 H (4-12) mmol/L BUN 49 H D (9-20) mg/dL Creatinine 3.08 H (0.7-1.3) mg/dL Estim Creat Clear Calc 24 ml/min Estimated GFR 20 L (59 - ) Glucose 132 H (65-110) mg/dL Lactic Acid 4.2 H* (0.7-2.0) mmol/L Calcium 8.2 L (8.4-10.2) mg/dL Magnesium 2.4 H (1.6-2.3) mg/dL Total Bilirubin 1.4 H (0.2-1.3) mg/dL AST 28 (17-59) U/L ALT 14 (6-50) U/L Alkaline Phosphatase 133 H (38-126) U/L Ammonia (9-30) umol/L Total Creatine Kinase 39 L (55-170) U/L Troponin I 0.019 (0.000-0.034) ng/mL C-Reactive Protein 8.6 H (<1.0) mg/dL NT-Pro-B Natriuret Pep 6520 H (19.9-100) pg/mL Total Protein 8.3 H (6.3-8.2) g/dL Albumin 3.3 L (3.5-5.1) g/dL Lipase 49 (23-300) U/L TSH 1.880 (0.465-4.680) uIU/mL Urine Color (Yellow) Urine Appearance (Clear) Urine pH (5.0-9.0) Ur Specific [place] (1.001-1.035) Urine Protein (Negative) mg/dL Urine Glucose (UA) (Negative) mg/dL Urine Ketones (Negative) mg/dL Ur Blood (Man) (Negative) Urine Nitrate (Negative) Urine Bilirubin (Negative) Urine Urobilinogen (<2.0) mg/dL Leukocyte Esterase Rfl (Negative) CHAYITO/UL Urine RBC (0-2) /hpf Urine WBC (0-3) /hpf Ur Squamous Epith Cells (Few) /hpf Urine Bacteria /hpf Urine Casts Nasal MRSA (PCR) (NOT DETECTE) Urine Opiates Screen (Negative) Urine Methadone Screen (Negative) Ur Barbiturates Screen (Negative) Ur Phencyclidine Scrn (Negative) Ur Amphetamine Screen (Negative) U Benzodiazepines Scrn (Negative) Urine Cocaine Screen (Negative) U Cannabinoids Screen (Negative) Influenza A (RT-PCR) Negative (Negative) Influenza B (RT-PCR) Negative (Negative) RSV (RT-PCR) Negative (Negative) SARS-CoV-2 RNA (RT-PCR) Negative (Negative) 05/04/25 05/04/25 05/04/25 Range/Units 03:43 03:44 05:17 WBC (4.5-10.0) K/mm3 RBC (4.6-6.20) M/mm3 Hgb (14.0-18.0) g/dL Hct (42.0-52.0) % MCV (80-100) fl MCH (26-34) pg MCHC (32-36) g/dl RDW (11.5-14.5) % Plt Count (150-375) k/mm3 MPV Immature Gran % (Auto) (0-0.5) % Neut % (Auto) (45.5-73.1) % Lymph % (Auto) (18.3-44.2) % [place] % (Auto) (2.6-8.5) % Eos % (Auto) (0-4.4) % Baso % (Auto) (0.2-1.2) % Lymph # (Auto) (0.9-3.2) K/mm3 [place] # (Auto) (0.1-0.6) K/mm3 Eos # (Auto) (0-0.3) K/mm3 Baso # (Auto) (0.0-0.1) K/mm3 Abs Immat Gran (auto) (0.00-0.031) K/mm3 Absolute Neuts (auto) (1.3-6.7) K/mm3 Absolute Nucleated RBC (0.0-0.012) K/mm3 Band Neutrophils % Nucleated RBC % (0.0-0.2) % Platelet Estimate (Adequate) Clumped Platelets Large Platelets % Immature Plt Fraction (0.9-11.2) % Hypochromasia Poikilocytosis Anisocytosis Ovalocytes Crenated Cell Acanthocytes (Spur) Schistocytes PT (11.1-14.7) Seconds INR APTT (22.3-36.8) Seconds D-Dimer [id number] Activity Pending [id number] Activity Intrp Pending Sodium (137-145) mmol/L Potassium (3.4-5.0) mmol/L Chloride (98-107) mmol/L Carbon Dioxide (22-30) mmol/L Anion Gap (4-12) mmol/L BUN (9-20) mg/dL Creatinine (0.7-1.3) mg/dL Estim Creat Clear Calc ml/min Estimated GFR (59 - ) Glucose (65-110) mg/dL Lactic Acid (0.7-2.0) mmol/L Calcium (8.4-10.2) mg/dL Magnesium (1.6-2.3) mg/dL Total Bilirubin (0.2-1.3) mg/dL AST (17-59) U/L ALT (6-50) U/L Alkaline Phosphatase (38-126) U/L Ammonia < 9 L (9-30) umol/L Total Creatine Kinase (55-170) U/L Troponin I (0.000-0.034) ng/mL C-Reactive Protein (<1.0) mg/dL NT-Pro-B Natriuret Pep (19.9-100) pg/mL Total Protein (6.3-8.2) g/dL Albumin (3.5-5.1) g/dL Lipase (23-300) U/L TSH (0.465-4.680) uIU/mL Urine Color Dark yellow (Yellow) Urine Appearance Clear (Clear) Urine pH 5.0 (5.0-9.0) Ur Specific [place] 1.016 (1.001-1.035) Urine Protein Trace (Negative) mg/dL Urine Glucose (UA) 2+ H (Negative) mg/dL Urine Ketones Negative (Negative) mg/dL Ur Blood (Man) Trace (Negative) Urine Nitrate Negative (Negative) Urine Bilirubin Negative (Negative) Urine Urobilinogen 1.0 (<2.0) mg/dL Leukocyte Esterase Rfl 1+ H (Negative) [place]AY[place]O/UL Urine RBC 3-5 H (0-2) /hpf Urine WBC 6-10 H (0-3) /hpf Ur Squamous Epith Cells None seen (Few) /hpf Urine Bacteria None seen /hpf Urine Casts 3-5 Nasal MRSA (PCR) Not detected (NOT DETECTE) Urine Opiates Screen Positive A (Negative) Urine Methadone Screen Negative (Negative) Ur Barbiturates Screen Negative (Negative) Ur Phencyclidine Scrn Negative (Negative) Ur Amphetamine Screen Negative (Negative) U Benzodiazepines Scrn Negative (Negative) Urine Cocaine Screen Negative (Negative) U Cannabinoids Screen Positive A (Negative) Influenza A (RT-PCR) (Negative) Influenza B (RT-PCR) (Negative) RSV (RT-PCR) (Negative) SARS-CoV-2 RNA (RT-PCR) (Negative) <Brandon Langford III, DO - Last Filed: 05/04/25 09:17> ABG Data ABG results: 05/04/25 02:49 Puncture Site Right radial ABG pH 7.440 ABG pCO2 33.2 L ABG pO2 61.5 L ABG PO2/FiO2 Ratio 1.28 ABG HCO3 22.0 ABG O2 Saturation 92.7 L ABG O2 Content 11.0 L ABG Base Excess -1.7 A-a Gradient 243.2 Oxyhemoglobin 88.0 L Total Hemoglobin 8.8 L O2 Delivery Device Nasal cannula O2 Liters/Min 6.0 FiO2 48 <Monica Linares MD - Last Filed: 05/04/25 07:53> 05/04/25 02:49 Puncture Site Right radial ABG pH 7.440 ABG pCO2 33.2 L ABG pO2 61.5 L ABG PO2/FiO2 Ratio 1.28 ABG HCO3 22.0 ABG O2 Saturation 92.7 L ABG O2 Content 11.0 L ABG Base Excess -1.7 A-a Gradient 243.2 Oxyhemoglobin 88.0 L Total Hemoglobin 8.8 L O2 Delivery Device Nasal cannula O2 Liters/Min 6.0 FiO2 48 <Brandon Langford III, DO - Last Filed: 05/04/25 09:17> Attestation: I personally reviewed and interpreted this ABG as follows: <Monica Linares MD - Last Filed: 05/04/25 07:53> Interpretation: Patient is not hypercarbic <Monica Linares MD - Last Filed: 05/04/25 07:53> Imaging Data Attestation: I personally reviewed and interpreted this imaging study as follows: <Monica Linares MD - Last Filed: 05/04/25 07:53> My impression: Right-sided haziness versus infiltrate on my independent interpretation of chest x-ray however patient does appear rotated . Patient has loss of costophrenic angle on the right <Monica Linares MD - Last Filed: 05/04/25 07:53> ECG Data EKG #1: Attestation: I personally reviewed and interpreted this ECG as follows: <Monica Linares MD - Last Filed: 05/04/25 07:53> ECG completion date: 05/04/25 <Monica Linares MD - Last Filed: 05/04/25 07:53> ECG completion time: 02:08 <Monica Linares MD - Last Filed: 05/04/25 07:53> Interpretation: Irregularly irregular rhythm without P-waves consistent with atrial fibrillation. There are aberrant beats/PVCs though not in a distinct pattern. Rate is generally controlled at 103 beats per minute. QRS 120. QT/QTC 339/399. Good R-wave progression across the precordial leads. No T-wave inversion. Left axis deviation (QRS is positive with dominant R wave in Lead I; QRS is negative with dominant S wave in leads II, III, and aVF). Intraventricular conduction delay. <Monica Linares MD - Last Filed: 05/04/25 07:53> Critical Care Time Critical Care Time Critical Care Time: Yes <Monica Linares MD - Last Filed: 05/04/25 07:53> Total Critical Care Time: 45 <Monica Linares MD - Last Filed: 05/04/25 07:53> Discharge Plan Discharge Clinical Impression: Sepsis, Acute on chronic heart failure, Lactic acidosis, Acute urinary retention, Normocytic anemia, Thrombocytopenia, Acute kidney injury, Shortness of breath, CRP elevated, Marijuana use <Monica Linares MD - Last Filed: 05/04/25 07:53> Patient Disposition: Still a Patient <Monica Linares MD - Last Filed: 05/04/25 07:53> Condition: Serious <Monica Linares MD - Last Filed: 05/04/25 07:53> Patient Language: Sudanese <Monica Linares MD - Last Filed: 05/04/25 07:53> Prescriptions: No Action furosemide [Lasix] 40 mg tablet 40 mg PO BID hydrocodone-acetaminophen 10-325 mg tablet 1 tablet PO Q4H PRN (Reason: pain) Qty: 10 0RF atorvastatin [Lipitor] 40 mg Tablet 80 mg PO DAILY allopurinol [Zyloprim] 100 mg Tablet 200 mg PO DAILY ipratropium-albuterol 20-100 mcg/actuation Mist 1 puff INHALATION DAILY PRN (Reason: Shortness Of Breath) Eliquis 5 mg Tablet 5 mg PO BID duloxetine 30 mg Capsule, Delayed Rel Sprinkle 30 mg PO DAILY mometasone-formoterol 100-5 mcg/actuation Hfa Aerosol Inhaler 2 puff INHALATION Q12H sacubitril-valsartan 24-26 mg Tablet 1 tablet PO Q12H acetaminophen 500 mg Tablet 1,000 mg PO Q6H PRN (Reason: pain) carvedilol 25 mg Tablet 25 mg PO Q12H Rx Instructions: must administer with a meal/food midodrine 5 mg Tablet 2.5 mg PO TID Qty: 30 0RF potassium chloride [K-Tab] 20 mEq Tablet Extended Release 20 meq PO DAILY Qty: 30 0RF metformin 500 mg Tablet 500 mg PO DAILY Qty: 30 0RF <Monica Linares MD - Last Filed: 05/04/25 07:53> Follow-up/Referrals: Price,Iron Fiore MD [Primary Care Provider] - <Monica Linares MD - Last Filed: 05/04/25 07:53>
--- NOTE | 2025-05-04 02:11 | ECG_ITS ---
Test Date: 2025-05-04 02:08:25 Measurements Intervals [place] Rate: 103 P: 0 NM: 0 QRS: -36 QRSD: 120 T: 123 QT: 339 QTc: 446 Interpretive Statements ATRIAL FIBRILLATION WITH RAPID VENTRICULAR RESPONSE WITH FREQUENT VENTRICULAR PREMATURE COMPLEXES LEFT AXIS DEVIATION LEFT BUNDLE BRANCH BLOCK BASELINE ARTIFACT ABNORMAL ECG No previous ECG available for comparison Electronically Signed On 05-04-2025 06:23:56 CDT by Zeke Travis D.O.
[2025-05-04] MEDS: IPRATROPIUM 0.5 MG/ALBUTEROL SULFATE 2.5 MG AMPUL.NEB 3 ML INHALATION ×2 (02:45→08:51)
[2025-05-04 02:49] LABS: Alveolar/Arterial O2 Gradient 243.2 mmHg; Fractional Inspired Oxygen 48 %; HCO3 ABG 22.0 mEq/l (22.0-26.0); Oxygen Content ABG 11.0 %vol (16.0-22.0); Oxygen Saturation ABG 92.7 % (95.0-100.0); PCO2 ABG 33.2 mmHg (35.0-45.0); PO2 ABG 61.5 mmHg (80.0-100.0); PO2 FiO2 Ratio Arterial Blood 1.28 %
[2025-05-04 02:54] LABS: Liters per Minute 6.0 LPM; Modified Allen's Test Pass; Site Drawn RIGHT RADIAL
[2025-05-04 02:54] LABS: Hematocrit 26.6 % (42.0-52.0); Hemoglobin 8.1 g/dL (14.0-18.0); Immature Granulocyte Percent A 0.4 % (0-0.5); Immature Platelet Fraction Pct 13.2 % (0.9-11.2); Lymphocytes Absolute Auto 1.32 K/mm3 (0.9-3.2); Mean Corpuscular HGB Conc 30.5 g/dl (32-36); Mean Corpuscular Hemoglobin 31.8 pg (26-34); Mean Corpuscular Volume 104.3 fl (80-100); Nucleated Red Blood Cells Absolute Auto 0.000 K/mm3 (0.0-0.012); Nucleated Red Blood Cells Perc 0.0 % (0.0-0.2); Platelet Count Result 115 k/mm3 (150-375); Red Blood Count 2.55 M/mm3 (4.6-6.20); White Blood Count 7.2 K/mm3 (4.5-10.0)
[2025-05-04 03:00] LABS: Alanine Aminotransferase 14 U/L (6-50); Albumin Level 3.3 g/dL (3.5-5.1); Alkaline Phosphatase 133 U/L (38-126); Anion Gap 14 mmol/L (4-12); Aspartate Amino Transferase 28 U/L (17-59); Bilirubin,Total 1.4 mg/dL (0.2-1.3); Blood Urea Nitrogen 49 mg/dL (9-20); Calcium 8.2 mg/dL (8.4-10.2); Carbon Dioxide 23 mmol/L (22-30); Chloride 100 mmol/L (98-107); Estimated CRCL calculation 24 ml/min; Estimated Glomerular Filt Rate 20; Glucose 132 mg/dL (65-110); Potassium 3.9 mmol/L (3.4-5.0); Sodium 137 mmol/L (137-145); Total Protein 8.3 g/dL (6.3-8.2)
[2025-05-04 03:18] LABS: Anisocytosis 1+; Hypochromasia 1+; Poikilocytosis 1+
[2025-05-04 03:19] LABS: Ovalocytes 1+
[2025-05-04 03:20] LABS: Acanthocytes 1+; Crenated RBC 1+; Schistocytes None Seen
[2025-05-04] MEDS: SODIUM CHLORIDE 0.9% IV 500 ML 999 ML IV CONT ×3 (03:34→06:14)
[2025-05-04 03:43] LABS: Influenza A QL RT-PCR Negative (Negative); Influenza B QL RT-PCR Negative (Negative); RSV RNA, RT-PCR Negative (Negative); SARS-CoV-2 RNA PCR Negative (Negative)
--- NOTE | 2025-05-04 03:51 | PC.NURSE ---
Pt states he has not voided for about a week, abdomen distended. PRV- 2175mL
[2025-05-04 03:57] LABS: Lipase 49 U/L (23-300)
[2025-05-04 03:58] LABS: Add Urine Microscopic? YES; Appearance Urine Clear (Clear); Glucose Urine UA 2+ mg/dL (Negative); Leukocyte Esterase Ur 1+ LEU/UL (Negative); Nitrate Urine Negative (Negative); Specific Grav Ur 1.016 (1.001-1.035)
[2025-05-04 04:06] LABS: NT Pro B Type Natriuretic Pept 6520 pg/mL (19.9-100); Troponin I 0.019 ng/mL (0.000-0.034)
[2025-05-04 04:09] LABS: CRP 8.6 mg/dL (<1.0)
[2025-05-04 04:15] LABS: INR 1.8; Prothrombin Time 20.8 Seconds (11.1-14.7)
[2025-05-04 04:17] LABS: Partial Thromboplastin Time 73.6 Seconds (22.3-36.8)
[2025-05-04] MEDS: AZITHROMYCIN 500 MG/NS 250 ML 500 MG/250 ML BAG 250 MG IVPB ×2 (04:46→20:43)
[2025-05-04] MEDS: fentaNYL CITRATE INJ (*CRX) 100 MCG/2 ML VIAL 25 MCG IV PUSH (04:48)
[2025-05-04 05:00] LABS: Creatine Kinase 39 U/L (55-170); Magnesium 2.4 mg/dL (1.6-2.3)
[2025-05-04 05:32] LABS: Thyroid Stimulating Hormone 1.880 uIU/mL (0.465-4.680)
[2025-05-04 05:34] LABS: Cannabinoid Screen Urine Positive (Negative)
[2025-05-04 05:40] LABS: Ammonia < 9 umol/L (9-30)
[2025-05-04] MEDS: VANCOMYCIN 1,250 MG/NS 250 ML 1,250 MG/250 ML BAG 166.67 MG IVPB (05:58)
[2025-05-04] MEDS: ACETAMINOPHEN 500 MG TABLET 1000 MG PO (06:14)
[2025-05-04] MEDS: diazePAM INJ (*CRX) 10 MG/2 ML SYRINGE 2.5 MG IV PUSH (06:22)
[2025-05-04 06:39] LABS: MRSA (PCR) NOT DETECTED (NOT DETECTE)
--- NOTE | 2025-05-04 07:53 | P.HP_ITS ---
H&P: HPI History of Present Illness Date/Time: 05/04/25 07:53 Chief Complaint: General weakness, painful urination, urinary urgency, shortness breath Narrative: 74 years old man with history of hyperlipidemia, COPD, diastolic CHF, hypertension present ED with a chief complaint of general weakness, painful urination, urgency, productive cough pain and shortness Of breath. Patient has history of COPD, in past 4 days, patient has been worsening productive cough and shortness breath. Patient has yellow greenish sputum. And patient has worsening shortness breath today, patient states he has general weakness, and shortness of restricted his movement. patient denies focal weakness, vision change, slurred speech, abnormal sensation. In past week, patient also has poor intake because of poor appetite. Patient denies nausea vomiting diarrhea fever, chills. Last bowel movement about a week ago. Patient also denies chest pain, palpitation. patient living alone and home. Patient ambulated with walker before the condition change Upon arrival to ED, patient has hypotension, 93/62, tachycardia tachypnea, Lab showed anemia hemoglobin 8.1, platelet 115 lower than baseline ABG showed hypoxemic respiratory failure, patient is on 0.44, pCO2 33.2 P O2 61.5 Chemistry showed elevated BUN creatinine ratio 49/3.08, GFR 20, baseline GFR 15, creatinine 1.4 on October 04, 2023 CT head shows no acute intracranial issues CT abdomen pelvis shows multifocal pneumonia, most extensive in the right lower lobe, with lesser involvement in the left lower lobe and right middle lobe. CT showed Urinary bladder is collapsed around a Mann catheter. No pelvic mass seen. No ascites. No definite decubitus ulcer evident. Correlate with physical exam. EKG showed AFib RVR no specific ST T-wave changes frequent PVC ecal impaction/constipation with associated stercoral proctitis. Review of Systems Review of Systems: ROS negative except above PMFSH Past Medical History Medical History Complete small bowel obstruction Heart failure with reduced ejection fraction Followed by Dr. Frank at [place]. Hyperkalemia Thrombocytopenia Bowel obstruction Chronic anticoagulation Chronic atrial fibrillation Lung cancer (02/2021) Status post radiation. Oncologist is at [facility]. Agent orange exposure Type 2 diabetes mellitus Hypertension Chronic obstructive pulmonary disease Obstructive sleep apnea Chronic respiratory failure with hypoxia, on home oxygen therapy ANASTASIA (obstructive sleep apnea) Peripheral neuropathy Gout Surgical History Surgical History History of evacuation of hematoma History of lumbar laminectomy History of lumbar fusion Family History Family History Mother Cerebrovascular accident, Onset Age: 81 Lung cancer Cervical cancer Father Family history of cardiomyopathy, Onset Age: 67 Hypertension Heart attack Social History Social History Social History: The patient is and lives home alone. 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 The patient is a former smoker. He denies any alcohol marijuana or illicit drugs. The patient has 3 children. Surrogate medical decision maker: Gwen Kirk, daughter. Code status: Full code. Smoking packs per day: 2 Smoking cigarettes per day: 40.0 Years smoked: 50 Smoking pack-years: 100.00 Smoking status: Former smoker Tobacco type: cigarettes Alcohol intake: never Alcohol use details: Heavier drinker in the past. Substance use: never Lack of Transportation: YES Lack of Food: Never True Current Housing: I Have Housing Concerned About Future Housing: No Difficulty Paying Gas/Electric Bills: No Difficulty Paying for Meds: No Currently Unemployed: No Education: Trade/Vocational Certificate Difficulty w/ Childcare or Family Care: No Living arrangements: alone Occupation/Education: retired Spiritual care concerns: No Meds Home Medications and Allergies Home Medications ?Medication ?Instructions ?Recorded ?Confirmed ?Type allopurinol 100 mg tablet 200 mg PO DAILY 11/14/20 09/25/22 History (Zyloprim) apixaban 5 mg tablet (Eliquis) 5 mg PO BID 11/14/20 09/25/22 History atorvastatin 40 mg tablet (Lipitor) 80 mg PO DAILY 11/14/20 09/25/22 History duloxetine 30 mg capsule,delayed 30 mg PO DAILY 11/14/20 09/25/22 History release sprinkle ipratropium 20 mcg-albuterol 100 1 puff inhalation DAILY PRN 11/14/20 09/25/22 History mcg/actuation mist for inhalation Shortness Of Breath mometasone-formoterol HFA 100 2 puff inhalation Q12H 08/11/22 09/25/22 History mcg-5 mcg/actuation aerosol inhaler sacubitril 24 mg-valsartan 26 mg 1 tablet PO Q12H 08/11/22 09/25/22 History tablet furosemide 40 mg tablet (Lasix) 40 mg PO BID 09/15/22 09/25/22 History hydrocodone 10 mg-acetaminophen 1 tablet PO Q4H PRN pain #10 tabs 09/19/22 09/25/22 Rx 325 mg tablet carvedilol 25 mg tablet 25 mg PO Q12H 09/25/22 09/25/22 History Allergies Allergy/AdvReac Type Severity Reaction Status Date / Time amlodipine Allergy Unknown Swelling Verified 05/04/25 10:46 gabapentin Allergy Unknown Hallucinating,short Verified 05/04/25 10:46 of breath, PTSD symptoms morphine AdvReac Intermediate Nausea and Verified 05/04/25 10:46 Vomiting Vital Signs Vital Signs - 24 hr 05/04/25 01:55 05/04/25 02:16 05/04/25 02:45 Temperature 98.1 F Pulse Rate 113 H 147 H 106 H Respiratory Rate 24 H 23 H 21 H Blood Pressure 110/55 L 119/76 Pulse Oximetry 98 91 Oxygen Delivery Nasal Cannula Oxygen Flow Rate 6 05/04/25 02:45 05/04/25 03:00 05/04/25 03:15 Temperature Pulse Rate 115 H 98 96 Respiratory Rate 27 H 20 18 Blood Pressure Pulse Oximetry 98 99 Oxygen Delivery Oxygen Flow Rate 05/04/25 03:30 05/04/25 03:45 05/04/25 03:46 Temperature Pulse Rate 99 85 99 Respiratory Rate 23 H 23 H 21 H Blood Pressure 102/66 Pulse Oximetry 100 100 Oxygen Delivery Oxygen Flow Rate 05/04/25 03:58 05/04/25 04:00 05/04/25 04:01 Temperature Pulse Rate 93 92 Respiratory Rate 19 21 H Blood Pressure 91/57 L Pulse Oximetry 96 95 100 Oxygen Delivery Nasal Cannula Oxygen Flow Rate 6 05/04/25 04:18 05/04/25 04:30 05/04/25 04:31 Temperature Pulse Rate 92 93 96 Respiratory Rate 20 18 16 Blood Pressure 92/52 L 105/56 L Pulse Oximetry Oxygen Delivery Oxygen Flow Rate 05/04/25 04:52 05/04/25 04:59 05/04/25 05:01 Temperature Pulse Rate 94 101 H 93 Respiratory Rate 17 20 19 Blood Pressure 108/62 108/73 101/53 L Pulse Oximetry 100 100 Oxygen Delivery Oxygen Flow Rate 05/04/25 05:22 Temperature Pulse Rate 103 H Respiratory Rate 21 H Blood Pressure 93/62 L Pulse Oximetry 99 Oxygen Delivery Oxygen Flow Rate Exam Narrative: GENERAL: Ill-appearing in no acute distress. Well-nourished. - EYES: EOMI. Anicteric. - HENT: Dry mucous membranes. - LUNGS: Clear to auscultation bilateral ly, no wheezing, rhonchi, or rales. - CARDIOVASCULAR: Regular rate and rhyth m. No murmur. No JVD. - ABDOMEN: Soft, non-tender and non-dist ended. No palpable masses. - EXTREMITIES: No edema. Peripheral puls es 2+. Non-tender. - NEUROLOGIC: No focal neurological defi cits. CN II-XII grossly intact. - PSYCHIATRIC: Awake, Alert and not orie nted x 3. Appropriate mood and affect. - SKIN: sacral typical dose ulcer - LYMPH: No cervical lymphadenopathy. H&P: Results Labs Labs: Short CBC 05/04/25 Range/Units 02:17 WBC 7.2 (4.5-10.0) K/mm3 Hgb 8.1 L (14.0-18.0) g/dL Hct 26.6 L (42.0-52.0) % Plt Count 115 L (150-375) k/mm3 BMP 05/04/25 02:17 Sodium 137 Potassium 3.9 Chloride 100 Carbon Dioxide 23 BUN 49 H D Creatinine 3.08 H Glucose 132 H Calcium 8.2 L Cardiac Enzymes 05/04/25 Range/Units 02:17 Total Creatine Kinase 39 L (55-170) U/L Troponin I 0.019 (0.000-0.034) ng/mL Liver Function 05/04/25 Range/Units 02:17 Total Bilirubin 1.4 H (0.2-1.3) mg/dL AST 28 (17-59) U/L ALT 14 (6-50) U/L Alkaline Phosphatase 133 H (38-126) U/L Albumin 3.3 L (3.5-5.1) g/dL Urine 05/04/25 Range/Units 03:44 Urine Color Dark yellow (Yellow) Urine Appearance Clear (Clear) Urine pH 5.0 (5.0-9.0) Ur Specific [place] 1.016 (1.001-1.035) Urine Protein Trace (Negative) mg/dL Urine Glucose (UA) 2+ H (Negative) mg/dL Assessment and Plan Assessment and plan (1) Multifocal pneumonia: Code(s): J18.9 - Pneumonia, unspecified organism Status: Acute (2) Acute hypoxemic respiratory failure due to COVID-19: Code(s): U07.1 - COVID-19; J96.01 - Acute respiratory failure with hypoxia Status: Acute (3) Acute kidney injury superimposed on stage 1 chronic kidney disease: Code(s): N17.9 - Acute kidney failure, unspecified; N18.1 - Chronic kidney disease, stage 1 Status: Acute (4) Hypotension: Code(s): I95.9 - Hypotension, unspecified Status: Acute (5) Heart failure with reduced ejection fraction: Code(s): I50.20 - Unspecified systolic (congestive) heart failure Status: Acute (6) Chronic atrial fibrillation: Code(s): I48.20 - Chronic atrial fibrillation, unspecified Status: Acute (7) Thrombocytopenia: Code(s): D69.6 - Thrombocytopenia, unspecified Status: Acute (8) Type 2 diabetes mellitus: Code(s): E11.9 - Type 2 diabetes mellitus without complications Status: Acute (9) Chronic anemia: Code(s): D64.9 - Anemia, unspecified Status: Acute Plan Multifocal pneumonia, COPD exacerbation, acute hypoxemic resp failure Patient has history of COPD Patient was brought in because of shortness of breath CT chest abdomen showed multifocal pneumonia involving bilateral lungs Possible aspiration Received vancomycin ceftriaxone and azithromycin in the ED, continue vancomycin azithromycin and start cefepime Start O2 therapy to keep pulse ox 94 Continue DuoNeb scheduled, albuterol neb bladder q.4 hours p.r.n. DuoNeb 2 puffs b.i.d. Start methylprednisolone 40 mg q.6 hours IV UTI UA showed Pyuria, microscopic hematuria Pending urine culture Antibiotics see above MAYELA on CKD Acute renal failure, GFR 20, stated age 4, above baseline Possible due to dehydration, UTI Received fluid resuscitation and antibiotics see above CT shows no obstruction or hydronephrosis Follow-up BMP Avoid nephrotoxic medication Fecal impaction Start Senokot S2 tabs Fleet enema once and p.r.n. Chronic anemia and chronic thrombocytopenia Likely resulting from chronic achy knees, CKD Hemoglobin and thrombocytopenia lower than baseline, is aggravated by infection Follow-up stool guaiac, ferritin level, iron panel, reticulocyte Hypotension Possible due to hypovolemic hypotension Received fluid resuscitation ED Continue IV fluid 125 mL/hour Diastolic heart failure Patient has hypertension, worsening kidney function Hold diuretic medication and Entresto Hypertension Hold hypertension medication because of hypotension Chronic AFib Continue Eliquis 5 mg b.i.d. p.o. Hold carvedilol 25 mg b.i.d. p.o. because of hypotension Changed to metoprolol 5 mg q.8 hours IV with parameters If but did not continue to drop or guaiac-positive, hold Eliquis sacral decubitus ulcer consult wound care Patient may stay more than 2 midnights in hospital consult PT OT social services specialist for evaluation and assisting placement. Patient may benefit [facility] after discharge, patient has risk of fall Quality VTE Prophylaxis VTE prophylaxis: pharmacologic ordered Hospitalist [facility] Advance Care Plan I have confirmed that the patient's Advanced Care Plan is present, code status is documented, or surrogate decision maker is listed in patient medical record.: Yes
--- NOTE | 2025-05-04 07:57 | PC.NURSE ---
hydromorphone not given due no pain
[2025-05-04] MEDS: VANCOMYCIN 1,000 MG/NS 250 ML 1,000 MG/250 ML BAG 250 MG IVPB (08:08)
[2025-05-04] MEDS: SODIUM CHLORIDE 0.9% IV 1,000 ML 125 ML IV CONT ×4 (09:44→20:38)
[2025-05-04] MEDS: CEFEPIME 2 GM/NS 50 ML 2 GM/50 ML BAG IVPB ×3 (09:44→22:03)
[2025-05-04 10:02] LABS: Immature Reticulocyte Fraction 21.3 % (3.0-15.9); Reticulocyte Hemoglobin Conten 31.8 pg (28.2-36.6); Reticulocytes Absolute 0.04 10^6/uL (0.02-0.10)
[2025-05-04 10:13] LABS: Anion Gap 12 mmol/L (4-12); Blood Urea Nitrogen 42 mg/dL (9-20); Calcium 7.6 mg/dL (8.4-10.2); Carbon Dioxide 21 mmol/L (22-30); Chloride 105 mmol/L (98-107); Estimated CRCL calculation 30 ml/min; Estimated Glomerular Filt Rate 26; Glucose 89 mg/dL (65-110); Potassium 3.4 mmol/L (3.4-5.0); Sodium 138 mmol/L (137-145)
[2025-05-04 10:17] LABS: Iron 22 ug/dL (49-181)
[2025-05-04 10:29] LABS: Percent Iron Saturation 9 % (20-50)
--- NOTE | 2025-05-04 10:44 | ADMGEN ---
This patient, Eric Kirk, was admitted to IMU Room 213-01 at 1035. Patient/family oriented to hospital policies and general routines including ID bracelet, bed and alarms, visiting hours, pain management, procedures, bathroom and other care routines, personal items, smoking policy, room service/diet, and visiting hours. Information on how to activate the Rapid Response Team has been discussed. Patient/Family are encouraged to report perceived risks to care and to ask questions if they do not understand what they are told or what they should do.
[2025-05-04 10:53] LABS: Ferritin 115.00 ng/mL (11.1-264)
[2025-05-04] MEDS: SENNA/DOCUSATE SODIUM TABLET 2 TAB PO ×2 (11:18→17:26)
[2025-05-04] MEDS: APIXABAN 5 MG TABLET PO ×2 (11:19→20:39)
--- NOTE | 2025-05-04 16:36 | PCSTNOTE ---
Please refer to the Bedside Swallow Evaluation in the EMR. Please note, silent aspiration cannot be ruled out at bedside. The patient is a 74 year old male admitted with pneumonia. Orders received from physician to complete a bedside swallow evaluation and r/o risk of aspiration. The patient was positioned upright in bed and assessed with trials of thin liquid, pudding consistency, and solid textures. Oral Stage: Timely oral preparation and transit for all consistencies without remaining oral residual. Pharyngeal Stage: Timely swallow initiation noted across all consistencies without clinical signs of aspiration such as coughing, choking or change in vocal quality. Recommend: No further speech services indicated at this time.
[2025-05-04] MEDS: METOPROLOL TARTRATE INJ 5 MG/5 ML VIAL IV PUSH (21:10)
[2025-05-04] MEDS: HYDROcodone/acetaminophen (*CRX) 10-325 MG TABLET 1 TAB PO (22:01)
[2025-05-05] VITALS (21 sets, daily range): BP systolic 107–137; BP diastolic 57–95; PULSE 91–139; RESP 18–25; TEMP 36.3–37.1; O2SAT 93–100
--- NOTE | 2025-05-05 00:06 | ECG_ITS ---
Test Date: 2025-05-05 00:12:38 Measurements Intervals Call Rate: 158 P: 0 KS: 0 QRS: -22 QRSD: 114 T: 90 QT: 274 QTc: 445 Interpretive Statements ATRIAL FIBRILLATION WITH RAPID VENTRICULAR RESPONSE LOW QRS VOLTAGE IN EXTREMITY LEADS [QRS DEFLECTION < 0.5 mV IN LIMB LEADS] LEFT BUNDLE BRANCH BLOCK Compared to ECG 05/04/2025 02:08:25 Electronically Signed On 05-05-2025 15:34:16 CDT by Elmer Mariee
--- NOTE | 2025-05-05 01:35 | PC.NURSE ---
Around 10:15, patient woke up with shortness of breath. Had panic attack. HR went into 170's. As patient was calmed down, HR came back down under 100.
--- NOTE | 2025-05-05 01:36 | PC.NURSE ---
hydrocodone found in patient's bed and on floor. Charge nurse contacted who then gave pills to security.
[2025-05-05] MEDS: METOPROLOL TARTRATE INJ 5 MG/5 ML VIAL IV PUSH ×4 (03:34→23:11)
[2025-05-05] MEDS: SODIUM CHLORIDE 0.9% IV 1,000 ML 125 ML IV CONT (03:55)
[2025-05-05] MEDS: CEFEPIME 2 GM/NS 50 ML 2 GM/50 ML BAG IVPB ×3 (05:29→20:55)
[2025-05-05] MEDS: HYDROcodone/acetaminophen (*CRX) 10-325 MG TABLET 1 TAB PO (09:06)
[2025-05-05] MEDS: APIXABAN 5 MG TABLET PO ×2 (09:06→20:55)
[2025-05-05] MEDS: SENNA/DOCUSATE SODIUM TABLET 2 TAB PO (09:07)
[2025-05-05 12:05] LABS: Hematocrit 23.4 % (42.0-52.0); Hemoglobin 7.0 g/dL (14.0-18.0); Immature Platelet Fraction Pct 11.1 % (0.9-11.2); Mean Corpuscular HGB Conc 29.9 g/dl (32-36); Mean Corpuscular Hemoglobin 31.4 pg (26-34); Mean Corpuscular Volume 104.9 fl (80-100); Platelet Count Result 106 k/mm3 (150-375); Red Blood Count 2.23 M/mm3 (4.6-6.20); White Blood Count 5.1 K/mm3 (4.5-10.0)
[2025-05-05 12:18] LABS: Alanine Aminotransferase 20 U/L (6-50); Albumin Level 3.0 g/dL (3.5-5.1); Alkaline Phosphatase 110 U/L (38-126); Anion Gap 11 mmol/L (4-12); Aspartate Amino Transferase 39 U/L (17-59); Bilirubin,Total 1.1 mg/dL (0.2-1.3); Blood Urea Nitrogen 41 mg/dL (9-20); Calcium 8.5 mg/dL (8.4-10.2); Carbon Dioxide 16 mmol/L (22-30); Chloride 107 mmol/L (98-107); Estimated CRCL calculation 38 ml/min; Estimated Glomerular Filt Rate 34; Glucose 155 mg/dL (65-110); Magnesium 2.3 mg/dL (1.6-2.3); Potassium 4.0 mmol/L (3.4-5.0); Sodium 134 mmol/L (137-145); Total Protein 7.6 g/dL (6.3-8.2)
[2025-05-05] MEDS: SACUBITRIL/VALSARTAN 24-26 MG TABLET 1 TAB PO ×2 (13:01→20:55)
[2025-05-05] MEDS: FUROSEMIDE INJ 40 MG/4 ML VIAL IV PUSH (15:54)
[2025-05-05] MEDS: FUROSEMIDE 40 MG TABLET PO (17:30)
--- NOTE | 2025-05-05 18:56 | P.PNIM_ITS ---
Progress Note: A&P Assessment and Plan (1) Multifocal pneumonia: Code(s): J18.9 - Pneumonia, unspecified organism Status: Acute (2) Acute hypoxemic respiratory failure due to COVID-19: Code(s): U07.1 - COVID-19; J96.01 - Acute respiratory failure with hypoxia Status: Acute (3) Acute kidney injury superimposed on stage 1 chronic kidney disease: Code(s): N17.9 - Acute kidney failure, unspecified; N18.1 - Chronic kidney disease, stage 1 Status: Acute (4) Hypotension: Code(s): I95.9 - Hypotension, unspecified Status: Acute (5) Heart failure with reduced ejection fraction: Code(s): I50.20 - Unspecified systolic (congestive) heart failure Status: Acute (6) Chronic atrial fibrillation: Code(s): I48.20 - Chronic atrial fibrillation, unspecified Status: Acute (7) Thrombocytopenia: Code(s): D69.6 - Thrombocytopenia, unspecified Status: Acute (8) Type 2 diabetes mellitus: Code(s): E11.9 - Type 2 diabetes mellitus without complications Status: Acute (9) Chronic anemia: Code(s): D64.9 - Anemia, unspecified Status: Acute Plan Multifocal pneumonia, COPD exacerbation, acute hypoxemic resp failure Patient has history of COPD Patient was brought in because of shortness of breath CT chest abdomen showed multifocal pneumonia involving bilateral lungs Possible aspiration Received vancomycin ceftriaxone and azithromycin in the ED, continue vancomycin azithromycin and start cefepime Start O2 therapy to keep pulse ox 94 Continue DuoNeb scheduled, albuterol neb bladder q.4 hours p.r.n. DuoNeb 2 puffs b.i.d. Start methylprednisolone 40 mg q.6 hours IV UTI UA showed Pyuria, microscopic hematuria Pending urine culture Antibiotics see above MAYELA on CKD Acute renal failure, GFR 20, stated age 4, above baseline Possible due to dehydration, UTI Received fluid resuscitation and antibiotics see above CT shows no obstruction or hydronephrosis Follow-up BMP Avoid nephrotoxic medication Fecal impaction Start Senokot S2 tabs Fleet enema once and p.r.n. Chronic anemia and chronic thrombocytopenia Likely resulting from chronic achy knees, CKD Hemoglobin and thrombocytopenia lower than baseline, is aggravated by infection Follow-up stool guaiac, ferritin level, iron panel, reticulocyte Hypotension Possible due to hypovolemic hypotension Received fluid resuscitation ED Continue IV fluid 125 mL/hour Diastolic heart failure Patient has hypertension, worsening kidney function Hold diuretic medication and Entresto Hypertension Hold hypertension medication because of hypotension Chronic AFib Continue Eliquis 5 mg b.i.d. p.o. Hold carvedilol 25 mg b.i.d. p.o. because of hypotension Changed to metoprolol 5 mg q.8 hours IV with parameters If but did not continue to drop or guaiac-positive, hold Eliquis sacral decubitus ulcer consult wound care patient with history of COPD presented with worsening cough and shortness of breath, CT of chest showed multifocal pneumonia being treated with Cefepime and Zithromax, for COPD patient is also treated with prednisone and duo neb, patient had acute episode of short of breath,patient was given solumedrol 125mg x1, Lasix 40mg iV x1, which did help patient. will monitor. Patient may stay more than 2 midnights in hospital consult PT OT social services designee for evaluation and assisting placement. Patient may benefit from rehab in the shelter after discharge, patient has risk of fall Subjective Date/time seen: 05/05/25 18:56 Interval history: General weakness, painful urination, urinary urgency, shortness breath Narrative: 74 years old man with history of hyperlipidemia, COPD, diastolic CHF, hypertension present ED with a chief complaint of general weakness, painful urination, urgency, productive cough pain and shortness Of breath. Patient has history of COPD, in past 4 days, patient has been worsening productive cough and shortness breath. Patient has yellow greenish sputum. And patient has worsening shortness breath today, patient states he has general weakness, and shortness of restricted his movement. patient denies focal weakness, vision change, slurred speech, abnormal sensation. In past week, patient also has poor intake because of poor appetite. Patient denies nausea vomiting diarrhea fever, chills. Last bowel movement about a week ago. Patient also denies chest pain, palpitation. patient living alone and home. Patient ambulated with walker before the condition change patient with history of COPD presented with worsening cough and shortness of breath, CT of chest showed multifocal pneumonia being treated with Cefepime and Zithromax, for COPD patient is also treated with prednisone and duo neb, patient had acute episode of short of breath,patient was given solumedrol 125mg x1, Lasix 40mg iV x1, which did help patient. will monitor. Review of Systems Review of Systems: ROS negative except above Exam Narrative: Elderly frail Patient is comfortable, NAD HEENT: eyes are clear and none icteric LUNGS: Bilateral fair entry with rales and rhonchi HEART: RR S1S2 ABD: BS+, Soft and nontender Lower extremities: no edema SKIN: nonjaundiced Neuro: grossly intact. Objective Data Vital Signs Vital Signs: Vital Signs - 24 hr 05/04/25 20:00 05/04/25 20:00 05/04/25 20:00 Temperature 36.6 C Pulse Rate 92 83 Respiratory Rate 18 Blood Pressure 121/70 Pulse Oximetry 96 100 Oxygen Delivery Nasal Cannula Oxygen Flow Rate 5 05/04/25 21:10 05/04/25 22:00 05/05/25 00:00 Temperature 36.6 C Pulse Rate 89 85 100 Respiratory Rate 18 Blood Pressure 137/95 H Pulse Oximetry 100 Oxygen Delivery Oxygen Flow Rate 05/05/25 00:00 05/05/25 00:00 05/05/25 02:00 Temperature Pulse Rate 139 H 112 H Respiratory Rate Blood Pressure Pulse Oximetry 99 Oxygen Delivery Nasal Cannula Oxygen Flow Rate 4 05/05/25 03:34 05/05/25 04:00 05/05/25 04:00 Temperature Pulse Rate 118 H 98 Respiratory Rate Blood Pressure Pulse Oximetry 99 Oxygen Delivery Nasal Cannula Oxygen Flow Rate 4 05/05/25 04:00 05/05/25 06:00 05/05/25 07:55 Temperature 36.6 C 36.3 C L Pulse Rate 95 106 H 91 Respiratory Rate 18 18 Blood Pressure 112/57 L 136/76 Pulse Oximetry 99 98 Oxygen Delivery Oxygen Flow Rate 05/05/25 08:00 05/05/25 08:00 05/05/25 10:00 Temperature Pulse Rate 116 H 108 H Respiratory Rate Blood Pressure Pulse Oximetry 93 Oxygen Delivery Nasal Cannula Oxygen Flow Rate 4 05/05/25 11:32 05/05/25 12:00 05/05/25 12:00 Temperature 36.4 C L Pulse Rate 96 93 Respiratory Rate 18 Blood Pressure 132/82 Pulse Oximetry 100 95 Oxygen Delivery Nasal Cannula Oxygen Flow Rate 5 05/05/25 13:03 05/05/25 14:00 05/05/25 15:51 Temperature 36.4 C L Pulse Rate 108 H 97 114 H Respiratory Rate 18 Blood Pressure 128/75 Pulse Oximetry 100 Oxygen Delivery Oxygen Flow Rate 05/05/25 16:00 05/05/25 16:00 05/05/25 17:30 Temperature Pulse Rate 113 H 121 H Respiratory Rate Blood Pressure Pulse Oximetry 93 Oxygen Delivery Nasal Cannula Oxygen Flow Rate 5 Intake/Output Intake/Output: Intake & Output 05/02/25 05/03/25 05/04/25 05/05/25 23:59 23:59 23:59 23:59 Intake Total 4872.9 2290 Output Total 3025 1000 Balance 1847.9 1290 Meds/Results Medications: Active Medications Generic Name Dose Route Start Last Admin Trade Name Freq PRN Reason Stop Dose Admin Hydrocodone Bitart/Acetaminophen 1 tab 05/04/25 21:46 05/05/25 09:06 Hydrocodone/Acetaminophen (*Crx) 10-325 Mg Tablet PO 1 tab Q4H PRN Administration pain Albuterol 1.25 mg 05/04/25 08:35 Albuterol Sulfate Neb 2.5 Mg/3 Ml Inh INHALATION Q4H PRN Dyspnea Allopurinol 200 mg 05/06/25 09:00 Allopurinol 100 Mg Tablet PO DAILY HALLIE Apixaban 5 mg 05/05/25 21:00 Apixaban 5 Mg Tablet PO Q12HR HALLIE Atorvastatin Calcium 80 mg 05/06/25 09:00 Atorvastatin 40 Mg Tablet PO DAILY HALLIE Duloxetine HCl 30 mg 05/06/25 09:00 Duloxetine Hcl 30 Mg Capsule.Dr PO DAILY HALLIE Furosemide 40 mg 05/05/25 17:00 05/05/25 17:30 Furosemide 40 Mg Tablet PO 40 mg BID HALLIE Administration Cefepime HCl 2 gm in 50 mls @ 100 mls/hr 05/04/25 08:20 05/05/25 13:18 Maxipime 2 Gm/Ns 50 Ml IVPB 100 mls/hr Q8HR HALLIE Administration Azithromycin 500 mg in 250 mls @ 250 mls/hr 05/04/25 21:00 05/05/25 06:04 Zithromax IVPB 05/07/25 21:59 Infused Q24H HALLIE Infusion Methylprednisolone Sodium Succinate 40 mg 05/04/25 11:00 05/05/25 17:29 Methylprednisolone Sod Succ 40 Mg Vial IV PUSH Not Given Q6HR HALLIE Metoprolol Tartrate 5 mg 05/05/25 06:00 05/05/25 17:30 Metoprolol Tartrate Inj 5 Mg/5 Ml Vial IV PUSH 5 mg Q6HR HALLIE Administration Perflutren Lipid Microsphere 0 ml 05/05/25 15:16 Perflutren Lipid Microspheres 1.5 Ml Vial Diluted To 10 Ml Total Volume IV PUSH 05/08/25 15:16 ONCE PRN adequate visualization Protocol Sacubitril/Valsartan 1 tab 05/05/25 12:00 05/05/25 13:01 Sacubitril/Valsartan 24-26 Mg Tablet PO 1 tab Q12HR HALLIE Administration Fluticasone/Salmeterol 2 puff 05/05/25 20:00 Fluticasone/Salmeterol 115-21 Mcg Inhaler 1 Puff INHALATION Q12HRT HALLIE Senna/Docusate Sodium 2 tab 05/04/25 09:00 05/05/25 17:28 Senna/Docusate Sodium Tablet PO Not Given BID HALLIE Radiology Results: ITS Impressions Chest X-Ray 05/04/25 05:37 Impression: Left basilar atelectasis versus pneumonia. Correlate clinically. Questionable minimal haziness right lung base, nonspecific. Several probable postoperative change or scarring in the right suprahilar region. Stable probable postoperative change or scarring in the right suprahilar region. Chest/Abdomen/Pelvis CTA 05/04/25 07:24 Impression: Probable multifocal pneumonia, most extensive in the right lower lobe, with lesser involvement in the left lower lobe and right middle lobe. Chronic appearing airspace opacity in the right lung apex, likely reflecting chronic scarring or treated disease/posttreatment change. Fecal impaction/constipation with associated stercoral proctitis. Head CT 05/04/25 07:24 Impression: No significant abnormality seen. Labs Labs: Laboratory Results - last 24 hr 05/05/25 11:54 WBC 5.1 RBC 2.23 L Hgb 7.0 L Hct 23.4 L MCV 104.9 H MCH 31.4 MCHC 29.9 L RDW 17.2 H Plt Count 106 L MPV TNP % Immature Plt Fraction 11.1 Sodium 134 L Potassium 4.0 Chloride 107 Carbon Dioxide 16 L Anion Gap 11 BUN 41 H Creatinine 1.93 H Estim Creat Clear Calc 38 Estimated GFR 34 L Glucose 155 H Calcium 8.5 Magnesium 2.3 Total Bilirubin 1.1 AST 39 ALT 20 Alkaline Phosphatase 110 Total Protein 7.6 Albumin 3.0 L Quality VTE Prophylaxis VTE prophylaxis: pharmacologic ordered
[2025-05-05] MEDS: FLUTICASONE/SALMETEROL 115-21 MCG INHALER 1 PUFF 2 PUFF INHALATION (20:47)
[2025-05-05] MEDS: AZITHROMYCIN 500 MG/NS 250 ML 500 MG/250 ML BAG 250 MG IVPB (20:55)
--- NOTE | 2025-05-05 22:05 | PC.NURSE ---
PT c/o SOB speaking in full sentences. Nasal canula found off Sat 96 RR 25 when O2 and oxygen replaced Crackles noted in posterior lung bases. Tech attempting to clean up pt BM feces in groin and partially up back. Pt able to stand and pivot to chair. pt returned to bed and BM cleaned from skin with break down noted. Pt insists on sitting up at bedside.
--- NOTE | 2025-05-05 23:00 | PC.NURSE ---
pt refuses to sit in bed for CXR. Bed at full upright position.
[2025-05-06] VITALS (23 sets, daily range): BP systolic 103–137; BP diastolic 56–92; PULSE 81–130; RESP 18–26; TEMP 36.3–36.9; O2SAT 94–100
--- NOTE | 2025-05-06 | ECHO_ITS ---
Patient Info Name: rEic Kirk Age: 74 years : 1950 Gender: Male Ht: 77 in Wt: 203 lbs BSA: 2.24 m2 HR: 117 bpm BP: 122 / 70 mmHg Technical Quality: Poor Exam Date: 05/06/2025 10:15 AM Patient Status: I Admit Date: 05/04/2025 Exam Type: CA echo doppler color flow Complete two-dimensional, color flow and Doppler transthoracic echocardiogram is performed. Staff Referring Physician: Deng Baker MD Director Distribution: Ana Paula Coates Attending Provider: Ej Braswell Summary 1. Complete two-dimensional, color flow and Doppler transthoracic echocardiogram is performed. 2. Technically difficult study, not well visualized. Patient not cooperative. 3. Left ventricular wall thickness is normal. 4. left ventricular shows global hypokinesis, dyskinetic systolic function. 5. LV is not well visualized, LV function appears to be reduced. LVEF appears to be 30-35%. 6. left atrium is enlarged. Recommendations * Repeat echo when patient is more cooperative. Left Ventricle Left ventricular wall thickness is normal. left ventricular shows global hypokinesis, dyskinetic systolic function. LV is not well visualized, LV function appears to be reduced. LVEF appears to be 30-35%. Right Ventricle Right ventricle is not well visualized. Left Atria left atrium is enlarged. Right Atria Right atrium was not well visualized. Aortic Valve Aortic valve is calcified. Aortic valve not well visualized. Pulmonic Valve There is mild pulmonic regurgitation. Pulmonary valve is not well visualized. Mitral Valve Mitral valve is not well visualized. Tricuspid Valve There is mild tricuspid valve regurgitation. Inferior Vena Cava Inferior vena cava is not well visualized. Aorta The ascending aorta is not well visualized. Left Ventricular Outflow Tract Name Value Normal LVOT 2D LVOT Diameter 2.3 cm Pulmonic Valve Name Value Normal PV Doppler PV Peak Velocity 99 cm/s PV Peak Gradient 4 mmHg Tricuspid Valve Name Value Normal TV Regurgitation Doppler TR Peak Velocity 288 cm/s TR Peak Gradient 26 mmHg TV Annular TDI TV Lateral Chaya s' Velocity 9.2 cm/s >=9.5 Aortic Valve Name Value Normal AV Regurgitation 2D LVOT Area 4.3 cm2 Ventricles Name Value Normal LV Dimensions 2D/MM LVOT Diameter 2.3 cm Report Signatures
--- NOTE | 2025-05-06 | PC.NURSE ---
pt found with nasal canula off o2 sat without oxygen 95%. pt still sittingat side of bed speaking in full sentences.
--- NOTE | 2025-05-06 02:16 | PM.EVENT ---
Event Note Event Note Event Note: I was called overnight by the pt's nurse that stated pt was sitting on the side of the bed complaining of being dyspneic. It was noted that he had normal SPO2 at 96-100% and his oxygen had actually been weaned down from 6L to 4L. He was tachypneic and tachycardic. He was admitted for PNA, Acute Hypoxic Respiratory Failure, A-fib all of which could contribute to his current symptoms. PRN nebs are ordered for pt but his overall oxygen sats were reassuring. CXR was ordered STAT, but the pt would not agree to have it done. He is described as obstinate by nursing staff.
[2025-05-06] MEDS: METOPROLOL TARTRATE INJ 5 MG/5 ML VIAL IV PUSH (05:35)
[2025-05-06] MEDS: CEFEPIME 2 GM/NS 50 ML 2 GM/50 ML BAG IVPB ×2 (05:35→21:52)
[2025-05-06 06:49] LABS: Hematocrit 25.7 % (42.0-52.0); Hemoglobin 7.5 g/dL (14.0-18.0); Immature Platelet Fraction Pct 9.7 % (0.9-11.2); Mean Corpuscular HGB Conc 29.2 g/dl (32-36); Mean Corpuscular Hemoglobin 31.4 pg (26-34); Mean Corpuscular Volume 107.5 fl (80-100); Platelet Count Result 160 k/mm3 (150-375); Red Blood Count 2.39 M/mm3 (4.6-6.20); White Blood Count 9.5 K/mm3 (4.5-10.0)
[2025-05-06 07:08] LABS: Anion Gap 20 mmol/L (4-12); Blood Urea Nitrogen 57 mg/dL (9-20); Calcium 8.7 mg/dL (8.4-10.2); Carbon Dioxide 11 mmol/L (22-30); Chloride 108 mmol/L (98-107); Estimated CRCL calculation 35 ml/min; Estimated Glomerular Filt Rate 31; Glucose 176 mg/dL (65-110); Magnesium 2.4 mg/dL (1.6-2.3); Potassium 4.4 mmol/L (3.4-5.0); Sodium 139 mmol/L (137-145)
[2025-05-06] MEDS: SACUBITRIL/VALSARTAN 24-26 MG TABLET 1 TAB PO (08:25)
[2025-05-06] MEDS: ATORVASTATIN 40 MG TABLET 80 MG PO (08:25)
[2025-05-06] MEDS: SENNA/DOCUSATE SODIUM TABLET 2 TAB PO ×2 (08:25→16:53)
[2025-05-06] MEDS: APIXABAN 5 MG TABLET PO (08:26)
[2025-05-06] MEDS: FUROSEMIDE 40 MG TABLET PO ×2 (08:26→16:53)
[2025-05-06] MEDS: FLUTICASONE/SALMETEROL 115-21 MCG INHALER 1 PUFF 2 PUFF INHALATION ×2 (08:55→20:28)
[2025-05-06] MEDS: METOPROLOL TARTRATE 25 MG TABLET PO (10:08)
[2025-05-06 10:12] LABS: ADAMTS-13 Activity 0.57 IU/mL (0.68-1.63)
--- NOTE | 2025-05-06 12:23 | P.CDI_ITS ---
CDI Query Clarification Request Please specify acuity of heart failure if known. * Acute * Chronic * Acute on Chronic * Unknown The medical chart reflects the following: EMS was called to patient's residence for report of shortness of breath. Patient has a history of COPD and heart failure for which he is typically on 4 L nasal cannula at baseline he does note that he has been up titrating at 5 liters/minute Multifocal pneumonia, COPD exacerbation, acute hypoxemic resp failure Patient has history of COPD Patient was brought in because of shortness of breath CT chest abdomen showed multifocal pneumonia involving bilateral lungs Possible aspiration Received vancomycin ceftriaxone and azithromycin in the ED, continue vancomycin azithromycin and start cefepime Start O2 therapy to keep pulse ox 94 Continue DuoNeb scheduled, albuterol neb bladder q.4 hours p.r.n. DuoNeb 2 puffs b.i.d. Start methylprednisolone 40 mg q.6 hours IV UTI UA showed Pyuria, microscopic hematuria Pending urine culture Antibiotics see above MAYELA on CKD Acute renal failure, GFR 20, stated age 4, above baseline Possible due to dehydration, UTI Received fluid resuscitation and antibiotics see above CT shows no obstruction or hydronephrosis Follow-up BMP Avoid nephrotoxic medication Diastolic heart failure Patient has hypertension, worsening kidney function Hold diuretic medication and Entresto BNP 05/04 6520 <Naa Seals RN - Last Filed: 05/06/25 12:25> Clarified Diagnosis Clarified Diagnosis: Patient had acute on chronic systolic CHF with EF of 30-35% <Deng Baker MD - Last Filed: 05/25/25 07:36>
[2025-05-06 12:36] LABS: Gastric Negative Control Negative; Gastric Positive Control Positive
--- NOTE | 2025-05-06 15:21 | WPDGICN ---
Assessment and Plan Assessment and plan (1) Coffee ground emesis: Code(s): K92.0 - Hematemesis Status: Acute Assessment and Plan: While the patient's coffee-ground emesis isn't currently associated with hemodynamic compromise or a severe drop in hematocrit compared to admission, it absolutely warrants investigation. The differential diagnosis for this presentation includes erosive esophagitis, erosive gastritis, and peptic ulcer disease, among other possibilities. Given the patient's existing iron deficiency anemia, we must also consider other potential sources of chronic blood loss, such as a hiatal hernia with Jacques ulcers. An EGD will be performed to identify the source of bleeding, and guide targeted therapy. A complete workup for iron deficiency anemia would typically include a colonoscopy; however, this is not feasible at present due to the patient's fluctuating mental status and anticipated poor cooperation with bowel preparation. If the EGD does not provide a satisfactory explanation for his chronic blood loss, we will defer colonoscopy until his mental and respiratory status has stabilized, likely as an outpatient procedure. GI Consult Note Consult date/time: 05/06/25 15:21 Reason for consult: Coffee-ground emesis-anemia HPI: Eric Kirk is a 74-year-old male who was admitted on May 04, 2025, due to an acute exacerbation of COPD with severe shortness of breath, complicated by multifocal pneumonia predominantly in the right lobe. During his hospital stay, he's experienced waxing and waning mental status and developed fluid overload, which was managed with intravenous furosemide. This morning, he had an episode of coffee-ground emesis. His hemoglobin has decreased slightly from 8.1 on admission to 7.5 today. He is currently anticoagulated with Eliquis for atrial fibrillation. Notably, his creatinine has improved from 3.08 mg/dL on admission to 2.12 mg/dL today. His iron saturation is low at 9%, consistent with iron deficiency anemia. There has been no overt melena or hematochezia, and there is no available information regarding a recent or past colonoscopy. Review of Systems Review of Systems: All systems reviewed & are unremarkable except as noted in HPI and below PMFSH Past Medical History Medical History Complete small bowel obstruction Heart failure with reduced ejection fraction Followed by Dr. Frank at [place]. Hyperkalemia Thrombocytopenia Bowel obstruction Chronic anticoagulation Chronic atrial fibrillation Lung cancer (02/2021) Status post radiation. Oncologist is at [facility]. Agent orange exposure Type 2 diabetes mellitus Hypertension Chronic obstructive pulmonary disease Obstructive sleep apnea Chronic respiratory failure with hypoxia, on home oxygen therapy ANASTASIA (obstructive sleep apnea) Peripheral neuropathy Gout Surgical History Surgical History History of evacuation of hematoma History of lumbar laminectomy History of lumbar fusion Family History Family History Mother Cerebrovascular accident, Onset Age: 81 Lung cancer Cervical cancer Father Family history of cardiomyopathy, Onset Age: 67 Hypertension Heart attack Social History Social History Social History: The patient is and lives home alone. 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 The patient is a former smoker. He denies any alcohol marijuana or illicit drugs. The patient has 3 children. Surrogate medical decision maker: Gwen Kirk, daughter. Code status: Full code. Smoking packs per day: 2 Smoking cigarettes per day: 40.0 Years smoked: 50 Smoking pack-years: 100.00 Smoking status: Former smoker Tobacco type: cigarettes Alcohol intake: former Alcohol use details: Heavier drinker in the past. Substance use: current Substance use type: marijuana Do You Feel Safe in your Home?: Yes Lack of Transportation: YES Lack of Food: Never True Current Housing: I Have Housing Concerned About Future Housing: No Difficulty Paying Gas/Electric Bills: No Difficulty Paying for Meds: No Currently Unemployed: No Education: High School Diploma/GED Difficulty w/ Childcare or Family Care: No Living arrangements: alone Occupation/Education: retired Spiritual care concerns: No Meds Home Medications and Allergies Home Medications ?Medication ?Instructions ?Recorded ?Confirmed ?Type allopurinol 100 mg tablet 200 mg PO DAILY 11/14/20 05/04/25 History (Zyloprim) apixaban 5 mg tablet (Eliquis) 5 mg PO BID 11/14/20 05/04/25 History atorvastatin 40 mg tablet (Lipitor) 80 mg PO DAILY 11/14/20 05/04/25 History duloxetine 30 mg capsule,delayed 30 mg PO DAILY 11/14/20 05/04/25 History release sprinkle ipratropium 20 mcg-albuterol 100 1 puff inhalation DAILY PRN 11/14/20 05/04/25 History mcg/actuation mist for inhalation Shortness Of Breath mometasone-formoterol HFA 100 2 puff inhalation Q12H 08/11/22 05/04/25 History mcg-5 mcg/actuation aerosol inhaler sacubitril 24 mg-valsartan 26 mg 1 tablet PO Q12H 08/11/22 05/04/25 History tablet furosemide 40 mg tablet (Lasix) 40 mg PO BID 09/15/22 05/04/25 History hydrocodone 10 mg-acetaminophen 1 tablet PO Q4H PRN pain #10 tabs 09/19/22 05/04/25 Rx 325 mg tablet carvedilol 25 mg tablet 25 mg PO Q12H 09/25/22 05/04/25 History Allergies Allergy/AdvReac Type Severity Reaction Status Date / Time amlodipine Allergy Unknown Swelling Verified 05/04/25 10:46 gabapentin Allergy Unknown Hallucinating,short Verified 05/04/25 10:46 of breath, PTSD symptoms morphine AdvReac Intermediate Nausea and Verified 05/04/25 10:46 Vomiting Vital Signs Vital Signs - 24 hr 05/05/25 15:51 05/05/25 16:00 05/05/25 16:00 Temperature 97.5 F L Pulse Rate 114 H 113 H Respiratory Rate 18 Blood Pressure 128/75 Pulse Oximetry 100 93 Oxygen Delivery Nasal Cannula Oxygen Flow Rate 5 05/05/25 17:30 05/05/25 18:00 05/05/25 20:00 Temperature Pulse Rate 121 H 98 98 Respiratory Rate 18 Blood Pressure Pulse Oximetry 93 Oxygen Delivery Nasal Cannula Oxygen Flow Rate 4 05/05/25 20:00 05/05/25 20:00 05/05/25 20:51 Temperature 98.7 F Pulse Rate 98 96 Respiratory Rate 20 Blood Pressure 119/72 Pulse Oximetry 100 100 Oxygen Delivery Nasal Cannula Oxygen Flow Rate 5 05/05/25 21:32 05/05/25 23:11 05/05/25 23:15 Temperature 98.5 F Pulse Rate 96 125 H 103 H Respiratory Rate 25 H Blood Pressure 107/87 Pulse Oximetry 100 Oxygen Delivery Oxygen Flow Rate 05/06/25 00:00 05/06/25 00:00 05/06/25 00:00 Temperature 98.5 F Pulse Rate 103 H 113 H 103 H Respiratory Rate 20 26 H Blood Pressure 107/85 Pulse Oximetry 100 98 Oxygen Delivery Room Air Oxygen Flow Rate 05/06/25 00:18 05/06/25 02:00 05/06/25 04:00 Temperature 98.4 F Pulse Rate 113 H 121 H 125 H Respiratory Rate 26 H 26 H Blood Pressure 134/92 H Pulse Oximetry 98 98 Oxygen Delivery Room Air Oxygen Flow Rate 05/06/25 04:00 05/06/25 04:00 05/06/25 05:00 Temperature 97.9 F 97.4 F L Pulse Rate 121 H 121 H 119 H Respiratory Rate 20 24 H Blood Pressure 103/70 122/70 Pulse Oximetry 97 99 Oxygen Delivery Oxygen Flow Rate 05/06/25 05:34 05/06/25 05:35 05/06/25 07:18 Temperature 97.5 F L Pulse Rate 108 H 117 H 113 H Respiratory Rate 18 Blood Pressure 113/70 Pulse Oximetry 99 Oxygen Delivery Oxygen Flow Rate 05/06/25 08:00 05/06/25 08:00 05/06/25 08:56 Temperature Pulse Rate 81 119 H 81 Respiratory Rate 20 20 Blood Pressure Pulse Oximetry 94 94 Oxygen Delivery Room Air Room Air Oxygen Flow Rate 05/06/25 08:56 05/06/25 10:00 05/06/25 10:08 Temperature Pulse Rate 81 112 H 117 H Respiratory Rate 20 Blood Pressure Pulse Oximetry Oxygen Delivery Oxygen Flow Rate 05/06/25 11:08 05/06/25 12:00 05/06/25 12:00 Temperature 97.5 F L Pulse Rate 119 H 119 H 108 H Respiratory Rate 18 18 Blood Pressure 103/64 Pulse Oximetry 98 98 Oxygen Delivery Room Air Oxygen Flow Rate Exam Narrative: The patient is somewhat restless, nonverbal at this moment, unable to provide a history. Abdomen: Soft, nontender, nondistended, no hepatosplenomegaly. Results Labs 05/06/25 06:40 05/06/25 06:40 Labs: Short CBC 05/06/25 Range/Units 06:40 WBC 9.5 (4.5-10.0) K/mm3 Hgb 7.5 L (14.0-18.0) g/dL Hct 25.7 L (42.0-52.0) % Plt Count 160 D (150-375) k/mm3 [facility] 05/06/25 06:40 Sodium 139 Potassium 4.4 Chloride 108 H Carbon Dioxide 11 L BUN 57 H D Creatinine 2.12 H Glucose 176 H Calcium 8.7
--- NOTE | 2025-05-06 16:42 | PM.CNCAR ---
Assessment and Plan Assessment and plan (1) HTN (hypertension), benign: Code(s): I10 - Essential (primary) hypertension Status: Acute (2) Heart failure with reduced ejection fraction: Code(s): I50.20 - Unspecified systolic (congestive) heart failure Status: Acute (3) Cardiomyopathy: Code(s): I42.9 - Cardiomyopathy, unspecified Status: Acute (4) Atrial fibrillation: Code(s): I48.91 - Unspecified atrial fibrillation Status: Acute Plan 1. Chronic systolic heart failure; EF not known 2. Atrial fibrillation 3. Hypertension 4. Chronic anemia -will continue on beta-casa, monitor heart rate -in the clinical setting of respiratory failure, COPD exacerbation and multifocal pneumonia her target heart rate of 110-120 is okay -with chronic anemia I would hold off anticoagulation pending further evaluation by GI. Will restart anticoagulation if okay by GI -this further management as per primary team History of Present Illness History of Present Illness Consult date/time: 05/06/25 16:42 Reason For Visit: pneumonia Narrative: Eric Kirk is a 74-year-old male known to have hypertension, systolic heart failure, atrial fibrillation, chronic anemia was admitted with acute exacerbation of COPD complicated by multifocal pneumonia, metabolic encephalopathy and lactic acidosis. Cardiology consulted for a fibrillation with RVR Time of my evaluation the patient was in a normal sinus rhythm Was confused and unable to provide any history History obtained from the patient's chart . Review of Systems Review of Systems: Unable to obtain patient confused [facility] Past Medical History Medical History Complete small bowel obstruction Heart failure with reduced ejection fraction Followed by Dr. Frank at [facility]. Hyperkalemia Thrombocytopenia Bowel obstruction Chronic anticoagulation Chronic atrial fibrillation Lung cancer (02/2021) Status post radiation. Oncologist is at [facility]. Agent orange exposure Type 2 diabetes mellitus Hypertension Chronic obstructive pulmonary disease Obstructive sleep apnea Chronic respiratory failure with hypoxia, on home oxygen therapy ANASTASIA (obstructive sleep apnea) Peripheral neuropathy Gout Surgical History Surgical History History of evacuation of hematoma History of lumbar laminectomy History of lumbar fusion Family History Family History Mother Cerebrovascular accident, Onset Age: 81 Lung cancer Cervical cancer Father Family history of cardiomyopathy, Onset Age: 67 Hypertension Heart attack Social History Social History Social History: The patient is and lives home alone. 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 The patient is a former smoker. He denies any alcohol marijuana or illicit drugs. The patient has 3 children. Surrogate medical decision maker: Gwen Kirk, daughter. Code status: Full code. Smoking packs per day: 2 Smoking cigarettes per day: 40.0 Years smoked: 50 Smoking pack-years: 100.00 Smoking status: Former smoker Tobacco type: cigarettes Alcohol intake: former Alcohol use details: Heavier drinker in the past. Substance use: current Substance use type: marijuana Do You Feel Safe in your Home?: Yes Lack of Transportation: YES Lack of Food: Never True Current Housing: I Have Housing Concerned About Future Housing: No Difficulty Paying Gas/Electric Bills: No Difficulty Paying for Meds: No Currently Unemployed: No Education: High School Diploma/GED Difficulty w/ Childcare or Family Care: No Living arrangements: alone Occupation/Education: retired Spiritual care concerns: No Meds Home Medications and Allergies Home Medications ?Medication ?Instructions ?Recorded ?Confirmed ?Type allopurinol 100 mg tablet 200 mg PO DAILY 11/14/20 05/04/25 History (Zyloprim) apixaban 5 mg tablet (Eliquis) 5 mg PO BID 11/14/20 05/04/25 History atorvastatin 40 mg tablet (Lipitor) 80 mg PO DAILY 11/14/20 05/04/25 History duloxetine 30 mg capsule,delayed 30 mg PO DAILY 11/14/20 05/04/25 History release sprinkle ipratropium 20 mcg-albuterol 100 1 puff inhalation DAILY PRN 11/14/20 05/04/25 History mcg/actuation mist for inhalation Shortness Of Breath mometasone-formoterol HFA 100 2 puff inhalation Q12H 08/11/22 05/04/25 History mcg-5 mcg/actuation aerosol inhaler sacubitril 24 mg-valsartan 26 mg 1 tablet PO Q12H 08/11/22 05/04/25 History tablet furosemide 40 mg tablet (Lasix) 40 mg PO BID 09/15/22 05/04/25 History hydrocodone 10 mg-acetaminophen 1 tablet PO Q4H PRN pain #10 tabs 09/19/22 05/04/25 Rx 325 mg tablet carvedilol 25 mg tablet 25 mg PO Q12H 09/25/22 05/04/25 History Allergies Allergy/AdvReac Type Severity Reaction Status Date / Time amlodipine Allergy Unknown Swelling Verified 05/04/25 10:46 gabapentin Allergy Unknown Hallucinating,short Verified 05/04/25 10:46 of breath, PTSD symptoms morphine AdvReac Intermediate Nausea and Verified 05/04/25 10:46 Vomiting Vital Signs Vital Signs - 24 hr 05/05/25 17:30 05/05/25 18:00 05/05/25 20:00 Temperature Pulse Rate 121 H 98 98 Respiratory Rate 18 Blood Pressure Pulse Oximetry 93 Oxygen Delivery Nasal Cannula Oxygen Flow Rate 4 05/05/25 20:00 05/05/25 20:00 05/05/25 20:51 Temperature 37.1 C Pulse Rate 98 96 Respiratory Rate 20 Blood Pressure 119/72 Pulse Oximetry 100 100 Oxygen Delivery Nasal Cannula Oxygen Flow Rate 5 05/05/25 21:32 05/05/25 23:11 05/05/25 23:15 Temperature 36.9 C Pulse Rate 96 125 H 103 H Respiratory Rate 25 H Blood Pressure 107/87 Pulse Oximetry 100 Oxygen Delivery Oxygen Flow Rate 05/06/25 00:00 05/06/25 00:00 05/06/25 00:00 Temperature 36.9 C Pulse Rate 103 H 113 H 103 H Respiratory Rate 20 26 H Blood Pressure 107/85 Pulse Oximetry 100 98 Oxygen Delivery Room Air Oxygen Flow Rate 05/06/25 00:18 05/06/25 02:00 05/06/25 04:00 Temperature 36.9 C Pulse Rate 113 H 121 H 125 H Respiratory Rate 26 H 26 H Blood Pressure 134/92 H Pulse Oximetry 98 98 Oxygen Delivery Room Air Oxygen Flow Rate 05/06/25 04:00 05/06/25 04:00 05/06/25 05:00 Temperature 36.6 C 36.3 C L Pulse Rate 121 H 121 H 119 H Respiratory Rate 20 24 H Blood Pressure 103/70 122/70 Pulse Oximetry 97 99 Oxygen Delivery Oxygen Flow Rate 05/06/25 05:34 05/06/25 05:35 05/06/25 07:18 Temperature 36.4 C L Pulse Rate 108 H 117 H 113 H Respiratory Rate 18 Blood Pressure 113/70 Pulse Oximetry 99 Oxygen Delivery Oxygen Flow Rate 05/06/25 08:00 05/06/25 08:00 05/06/25 08:56 Temperature Pulse Rate 81 119 H 81 Respiratory Rate 20 20 Blood Pressure Pulse Oximetry 94 94 Oxygen Delivery Room Air Room Air Oxygen Flow Rate 05/06/25 08:56 05/06/25 10:00 05/06/25 10:08 Temperature Pulse Rate 81 112 H 117 H Respiratory Rate 20 Blood Pressure Pulse Oximetry Oxygen Delivery Oxygen Flow Rate 05/06/25 11:08 05/06/25 12:00 05/06/25 12:00 Temperature 36.4 C L Pulse Rate 119 H 119 H 108 H Respiratory Rate 18 18 Blood Pressure 103/64 Pulse Oximetry 98 98 Oxygen Delivery Room Air Oxygen Flow Rate 05/06/25 14:00 05/06/25 15:55 05/06/25 16:00 Temperature 36.3 C L Pulse Rate 111 H 119 H 119 H Respiratory Rate 24 H 24 H Blood Pressure 122/57 L Pulse Oximetry 98 98 Oxygen Delivery Room Air Oxygen Flow Rate 05/06/25 16:00 Temperature Pulse Rate 109 H Respiratory Rate Blood Pressure Pulse Oximetry Oxygen Delivery Oxygen Flow Rate Exam Const: General: no acute distress HENMT: Face/Nose/Sinus: Normal nares present Mouth: Yes moist mucous membranes Eyes: Other: Pallor Neck: Neck: supple Resp: Effort & Inspection: normal respiratory effort Auscultation: diminished lung sounds Cardio: Rate: regular rate Other: No significant murmur, gallop or added sound Results Labs and Meds 05/06/25 06:40 05/06/25 06:40 Lab results: CBC 05/06/25 Range/Units 06:40 WBC 9.5 (4.5-10.0) K/mm3 RBC 2.39 L (4.6-6.20) M/mm3 Hgb 7.5 L (14.0-18.0) g/dL Hct 25.7 L (42.0-52.0) % Plt Count 160 D (150-375) k/mm3 Comprehensive Metabolic Panel 05/06/25 Range/Units 06:40 Sodium 139 (137-145) mmol/L Potassium 4.4 (3.4-5.0) mmol/L Chloride 108 H (98-107) mmol/L Carbon Dioxide 11 L (22-30) mmol/L BUN 57 H D (9-20) mg/dL Creatinine 2.12 H (0.7-1.3) mg/dL Glucose 176 H (65-110) mg/dL Calcium 8.7 (8.4-10.2) mg/dL Intake and Output 05/06/25 05/06/25 05/06/25 07:59 15:59 23:59 Intake Total 180 200 Output Total 1000 Balance -820 200 Intake: Oral 180 200 Output: Catheter Urine 1000 Urethral Catheter 1000 Patient Weight 05/06/25 23:59 Weight 92.5 kg
[2025-05-06 17:26] LABS: Alveolar/Arterial O2 Gradient 39.6 mmHg; Fractional Inspired Oxygen 21 %; HCO3 ABG 15.1 mEq/l (22.0-26.0); Oxygen Content ABG 14.9 %vol (16.0-22.0); Oxygen Saturation ABG 96.3 % (95.0-100.0); PCO2 ABG 24.3 mmHg (35.0-45.0); PO2 ABG 81.0 mmHg (80.0-100.0); PO2 FiO2 Ratio Arterial Blood 3.86 %
[2025-05-06 17:27] LABS: Site Drawn RIGHT BRACHIAL
--- NOTE | 2025-05-06 18:29 | P.PNIM_ITS ---
Progress Note: A&P Assessment and Plan (1) Multifocal pneumonia: Code(s): J18.9 - Pneumonia, unspecified organism Status: Acute (2) Acute hypoxemic respiratory failure due to COVID-19: Code(s): U07.1 - COVID-19; J96.01 - Acute respiratory failure with hypoxia Status: Acute (3) Acute kidney injury superimposed on stage 1 chronic kidney disease: Code(s): N17.9 - Acute kidney failure, unspecified; N18.1 - Chronic kidney disease, stage 1 Status: Acute (4) Hypotension: Code(s): I95.9 - Hypotension, unspecified Status: Acute (5) Heart failure with reduced ejection fraction: Code(s): I50.20 - Unspecified systolic (congestive) heart failure Status: Acute (6) Chronic atrial fibrillation: Code(s): I48.20 - Chronic atrial fibrillation, unspecified Status: Acute (7) Thrombocytopenia: Code(s): D69.6 - Thrombocytopenia, unspecified Status: Acute (8) Type 2 diabetes mellitus: Code(s): E11.9 - Type 2 diabetes mellitus without complications Status: Acute (9) Chronic anemia: Code(s): D64.9 - Anemia, unspecified Status: Acute Plan Multifocal pneumonia, COPD exacerbation, acute hypoxemic resp failure Patient has history of COPD Patient was brought in because of shortness of breath CT chest abdomen showed multifocal pneumonia involving bilateral lungs Possible aspiration Received vancomycin ceftriaxone and azithromycin in the ED, continue vancomycin azithromycin and start cefepime Start O2 therapy to keep pulse ox 94 Continue DuoNeb scheduled, albuterol neb bladder q.4 hours p.r.n. DuoNeb 2 puffs b.i.d. Start methylprednisolone 40 mg q.6 hours IV UTI UA showed Pyuria, microscopic hematuria Pending urine culture Antibiotics see above MAYELA on CKD Acute renal failure, GFR 20, stated age 4, above baseline Possible due to dehydration, UTI Received fluid resuscitation and antibiotics see above CT shows no obstruction or hydronephrosis Follow-up BMP Avoid nephrotoxic medication Fecal impaction Start Senokot S2 tabs Fleet enema once and p.r.n. Chronic anemia and chronic thrombocytopenia Likely resulting from chronic achy knees, CKD Hemoglobin and thrombocytopenia lower than baseline, is aggravated by infection Follow-up stool guaiac, ferritin level, iron panel, reticulocyte Hypotension Possible due to hypovolemic hypotension Received fluid resuscitation ED Continue IV fluid 125 mL/hour Diastolic heart failure Patient has hypertension, worsening kidney function Hold diuretic medication and Entresto Hypertension Hold hypertension medication because of hypotension Chronic AFib Continue Eliquis 5 mg b.i.d. p.o. Hold carvedilol 25 mg b.i.d. p.o. because of hypotension Changed to metoprolol 5 mg q.8 hours IV with parameters If but did not continue to drop or guaiac-positive, hold Eliquis sacral decubitus ulcer consult wound care patient with history of COPD presented with worsening cough and shortness of breath, CT of chest showed multifocal pneumonia being treated with Cefepime and Zithromax, for COPD patient is also treated with prednisone and duo neb, patient had acute episode of short of breath,patient was given solumedrol 125mg x1, Lasix 40mg iV x1, which did help patient. patient is seen by child development professor today and agrees with plan and recommended to hold anticoagulation as patient is anemic and had a coffee ground emeisis, patient is seen by GI and suggested EGD to further evaluate which is scheduled for tomorrow, will monitor, I called patient daughter no answer and left the message to call back. Patient may stay more than 2 midnights in hospital consult PT OT health and social care teacher for evaluation and assisting placement. Patient may benefit from rehab in the [facility] after discharge, patient has risk of fall Subjective Date/time seen: 05/06/25 18:29 Interval history: General weakness, painful urination, urinary urgency, shortness breath Narrative: 74 years old man with history of hyperlipidemia, COPD, diastolic CHF, hypertension present ED with a chief complaint of general weakness, painful urination, urgency, productive cough pain and shortness Of breath. Patient has history of COPD, in past 4 days, patient has been worsening productive cough and shortness breath. Patient has yellow greenish sputum. And patient has worsening shortness breath today, patient states he has general weakness, and shortness of restricted his movement. patient denies focal weakness, vision change, slurred speech, abnormal sensation. In past week, patient also has poor intake because of poor appetite. Patient denies nausea vomiting diarrhea fever, chills. Last bowel movement about a week ago. Patient also denies chest pain, palpitation. patient living alone and home. Patient ambulated with walker before the condition change patient with history of COPD presented with worsening cough and shortness of breath, CT of chest showed multifocal pneumonia being treated with Cefepime and Zithromax, for COPD patient is also treated with prednisone and duo neb, patient had acute episode of short of breath,patient was given solumedrol 125mg x1, Lasix 40mg iV x1, which did help patient. patient is seen by child development professor today and agrees with plan and recommended to hold anticoagulation as patient is anemic and had a coffee ground emeisis, patient is seen by GI and suggested EGD to further evaluate which is scheduled for tomorrow, will monitor, I called patient daughter no answer and left the message to call back. Review of Systems Review of Systems: ROS negative except above Exam Narrative: Elderly frail Patient is comfortable, NAD HEENT: eyes are clear and none icteric LUNGS: Bilateral fair entry with rales and rhonchi HEART: RR S1S2 ABD: BS+, Soft and nontender Lower extremities: no edema SKIN: nonjaundiced Neuro: grossly intact. Objective Data Vital Signs Vital Signs: Vital Signs - 24 hr 05/05/25 20:00 05/05/25 20:00 05/05/25 20:00 Temperature 37.1 C Pulse Rate 98 98 96 Respiratory Rate 18 20 Blood Pressure 119/72 Pulse Oximetry 93 100 Oxygen Delivery Nasal Cannula Oxygen Flow Rate 4 05/05/25 20:51 05/05/25 21:32 05/05/25 23:11 Temperature Pulse Rate 96 125 H Respiratory Rate Blood Pressure Pulse Oximetry 100 Oxygen Delivery Nasal Cannula Oxygen Flow Rate 5 05/05/25 23:15 05/06/25 00:00 05/06/25 00:00 Temperature 36.9 C 36.9 C Pulse Rate 103 H 103 H 113 H Respiratory Rate 25 H 20 26 H Blood Pressure 107/87 107/85 Pulse Oximetry 100 100 98 Oxygen Delivery Room Air Oxygen Flow Rate 05/06/25 00:00 05/06/25 00:18 05/06/25 02:00 Temperature 36.9 C Pulse Rate 103 H 113 H 121 H Respiratory Rate 26 H Blood Pressure 134/92 H Pulse Oximetry 98 Oxygen Delivery Oxygen Flow Rate 05/06/25 04:00 05/06/25 04:00 05/06/25 04:00 Temperature 36.6 C Pulse Rate 125 H 121 H 121 H Respiratory Rate 26 H 20 Blood Pressure 103/70 Pulse Oximetry 98 97 Oxygen Delivery Room Air Oxygen Flow Rate 05/06/25 05:00 05/06/25 05:34 05/06/25 05:35 Temperature 36.3 C L Pulse Rate 119 H 108 H 117 H Respiratory Rate 24 H Blood Pressure 122/70 Pulse Oximetry 99 Oxygen Delivery Oxygen Flow Rate 05/06/25 07:18 05/06/25 08:00 05/06/25 08:00 Temperature 36.4 C L Pulse Rate 113 H 81 119 H Respiratory Rate 18 20 Blood Pressure 113/70 Pulse Oximetry 99 94 Oxygen Delivery Room Air Oxygen Flow Rate 05/06/25 08:56 05/06/25 08:56 05/06/25 10:00 Temperature Pulse Rate 81 81 112 H Respiratory Rate 20 20 Blood Pressure Pulse Oximetry 94 Oxygen Delivery Room Air Oxygen Flow Rate 05/06/25 10:08 05/06/25 11:08 05/06/25 12:00 Temperature 36.4 C L Pulse Rate 117 H 119 H 119 H Respiratory Rate 18 18 Blood Pressure 103/64 Pulse Oximetry 98 98 Oxygen Delivery Room Air Oxygen Flow Rate 05/06/25 12:00 05/06/25 14:00 05/06/25 15:55 Temperature 36.3 C L Pulse Rate 108 H 111 H 119 H Respiratory Rate 24 H Blood Pressure 122/57 L Pulse Oximetry 98 Oxygen Delivery Oxygen Flow Rate 05/06/25 16:00 05/06/25 16:00 Temperature Pulse Rate 119 H 109 H Respiratory Rate 24 H Blood Pressure Pulse Oximetry 98 Oxygen Delivery Room Air Oxygen Flow Rate Intake/Output Intake/Output: Intake & Output 05/03/25 05/04/25 05/05/25 05/06/25 23:59 23:59 23:59 23:59 Intake Total 4872.9 3090 380 Output Total 3025 1500 1000 Balance 1847.9 1590 -620 Meds/Results Medications: Active Medications Generic Name Dose Route Start Last Admin Trade Name Freq PRN Reason Stop Dose Admin Hydrocodone Bitart/Acetaminophen 1 tab 05/04/25 21:46 05/05/25 09:06 Hydrocodone/Acetaminophen (*Crx) 10-325 Mg Tablet PO 1 tab Q4H PRN Administration pain Albuterol 1.25 mg 05/04/25 08:35 Albuterol Sulfate Neb 2.5 Mg/3 Ml Inh INHALATION Q4H PRN Dyspnea Allopurinol 200 mg 05/06/25 09:00 05/06/25 08:25 Allopurinol 100 Mg Tablet PO 200 mg DAILY HALLIE Administration Apixaban 5 mg 05/05/25 21:00 05/06/25 08:26 Apixaban 5 Mg Tablet PO 5 mg Q12HR HALLIE Administration Atorvastatin Calcium 80 mg 05/06/25 09:00 05/06/25 08:25 Atorvastatin 40 Mg Tablet PO 80 mg DAILY HALLIE Administration Azithromycin 500 mg 05/06/25 21:00 Azithromycin 250 Mg Tablet PO 05/07/25 21:01 QHS HALLIE Duloxetine HCl 30 mg 05/06/25 09:00 05/06/25 08:26 Duloxetine Hcl 30 Mg Capsule.Dr PO 30 mg DAILY HALLIE Administration Furosemide 40 mg 05/05/25 17:00 05/06/25 16:53 Furosemide 40 Mg Tablet PO 40 mg BID HALLIE Administration Cefepime HCl 2 gm in 50 mls @ 100 mls/hr 05/06/25 19:00 Maxipime 2 Gm/Ns 50 Ml IVPB Q12HR [facility] Methylprednisolone Sodium Succinate 40 mg 05/04/25 11:00 05/06/25 16:53 Methylprednisolone Sod Succ 40 Mg Vial IV PUSH 40 mg Q6HR HALLIE Administration Metoprolol Tartrate 25 mg 05/06/25 10:00 05/06/25 10:08 Metoprolol Tartrate 25 Mg Tablet PO 25 mg Q12HR HALLIE Administration Perflutren Lipid Microsphere 0 ml 05/05/25 15:16 Perflutren Lipid Microspheres 1.5 Ml Vial Diluted To 10 Ml Total Volume IV PUSH 05/08/25 15:16 ONCE PRN adequate visualization Protocol Sacubitril/Valsartan 1 tab 05/05/25 12:00 05/06/25 08:25 Sacubitril/Valsartan 24-26 Mg Tablet PO 1 tab Q12HR HALLIE Administration Fluticasone/Salmeterol 2 puff 05/05/25 20:00 05/06/25 08:55 Fluticasone/Salmeterol 115-21 Mcg Inhaler 1 Puff INHALATION 2 puff Q12HRT HALLIE Administration Senna/Docusate Sodium 2 tab 05/04/25 09:00 05/06/25 16:53 Senna/Docusate Sodium Tablet PO 2 tab BID HALLIE Administration Radiology Results: ITS Impressions Chest/Abdomen/Pelvis CTA 05/04/25 07:24 Impression: Probable multifocal pneumonia, most extensive in the right lower lobe, with lesser involvement in the left lower lobe and right middle lobe. Chronic appearing airspace opacity in the right lung apex, likely reflecting chronic scarring or treated disease/posttreatment change. Fecal impaction/constipation with associated stercoral proctitis. Head CT 05/04/25 07:24 Impression: No significant abnormality seen. Chest X-Ray 05/06/25 17:25 IMPRESSION: Right basilar atelectasis versus pneumonia. Labs Labs: Laboratory Results - last 24 hr 05/04/25 05/06/25 05/06/25 05:17 06:40 11:55 WBC 9.5 RBC 2.39 L Hgb 7.5 L Hct 25.7 L MCV 107.5 H MCH 31.4 MCHC 29.2 L RDW 17.4 H Plt Count 160 D MPV 13.4 H % Immature Plt Fraction 9.7 [id number] Activity 0.57 L Puncture Site ABG pH ABG pCO2 ABG pO2 ABG PO2/FiO2 Ratio ABG HCO3 ABG O2 Saturation ABG O2 Content ABG Base Excess A-a Gradient Oxyhemoglobin Total Hemoglobin O2 Delivery Device O2 Liters/Min FiO2 Sodium 139 Potassium 4.4 Chloride 108 H Carbon Dioxide 11 L Anion Gap 20 H BUN 57 H D Creatinine 2.12 H Estim Creat Clear Calc 35 Estimated GFR 31 L Glucose 176 H Calcium 8.7 Magnesium 2.4 H Gastric Fluid pH 4 Gastric Occult Blood Positive H 05/06/25 17:20 WBC RBC Hgb Hct MCV MCH MCHC RDW Plt Count MPV % Immature Plt Fraction [id number] Activity Puncture Site Right brachial ABG pH 7.410 ABG pCO2 24.3 L ABG pO2 81.0 ABG PO2/FiO2 Ratio 3.86 ABG HCO3 15.1 L ABG O2 Saturation 96.3 ABG O2 Content 14.9 L ABG Base Excess -8.0 A-a Gradient 39.6 Oxyhemoglobin 93.4 Total Hemoglobin 11.3 L O2 Delivery Device Room air O2 Liters/Min Not Reportable FiO2 21 Sodium Potassium Chloride Carbon Dioxide Anion Gap BUN Creatinine Estim Creat Clear Calc Estimated GFR Glucose Calcium Magnesium Gastric Fluid pH Gastric Occult Blood Quality VTE Prophylaxis VTE prophylaxis: pharmacologic ordered
[2025-05-06] MEDS: OLANZapine DISPERTAB 5 MG PO (20:52)
--- NOTE | 2025-05-06 20:54 | PC.NURSE ---
had extensive call with daughter Gwen Kirk regarding the patient neurologic decline since admission. Daughter reports prior history of alcohol abuse, but also states he has not had access to alcohol in the past couple of years. She reports that he primarily lives in his recliner and only gets up to go to the bathroom because of his chronic back pain. She does report consistent use norcos for pain relief. I explained that his altered mental status can have multiple reasons to include infections such as UTIs and pneumonia. Coughing up bloody sputum and bloody emesis are new and he will have an EGD in the AM but his Hemoglobin is low but does not require transfusion. I explained that we will need to see how the infections respond the abx but that we are also concerned with aspiration and will check a swallow study in the AM as well. Discussed code status and given patients debilitation she opts for DNR, but continue to treat. DNR confirmed with Debra MARCUS.
[2025-05-07] VITALS (9 sets, daily range): BP systolic 113–143; BP diastolic 49–109; PULSE 41–129; RESP 20–30; TEMP 36.6–36.8; O2SAT 92–99
[2025-05-07 07:04] LABS: Hematocrit 21.4 % (42.0-52.0); Immature Platelet Fraction Pct 7.3 % (0.9-11.2); Mean Corpuscular HGB Conc 30.4 g/dl (32-36); Mean Corpuscular Hemoglobin 31.9 pg (26-34); Mean Corpuscular Volume 104.9 fl (80-100); Platelet Count Result 137 k/mm3 (150-375); Red Blood Count 2.04 M/mm3 (4.6-6.20); White Blood Count 12.8 K/mm3 (4.5-10.0)
[2025-05-07 07:32] LABS: Anion Gap 13 mmol/L (4-12); Blood Urea Nitrogen 94 mg/dL (9-20); Calcium 8.5 mg/dL (8.4-10.2); Carbon Dioxide 18 mmol/L (22-30); Chloride 115 mmol/L (98-107); Estimated CRCL calculation 37 ml/min; Estimated Glomerular Filt Rate 33; Glucose 189 mg/dL (65-110); Magnesium 2.4 mg/dL (1.6-2.3); Potassium 3.4 mmol/L (3.4-5.0); Sodium 146 mmol/L (137-145)
[2025-05-07 07:40] LABS: Hemoglobin 6.5 g/dL (14.0-18.0)
[2025-05-07] MEDS: FLUTICASONE/SALMETEROL 115-21 MCG INHALER 1 PUFF 2 PUFF INHALATION (08:21)
--- NOTE | 2025-05-07 10:21 | PCSTNOTE ---
Please refer to the Bedside Swallow Evaluation completed this date, in the EMR.
[2025-05-07] MEDS: MORPHINE SULFATE INJ (*CRX) 10 MG/ML AMP 2 MG IV PUSH (10:27)
--- NOTE | 2025-05-07 12:15 | PC.NURSE ---
Pt transferred tp room 304 bed 2. Report given to AMRIT Romero.
--- NOTE | 2025-05-07 12:38 | PC.NURSE ---
This patient, Eric Kirk, was received from IMU on 05/07/25 at 1210. Patient/family oriented to unit policies and routines
[2025-05-07] MEDS: LORazepam INJ (*CRX) 2 MG/ML VIAL IV PUSH ×4 (12:39→22:22)
--- NOTE | 2025-05-07 14:45 | PM.IMPN ---
Progress Note: A&P Assessment and Plan (1) Multifocal pneumonia: Code(s): J18.9 - Pneumonia, unspecified organism Status: Acute (2) Acute hypoxemic respiratory failure due to COVID-19: Code(s): U07.1 - COVID-19; J96.01 - Acute respiratory failure with hypoxia Status: Acute (3) Acute kidney injury superimposed on stage 1 chronic kidney disease: Code(s): N17.9 - Acute kidney failure, unspecified; N18.1 - Chronic kidney disease, stage 1 Status: Acute (4) Hypotension: Code(s): I95.9 - Hypotension, unspecified Status: Acute (5) Heart failure with reduced ejection fraction: Code(s): I50.20 - Unspecified systolic (congestive) heart failure Status: Acute (6) Chronic atrial fibrillation: Code(s): I48.20 - Chronic atrial fibrillation, unspecified Status: Acute (7) Thrombocytopenia: Code(s): D69.6 - Thrombocytopenia, unspecified Status: Acute (8) Type 2 diabetes mellitus: Code(s): E11.9 - Type 2 diabetes mellitus without complications Status: Acute (9) Chronic anemia: Code(s): D64.9 - Anemia, unspecified Status: Acute Plan Multifocal pneumonia, COPD exacerbation, acute hypoxemic resp failure Patient has history of COPD Patient was brought in because of shortness of breath CT chest abdomen showed multifocal pneumonia involving bilateral lungs Possible aspiration Received vancomycin ceftriaxone and azithromycin in the ED, continue vancomycin azithromycin and start cefepime Start O2 therapy to keep pulse ox 94 Continue DuoNeb scheduled, albuterol neb bladder q.4 hours p.r.n. DuoNeb 2 puffs b.i.d. Start methylprednisolone 40 mg q.6 hours IV UTI UA showed Pyuria, microscopic hematuria Pending urine culture Antibiotics see above MAYELA on CKD Acute renal failure, GFR 20, stated age 4, above baseline Possible due to dehydration, UTI Received fluid resuscitation and antibiotics see above CT shows no obstruction or hydronephrosis Follow-up BMP Avoid nephrotoxic medication Fecal impaction Start Senokot S2 tabs Fleet enema once and p.r.n. Chronic anemia and chronic thrombocytopenia Likely resulting from chronic achy knees, CKD Hemoglobin and thrombocytopenia lower than baseline, is aggravated by infection Follow-up stool guaiac, ferritin level, iron panel, reticulocyte Hypotension Possible due to hypovolemic hypotension Received fluid resuscitation ED Continue IV fluid 125 mL/hour Diastolic heart failure Patient has hypertension, worsening kidney function Hold diuretic medication and Entresto Hypertension Hold hypertension medication because of hypotension Chronic AFib Continue Eliquis 5 mg b.i.d. p.o. Hold carvedilol 25 mg b.i.d. p.o. because of hypotension Changed to metoprolol 5 mg q.8 hours IV with parameters If but did not continue to drop or guaiac-positive, hold Eliquis sacral decubitus ulcer consult wound care patient with history of COPD presented with worsening cough and shortness of breath, CT of chest showed multifocal pneumonia being treated with Cefepime and Zithromax, for COPD patient is also treated with prednisone and duo neb, patient had acute episode of short of breath,patient was given solumedrol 125mg x1, Lasix 40mg iV x1, which did help patient. patient is seen by archivist military history today and agrees with plan and recommended to hold anticoagulation as patient is anemic and had a coffee ground emeisis, patient is seen by GI and suggested EGD to further evaluate which is scheduled for tomorrow, will monitor, I called patient daughter no answer and left the message to call back. plan was for the patient to have EGD to evaluate coffee ground emesis, however is more confused, unable to provide any ROS, he is shaking, discussed with his daughter Gwen and patient is now on comfort measure, will monitor and plan. Patient may stay more than 2 midnights in hospital consult PT OT nursing home social worker for evaluation and assisting placement. Patient may benefit from rehab in the shelter after discharge, patient has risk of fall Subjective Date/time seen: 05/07/25 14:45 Interval history: General weakness, painful urination, urinary urgency, shortness breath Narrative: 74 years old man with history of hyperlipidemia, COPD, diastolic CHF, hypertension present ED with a chief complaint of general weakness, painful urination, urgency, productive cough pain and shortness Of breath. Patient has history of COPD, in past 4 days, patient has been worsening productive cough and shortness breath. Patient has yellow greenish sputum. And patient has worsening shortness breath today, patient states he has general weakness, and shortness of restricted his movement. patient denies focal weakness, vision change, slurred speech, abnormal sensation. In past week, patient also has poor intake because of poor appetite. Patient denies nausea vomiting diarrhea fever, chills. Last bowel movement about a week ago. Patient also denies chest pain, palpitation. patient living alone and home. Patient ambulated with walker before the condition change patient with history of COPD presented with worsening cough and shortness of breath, CT of chest showed multifocal pneumonia being treated with Cefepime and Zithromax, for COPD patient is also treated with prednisone and duo neb, patient had acute episode of short of breath,patient was given solumedrol 125mg x1, Lasix 40mg iV x1, which did help patient. patient is seen by archivist military history today and agrees with plan and recommended to hold anticoagulation as patient is anemic and had a coffee ground emeisis, patient is seen by GI and suggested EGD to further evaluate which is scheduled for tomorrow, will monitor, I called patient daughter no answer and left the message to call back. plan was for the patient to have EGD to evaluate coffee ground emesis, however is more confused, unable to provide any ROS, he is shaking, discussed with his daughter Gwen and patient is now on comfort measure, will monitor and plan. Review of Systems Review of Systems: ROS negative except above Exam Narrative: Elderly frail Patient is comfortable, NAD HEENT: eyes are clear and none icteric LUNGS: Bilateral fair entry with rales and rhonchi HEART: RR S1S2 ABD: BS+, Soft and nontender Lower extremities: no edema SKIN: nonjaundiced Neuro: grossly intact. Objective Data Vital Signs Vital Signs: Vital Signs - 24 hr 05/06/25 15:55 05/06/25 16:00 05/06/25 16:00 Temperature 36.3 C L Pulse Rate 119 H 119 H 109 H Respiratory Rate 24 H 24 H Blood Pressure 122/57 L Pulse Oximetry 98 98 Oxygen Delivery Room Air Oxygen Flow Rate Fraction of Inspired Oxygen 05/06/25 18:00 05/06/25 20:00 05/06/25 20:00 Temperature 36.5 C Pulse Rate 127 H 117 H 117 H Respiratory Rate 20 24 H Blood Pressure 111/56 L Pulse Oximetry 100 97 Oxygen Delivery Room Air Oxygen Flow Rate Fraction of Inspired Oxygen 05/06/25 20:00 05/06/25 20:29 05/06/25 20:30 Temperature Pulse Rate 127 H 130 H 130 H Respiratory Rate 20 20 Blood Pressure Pulse Oximetry 97 Oxygen Delivery Nasal Cannula Oxygen Flow Rate 2 Fraction of Inspired Oxygen 28 05/06/25 22:00 05/06/25 23:41 05/07/25 00:00 Temperature Pulse Rate 98 117 H 122 H Respiratory Rate 20 20 Blood Pressure 137/86 Pulse Oximetry 99 99 Oxygen Delivery Room Air Oxygen Flow Rate Fraction of Inspired Oxygen 05/07/25 00:00 05/07/25 03:00 05/07/25 03:30 Temperature Pulse Rate 122 H 118 H 118 H Respiratory Rate 20 Blood Pressure Pulse Oximetry 99 Oxygen Delivery Room Air Oxygen Flow Rate Fraction of Inspired Oxygen 05/07/25 03:30 05/07/25 04:00 05/07/25 06:00 Temperature 36.8 C Pulse Rate 118 H 129 H 102 H Respiratory Rate 22 H Blood Pressure 113/49 L Pulse Oximetry 92 Oxygen Delivery Oxygen Flow Rate Fraction of Inspired Oxygen 05/07/25 08:00 05/07/25 12:47 Temperature 36.8 C Pulse Rate 41 L Respiratory Rate 30 H Blood Pressure 143/109 H Pulse Oximetry 97 Oxygen Delivery Room Air Oxygen Flow Rate Fraction of Inspired Oxygen Intake/Output Intake/Output: Intake & Output 05/04/25 05/05/25 05/06/25 05/07/25 23:59 23:59 23:59 23:59 Intake Total 4872.9 3090 380 Output Total 3025 1500 1150 900 Balance 1847.9 1590 -770 900 Meds/Results Medications: Active Medications Generic Name Dose Route Start Last Admin Trade Name Freq PRN Reason Stop Dose Admin Atropine Sulfate 1 - 2 drop 05/07/25 09:49 Atropine Sulfate 1% Ophth Soln 5 Ml Bottle SUBLINGUAL Q4H PRN Secretions Lorazepam 2 mg 05/07/25 12:20 05/07/25 12:39 Lorazepam Inj (*Crx) 2 Mg/Ml Vial IV PUSH 2 mg Q4H HALLIE Administration Lorazepam 2 mg 05/07/25 12:16 Lorazepam Inj (*Crx) 2 Mg/Ml Vial IV PUSH Q2H PRN Anxiety/Comfort Morphine Sulfate 2 mg 05/07/25 12:20 Morphine Sulfate (*Crx) 2 Mg/Ml Inj IV PUSH Q4H PRN Pain Rated 7-10 Radiology Results: ITS Impressions Chest/Abdomen/Pelvis CTA 05/04/25 07:24 Impression: Probable multifocal pneumonia, most extensive in the right lower lobe, with lesser involvement in the left lower lobe and right middle lobe. Chronic appearing airspace opacity in the right lung apex, likely reflecting chronic scarring or treated disease/posttreatment change. Fecal impaction/constipation with associated stercoral proctitis. Head CT 05/04/25 07:24 Impression: No significant abnormality seen. Chest X-Ray 05/06/25 17:25 IMPRESSION: Right basilar atelectasis versus pneumonia. Labs Labs: Laboratory Results - last 24 hr 05/06/25 05/07/25 05/07/25 17:20 06:51 08:38 WBC 12.8 H RBC 2.04 L Hgb 6.5 L* Hct 21.4 L MCV 104.9 H MCH 31.9 MCHC 30.4 L RDW 17.8 H Plt Count 137 L MPV TNP % Immature Plt Fraction 7.3 Puncture Site Right brachial ABG pH 7.410 ABG pCO2 24.3 L ABG pO2 81.0 ABG PO2/FiO2 Ratio 3.86 ABG HCO3 15.1 L ABG O2 Saturation 96.3 ABG O2 Content 14.9 L ABG Base Excess -8.0 A-a Gradient 39.6 Oxyhemoglobin 93.4 Total Hemoglobin 11.3 L O2 Delivery Device Room air O2 Liters/Min Not Reportable FiO2 21 Sodium 146 H Potassium 3.4 Chloride 115 H Carbon Dioxide 18 L Anion Gap 13 H BUN 94 H D Creatinine 1.99 H Estim Creat Clear Calc 37 Estimated GFR 33 L Glucose 189 H Calcium 8.5 Magnesium 2.4 H Blood Type O Positive Antibody Screen Negative Crossmatch See Detail Quality VTE Prophylaxis VTE prophylaxis: pharmacologic ordered
[2025-05-07] MEDS: MORPHINE SULFATE (*CRX) 2 MG/ML INJ IV PUSH ×2 (15:07→20:05)
[2025-05-08 00:10] VITALS: RESP 28
[2025-05-08] MEDS: MORPHINE SULFATE (*CRX) 2 MG/ML INJ IV PUSH ×2 (00:13→06:04)
[2025-05-08] MEDS: LORazepam INJ (*CRX) 2 MG/ML VIAL IV PUSH ×4 (00:15→13:19)
[2025-05-08 01:12] VITALS: RESP 20
--- NOTE | 2025-05-08 09:05 | PCDIET ---
Nutrition screen for NPO x 5 days. Pt is on comfort measures.
--- NOTE | 2025-05-08 14:07 | P.PNIM_ITS ---
Progress Note: A&P Assessment and Plan (1) Multifocal pneumonia: Code(s): J18.9 - Pneumonia, unspecified organism Status: Acute (2) Acute hypoxemic respiratory failure due to COVID-19: Code(s): U07.1 - COVID-19; J96.01 - Acute respiratory failure with hypoxia Status: Acute (3) Acute kidney injury superimposed on stage 1 chronic kidney disease: Code(s): N17.9 - Acute kidney failure, unspecified; N18.1 - Chronic kidney disease, stage 1 Status: Acute (4) Hypotension: Code(s): I95.9 - Hypotension, unspecified Status: Acute (5) Heart failure with reduced ejection fraction: Code(s): I50.20 - Unspecified systolic (congestive) heart failure Status: Acute (6) Chronic atrial fibrillation: Code(s): I48.20 - Chronic atrial fibrillation, unspecified Status: Acute (7) Thrombocytopenia: Code(s): D69.6 - Thrombocytopenia, unspecified Status: Acute (8) Type 2 diabetes mellitus: Code(s): E11.9 - Type 2 diabetes mellitus without complications Status: Acute (9) Chronic anemia: Code(s): D64.9 - Anemia, unspecified Status: Acute Plan Multifocal pneumonia, COPD exacerbation, acute hypoxemic resp failure Patient has history of COPD Patient was brought in because of shortness of breath CT chest abdomen showed multifocal pneumonia involving bilateral lungs Possible aspiration Received vancomycin ceftriaxone and azithromycin in the ED, continue vancomycin azithromycin and start cefepime Start O2 therapy to keep pulse ox 94 Continue DuoNeb scheduled, albuterol neb bladder q.4 hours p.r.n. DuoNeb 2 puffs b.i.d. Start methylprednisolone 40 mg q.6 hours IV UTI UA showed Pyuria, microscopic hematuria Pending urine culture Antibiotics see above MAYELA on CKD Acute renal failure, GFR 20, stated age 4, above baseline Possible due to dehydration, UTI Received fluid resuscitation and antibiotics see above CT shows no obstruction or hydronephrosis Follow-up BMP Avoid nephrotoxic medication Fecal impaction Start Senokot S2 tabs Fleet enema once and p.r.n. Chronic anemia and chronic thrombocytopenia Likely resulting from chronic achy knees, CKD Hemoglobin and thrombocytopenia lower than baseline, is aggravated by infection Follow-up stool guaiac, ferritin level, iron panel, reticulocyte Hypotension Possible due to hypovolemic hypotension Received fluid resuscitation ED Continue IV fluid 125 mL/hour Diastolic heart failure Patient has hypertension, worsening kidney function Hold diuretic medication and Entresto Hypertension Hold hypertension medication because of hypotension Chronic AFib Continue Eliquis 5 mg b.i.d. p.o. Hold carvedilol 25 mg b.i.d. p.o. because of hypotension Changed to metoprolol 5 mg q.8 hours IV with parameters If but did not continue to drop or guaiac-positive, hold Eliquis sacral decubitus ulcer consult wound care patient with history of COPD presented with worsening cough and shortness of breath, CT of chest showed multifocal pneumonia being treated with Cefepime and Zithromax, for COPD patient is also treated with prednisone and duo neb, patient had acute episode of short of breath,patient was given solumedrol 125mg x1, Lasix 40mg iV x1, which did help patient. patient is seen by governor assembler hydraulic today and agrees with plan and recommended to hold anticoagulation as patient is anemic and had a coffee ground emeisis, patient is seen by GI and suggested EGD to further evaluate which is scheduled for tomorrow, will monitor, I called patient daughter no answer and left the message to call back. plan was for the patient to have EGD to evaluate coffee ground emesis, however was more confused, unable to provide any ROS, he is shaking, discussed with his daughter Gwen and patient was on comfort measure, patient remains stable, will continue comfort measures, will monitor and plan. Patient may stay more than 2 midnights in hospital consult PT OT social science research assistant for evaluation and assisting placement. Patient may benefit from rehab in the correction after discharge, patient has risk of fall Subjective Date/time seen: 05/08/25 14:07 Interval history: General weakness, painful urination, urinary urgency, shortness breath Narrative: 74 years old man with history of hyperlipidemia, COPD, diastolic CHF, hypertension present ED with a chief complaint of general weakness, painful urination, urgency, productive cough pain and shortness Of breath. Patient has history of COPD, in past 4 days, patient has been worsening productive cough and shortness breath. Patient has yellow greenish sputum. And patient has worsening shortness breath today, patient states he has general weakness, and shortness of restricted his movement. patient denies focal weakness, vision change, slurred speech, abnormal sensation. In past week, patient also has poor intake because of poor appetite. Patient denies nausea vomiting diarrhea fever, chills. Last bowel movement about a week ago. Patient also denies chest pain, palpitation. patient living alone and home. Patient ambulated with walker before the condition change patient with history of COPD presented with worsening cough and shortness of breath, CT of chest showed multifocal pneumonia being treated with Cefepime and Zithromax, for COPD patient is also treated with prednisone and duo neb, patient had acute episode of short of breath,patient was given solumedrol 125mg x1, Lasix 40mg iV x1, which did help patient. patient is seen by governor assembler hydraulic today and agrees with plan and recommended to hold anticoagulation as patient is anemic and had a coffee ground emeisis, patient is seen by GI and suggested EGD to further evaluate which is scheduled for tomorrow, will monitor, I called patient daughter no answer and left the message to call back. plan was for the patient to have EGD to evaluate coffee ground emesis, however was more confused, unable to provide any ROS, he is shaking, discussed with his daughter Gwen and patient was on comfort measure, patient remains stable, will continue comfort measures, will monitor and plan. Review of Systems Review of Systems: ROS negative except above Exam Narrative: Elderly frail Patient is comfortable, NAD HEENT: eyes are clear and none icteric LUNGS: Bilateral fair entry with rales and rhonchi HEART: RR S1S2 ABD: BS+, Soft and nontender Lower extremities: no edema SKIN: nonjaundiced Neuro: grossly intact. Objective Data Vital Signs Vital Signs: Vital Signs - 24 hr 05/07/25 19:57 05/07/25 20:09 05/07/25 20:44 Temperature 36.6 C 36.6 C Pulse Rate 98 98 Respiratory Rate 28 H 28 H Blood Pressure 119/67 119/67 Pulse Oximetry 95 96 96 Oxygen Delivery Room Air 05/08/25 00:10 05/08/25 01:12 05/08/25 08:00 Temperature Pulse Rate Respiratory Rate 28 H 20 Blood Pressure Pulse Oximetry Oxygen Delivery Room Air Intake/Output Intake/Output: Intake & Output 05/05/25 05/06/25 05/07/25 05/08/25 23:59 23:59 23:59 23:59 Intake Total 3090 380 Output Total 1500 1150 1700 1150 Balance 1590 -770 -1700 -1150 Meds/Results Medications: Active Medications Generic Name Dose Route Start Last Admin Trade Name Freq PRN Reason Stop Dose Admin Atropine Sulfate 1 - 2 drop 05/07/25 09:49 Atropine Sulfate 1% Ophth Soln 5 Ml Bottle SUBLINGUAL Q4H PRN Secretions Lorazepam 2 mg 05/07/25 12:20 05/08/25 13:19 Lorazepam Inj (*Crx) 2 Mg/Ml Vial IV PUSH 2 mg Q4H HALLIE Administration Lorazepam 2 mg 05/07/25 12:16 05/07/25 22:22 Lorazepam Inj (*Crx) 2 Mg/Ml Vial IV PUSH 2 mg Q2H PRN Administration Anxiety/Comfort Morphine Sulfate 2 mg 05/07/25 12:20 05/08/25 06:04 Morphine Sulfate (*Crx) 2 Mg/Ml Inj IV PUSH 2 mg Q4H PRN Administration Pain Rated 7-10 Radiology Results: ITS Impressions Chest/Abdomen/Pelvis CTA 05/04/25 07:24 Impression: Probable multifocal pneumonia, most extensive in the right lower lobe, with lesser involvement in the left lower lobe and right middle lobe. Chronic appearing airspace opacity in the right lung apex, likely reflecting chronic scarring or treated disease/posttreatment change. Fecal impaction/constipation with associated stercoral proctitis. Head CT 05/04/25 07:24 Impression: No significant abnormality seen. Chest X-Ray 05/06/25 17:25 IMPRESSION: Right basilar atelectasis versus pneumonia. Quality VTE Prophylaxis VTE prophylaxis: pharmacologic ordered
--- NOTE | 2025-05-08 15:32 | PM.DDS ---
Discharge Summary Probable Cause of Probable Cause of : Multifocal pneumonia Summary Hospital Course: patient with history of COPD presented with worsening cough and shortness of breath, CT of chest showed multifocal pneumonia being treated with Cefepime and Zithromax, for COPD patient is also treated with prednisone and duo neb, patient had acute episode of short of breath,patient was given solumedrol 125mg x1, Lasix 40mg iV x1, which did help patient. patient is seen by tank crewmember today and agrees with plan and recommended to hold anticoagulation as patient is anemic and had a coffee ground emeisis, patient is seen by GI and suggested EGD to further evaluate which is scheduled for tomorrow, will monitor, I called patient daughter no answer and left the message to call back. plan was for the patient to have EGD to evaluate coffee ground emesis, however was more confused, unable to provide any ROS, he is shaking, discussed with his daughter Gwen and patient was on comfort measure, patient remains stable, will continue comfort measures, will monitor and plan. patient passed on 05/08/25
== END 2025-05-08 14:55 | disposition expired | DRG 193 ==
LOC: ANHED 07:45 → ANHIMU 09:55 → ANH3MEDSUR 05-11 14:14 → ANHIMU 05-11 14:14
PROVIDERS: Hospitalist; Student in an Organized Health Care Education/Training Program; Admitting Provider Internal Medicine; Emergency Provider Emergency Medicine; PCP Internal Medicine; Visit Provider Family Medicine
DX: J18.9 Pneumonia, unspecified organism (principal); J96.01 Acute respiratory failure with hypoxia; E87.21 Acute metabolic acidosis; I48.20 Chronic atrial fibrillation, unspecified; J44.0 Chronic obstructive pulmonary disease with (acute) lower respiratory infection; J96.11 Chronic respiratory failure with hypoxia; N17.9 Acute kidney failure, unspecified; J44.1 Chronic obstructive pulmonary disease with (acute) exacerbation; I13.2 Hypertensive heart and chronic kidney disease with heart failure and with stage 5 chronic kidney disease, or end stage renal disease; N18.5 Chronic kidney disease, stage 5; K92.0 Hematemesis; I42.9 Cardiomyopathy, unspecified; I50.22 Chronic systolic (congestive) heart failure; E11.22 Type 2 diabetes mellitus with diabetic chronic kidney disease; E11.42 Type 2 diabetes mellitus with diabetic polyneuropathy; J69.0 Pneumonitis due to inhalation of food and vomit; I11.0 Hypertensive heart disease with heart failure; G47.33 Obstructive sleep apnea (adult) (pediatric); R33.9 Retention of urine, unspecified; D64.9 Anemia, unspecified; D69.6 Thrombocytopenia, unspecified; L89.159 Pressure ulcer of sacral region, unspecified stage; D50.9 Iron deficiency anemia, unspecified; R31.0 Gross hematuria; E86.0 Dehydration; K56.41 Fecal impaction; F12.90 Cannabis use, unspecified, uncomplicated; Z79.01 Long term (current) use of anticoagulants; Z85.118 Personal history of other malignant neoplasm of bronchus and lung; Z99.81 Dependence on supplemental oxygen; Z98.1 Arthrodesis status; Z87.891 Personal history of nicotine dependence; Z20.822 Contact with and (suspected) exposure to COVID-19
CPT/HCPCS: 36415; 36600; 70450; 71045; 71275; 74177; 80048; 80053; 80307; 81001; 82140; 82271; 82550; 82728; 82805; 83540; 83550; 83605; 83690; 83735; 83880; 83986; 84443; 84484; 85018; 85025; 85027; 85046; 85055; 85380; 85397; 85610; 85730; 86140; 86850; 86900; 86901; 86923; 87040; 87086; 87637; 87641; 92610; 93005; 93306; 94640; 96365; 96366; 96367; 96368; 96372; 96375; 99291; A9270; J0456; J0616; J0692; J0696; J1938; J2060; J2270; J2919; J3010; J3360; J3370; J7030; J7040; Q9967